=== PATIENT | female | born 1975 | race American Indian/Alaskan Native ===

== ENCOUNTER 2018-01-08 20:21 | Emergency (ER) | payer OTHER ==
[2018-01-08] MEDS ORDERED: TYLENOL PO ONE (21:00)
[2018-01-08] MEDS ORDERED: MOTRIN PO ONE (21:00)
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
[2018-01-08 21:14] VITALS: BP 161/98
== END 2018-01-08 21:28 | disposition home or self-care (01) ==
LOC: ED 20:21
DX: M54.2 Cervicalgia (principal); F17.200 Nicotine dependence, unspecified, uncomplicated; I10 Essential (primary) hypertension
CPT/HCPCS: 99282

== ENCOUNTER 2018-11-04 15:08 | Inpatient (IN) | payer MEDICAID, OTHER ==
[2018-11-04] MEDS ORDERED: TORADOL IV ONE (16:06)
[2018-11-04] MEDS ORDERED: ZOFRAN IV ONE (16:06)
[2018-11-04] MEDS ORDERED: NACL 0.9% 1000 ML 1,000 ML IV ONE (16:06)
[2018-11-04] MEDS ORDERED: PEPCID IV ONE (16:06)
--- NOTE | 2018-11-04 16:14 | Emergency Department Report ---
<JAKE SPAULDING - Last Filed: 11/04/18 16:12> ED General Adult HPI - General Chief complaint: Weakness Stated complaint: VOMITING/WEAKNESS/NO APPETITE Time Seen by Provider: 11/04/18 16:00 Source: patient Mode of arrival: Ambulatory Limitations: No Limitations - History of Present Illness Initial comments: Patient is a 43-year-old female who is presenting with weakness for approximately a week. Patient states she's been having some epigastric discomfort that she states is a gas-like pain as well. Patient has had some nausea with several episodes of vomiting. Patient states she has not had a bowel movement in approximately week and a half has passed very little flatus. Patient states she feels as though her abdomen is distended. Patient states pain in the epigastrium is 8 out of 10 in severity. Patient denies any fevers chills cough cold congestion at this time. - Related Data Previous Rx's Medication Instructions Recorded Last Taken Type Albuterol Sulfate [Ventolin HFA] 2 puff IH Q4H PRN #1 hfa.aer.ad 08/14/14 Unknown Rx Azithromycin [Zithromax Z-YAHAIRA] 250 mg PO DAILY #6 tablet 08/14/14 Unknown Rx Labetalol [Normodyne TAB] 100 mg PO BID #60 tablet 08/14/14 Unknown Rx Fluticasone [Flonase] 1 spray NS QDAY #1 bottle 05/26/16 Unknown Rx hydroCHLOROthiazide [HCTZ] 25 mg PO QDAY #30 tablet 05/26/16 Unknown Rx Acetaminophen [Tylenol Arthritis] 650 mg PO Q6HR PRN #30 tablet.er 01/08/18 Unknown Rx Ibuprofen [Motrin] 600 mg PO Q8H PRN #30 tablet 01/08/18 Unknown Rx ALBUTEROL Inhaler(NF) [VENTOLIN 1 puff IH Q1D PRN #1 inha 10/07/18 Unknown Rx Inhaler(NF)] Amoxicillin [Trimox CAP] 500 mg PO Q8H #30 capsule 10/07/18 Unknown Rx Benzonatate [Tessalon Perle] 100 mg PO TID #15 capsule 10/07/18 Unknown Rx Prednisone [predniSONE 5 mg (6-Day 5 mg PO .TAPER #1 tab.ds.pk 10/07/18 Unknown Rx Pack, 21 Tabs)] Allergies Allergy/AdvReac Type Severity Reaction Status Date / Time No Known Allergies Allergy Verified 09/14/13 21:31 ED Review of Systems Comment: All other systems reviewed and negative ED Past Medical Hx - Past Medical History Hx Hypertension: Yes Hx Congestive Heart Failure: No Hx Diabetes: No Hx Deep Vein Thrombosis: No Hx Renal Disease: No Hx Sickle Cell Disease: No Hx Seizures: No Hx Asthma: No Hx COPD: No Hx HIV: No - Surgical History Hx Cholecystectomy: Yes - Social History Smoking Status: Current Every Day Smoker Substance Use Type: Alcohol - Medications Home Medications: Home Medications Medication Instructions Recorded Confirmed Last Taken Type Albuterol Sulfate [Ventolin HFA] 2 puff IH Q4H PRN #1 hfa.aer.ad 08/14/14 Unknown Rx Azithromycin [Zithromax Z-YAHAIRA] 250 mg PO DAILY #6 tablet 08/14/14 Unknown Rx Labetalol [Normodyne TAB] 100 mg PO BID #60 tablet 08/14/14 Unknown Rx Fluticasone [Flonase] 1 spray NS QDAY #1 bottle 05/26/16 Unknown Rx hydroCHLOROthiazide [HCTZ] 25 mg PO QDAY #30 tablet 05/26/16 Unknown Rx Acetaminophen [Tylenol Arthritis] 650 mg PO Q6HR PRN #30 tablet.er 01/08/18 Unknown Rx Ibuprofen [Motrin] 600 mg PO Q8H PRN #30 tablet 01/08/18 Unknown Rx ALBUTEROL Inhaler(NF) [VENTOLIN 1 puff IH Q1D PRN #1 inha 10/07/18 Unknown Rx Inhaler(NF)] Amoxicillin [Trimox CAP] 500 mg PO Q8H #30 capsule 10/07/18 Unknown Rx Benzonatate [Tessalon Perle] 100 mg PO TID #15 capsule 10/07/18 Unknown Rx Prednisone [predniSONE 5 mg (6-Day 5 mg PO .TAPER #1 tab.ds.pk 10/07/18 Unknown Rx Pack, 21 Tabs)] ED Physical Exam - General Limitations: No Limitations General appearance: alert, in no apparent distress - Head Head exam: Present: atraumatic, normocephalic - Eye Eye exam: Present: normal appearance - ENT ENT exam: Present: mucous membranes moist - Neck Neck exam: Present: normal inspection - Respiratory Respiratory exam: Present: normal lung sounds bilaterally. Absent: respiratory distress, wheezes, rales, rhonchi - Cardiovascular Cardiovascular Exam: Present: regular rate, normal rhythm. Absent: systolic murmur, diastolic murmur, rubs, gallop - GI/Abdominal GI/Abdominal exam: Present: soft, tenderness (epigastric), normal bowel sounds, hypoactive bowel sounds. Absent: distended, guarding, rebound, rigid - Extremities Exam Extremities exam: Present: normal inspection - Back Exam Back exam: Present: normal inspection - Neurological Exam Neurological exam: Present: alert, oriented X3 - Psychiatric Psychiatric exam: Present: normal affect, normal mood - Skin Skin exam: Present: warm, dry, intact, normal color. Absent: rash ED Disposition Clinical Impression: Liver disease Bilateral pneumonia Qualifiers: Pneumonia type: due to unspecified organism Lung location: lower lobe of lung Qualified Code(s): J18.1 - Lobar pneumonia, unspecified organism Disposition: OP ADMIT IP TO THIS HOSP Condition: Stable Instructions: Bacterial Pneumonia (ED) Referrals: PRIMARY CARE, [Primary Care Provider] - 3-5 Days <MARII PETERS - Last Filed: 11/04/18 21:32> ED Review of Systems ROS: Stated complaint: VOMITING/WEAKNESS/NO APPETITE Other details as noted in HPI ED Course Vital Signs 11/04/18 11/04/18 15:20 16:35 Temperature 98.9 F Pulse Rate 105 H Respiratory 16 18 Rate Blood Pressure 143/108 O2 Sat by Pulse 100 Oximetry - Consultations Consultation #1: 11/04/18 21:29 Dr Raji Colby to admit patient. ED Medical Decision Making - Lab Data Result diagrams: 11/04/18 17:09 11/04/18 17:09 Lab Results 11/04/18 11/04/18 11/04/18 Range/Units 17:09 17:09 17:09 WBC 4.4 L (4.5-11.0) K/mm3 RBC 4.51 (3.65-5.03) M/mm3 Hgb 10.4 (10.1-14.3) gm/dl Hct 34.3 (30.3-42.9) % MCV 76 L (79-97) fl MCH 23 L (28-32) pg MCHC 30 (30-34) % RDW 22.7 H (13.2-15.2) % Plt Count 310 (140-440) K/mm3 Lymph % (Auto) 16.2 (13.4-35.0) % Yell % (Auto) 10.7 H (0.0-7.3) % Eos % (Auto) 0.0 (0.0-4.3) % Baso % (Auto) 0.6 (0.0-1.8) % Lymph # 0.7 L (1.2-5.4) K/mm3 Yell # 0.5 (0.0-0.8) K/mm3 Eos # 0.0 (0.0-0.4) K/mm3 Baso # 0.0 (0.0-0.1) K/mm3 Seg Neutrophils % 72.5 H (40.0-70.0) % Seg Neutrophils # 3.2 (1.8-7.7) K/mm3 Sodium 128 L (137-145) mmol/L Potassium 4.1 (3.6-5.0) mmol/L Chloride 95.6 L (98-107) mmol/L Carbon Dioxide 15 L (22-30) mmol/L Anion Gap 22 mmol/L BUN 15 (7-17) mg/dL Creatinine 1.2 (0.7-1.2) mg/dL Estimated GFR 60 ml/min BUN/Creatinine Ratio 13 % Glucose 100 (65-100) mg/dL Calcium 8.3 L (8.4-10.2) mg/dL Total Bilirubin 0.50 (0.1-1.2) mg/dL AST 41 H (5-40) units/L ALT 55 (7-56) units/L Alkaline Phosphatase 136 H (35-129) units/L Total Protein 6.7 (6.3-8.2) g/dL Albumin 2.3 L (3.9-5) g/dL Albumin/Globulin Ratio 0.5 % Lipase 12 L (13-60) units/L HCG, Qual Negative (Negative) Urine Color (Yellow) Urine Turbidity (Clear) Urine pH (5.0-7.0) Ur Specific [place] (1.003-1.030) Urine Protein (Negative) mg/dL Urine Glucose (UA) (Negative) mg/dL Urine Ketones (Negative) mg/dL Urine Blood (Negative) Urine Nitrite (Negative) Urine Bilirubin (Negative) Urine Urobilinogen (<2.0) mg/dL Ur Leukocyte Esterase (Negative) Urine WBC (Auto) (0.0-6.0) /HPF Urine RBC (Auto) (0.0-6.0) /HPF U Epithel Cells (Auto) (0-13.0) /HPF Urine Bacteria (Auto) (Negative) /HPF Urine Mucus /HPF 11/04/18 Range/Units 19:00 WBC (4.5-11.0) K/mm3 RBC (3.65-5.03) M/mm3 Hgb (10.1-14.3) gm/dl Hct (30.3-42.9) % MCV (79-97) fl MCH (28-32) pg MCHC (30-34) % RDW (13.2-15.2) % Plt Count (140-440) K/mm3 Lymph % (Auto) (13.4-35.0) % Yell % (Auto) (0.0-7.3) % Eos % (Auto) (0.0-4.3) % Baso % (Auto) (0.0-1.8) % Lymph # (1.2-5.4) K/mm3 Yell # (0.0-0.8) K/mm3 Eos # (0.0-0.4) K/mm3 Baso # (0.0-0.1) K/mm3 Seg Neutrophils % (40.0-70.0) % Seg Neutrophils # (1.8-7.7) K/mm3 Sodium (137-145) mmol/L Potassium (3.6-5.0) mmol/L Chloride (98-107) mmol/L Carbon Dioxide (22-30) mmol/L Anion Gap mmol/L BUN (7-17) mg/dL Creatinine (0.7-1.2) mg/dL Estimated GFR ml/min BUN/Creatinine Ratio % Glucose (65-100) mg/dL Calcium (8.4-10.2) mg/dL Total Bilirubin (0.1-1.2) mg/dL AST (5-40) units/L ALT (7-56) units/L Alkaline Phosphatase (35-129) units/L Total Protein (6.3-8.2) g/dL Albumin (3.9-5) g/dL Albumin/Globulin Ratio % Lipase (13-60) units/L HCG, Qual (Negative) Urine Color [place] (Yellow) Urine Turbidity Slightly-cloudy (Clear) Urine pH 5.0 (5.0-7.0) Ur Specific [place] > 1.030 H (1.003-1.030) Urine Protein 100 mg/dl (Negative) mg/dL Urine Glucose (UA) Neg (Negative) mg/dL Urine Ketones Neg (Negative) mg/dL Urine Blood Neg (Negative) Urine Nitrite Neg (Negative) Urine Bilirubin Neg (Negative) Urine Urobilinogen < 2.0 (<2.0) mg/dL Ur Leukocyte Esterase Sm (Negative) Urine WBC (Auto) 7.0 H (0.0-6.0) /HPF Urine RBC (Auto) 10.0 (0.0-6.0) /HPF U Epithel Cells (Auto) 14.0 H (0-13.0) /HPF Urine Bacteria (Auto) 1+ (Negative) /HPF Urine Mucus Few /HPF - Radiology Data Radiology results: report reviewed, image reviewed CT abdomen and pelvis showed Nutmeg liver and bilateral infiltrates with small effusion. - Medical Decision Making Bilateral Pneumonia. Critical care attestation.: If time is entered above; I have spent that time in minutes in the direct care of this critically ill patient, excluding procedure time. ED Disposition Is pt being admited?: Yes Does the pt Need Aspirin: No Time of Disposition: 21:32
[2018-11-04 17:28] LABS: Basophils % (Auto) 0.6 % (0.0-1.8); Hemoglobin 10.4 gm/dl (10.1-14.3); Lymphocytes # (Auto) 0.7 K/mm3 (1.2-5.4); Lymphocytes % (Auto) 16.2 % (13.4-35.0); Mean Corpuscular HGB Conc 30 % (30-34); Mean Corpuscular Volume 76 fl (79-97); Monocytes # (Auto) 0.5 K/mm3 (0.0-0.8); Monocytes % (Auto) 10.7 % (0.0-7.3); Platelet Count 310 K/mm3 (140-440); Red Blood Count 4.51 M/mm3 (3.65-5.03)
[2018-11-04 17:29] LABS: Hematocrit 34.3 % (30.3-42.9); Red Cell Distribution Width 22.7 % (13.2-15.2)
[2018-11-04 17:56] LABS: Albumin 2.3 g/dL (3.9-5); Calcium 8.3 mg/dL (8.4-10.2)
[2018-11-04 19:24] LABS: Bacteria,Urine 1+ /HPF (Negative); Bilirubin,Urine NEG (Negative); Blood,Urine NEG (Negative); Color,Urine Amber (Yellow); Mucus,Urine FEW /HPF; Urobilinogen,Urine < 2.0 mg/dL (<2.0)
--- NOTE | 2018-11-04 19:59 | Cat Scan Report ---
FINAL REPORT EXAM: CT ABDOMEN PELVIS W CON HISTORY: eigastric pain with N and abd distention TECHNIQUE: Axial images were performed from the lung bases to the pubic symphysis. Multiplanar refor mats are performed on the acquisition scanner. Comparison: Chest x-ray 10/13/2018, 10/06/2018 FINDINGS: There is marked cardiomegaly with dilatation of the chambers. Patchy right greater than left lower lobe dense infiltrates. Right middle lobe infiltrate and consoli dation. Small left pleural effusion. Hepatic veins are congested compatible with congestive heart failure. The liver is enlarged and has a nutmeg appearance. Congestive hepatology cannot be excluded. There is anasarca of the body wall and generalized edema. Spleen is not enlarged. Normal enhancement of the aorta and mesenteric vessels. Surgically absent gallbladder. Pancreas is grossly unremarkable. Adrenal glands are obscured. Normal enhancement of the kidneys. Retroperitoneum is ill-defined. Free fluid in the bony pelvis. Urinary bladder is minimally distended. Normally anteverted uterus. Left ovarian 3 centimeter cyst. A right adnexal 1.6 centimeter cyst is p resent. Delayed phase images demonstrate peripheral posterior segment right lobe liver and lateral segment le ft lobe liver marked heterogeneity. Portal vein phase was not performed, only the arterial phase was performed. There is fluid in both paracolic gutters. There appears to be developmental variant of both kidneys without discrete perfusion defect of mild l obular area the cortices. The liver is enlarged measuring 21 centimeters. Decompressed ascending colon. Normal appendix right lower quadrant. IMPRESSION: Bilateral lower lobe and right middle lobe pneumonia, most severe in the right lower lobe. Bronchial wall thickening. Dilated cardiomyopathy with distension of the inferior vena cava and hepatic veins. Hepatomegaly with nutmeg appearance of the liver. No portal vein phase was performed and therefore portal vein patency cannot be established. Hepatic veins are patent. Findings are most compatible with congestive hepato [place]. Budd Chiari is felt to be less likely but the intrahepatic hepatic veins cannot be assessed. Small layering left pleural effusion. Small to moderate pericardial effusion incompletely assessed. Small ascites. Anasarca. Findings were discussed with MARIUSZ Carlisle on 11/04/2018 at 1953 hours Eastern Standard time. Pat ient has no known prior history. Would recommend cardiac workup to include cardiac echo, optimization of cardiac output to improve congestive failure and congestive hepatopathy, correlation with LFTs. Consider liver Doppler to assess portal veins and hepatic veins for patency. Bilateral adnexal cysts presumably physiologic. Surgically absent gallbladder.
[2018-11-04] MEDS ORDERED: ZITHROMAX 500 MG in NACL 0.9% 250ML 250 ML IV ONE (21:28)
[2018-11-04] MEDS ORDERED: ROCEPHIN/NS 1 GM/50 ML 1 GM/50 ML BAG IV ONE (21:28)
[2018-11-04] MEDS ORDERED: TESSALON PERLES PO ONE (23:22)
[2018-11-04] MEDS ORDERED: MORPHINE IV ONE (23:25)
[2018-11-04] MEDS ORDERED: MORPHINE ONE (23:42)
--- NOTE | 2018-11-04 23:47 | History and Physical Report ---
History of Present Illness Date of examination: 11/04/18 History of present illness: 43-year-old woman with a history of hypertension comes emergency room with complaint of abdominal pain all over 1 month. She describes the pain as sharp, constant, intensity 8/10, no radiation, she is been taking [id number] pain medication with some relief. Over the last 2 weeks she is having nausea vomiting, unable to tolerate oral intake. Denies any fever or chills. Also states she's been having shortness of breath 1 week, PND, orthopnea and swelling in her legs Review of systems Constitutional: no weight loss, chills, fever Ears, eyes, nose, mouth and throat: no nasal congestion, no nasal discharge, no sinus pressure, no vision change, no red eye. Neck: No neck pain or rigidity. Cardiovascular: no palpitations, chest pain Respiratory: no cough,+ shortness of breath Gastrointestinal: no hematochezia, +abdominal pain Genitourinary : no frequency , no hematuria Musculoskeletal: no joint swelling or muscle ache Integumentary: no rash, no pruritis Neurological: no parathesias, no focal weakness Endocrine: no cold or heat intolerance, no polyuria or polydipsia Hematologic/Lymphatic: no easy bruising, no easy bleeding, no gland swelling Allergic/Immunologic: no urticaria, no angioedema. 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 FAMILY HISTORY: Hypertension Medications and Allergies Allergies Allergy/AdvReac Type Severity Reaction Status Date / Time No Known Allergies Allergy Verified 09/14/13 21:31 Home Medications Medication Instructions Recorded Confirmed Last Taken Type Albuterol Sulfate [Ventolin HFA] 2 puff IH Q4H PRN #1 hfa.aer.ad 08/14/14 Unknown Rx Azithromycin [Zithromax Z-YAHAIRA] 250 mg PO DAILY #6 tablet 08/14/14 Unknown Rx Labetalol [Normodyne TAB] 100 mg PO BID #60 tablet 08/14/14 Unknown Rx Fluticasone [Flonase] 1 spray NS QDAY #1 bottle 05/26/16 Unknown Rx hydroCHLOROthiazide [HCTZ] 25 mg PO QDAY #30 tablet 05/26/16 Unknown Rx Acetaminophen [Tylenol Arthritis] 650 mg PO Q6HR PRN #30 tablet.er 01/08/18 Unknown Rx Ibuprofen [Motrin] 600 mg PO Q8H PRN #30 tablet 01/08/18 Unknown Rx ALBUTEROL Inhaler(NF) [VENTOLIN 1 puff IH Q1D PRN #1 inha 10/07/18 Unknown Rx Inhaler(NF)] Amoxicillin [Trimox CAP] 500 mg PO Q8H #30 capsule 10/07/18 Unknown Rx Benzonatate [Tessalon Perle] 100 mg PO TID #15 capsule 10/07/18 Unknown Rx Prednisone [predniSONE 5 mg (6-Day 5 mg PO .TAPER #1 tab.ds.pk 10/07/18 Unknown Rx Pack, 21 Tabs)] Exam - Physical Exam Narrative exam: General Apperance: The patient lying in bed, breathing comfortable HEENT: Normocephalic, atraumatic. Pupils equally round and reactive to light, EOMI, no sclericterus or JVD or thyromegaly or nodule. , no carotid bruit, m ucous membranes moist, no exudate or erythema Heart: S1-S2, regular is rhythm Lungs: Crackles auscultation bilaterally, breathing comfortable Abdomen: Positive bowel sounds, soft, tender in the epigastric area, nondistended, no organomegaly Extremities: + edema cyanosis clubbing Skin: no rash, nodule, warm and dry Neuro: cranial nerves 2-12 intact, speech is fluent, motor/sensory intact - Constitutional Vitals: Temp Pulse Resp BP Pulse Ox 98.9 F 105 H 19 143/108 100 11/04/18 15:20 11/04/18 15:20 11/04/18 23:01 11/04/18 15:20 11/04/18 23:01 Results - Labs CBC & Chem 7: 11/05/18 05:13 11/05/18 05:13 Labs: Abnormal lab results 11/04/18 11/04/18 11/04/18 Range/Units 17:09 17:09 19:00 WBC 4.4 L (4.5-11.0) K/mm3 MCV 76 L (79-97) fl MCH 23 L (28-32) pg RDW 22.7 H (13.2-15.2) % [place] % (Auto) 10.7 H (0.0-7.3) % Lymph # 0.7 L (1.2-5.4) K/mm3 Seg Neutrophils % 72.5 H (40.0-70.0) % Sodium 128 L (137-145) mmol/L Chloride 95.6 L (98-107) mmol/L Carbon Dioxide 15 L (22-30) mmol/L Calcium 8.3 L (8.4-10.2) mg/dL AST 41 H (5-40) units/L Alkaline Phosphatase 136 H (35-129) units/L Albumin 2.3 L (3.9-5) g/dL Lipase 12 L (13-60) units/L Ur Specific [place] > 1.030 H (1.003-1.030) Urine WBC (Auto) 7.0 H (0.0-6.0) /HPF U Epithel Cells (Auto) 14.0 H (0-13.0) /HPF - Imaging and Cardiology CT scan - abdomen: report reviewed CT scan - pelvis: report reviewed Assessment and Plan Assessment New onset CHF, probably diastolic Community acquired pneumonia Hypertension Plan Admit to medicine Diurese with IV Lasix Hold beta josé miguel, DANA inhibitor, blood pressure will not tolerate Start low-dose aspirin, check cardiac enzymes, echo, consult cardiology Monitor daily weights, I's and O's Start IV Levaquin, obtain blood cultures DVT prophylaxis
[2018-11-05] MEDS ORDERED: ZOFRAN IV PRN (05:06)
[2018-11-05] MEDS ORDERED: SODIUM CHLORIDE FLUSH SYRINGE 10 ML IV PRN (05:06)
[2018-11-05] MEDS: MORPHINE IV PRN ×3 (05:09→20:57)
[2018-11-05] MEDS ORDERED: LASIX IV SCH (05:12)
[2018-11-05 05:29] LABS: Hematocrit 32.7 % (30.3-42.9); Hemoglobin 10.1 gm/dl (10.1-14.3); Mean Corpuscular HGB Conc 31 % (30-34); Mean Corpuscular Volume 75 fl (79-97); Platelet Count 322 K/mm3 (140-440); Red Blood Count 4.37 M/mm3 (3.65-5.03)
[2018-11-05 05:30] LABS: Red Cell Distribution Width 23.1 % (13.2-15.2)
[2018-11-05] MEDS: LEVAQUIN 750MG/150ML 750 MG/150 ML BAG IV SCH (05:54)
[2018-11-05] MEDS: LASIX IV SCH ×2 (05:54→17:57)
[2018-11-05 06:07] LABS: Calcium 8.3 mg/dL (8.4-10.2)
[2018-11-05 06:12] LABS: Basophils % (Manual) 0 % (0.0-1.8); Eosinophils % (Manual) 0 % (0.0-4.3); Total Cells Counted 100
[2018-11-05 06:13] LABS: Anisocytosis 1+
[2018-11-05 06:14] LABS: Platelet Estimate Consistent w Auto; Target Cells Few
[2018-11-05 07:56] LABS: Creatine Kinase MB 4.2 ng/mL (0.0-4.0)
--- NOTE | 2018-11-05 09:28 | XRay Report ---
FINAL REPORT EXAM: XR CHEST 1V AP HISTORY: sob COMPARISON: Chest radiograph performed on 10/13/2018 TECHNIQUE: Single frontal view of the chest FINDINGS: Again seen is marked cardiomegaly. There are patchy opacities at the bilateral lung bases and silhouetting of the left hemidiaphragm. No pleural effusion or pneumothorax. No acute bony or soft tissue abnormality. IMPRESSION: Unchanged marked cardiomegaly. Patchy opacities at the bilateral lung bases that may reflect atelectasis or infiltrate.
[2018-11-05] MEDS: BABY ASPIRIN PO SCH (09:41)
[2018-11-05] MEDS: LOVENOX SUB-Q SCH (09:42)
[2018-11-05] MEDS ORDERED: LOVENOX SUB-Q SCH (10:00)
[2018-11-05] MEDS ORDERED: PNEUMOVAX 23 IM ONE (12:00)
[2018-11-05] MEDS ORDERED: AFLURIA QUAD 2018-2019 SYRINGE IM ONE (12:00)
[2018-11-05 13:09] LABS: Creatine Kinase MB 4.7 ng/mL (0.0-4.0)
--- NOTE | 2018-11-05 17:32 | Consultation ---
History of Present Illness Consult date: 11/05/18 Requesting physician: GIOVANNY BERMUDEZ Consult reason: congestive heart failure, shortness of breath History of present illness: 43-year-old female with a past medical history of hypertension currently not taking any blood pressure medications presented to [facility] emergency department complaining of generalized weakness shortness of breath and a subjective fever. In the emergency department CT of abdomen and pelvis suggested left lower lobe/right lower lobe/right middle lobe pneumonia. It was also suggestion of dilated cardiomyopathy with congestive hepatopathy. The patient was admitted with a diagnosis of congestive heart failure and bilateral pneumonia. The patient had a sodium of 128 and creatinine increasing to 1.3. Past History Past Medical History: hypertension Past Surgical History: No surgical history Social history: denies: alcohol abuse, IV drug use Family history: hypertension Medications and Allergies Allergies Allergy/AdvReac Type Severity Reaction Status Date / Time No Known Allergies Allergy Verified 09/14/13 21:31 Home Medications Medication Instructions Recorded Confirmed Last Taken Type Albuterol Sulfate [Ventolin HFA] 2 puff IH Q4H PRN #1 hfa.aer.ad 08/14/14 11/05/18 Unknown Rx Azithromycin [Zithromax Z-YAHAIRA] 250 mg PO DAILY #6 tablet 08/14/14 11/05/18 Unknown Rx Labetalol [Normodyne TAB] 100 mg PO BID #60 tablet 08/14/14 11/05/18 Unknown Rx Fluticasone [Flonase] 1 spray NS QDAY #1 bottle 05/26/16 11/05/18 Unknown Rx hydroCHLOROthiazide [HCTZ] 25 mg PO QDAY #30 tablet 05/26/16 11/05/18 Unknown Rx Acetaminophen [Tylenol Arthritis] 650 mg PO Q6HR PRN #30 tablet.er 01/08/18 11/05/18 Unknown Rx Ibuprofen [Motrin] 600 mg PO Q8H PRN #30 tablet 01/08/18 11/05/18 Unknown Rx ALBUTEROL Inhaler(NF) [VENTOLIN 1 puff IH Q1D PRN #1 inha 10/07/18 11/05/18 Unknown Rx Inhaler(NF)] Amoxicillin [Trimox CAP] 500 mg PO Q8H #30 capsule 10/07/18 11/05/18 Unknown Rx Benzonatate [Tessalon Perle] 100 mg PO TID #15 capsule 10/07/18 11/05/18 Unknown Rx Prednisone [predniSONE 5 mg (6-Day 5 mg PO .TAPER #1 tab.ds.pk 10/07/18 11/05/18 Unknown Rx Pack, 21 Tabs)] Active Meds: Active Medications Acetaminophen (Tylenol) 650 mg PO Q4H PRN PRN Reason: Pain MILD(1-3)/Fever >100.5/FIORE Aspirin (Baby Aspirin) 81 mg PO QDAY [facility] Enoxaparin Sodium (Lovenox) 40 mg SUB-Q QDAY@1000 [facility] Furosemide (Lasix) 20 mg IV 0600,1800 [facility] Last Admin: 11/05/18 05:54 Dose: 20 mg Documented by: Levofloxacin/Dextrose (Levaquin 750mg/150ml) 750 mg in 150 mls @ 100 mls/hr IV Q24H [facility] Last Admin: 11/05/18 05:54 Dose: 100 mls/hr Documented by: Morphine Sulfate (Morphine) 2 mg IV Q4H PRN PRN Reason: Pain, Moderate (4-6) Last Admin: 11/05/18 13:18 Dose: 2 mg Documented by: Ondansetron HCl (Zofran) 4 mg IV Q8H PRN PRN Reason: Nausea And Vomiting Sodium Chloride (Sodium Chloride Flush Syringe 10 Ml) 10 ml IV BID [facility] Sodium Chloride (Sodium Chloride Flush Syringe 10 Ml) 10 ml IV PRN PRN PRN Reason: LINE FLUSH Review of Systems Constitutional: fever, sweats, no weight loss, no weight gain Ears, nose, mouth and throat: no ear pain, no ear discharge, no tinnitis Breasts: deferred Cardiovascular: edema, lightheadedness, shortness of breath, no chest pain, no orthopnea, no palpitations, no rapid/irregular heart beat, no syncope Respiratory: cough, shortness of breath, congestion Gastrointestinal: nausea, no diarrhea, no constipation Rectal: no pain, no incontinence Musculoskeletal: no neck stiffness, no neck pain Integumentary: no rash, no pruritis Neurological: no head injury, no transient paralysis Psychiatric: no anxiety, no memory loss Endocrine: no polydipsia, no polyuria Allergic/Immunologic: no urticaria Physical Examination Vital Signs Temp Pulse Resp BP Pulse Ox 98.9 F 105 H 16 143/108 100 11/04/18 15:20 11/04/18 15:20 11/04/18 15:20 11/04/18 15:20 11/04/18 15:20 General appearance: no acute distress HEENT: Positive: PERRL Neck: Positive: neck supple, trachea midline Cardiac: Positive: Reg Rate and Rhythm Lungs: Positive: clear to auscultation, Normal Breath Sounds Neuro: Positive: Grossly Intact Abdomen: Positive: Soft, Active Bowel Sounds Skin: Negative: Rash, Suspicious Lesions Extremities: Present: Cool. Absent: edema Results 11/05/18 05:13 11/05/18 05:13 Cardiac Enzymes 11/04/18 11/05/18 11/05/18 Range/Units 17:09 05:13 11:48 AST 41 H (5-40) units/L CK-MB (CK-2) 4.2 H 4.7 H (0.0-4.0) ng/mL CBC 11/05/18 Range/Units 05:13 WBC 6.8 (4.5-11.0) K/mm3 RBC 4.37 (3.65-5.03) M/mm3 Hgb 10.1 (10.1-14.3) gm/dl Hct 32.7 (30.3-42.9) % Plt Count 322 (140-440) K/mm3 Comprehensive Metabolic Panel 11/04/18 11/05/18 Range/Units 17:09 05:13 Sodium 128 L 128 L (137-145) mmol/L Potassium 4.1 4.7 (3.6-5.0) mmol/L Chloride 95.6 L 92.9 L (98-107) mmol/L Carbon Dioxide 15 L 17 L (22-30) mmol/L BUN 15 16 (7-17) mg/dL Creatinine 1.2 1.3 H (0.7-1.2) mg/dL Glucose 100 108 H (65-100) mg/dL Calcium 8.3 L 8.3 L (8.4-10.2) mg/dL AST 41 H (5-40) units/L ALT 55 (7-56) units/L Alkaline Phosphatase 136 H (35-129) units/L Total Protein 6.7 (6.3-8.2) g/dL Albumin 2.3 L (3.9-5) g/dL - Imaging and Cardiology Echo: pending EKG interpretations - Telemetry EKG Rhythm: Sinus Tachycardia Assessment and Plan Bilateral pneumonia Per Primary Team Congestive heart failure ECHO pending gentle diuresis monitor K+ Hypertension Noncompliance with medications consider carvedilol 3.125 BID for elevated BP Hyponatremia Acute kidney injury
[2018-11-05] MEDS: SODIUM CHLORIDE FLUSH SYRINGE 10 ML IV SCH ×2 (17:59→21:02)
--- NOTE | 2018-11-05 18:10 | Progress Note ---
Assessment and Plan New onset CHF, probably systolic Community acquired b/l pneumonia Hypertension Mild hyponatremia HEIDY Plan Monitor at medicine cont Diuresis with IV Lasix, nebs as needed start beta josé miguel, DANA inhibitor if blood pressure tolerates cont low-dose aspirin, followcardiac enzymes, echo, consulted cardiology Monitor daily weights, I's and O's cont IV Levaquin, follow blood cultures DVT prophylaxis Brief history: 43-year-old female with a past medical history of hypertension currently not taking any blood pressure medications presented to [facility] emergency department complaining of generalized weakness shortness of breath and a subjective fever. In the emergency department CT of abdomen and pelvis suggested left lower lobe/right lower lobe/right middle lobe pneumonia. It was also suggestion of dilated cardiomyopathy with congestive hepatopathy. The patient was admitted with a diagnosis of congestive heart failure and bilateral pneumonia. The patient had a sodium of 128 and creatinine increasing to 1.3. Physical exam: General Apperance: The patient lying in bed, breathing comfortable HEENT: Normocephalic, atraumatic. Pupils equally round and reactive to light, EOMI, no sclericterus or JVD or thyromegaly or nodule. , no carotid bruit, mucous membranes moist, no exudate or erythema Heart: S1-S2, regular is rhythm Lungs: Crackles auscultation bilaterally, breathing comfortable Abdomen: Positive bowel sounds, soft, tender in the epigastric area, nondistended, no organomegaly Extremities: + edema cyanosis clubbing Skin: no rash, nodule, warm and dry Neuro: cranial nerves 2-12 intact, speech is fluent, motor/sensory intact Subjective Date of service: 11/05/18 Interval history: Pt seen AND EXAMINED C/O sob AND EPIGASTRIC PAIN Tolerating diet Objective - Constitutional Vitals: Vital Signs - 12hr 11/05/18 11/05/18 11/05/18 08:14 13:18 13:48 Temperature 97.9 F Pulse Rate 108 H Respiratory 18 18 18 Rate Blood Pressure 135/112 O2 Sat by Pulse 100 Oximetry 11/05/18 16:30 Temperature 98.3 F Pulse Rate 99 H Respiratory 16 Rate Blood Pressure 142/115 O2 Sat by Pulse 100 Oximetry - Labs CBC & Chem 7: 11/05/18 05:13 11/06/18 14:56 Labs: Abnormal lab results 11/04/18 11/05/18 11/05/18 Range/Units 19:00 05:13 05:13 MCV 75 L (79-97) fl MCH 23 L (28-32) pg RDW 23.1 H (13.2-15.2) % Seg Neuts % (Manual) 81.0 H (40.0-70.0) % Lymphocytes % (Manual) 10.0 L (13.4-35.0) % Monocytes % (Manual) 8.0 H (0.0-7.3) % Nucleated RBC % 6.0 H (0.0-0.9) % Seg Neutrophils # Man 0.0 L (1.8-7.7) K/mm3 Lymphocytes # (Manual) 0.0 L (1.2-5.4) K/mm3 Sodium 128 L (137-145) mmol/L Chloride 92.9 L (98-107) mmol/L Carbon Dioxide 17 L (22-30) mmol/L Creatinine 1.3 H (0.7-1.2) mg/dL Glucose 108 H (65-100) mg/dL Calcium 8.3 L (8.4-10.2) mg/dL Total Creatine Kinase (30-135) units/L CK-MB (CK-2) (0.0-4.0) ng/mL Ur Specific [place] > 1.030 H (1.003-1.030) Urine WBC (Auto) 7.0 H (0.0-6.0) /HPF U Epithel Cells (Auto) 14.0 H (0-13.0) /HPF 11/05/18 11/05/18 Range/Units 05:13 11:48 MCV (79-97) fl MCH (28-32) pg RDW (13.2-15.2) % Seg Neuts % (Manual) (40.0-70.0) % Lymphocytes % (Manual) (13.4-35.0) % Monocytes % (Manual) (0.0-7.3) % Nucleated RBC % (0.0-0.9) % Seg Neutrophils # Man (1.8-7.7) K/mm3 Lymphocytes # (Manual) (1.2-5.4) K/mm3 Sodium (137-145) mmol/L Chloride (98-107) mmol/L Carbon Dioxide (22-30) mmol/L Creatinine (0.7-1.2) mg/dL Glucose (65-100) mg/dL Calcium (8.4-10.2) mg/dL Total Creatine Kinase 241 H 269 H (30-135) units/L CK-MB (CK-2) 4.2 H 4.7 H (0.0-4.0) ng/mL Ur Specific [place] (1.003-1.030) Urine WBC (Auto) (0.0-6.0) /HPF U Epithel Cells (Auto) (0-13.0) /HPF
[2018-11-05] MEDS: DUONEB *Not for PRN Use IH SCH (20:12)
[2018-11-06] MEDS: MORPHINE IV PRN ×2 (02:09→10:08)
[2018-11-06] MEDS: DUONEB *Not for PRN Use IH SCH ×4 (02:43→20:13)
[2018-11-06] MEDS: LASIX IV SCH ×2 (06:50→18:02)
[2018-11-06] MEDS: LEVAQUIN 750MG/150ML 750 MG/150 ML BAG IV SCH (06:50)
[2018-11-06] MEDS: LOVENOX SUB-Q SCH (10:12)
[2018-11-06] MEDS: BABY ASPIRIN PO SCH (10:12)
[2018-11-06] MEDS: SODIUM CHLORIDE FLUSH SYRINGE 10 ML IV SCH ×2 (10:13→22:05)
[2018-11-06] MEDS ORDERED: DULCOLAX PR PRN (10:30)
[2018-11-06] MEDS ORDERED: NORMODYNE PO SCH (11:00)
[2018-11-06] MEDS: MIRALAX 3350 PO SCH (11:41)
--- NOTE | 2018-11-06 13:28 | Progress Note ---
Assessment and Plan Bilateral pneumonia Per Primary Team Acute systolic heart failure EF 15-20% diuresis monitor K+/Cr start carvediolol/lisinopril titrate as tolerated d/c labetalol Hypertension Noncompliance with medications consider carvedilol 3.125 BID for elevated BP Hyponatremia Acute kidney injury Subjective Date of service: 11/06/18 Principal diagnosis: pneumonia/acute systolic heart failure Interval history: Patient is sitting up in bed complaining of shortness of breath. Objective Vital Signs Temp Pulse Pulse Pulse Pulse Resp Resp 11/06/18 12:11 97.9 F 106 H 18 11/06/18 10:21 11/06/18 10:00 104 H 11/06/18 07:41 97.9 F 107 H 20 11/06/18 07:27 106 H 16 11/06/18 07:20 104 H 16 11/06/18 04:03 97.6 F 113 H 14 11/06/18 02:56 108 H 18 11/06/18 02:46 111 H 18 11/06/18 02:00 109 H 11/05/18 23:04 97.0 F L 109 H 18 11/05/18 22:00 101 H 101 H 18 11/05/18 20:14 85 14 11/05/18 19:51 97.1 F L 103 H 20 11/05/18 16:30 98.3 F 99 H 16 11/05/18 13:48 18 BP Pulse Ox 11/06/18 12:11 135/111 100 11/06/18 10:21 98 11/06/18 10:00 100 11/06/18 07:41 135/101 100 11/06/18 07:27 11/06/18 07:20 11/06/18 04:03 149/115 100 11/06/18 02:56 11/06/18 02:46 11/06/18 02:00 11/05/18 23:04 137/109 99 11/05/18 22:00 100 11/05/18 20:14 11/05/18 19:51 145/114 100 11/05/18 16:30 142/115 100 11/05/18 13:48 - Physical Examination HEENT: Positive: PERRL Neck: Positive: neck supple, trachea midline Cardiac: Positive: Regular Rhythm, Tachycardia Lungs: Positive: Rales Neuro: Positive: Grossly Intact Abdomen: Positive: Soft, Active Bowel Sounds Skin: Negative: Rash, Suspicious Lesions Extremities: Present: Cool. Absent: edema - Imaging and Cardiology Echo: report reviewed (ECHO 11/19: EF 15-20%, mod LVE, severe MR)
[2018-11-06] MEDS: ZESTRIL PO SCH (14:33)
[2018-11-06] MEDS: TYLENOL PO PRN ×2 (14:34→22:50)
[2018-11-06] MEDS ORDERED: PROVENTIL IH PRN (15:21)
[2018-11-06 15:30] LABS: BUN/Creatinine Ratio 15; Blood Urea Nitrogen 16 mg/dL (7-17); Calcium 7.9 mg/dL (8.4-10.2); Hemolysis Index 8
--- NOTE | 2018-11-06 16:15 | Progress Note ---
Assessment and Plan New onset Acute systolic heart failure EF 15-20% Community acquired b/l pneumonia Hypertension Mild hyponatremia HEIDY Plan Monitor at medicine cont Diuresis with IV Lasix, nebs as needed start beta josé miguel, DANA inhibitor if blood pressure tolerates cont low-dose aspirin, followcardiac enzymes, echo, consulted cardiology Monitor daily weights, I's and O's cont IV Levaquin, follow blood cultures DVT prophylaxis Brief history: 43-year-old female with a past medical history of hypertension currently not taking any blood pressure medications presented to [facility] emergency department complaining of generalized weakness shortness of breath and a subjective fever. In the emergency department CT of abdomen and pelvis suggested left lower lobe/right lower lobe/right middle lobe pneumonia. It was also suggestion of dilated cardiomyopathy with congestive hepatopathy. The patient was admitted with a diagnosis of congestive heart failure and bilateral pneumonia. The patient had a sodium of 128 and creatinine increasing to 1.3. Physical exam: General Apperance: The patient lying in bed, breathing comfortable HEENT: Normocephalic, atraumatic. Pupils equally round and reactive to light, EOMI, no sclericterus or JVD or thyromegaly or nodule. , no carotid bruit, mucous membranes moist, no exudate or erythema Heart: S1-S2, regular is rhythm Lungs: Crackles auscultation bilaterally, breathing comfortable Abdomen: Positive bowel sounds, soft, tender in the epigastric area, nondistended, no organomegaly Extremities: + edema cyanosis clubbing Skin: no rash, nodule, warm and dry Neuro: cranial nerves 2-12 intact, speech is fluent, motor/sensory intact Subjective Date of service: 11/06/18 Principal diagnosis: pneumonia/acute systolic heart failure Interval history: Pt seen AND EXAMINED C/O sob AND EPIGASTRIC PAIN Tolerating diet Objective - Constitutional Vitals: Vital Signs - 12hr 11/06/18 11/06/18 11/06/18 07:20 07:27 07:41 Temperature 97.9 F Pulse Rate 107 H Pulse Rate [ 104 H 106 H Anterior] Respiratory 20 Rate Respiratory 16 16 Rate [Anterior] Blood Pressure 135/101 O2 Sat by Pulse 100 Oximetry 11/06/18 11/06/18 11/06/18 10:00 10:21 12:11 Temperature 97.9 F Pulse Rate 104 H 106 H Pulse Rate [ Anterior] Respiratory 18 Rate Respiratory Rate [Anterior] Blood Pressure 135/111 O2 Sat by Pulse 100 98 100 Oximetry 11/06/18 11/06/18 13:25 13:36 Temperature Pulse Rate Pulse Rate [ 102 H 104 H Anterior] Respiratory Rate Respiratory 18 18 Rate [Anterior] Blood Pressure O2 Sat by Pulse Oximetry - Labs CBC & Chem 7: 11/05/18 05:13 11/06/18 14:56 Labs: Abnormal lab results 11/06/18 Range/Units 14:56 Sodium 126 L (137-145) mmol/L Chloride 89.4 L (98-107) mmol/L Carbon Dioxide 20 L (22-30) mmol/L Calcium 7.9 L (8.4-10.2) mg/dL
[2018-11-06] MEDS ORDERED: COREG PO SCH (22:00)
[2018-11-06] MEDS: COREG PO SCH (22:04)
[2018-11-06] MEDS: COLACE PO SCH (22:05)
[2018-11-07] MEDS: DUONEB *Not for PRN Use IH SCH ×4 (02:04→20:53)
[2018-11-07] MEDS: LASIX IV SCH ×2 (06:24→17:35)
[2018-11-07] MEDS: LEVAQUIN 750MG/150ML 750 MG/150 ML BAG IV SCH (06:25)
[2018-11-07] MEDS: BABY ASPIRIN PO SCH (08:59)
[2018-11-07] MEDS: ZESTRIL PO SCH (08:59)
[2018-11-07] MEDS: COREG PO SCH ×2 (08:59→21:59)
[2018-11-07] MEDS: LOVENOX SUB-Q SCH (08:59)
[2018-11-07] MEDS: SODIUM CHLORIDE FLUSH SYRINGE 10 ML IV SCH ×2 (09:00→21:59)
[2018-11-07] MEDS: MIRALAX 3350 PO SCH (09:01)
--- NOTE | 2018-11-07 11:30 | Progress Note ---
Assessment and Plan Bilateral pneumonia Per Primary Team Acute systolic heart failure New diagnosis Improving. Cont diuresis, monitor K+/Cr Cardiomyopathy EF 15-20% Cont coreg and lisinopril as tolerated, consider addition of aldactone Ischemic evaluation to r/o ischemic CMP is recommended. Indications, potential risks and benefits of LHC reviewed with pt and she is agreeable to proceed. Will tentatively plan on LHC tomorrow AM pending PNA continues to improve and respiratory status remains stable. NPO after MN. Hypertension H/o noncompliance with medications Hyponatremia Acute kidney injury Renal indices improving H/o tobacco and ETOH use The patient has been seen in conjunction with Dr. Lambert who agrees with the assessment and plan of care. Subjective Date of service: 11/07/18 Principal diagnosis: pneumonia/acute systolic heart failure Interval history: pt resting in bed, c/o productive cough, SOB improving, BLE swelling resolved. tele reviewed - in SR. Objective Last Vital Signs Temp 98.0 F 11/07/18 08:42 Pulse 90 11/07/18 08:42 Resp 18 11/07/18 08:53 BP 109/85 11/07/18 08:42 Pulse Ox 100 11/07/18 10:00 - Physical Examination General: No Apparent Distress HEENT: Positive: PERRL Neck: Positive: neck supple, trachea midline Cardiac: Positive: Reg Rate and Rhythm, S1/S2 Lungs: Positive: Rhonchi Neuro: Positive: Grossly Intact Abdomen: Positive: Soft, Active Bowel Sounds Skin: Negative: Rash, Suspicious Lesions Extremities: Present: Cool. Absent: edema - Labs and Meds Comprehensive Metabolic Panel 11/06/18 Range/Units 14:56 Sodium 126 L (137-145) mmol/L Potassium 4.5 (3.6-5.0) mmol/L Chloride 89.4 L (98-107) mmol/L Carbon Dioxide 20 L (22-30) mmol/L BUN 16 (7-17) mg/dL Creatinine 1.1 (0.7-1.2) mg/dL Glucose 100 (65-100) mg/dL Calcium 7.9 L (8.4-10.2) mg/dL - Imaging and Cardiology Echo: report reviewed (ECHO 11/19: EF 15-20%, mod LVE, severe MR) - Telemetry EKG Rhythm: Sinus Rhythm
[2018-11-07] MEDS: COLACE PO SCH ×2 (11:34→21:53)
[2018-11-07] MEDS: TYLENOL PO PRN (11:37)
--- NOTE | 2018-11-07 15:54 | Progress Note ---
Assessment and Plan New onset Acute systolic heart failure EF 15-20% Community acquired b/l pneumonia Hypertension, stable Mild hyponatremia HEIDY, likely vasomotor nephropathy Plan Monitor at medicine cont Diuresis with IV Lasix, nebs as needed start beta josé miguel, DANA inhibitor if blood pressure tolerates cont low-dose aspirin, statin, consulted cardiology Monitor daily weights, I's and O's cont IV Levaquin, follow blood cultures plan for cardiac cath tomorrow DVT prophylaxis Brief history: 43-year-old female with a past medical history of hypertension currently not taking any blood pressure medications presented to [facility] emergency department complaining of generalized weakness shortness of breath and a subjective fever. In the emergency department CT of abdomen and pelvis suggested left lower lobe/right lower lobe/right middle lobe pneumonia. It was also suggestion of dilated cardiomyopathy with congestive hepatopathy. The patient was admitted with a diagnosis of congestive heart failure and bilateral pneumonia. The patient had a sodium of 128 and creatinine increasing to 1.3. Physical exam: General Apperance: The patient lying in bed, breathing comfortable HEENT: Normocephalic, atraumatic. no sclericterus or JVD or thyromegaly or nodule. mucous membranes moist, no exudate or erythema Heart: S1-S2, regular is rhythm Lungs: Crackles auscultation bilaterally, breathing comfortable Abdomen: Positive bowel sounds, soft, mild tender in the epigastric area, nondistended, no organomegaly Extremities: + trace edema, cyanosis clubbing Skin: no rash, nodule, warm and dry Neuro: cranial nerves 2-12 intact, speech is fluent, motor/sensory intact Subjective Date of service: 11/07/18 Principal diagnosis: pneumonia/acute systolic heart failure Interval history: Pt seen AND EXAMINED C/O sob, improved EPIGASTRIC PAIN Tolerating diet Objective - Constitutional Vitals: Vital Signs - 12hr 11/07/18 11/07/18 11/07/18 04:24 05:00 08:42 Temperature 97.5 F L 97.5 F L 98.0 F Pulse Rate 92 H 90 Pulse Rate [ Anterior] Respiratory 16 18 20 Rate Respiratory Rate [Anterior] Blood Pressure 97/70 109/85 Blood Pressure 97/70 [Right] O2 Sat by Pulse 93 100 Oximetry 11/07/18 11/07/18 11/07/18 08:53 10:00 12:36 Temperature 97.5 F L Pulse Rate 50 L Pulse Rate [ Anterior] Respiratory 18 18 Rate Respiratory Rate [Anterior] Blood Pressure Blood Pressure 96/76 [Right] O2 Sat by Pulse 100 91 Oximetry 11/07/18 11/07/18 14:35 14:47 Temperature Pulse Rate Pulse Rate [ 96 H 91 H Anterior] Respiratory Rate Respiratory 18 18 Rate [Anterior] Blood Pressure Blood Pressure [Right] O2 Sat by Pulse Oximetry - Labs CBC & Chem 7: 11/08/18 05:12 11/08/18 05:12
[2018-11-07] MEDS ORDERED: ROBITUSSIN AC PO PRN (20:04)
[2018-11-08] MEDS: NACL 0.9% 500 ML 500 ML IV SCH ×2 (00:12→08:14)
[2018-11-08] MEDS: LASIX IV SCH (05:36)
[2018-11-08 05:58] LABS: Basophils % (Auto) 0.3 % (0.0-1.8); Hematocrit 28.8 % (30.3-42.9); Hemoglobin 9.1 gm/dl (10.1-14.3); Lymphocytes # (Auto) 1.1 K/mm3 (1.2-5.4); Lymphocytes % (Auto) 21.8 % (13.4-35.0); Mean Corpuscular HGB Conc 32 % (30-34); Mean Corpuscular Volume 73 fl (79-97); Monocytes # (Auto) 0.6 K/mm3 (0.0-0.8); Monocytes % (Auto) 11.1 % (0.0-7.3); Platelet Count 278 K/mm3 (140-440); Red Blood Count 3.92 M/mm3 (3.65-5.03)
[2018-11-08 06:01] LABS: Red Cell Distribution Width 22.5 % (13.2-15.2)
[2018-11-08 06:05] LABS: INR 1.22 (0.87-1.13)
[2018-11-08 06:22] LABS: BUN/Creatinine Ratio 13; Blood Urea Nitrogen 13 mg/dL (7-17); Calcium 7.6 mg/dL (8.4-10.2); Hemolysis Index 6
--- NOTE | 2018-11-08 08:00 | Ultrasound Report ---
ULTRASOUND ABDOMEN COMPLETE: TECHNIQUE: Transabdominal ultrasound with color Doppler interrogation. HISTORY: abdominal pain. COMPARISON: CT abdomen pelvis with contrast dated 11/04/18. FINDINGS: LIVER: Mild congestive hepatomegaly with dilated hepatic veins and IVC is again noted. No focal liver lesion or surface nodularity is identified. BILIARY SYSTEM: Cholecystectomy. The CBD measures 5.3 mm. PANCREAS: Normal. SPLEEN: Within normal limits. A. 0.1 cm in length. KIDNEYS: The kidneys are normal size measuring approximately 11 cm in length. Both kidneys demonstrate increased cortical echotexture consistent with nonspecific renal parenchymal disease. No focal renal lesion or obstructive uropathy is identified. AORTA/IVC: Normal. ASCITES: None. A moderate layering left pleural effusion is partially imaged. IMPRESSION: Hepatomegaly, likely congestive. Nonspecific renal parenchymal disease. Left pleural effusion.
[2018-11-08] MEDS ORDERED: NACL 0.9% 500 ML 500 ML ONE (08:10)
[2018-11-08] MEDS: BABY ASPIRIN PO SCH ×2 (08:13→11:33)
[2018-11-08] MEDS: DUONEB *Not for PRN Use IH SCH ×3 (08:14→14:19)
[2018-11-08] MEDS ORDERED: BABY ASPIRIN ONE (08:15)
[2018-11-08] MEDS ORDERED: CALAN ONE (08:35)
[2018-11-08] MEDS ORDERED: XYLOCAINE 2% INFILTRATI ONE (08:35)
[2018-11-08] MEDS ORDERED: NITROGLYCERIN SYRINGE 3 ML ONE (08:35)
[2018-11-08] MEDS ORDERED: HEPARIN/NS 5000 UNIT/500ML(CATH LAB) 1,000 ML IR ONE (08:35)
[2018-11-08] MEDS ORDERED: HEPARIN 10,000 UNITS/10 ML ONE (08:35)
[2018-11-08] MEDS: VERSED ONE ×2 (09:51→09:56)
[2018-11-08] MEDS: SUBLIMAZE ONE ×2 (09:51→09:56)
[2018-11-08] MEDS ORDERED: LEVAQUIN PO SCH (10:00)
--- NOTE | 2018-11-08 10:21 | Progress Note ---
Assessment and Plan Bilateral pneumonia Per Primary Team Acute systolic heart failure New diagnosis Improving. Cont diuresis, monitor K+/Cr Cardiomyopathy EF 15-20% Cont coreg and lisinopril as tolerated, start aldactone and change to po lasix 40mg daily cath today normal coronaries and severe lv dsyfunction, may be discharged from [facility] point of view Hypertension H/o noncompliance with medications Hyponatremia Acute kidney injury Renal indices improving H/o tobacco and ETOH use Subjective Date of service: 11/08/18 Principal diagnosis: pneumonia/acute systolic heart failure Interval history: pt sob has improved Objective Vital Signs Temp Pulse Pulse Pulse Pulse Resp Resp 11/08/18 04:16 98.1 F 94 H 18 11/08/18 02:00 101 H 11/08/18 00:20 98.1 F 18 11/07/18 22:00 91 H 91 H 18 11/07/18 21:59 91 H 11/07/18 21:06 108 H 18 11/07/18 20:57 11/07/18 20:53 100 H 15 11/07/18 19:34 98.4 F 91 H 18 11/07/18 16:08 98.2 F 90 18 11/07/18 14:47 91 H 18 11/07/18 14:35 96 H 18 11/07/18 12:36 97.5 F L 50 L 18 BP BP Pulse Ox 11/08/18 04:16 108/81 100 11/08/18 02:00 11/08/18 00:20 100/72 11/07/18 22:00 100 11/07/18 21:59 97/70 11/07/18 21:06 11/07/18 20:57 100 11/07/18 20:53 11/07/18 19:34 97/70 100 11/07/18 16:08 94/67 100 11/07/18 14:47 11/07/18 14:35 11/07/18 12:36 96/76 91 - Physical Examination General: No Apparent Distress HEENT: Positive: PERRL Neck: Positive: neck supple, trachea midline Cardiac: Positive: Reg Rate and Rhythm Lungs: Positive: clear to auscultation Neuro: Positive: Grossly Intact Abdomen: Positive: Soft, Active Bowel Sounds Skin: Negative: Rash, Suspicious Lesions Extremities: Present: Cool. Absent: edema - Labs and Meds Coagulation 11/08/18 Range/Units 05:12 PT 15.8 H (12.2-14.9) Sec. INR 1.22 H (0.87-1.13) CBC 11/08/18 Range/Units 05:12 WBC 5.2 (4.5-11.0) K/mm3 RBC 3.92 (3.65-5.03) M/mm3 Hgb 9.1 L (10.1-14.3) gm/dl Hct 28.8 L (30.3-42.9) % Plt Count 278 (140-440) K/mm3 Lymph # 1.1 L (1.2-5.4) K/mm3 [place] # 0.6 (0.0-0.8) K/mm3 Eos # 0.0 (0.0-0.4) K/mm3 Baso # 0.0 (0.0-0.1) K/mm3 Comprehensive Metabolic Panel 11/08/18 Range/Units 05:12 Sodium 132 L (137-145) mmol/L Potassium 3.7 (3.6-5.0) mmol/L Chloride 93.8 L (98-107) mmol/L Carbon Dioxide 26 (22-30) mmol/L BUN 13 (7-17) mg/dL Creatinine 1.0 (0.7-1.2) mg/dL Glucose 82 (65-100) mg/dL Calcium 7.6 L (8.4-10.2) mg/dL - Imaging and Cardiology Echo: report reviewed (ECHO 11/19: EF 15-20%, mod LVE, severe MR) Cardiac cath: report reviewed (normal coronaries and severe lv dsyfunction normal lvedp) - Telemetry EKG Rhythm: Sinus Rhythm
[2018-11-08] MEDS: COREG PO SCH (11:32)
[2018-11-08] MEDS: COLACE PO SCH (11:33)
[2018-11-08] MEDS: LOVENOX SUB-Q SCH (11:33)
[2018-11-08] MEDS: MIRALAX 3350 PO SCH (11:33)
[2018-11-08] MEDS: SODIUM CHLORIDE FLUSH SYRINGE 10 ML IV SCH (11:33)
[2018-11-08] MEDS: ZESTRIL PO SCH (11:33)
--- NOTE | 2018-11-08 11:42 | Cardiac Catherization Report ---
LEFT HEART CATHETERIZATION CLINICAL INFORMATION: This is a 43-year-old -Iranian female with uncontrolled hypertension, presents with acute systolic heart failure is here for a left heart catheterization to rule out left coronary artery disease as a cause of cardiomyopathy, EF on echo is to 15%. The patient was done under mild sedation, 50 minutes of total sedation time, started 0950, finished at 1105, 50-minutes of supervised sedation 1 mg Versed, 50 mcg of fentanyl. Procedure was done via the right radial approach, sterile technique, local anesthesia. Normal Singh's test. A 6-Nepalese radial sheath inserted. Left system engaged with JL3.5 catheter. Left main is large and patent, bifurcates to large LAD, wrapped around the LV is patent. Diagonal 1 and diagonal 2 are small caliber vessel patent. Ramus small caliber vessel, patent. Circumflex is a large caliber vessel was patent. OM1 and OM2 are medium caliber vessel is patent. RCA engaged with JR4, is a dominant vessel, large caliber vessel that is patent. PDA is a small caliber vessel is patent. LV gram done in SINDHU and GARDNER shows severe LV dysfunction, EF 25%. LV dilated, LVEDP of 20 mmHg, LV is 116/20. Aortic is 111/83. No gradient across the aortic valve on pullback. 5-Nepalese catheters were taken over guidewire. A 6-Nepalese radial sheath was discontinued, radial band applied. No hematoma, no bleeding. SUMMARY: Patent coronaries, right dominant system, large epicardial vessels, severe LV dysfunction. There is a nonischemic cardiomyopathy. RECOMMENDATION: Continue medical management. JOB# [id number] SHAZIA/PELRA
--- NOTE | 2018-11-08 15:01 | Discharge Summary ---
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 In the emergency department CT of abdomen and pelvis suggested left lower lobe/right lower lobe/right middle lobe pneumonia. It was also suggestive of dilated cardiomyopathy with congestive hepatopathy. The patient was admitted with a diagnosis of congestive heart failure and bilateral pneumonia. The patient had a sodium of 128 and creatinine increasing to 1.3. She was monitored at medicine with tele bed. Placed on iv Diuresis with IV Lasix, nebs as needed. Started beta josé miguel, DANA inhibitor as blood pressure tolerates, low-dose aspirin, statin, Monitored daily weights, I's and O's. Consulted cardiology, 2d echo showed Ef of 15-20%, planned for cardiac cath which showed normal coronaries. Her medications were optimized, changed lasix to po and also added aldactone. Treated with IV Levaquin for PNA. Patient was then discharged home in stable condition. Discharge diagnosis: New onset Acute systolic heart failure EF 15-20% - nonischemic cardiomyopathy with normal cardiac cath Community acquired b/l pneumonia, completed abx Hypertension, stable Mild hyponatremia, resolved HEIDY, likely vasomotor nephropathy, resolved Physical exam: General Apperance: The patient lying in bed, breathing comfortable HEENT: Normocephalic, atraumatic. no sclericterus or JVD or thyromegaly or nodule. mucous membranes moist, no exudate or erythema Heart: S1-S2, regular is rhythm Lungs: Crackles auscultation bilaterally, breathing comfortable Abdomen: Positive bowel sounds, soft, mild tender in the epigastric area, nondistended, no organomegaly Extremities: + trace edema, cyanosis clubbing Skin: no rash, nodule, warm and dry Neuro: cranial nerves 2-12 intact, speech is fluent, motor/sensory intact Disposition: DC-01 TO HOME OR SELFCARE Time spent for discharge: 34 minutes Core Measure Documentation - Palliative Care Palliative Care/ Comfort Measures: Not Applicable - Core Measures Any of the following diagnoses?: heart failure - Heart Failure Discharge Requirements DANA/ARB for LVSD if EF <40%: Yes Beta josé miguel at discharge: Yes Exam - Constitutional Vitals: Temp Pulse Resp BP Pulse Ox 98.1 F 74 18 113/87 100 11/08/18 04:16 11/08/18 11:31 11/08/18 10:00 11/08/18 11:31 11/08/18 11:31 Plan Activity: advance as tolerated Weight Bearing Status: Non-Weight Bearing Diet: low fat, low salt Special Instructions: restrict fluid intake to (1.2L daily), record daily weights, record daily BP diary, no heavy lifting Follow up with: JENNY SHEN MD [Staff Physician] - 7 Days ([place] office, 11/14/2018 @ 1:30PM) PRIMARY MD GLEN [Primary Care Provider] - 3-5 Days CHACORTA RIVERS MD [Staff Physician] - 7 Days Prescriptions: Pravastatin Sodium [Pravastatin] 20 mg PO QHS #30 tablet Aspirin [Aspirin BABY CHEW TAB] 81 mg PO QDAY #30 tab.chew Carvedilol [Coreg] 6.25 mg PO BID #60 tablet Furosemide [Lasix TAB] 40 mg PO QDAY #30 tablet Lisinopril [Zestril TAB] 10 mg PO QDAY #30 tablet Spironolactone [Aldactone] 25 mg PO QDAY #30 tablet
[2018-11-08 15:41] VITALS: BP 99/75
[2018-11-09] MEDS ORDERED: LASIX PO SCH (06:00)
[2018-11-09] MEDS ORDERED: ALDACTONE PO SCH (10:00)
== END 2018-11-08 16:40 | disposition home or self-care (01) | DRG 286 ==
LOC: ED 15:08 → 4A 23:47
PROVIDERS: ADMIT Internal Medicine; ATTEND Internal Medicine
PROC: 3E0234Z Introduction of Serum, Toxoid and Vaccine into Muscle, Percutaneous Approach (ICD-10-PCS; 2018-11-05)
PROC: 4A023N7 Measurement of Cardiac Sampling and Pressure, Left Heart, Percutaneous Approach (ICD-10-PCS; principal; 2018-11-08)
PROC: B2111ZZ Fluoroscopy of Multiple Coronary Arteries using Low Osmolar Contrast (ICD-10-PCS; 2018-11-08)
PROC: B2151ZZ Fluoroscopy of Left Heart using Low Osmolar Contrast (ICD-10-PCS; 2018-11-08)
DX: I11.0 Hypertensive heart disease with heart failure (principal); I50.21 Acute systolic (congestive) heart failure; N17.0 Acute kidney failure with tubular necrosis; J18.1 Lobar pneumonia, unspecified organism; E87.1 Hypo-osmolality and hyponatremia; F17.200 Nicotine dependence, unspecified, uncomplicated; K76.9 Liver disease, unspecified; I42.0 Dilated cardiomyopathy; Z91.14 Patient's other noncompliance with medication regimen; Z82.49 Family history of ischemic heart disease and other diseases of the circulatory system; Z79.899 Other long term (current) drug therapy; Z90.49 Acquired absence of other specified parts of digestive tract; Z72.89 Other problems related to lifestyle; Z23 Encounter for immunization
CPT/HCPCS: 36415; 71045; 74177; 76700; 80048; 80053; 81001; 82550; 82553; 82962; 83690; 84484; 84703; 85007; 85025; 85610; 87040; 87086; 90686; 90732; 93306; 93458; 94640; 94760; 99406; G0378; C1894; J0456; J0696; J1644; J1650; J1885; J1940; J1956; J2250; J2270; J2405; J3010; J7030; J7040; J7050; Q9967

== ENCOUNTER 2018-11-11 05:50 | Inpatient (IN) | payer MEDICAID ==
--- NOTE | 2018-11-11 06:46 | Emergency Department Report ---
ED Shortness of Breath HPI - General Chief Complaint: Dyspnea/Respdistress Stated Complaint: HARRIET Time Seen by Provider: 11/11/18 06:19 Source: patient, old records reviewed (cardiac cath 11/08/2018 normal coronary arteries, EF 15% echo) Mode of arrival: Ambulatory Limitations: No Limitations - History of Present Illness Initial Comments: 43-year-old female with a past medical history of nonischemic cardiomyopathy with EF of 15-20%, hypertension, and recent admission for bilateral pneumonia presents to the hospital with complaints of continued and progressively worsening shortness of breath since discharge fromn the [facility] on November 08. At that time admitted for new onset CHF with normal coronaries on cath and bilateral pneumonia. Patient completed course of antibiotics prior to discharge. She complains of persistent cough productive of clear sputum, worsening orthopnea, worsening PND, and intermittent wheezing. Patient ran out of her inhaler. She denies pain or fever. - Related Data Previous Rx's Medication Instructions Recorded Last Taken Type Albuterol Sulfate [Ventolin HFA] 2 puff IH Q4H PRN #1 hfa.aer.ad 08/14/14 Unknown Rx Azithromycin [Zithromax Z-YAHAIRA] 250 mg PO DAILY #6 tablet 08/14/14 Unknown Rx Labetalol [Normodyne TAB] 100 mg PO BID #60 tablet 08/14/14 Unknown Rx Fluticasone [Flonase] 1 spray NS QDAY #1 bottle 05/26/16 Unknown Rx hydroCHLOROthiazide [HCTZ] 25 mg PO QDAY #30 tablet 05/26/16 Unknown Rx Acetaminophen [Tylenol Arthritis] 650 mg PO Q6HR PRN #30 tablet.er 01/08/18 Unknown Rx Ibuprofen [Motrin] 600 mg PO Q8H PRN #30 tablet 01/08/18 Unknown Rx ALBUTEROL Inhaler(NF) [VENTOLIN 1 puff IH Q1D PRN #1 inha 10/07/18 Unknown Rx Inhaler(NF)] Amoxicillin [Trimox CAP] 500 mg PO Q8H #30 capsule 10/07/18 Unknown Rx Benzonatate [Tessalon Perle] 100 mg PO TID #15 capsule 10/07/18 Unknown Rx Prednisone [predniSONE 5 mg (6-Day 5 mg PO .TAPER #1 tab.ds.pk 10/07/18 Unknown Rx Pack, 21 Tabs)] Aspirin [Aspirin BABY CHEW TAB] 81 mg PO QDAY #30 tab.chew 11/08/18 Unknown Rx Carvedilol [Coreg] 6.25 mg PO BID #60 tablet 11/08/18 Unknown Rx Furosemide [Lasix TAB] 40 mg PO QDAY #30 tablet 11/08/18 Unknown Rx Lisinopril [Zestril TAB] 10 mg PO QDAY #30 tablet 11/08/18 Unknown Rx Pravastatin Sodium [Pravastatin] 20 mg PO QHS #30 tablet 11/08/18 Unknown Rx Spironolactone [Aldactone] 25 mg PO QDAY #30 tablet 11/08/18 Unknown Rx Allergies Allergy/AdvReac Type Severity Reaction Status Date / Time No Known Allergies Allergy Verified 09/14/13 21:31 ED Review of Systems ROS: Stated complaint: HARRIET Other details as noted in HPI Comment: All other systems reviewed and negative ED Past Medical Hx - Past Medical History Previous Medical History?: Yes Hx Hypertension: Yes Hx Congestive Heart Failure: No Hx Diabetes: No Hx Deep Vein Thrombosis: No Hx Renal Disease: No Hx Sickle Cell Disease: No Hx Seizures: No Hx Asthma: No Hx COPD: No Hx HIV: No - Surgical History Past Surgical History?: Yes Hx Cholecystectomy: Yes - Social History Smoking Status: Former Smoker Substance Use Type: None - Medications Home Medications: Home Medications Medication Instructions Recorded Confirmed Last Taken Type Albuterol Sulfate [Ventolin HFA] 2 puff IH Q4H PRN #1 hfa.aer.ad 08/14/14 11/05/18 Unknown Rx Azithromycin [Zithromax Z-YAHAIRA] 250 mg PO DAILY #6 tablet 08/14/14 11/05/18 Unknown Rx Labetalol [Normodyne TAB] 100 mg PO BID #60 tablet 08/14/14 11/05/18 Unknown Rx Fluticasone [Flonase] 1 spray NS QDAY #1 bottle 05/26/16 11/05/18 Unknown Rx hydroCHLOROthiazide [HCTZ] 25 mg PO QDAY #30 tablet 05/26/16 11/05/18 Unknown Rx Acetaminophen [Tylenol Arthritis] 650 mg PO Q6HR PRN #30 tablet.er 01/08/18 11/05/18 Unknown Rx Ibuprofen [Motrin] 600 mg PO Q8H PRN #30 tablet 01/08/18 11/05/18 Unknown Rx ALBUTEROL Inhaler(NF) [VENTOLIN 1 puff IH Q1D PRN #1 inha 10/07/18 11/05/18 Unknown Rx Inhaler(NF)] Amoxicillin [Trimox CAP] 500 mg PO Q8H #30 capsule 10/07/18 11/05/18 Unknown Rx Benzonatate [Tessalon Perle] 100 mg PO TID #15 capsule 10/07/18 11/05/18 Unknown Rx Prednisone [predniSONE 5 mg (6-Day 5 mg PO .TAPER #1 tab.ds.pk 10/07/18 11/05/18 Unknown Rx Pack, 21 Tabs)] Aspirin [Aspirin BABY CHEW TAB] 81 mg PO QDAY #30 tab.chew 11/08/18 Unknown Rx Carvedilol [Coreg] 6.25 mg PO BID #60 tablet 11/08/18 Unknown Rx Furosemide [Lasix TAB] 40 mg PO QDAY #30 tablet 11/08/18 Unknown Rx Lisinopril [Zestril TAB] 10 mg PO QDAY #30 tablet 11/08/18 Unknown Rx Pravastatin Sodium [Pravastatin] 20 mg PO QHS #30 tablet 11/08/18 Unknown Rx Spironolactone [Aldactone] 25 mg PO QDAY #30 tablet 11/08/18 Unknown Rx ED Physical Exam - General Limitations: No Limitations - Other Other exam information: General: No limitations, patient is alert in no acute distress Head exam: Atraumatic, normocephalic Eyes exam: Normal appearance ENT: Moist mucous membrane, normal oropharynx Neck exam: Normal inspection, full range of motion, no meningismus nontender Respiratory exam: Right-sided crackles. Clear breath sounds on the left Cardiovascular: Normal rate and rhythm, normal heart sounds Abdomen: Soft, nondistended, and nontender, with normal bowel sounds, no rebound, or guarding Extremity: Full range of motion normal inspection no deformity, no calf tenderness or edema Back: Normal Inspection, full range of motion, no tenderness Neurologic: Alert, oriented x3, cranial nerves intact, no motor or sensory deficit Psychiatric: normal affect, normal mood Skin: Warm, dry, intact ED Course Vital Signs 11/11/18 11/11/18 06:06 08:18 Temperature 97.6 F 97.6 F Pulse Rate 91 H 95 H Respiratory 18 21 Rate Blood Pressure 123/87 Blood Pressure 123/96 [Left] O2 Sat by Pulse 88 100 Oximetry - Reevaluation(s) Reevaluation #1: 11/11/18 08:41 abg refused ED Medical Decision Making - Lab Data Result diagrams: 11/11/18 06:38 11/11/18 06:38 Lab Results 11/11/18 11/11/18 11/11/18 Range/Units 06:38 06:38 06:38 WBC 4.9 (4.5-11.0) K/mm3 RBC 4.14 (3.65-5.03) M/mm3 Hgb 9.4 L (10.1-14.3) gm/dl Hct 30.5 (30.3-42.9) % MCV 74 L (79-97) fl MCH 23 L (28-32) pg MCHC 31 (30-34) % RDW 23.2 H (13.2-15.2) % Plt Count 299 (140-440) K/mm3 Lymph % (Auto) 25.1 (13.4-35.0) % [place] % (Auto) 11.0 H (0.0-7.3) % Eos % (Auto) 0.5 (0.0-4.3) % Baso % (Auto) 0.8 (0.0-1.8) % Lymph # 1.2 (1.2-5.4) K/mm3 [place] # 0.5 (0.0-0.8) K/mm3 Eos # 0.0 (0.0-0.4) K/mm3 Baso # 0.0 (0.0-0.1) K/mm3 Seg Neutrophils % 62.6 (40.0-70.0) % Seg Neutrophils # 3.0 (1.8-7.7) K/mm3 Sodium 133 L (137-145) mmol/L Potassium 5.0 D (3.6-5.0) mmol/L Chloride 94.8 L (98-107) mmol/L Carbon Dioxide 24 (22-30) mmol/L Anion Gap 19 mmol/L BUN 19 H (7-17) mg/dL Creatinine 1.1 (0.7-1.2) mg/dL Estimated GFR > 60 ml/min BUN/Creatinine Ratio 17 % Glucose 86 (65-100) mg/dL Calcium 8.6 (8.4-10.2) mg/dL NT-Pro-B Natriuret Pep 6146 H (0-450) pg/mL HCG, Qual Negative (Negative) - EKG Data -: EKG Interpreted by Me EKG shows normal: sinus rhythm, axis (qrs 31), QRS complexes (qrsd 85), ST-T waves (no stemi) Rate: normal (94) - Radiology Data Radiology results: report reviewed PA and lateral chest: Hypoxia, SOB. There is enlargement of the cardiac contour. There is no significant vascular congestion. A small area of patchy low density is noted laterally in the right midlung and bronchovascular opacity as well in the right lower lobe to a larger extent. The left lung base is more difficult to assess but there is suspicion of increased opacity in this area as well as an obvious small left effusion. On the lateral projection there is either increased opacity in the right middle lobe or lingula segment of the left upper lobe. Compared to prior examination of November 05 and considering technique differences the findings appear relatively similar. Impressions: Right pulmonary and probable left pulmonary infiltrates with left effusion. - Medical Decision Making Patient has persistent hypoxia, dyspnea, and pulmonary infiltrate. Cultures ordered. Levaquin initiated. Case developed anterior chest pain during ED evaluation and was treated with morphine. Recent cath with normal coronary artery and EKG unchanged. Hospitalist informed for admission. Pt refused abg - Differential Diagnosis COPD, CHF, pneumonia, PE Critical Care Time: No Critical care attestation.: If time is entered above; I have spent that time in minutes in the direct care of this critically ill patient, excluding procedure time. ED Disposition Clinical Impression: Bilateral pneumonia, Hypoxia, CHF (congestive heart failure) Disposition: DC-09 OP ADMIT IP TO THIS HOSP Is pt being admited?: Yes Condition: Stable Time of Disposition: 07:55 (tricia/Maria M)
[2018-11-11 06:48] LABS: Basophils % (Auto) 0.8 % (0.0-1.8); Eosinophils % (Auto) 0.5 % (0.0-4.3); Hematocrit 30.5 % (30.3-42.9); Hemoglobin 9.4 gm/dl (10.1-14.3); Lymphocytes # (Auto) 1.2 K/mm3 (1.2-5.4); Lymphocytes % (Auto) 25.1 % (13.4-35.0); Mean Corpuscular HGB Conc 31 % (30-34); Mean Corpuscular Volume 74 fl (79-97); Monocytes # (Auto) 0.5 K/mm3 (0.0-0.8); Platelet Count 299 K/mm3 (140-440); Red Blood Count 4.14 M/mm3 (3.65-5.03)
[2018-11-11 07:00] LABS: Red Cell Distribution Width 23.2 % (13.2-15.2)
[2018-11-11 07:05] LABS: BUN/Creatinine Ratio 17; Blood Urea Nitrogen 19 mg/dL (7-17); Calcium 8.6 mg/dL (8.4-10.2); Hemolysis Index 23
[2018-11-11] MEDS ORDERED: ZOFRAN IV ONE (07:34)
[2018-11-11] MEDS ORDERED: MORPHINE IV ONE (07:34)
--- NOTE | 2018-11-11 07:51 | XRay Report ---
PA and lateral chest: Hypoxia, SOB. There is enlargement of the cardiac contour. There is no significant vascular congestion. A small area of patchy low density is noted laterally in the right midlung and bronchovascular opacity as well in the right lower lobe to a larger extent. The left lung base is more difficult to assess but there is suspicion of increased opacity in this area as well as an obvious small left effusion. On the lateral projection there is either increased opacity in the right middle lobe or lingula segment of the left upper lobe. Compared to prior examination of November 05 and considering technique differences the findings appear relatively similar. Impressions: Right pulmonary and probable left pulmonary infiltrates with left effusion.
[2018-11-11] MEDS ORDERED: LEVAQUIN 750MG/150ML 750 MG/150 ML BAG IV ONE (07:53)
--- NOTE | 2018-11-11 11:02 | History and Physical Report ---
History of Present Illness Date of examination: 11/11/18 Date of admission: 11/11/18 07:57 Chief complaint: SOB History of present illness: 43-year-old female with a past medical history of nonischemic cardiomyopathy with EF of 15-20%, hypertension, and recent admission for bilateral pneumonia presents to the hospital with complaints of continued and progressively worsening shortness of breath since discharge from the hospital on November 08. During that admission she was diagnosed with new onset CHF with normal coronaries on cath and bilateral pneumonia. Patient completed course of antibiotics prior to discharge. She complains of persistent cough productive of clear sputum, worsening orthopnea, worsening PND, and intermittent wheezing. She denies any chest pain or fever. Her CXR showed b/l infiltrates and O2 sat was 88%. She was placed on supplemental O2, iv abx and called for admission for further evaluation and management. Review of System: Constitutional: no fever, no chills, no weight loss Ears, eyes, nose, mouth and throat: no nasal congestion, no nasal discharge, no sinus pressure, no vision change, no red eye. Neck: No neck pain or rigidity. Cardiovascular: No chest pain, + orthopnea, no palpitations, no leg swelling Respiratory: + shortness of breath, + nonproductive cough, no congestion, no wheezing Gastrointestinal: no abdominal pain, no nausea, no vomiting Genitourinary : no dysuria, no hematuria Musculoskeletal: no joint swelling or muscle ache Integumentary: no rash, no pruritis Neurological: no parathesias, no numbness, no tingling Endocrine: no cold or heat intolerance, no polyuria or polydipsia Hematologic/Lymphatic: no easy bruising, no easy bleeding, no gland swelling Allergic/Immunologic: no urticaria, no angioedema. Medications and Allergies Allergies Allergy/AdvReac Type Severity Reaction Status Date / Time No Known Allergies Allergy Verified 09/14/13 21:31 Home Medications Medication Instructions Recorded Confirmed Last Taken Type Albuterol Sulfate [Ventolin HFA] 2 puff IH Q4H PRN #1 hfa.aer.ad 08/14/14 11/11/18 Unknown Rx Aspirin [Aspirin BABY CHEW TAB] 81 mg PO QDAY #30 tab.chew 11/08/18 11/11/18 Unknown Rx Carvedilol [Coreg] 6.25 mg PO BID #60 tablet 11/08/18 11/11/18 Unknown Rx Furosemide [Lasix TAB] 40 mg PO QDAY #30 tablet 11/08/18 11/11/18 Unknown Rx Lisinopril [Zestril TAB] 10 mg PO QDAY #30 tablet 11/08/18 11/11/18 Unknown Rx Pravastatin Sodium [Pravastatin] 20 mg PO QHS #30 tablet 11/08/18 11/11/18 Unknown Rx Spironolactone [Aldactone] 25 mg PO QDAY #30 tablet 11/08/18 11/11/18 Unknown Rx Exam - Physical Exam Narrative exam: Physical exam: General Apperance: The patient lying in bed, breathing comfortable HEENT: Normocephalic, atraumatic. Pupils equally round and reactive to light, EOMI, no sclericterus or JVD or thyromegaly or nodule. , no carotid bruit, mucous membranes moist, no exudate or erythema Heart: S1-S2, regular is rhythm Lungs: Crackles auscultation bilaterally, breathing comfortable Abdomen: Positive bowel sounds, soft, tender in the epigastric area, nondistended, no organomegaly Extremities: trace + edema, no cyanosis, no clubbing Skin: no rash, nodule, warm and dry Neuro: cranial nerves 2-12 intact, speech is fluent, motor/sensory intact - Constitutional Vitals: Temp Pulse Resp BP Pulse Ox 97.6 F 86 15 123/96 100 11/11/18 09:42 11/11/18 09:00 11/11/18 09:38 11/11/18 09:00 11/11/18 09:38 Results - Labs CBC & Chem 7: 11/11/18 06:38 11/14/18 11:12 Labs: Abnormal lab results 11/11/18 11/11/18 Range/Units 06:38 06:38 Hgb 9.4 L (10.1-14.3) gm/dl MCV 74 L (79-97) fl MCH 23 L (28-32) pg RDW 23.2 H (13.2-15.2) % [place] % (Auto) 11.0 H (0.0-7.3) % Sodium 133 L (137-145) mmol/L Chloride 94.8 L (98-107) mmol/L BUN 19 H (7-17) mg/dL NT-Pro-B Natriuret Pep 6146 H (0-450) pg/mL - Imaging and Cardiology CT scan - chest: report reviewed Assessment and Plan Acute hypoxic respiratory failure - likely from CHF exacerbation, patient may need home o2 Acute CHF exacerbation, EF 15-20% RLL PNA, recently treated Hypertension Mild hyponatremia Plan admit to tele cont Diuresis with Lasix, nebs as needed cont beta josé miguel, DANA inhibitor if blood pressure tolerates cont low-dose aspirin, evaluated for home o2 requirement Monitor daily weights, I's and O's cont IV Levaquin, follow blood cultures DVT prophylaxis
[2018-11-11] MEDS: LASIX PO SCH (12:25)
[2018-11-11] MEDS: ALDACTONE PO SCH (12:25)
[2018-11-11] MEDS: BABY ASPIRIN PO SCH (12:25)
[2018-11-11] MEDS ORDERED: BABY ASPIRIN ONE (12:30)
[2018-11-11] MEDS ORDERED: LASIX ONE (12:31)
[2018-11-11] MEDS: DUONEB *Not for PRN Use IH SCH ×2 (19:56→21:21)
[2018-11-11] MEDS: NORCO 5/325 PO PRN (20:30)
[2018-11-11] MEDS: PRAVACHOL PO SCH (22:00)
[2018-11-11] MEDS ORDERED: NON-FORMULARY (Pravastatin Sodium [Pravastatin] 20 MG) PO SCH (22:00)
[2018-11-11] MEDS: LOVENOX SUB-Q SCH (22:46)
[2018-11-12] MEDS: BENADRYL PO PRN ×4 (02:01→21:54)
[2018-11-12] MEDS: DUONEB *Not for PRN Use IH SCH ×4 (02:15→20:01)
[2018-11-12] MEDS: ALDACTONE PO SCH (09:57)
[2018-11-12] MEDS: LASIX PO SCH (09:57)
[2018-11-12] MEDS: BABY ASPIRIN PO SCH (09:57)
[2018-11-12] MEDS: NORCO 5/325 PO PRN ×2 (09:57→20:57)
[2018-11-12 11:43] LABS: Calcium 8.1 mg/dL (8.4-10.2)
--- NOTE | 2018-11-12 15:24 | Progress Note ---
Assessment and Plan Acute hypoxic respiratory failure Acute CHF exacerbation, EF 15-20% RLL PNA, recently treated Hypertension Mild hyponatremia Plan cont to monitor at remote tele cont Diuresis with Lasix, nebs as needed cont beta josé miguel, DANA inhibitor if blood pressure tolerates cont low-dose aspirin, evaluated for home o2 requirement Monitor daily weights, I's and O's cont IV Levaquin, wait for home O2 requirement assessment DVT prophylaxis Subjective Date of service: 11/12/18 Interval history: Patient seen and examined C/o SOB even on rest home O2 requirement eval pending Objective - Exam Narrative Exam: Physical exam: General Apperance: The patient lying in bed, breathing comfortable HEENT: Normocephalic, atraumatic. Pupils equally round and reactive to light, EOMI, no sclericterus or JVD or thyromegaly or nodule. , no carotid bruit, mucous membranes moist, no exudate or erythema Heart: S1-S2, regular is rhythm Lungs: Crackles auscultation bilaterally, breathing comfortable Abdomen: Positive bowel sounds, soft, tender in the epigastric area, nondistended, no organomegaly Extremities: trace + edema, no cyanosis, no clubbing Skin: no rash, nodule, warm and dry Neuro: cranial nerves 2-12 intact, speech is fluent, motor/sensory intact - Constitutional Vitals: Vital Signs - 12hr 11/12/18 11/12/18 05:52 11:35 Temperature 97.4 F L 97.6 F Pulse Rate 96 H 101 H Respiratory 20 18 Rate Blood Pressure 121/91 110/81 O2 Sat by Pulse 100 100 Oximetry - Labs CBC & Chem 7: 11/11/18 06:38 11/14/18 11:12 Labs: Abnormal lab results 11/12/18 Range/Units 11:04 Sodium 135 L (137-145) mmol/L Chloride 96.4 L (98-107) mmol/L Glucose 119 H (65-100) mg/dL Calcium 8.1 L (8.4-10.2) mg/dL
[2018-11-12] MEDS: ZITHROMAX PO SCH (17:30)
[2018-11-12] MEDS: PRAVACHOL PO SCH (21:54)
[2018-11-12] MEDS: LOVENOX SUB-Q SCH (21:54)
[2018-11-12] MEDS: COREG PO SCH (21:57)
[2018-11-12] MEDS ORDERED: AMBIEN PO ONE (23:46)
[2018-11-13] MEDS: DUONEB *Not for PRN Use IH SCH ×5 (01:47→19:44)
[2018-11-13] MEDS: NORCO 5/325 PO PRN ×3 (02:37→22:18)
[2018-11-13] MEDS: ZITHROMAX PO SCH (10:28)
[2018-11-13] MEDS: COREG PO SCH ×2 (10:29→22:19)
[2018-11-13] MEDS: BABY ASPIRIN PO SCH (10:29)
[2018-11-13] MEDS: ALDACTONE PO SCH (10:30)
[2018-11-13] MEDS: LASIX PO SCH (10:30)
[2018-11-13] MEDS: BENADRYL PO PRN ×2 (10:37→22:19)
--- NOTE | 2018-11-13 14:57 | Progress Note ---
Assessment and Plan Acute hypoxic respiratory failure - likely from CHF exacerbation, patient may need home o2 Acute CHF exacerbation, EF 15-20% RLL PNA, recently treated Hypertension Mild hyponatremia Plan cont to monitor at remote tele cont Diuresis with Lasix, nebs as needed cont beta josé miguel, DANA inhibitor if blood pressure tolerates cont low-dose aspirin, evaluated for home o2 requirement Monitor daily weights, I's and O's cont IV Levaquin, will need home O2 as O2 sat drops to 77% at RA - CM notified DVT prophylaxis Subjective Date of service: 11/13/18 Interval history: Patient seen and examined C/o SOB even on rest patient will need home o2 Objective - Exam Narrative Exam: Physical exam: General Apperance: The patient lying in bed, breathing comfortable HEENT: Normocephalic, atraumatic. Pupils equally round and reactive to light, EOMI, no sclericterus or JVD or thyromegaly or nodule. , no carotid bruit, mucous membranes moist, no exudate or erythema Heart: S1-S2, regular is rhythm Lungs: Crackles auscultation bilaterally, breathing comfortable Abdomen: Positive bowel sounds, soft, tender in the epigastric area, nondistended, no organomegaly Extremities: trace + edema, no cyanosis, no clubbing Skin: no rash, nodule, warm and dry Neuro: cranial nerves 2-12 intact, speech is fluent, motor/sensory intact - Constitutional Vitals: Vital Signs - 12hr 11/13/18 11/13/18 11/13/18 03:12 03:27 05:39 Temperature 97.9 F Pulse Rate 100 H Pulse Rate [ 94 H 96 H Bilateral] Respiratory 16 Rate Respiratory 20 20 Rate [Bilateral ] Blood Pressure 110/79 O2 Sat by Pulse 100 Oximetry 11/13/18 11/13/18 11/13/18 08:08 08:09 08:22 Temperature Pulse Rate Pulse Rate [ 98 H 91 H Bilateral] Respiratory Rate Respiratory 18 20 Rate [Bilateral ] Blood Pressure O2 Sat by Pulse 96 Oximetry 11/13/18 11/13/18 11/13/18 10:29 10:30 13:37 Temperature Pulse Rate 99 H 99 H Pulse Rate [ 101 H Bilateral] Respiratory Rate Respiratory 18 Rate [Bilateral ] Blood Pressure 121/95 121/95 O2 Sat by Pulse Oximetry 11/13/18 13:56 Temperature Pulse Rate Pulse Rate [ 76 Bilateral] Respiratory Rate Respiratory 18 Rate [Bilateral ] Blood Pressure O2 Sat by Pulse Oximetry - Labs CBC & Chem 7: 11/11/18 06:38 11/14/18 11:12
[2018-11-13] MEDS: COLACE PO SCH (18:23)
[2018-11-13] MEDS: MIRALAX 3350 PO SCH (18:23)
[2018-11-13] MEDS ORDERED: AMBIEN PO ONE (21:30)
[2018-11-13] MEDS: PRAVACHOL PO SCH (22:19)
[2018-11-13] MEDS: LOVENOX SUB-Q SCH (22:19)
[2018-11-14] MEDS: DUONEB *Not for PRN Use IH SCH ×5 (02:40→21:27)
[2018-11-14] MEDS: NORCO 5/325 PO PRN ×3 (06:39→22:56)
[2018-11-14] MEDS: BENADRYL PO PRN ×2 (06:40→18:48)
[2018-11-14] MEDS: ZITHROMAX PO SCH (09:47)
[2018-11-14] MEDS: ALDACTONE PO SCH (09:47)
[2018-11-14] MEDS: COREG PO SCH ×2 (09:47→21:45)
[2018-11-14] MEDS: LASIX PO SCH (09:47)
[2018-11-14] MEDS: BABY ASPIRIN PO SCH (09:47)
[2018-11-14] MEDS: COLACE PO SCH (09:47)
[2018-11-14] MEDS: MIRALAX 3350 PO SCH (09:48)
[2018-11-14 12:33] LABS: Calcium 8.3 mg/dL (8.4-10.2)
--- NOTE | 2018-11-14 13:56 | XRay Report ---
AP CHEST: HISTORY: Short of breath, VQ scan protocol Moderate cardiomegaly, mild pulmonary venous congestion and small bilateral pleural effusions are identified. There are atelectatic changes in the lower lobes. The upper lung zones are clear. No pneumothorax. IMPRESSION: CHF.
--- NOTE | 2018-11-14 13:57 | Nuclear Medicine Report ---
LUNG SCAN, VENTILATION AND PERFUSION: History: Possible PE, shortness of breath. Technique: 5mci of Tc99m MAA was infused for the perfusion images. 15mci XE 133 gas was inhaled for the ventilatory images. Correlation is made with a chest x-ray dated 11/14/18. Findings: Inhalation of Xenon gas demonstrates a normal distribution of the activity throughout both lungs. The wash out phases minimal retention of the radiotracer bilaterally, left greater than right After injection of Technetium 99m macroaggregated albumin gamma camera imaging of the lungs in multiple projections demonstrate no mismatched segmental perfusion defects. Cardiomegaly and small pleural effusions are noted. IMPRESSION: Low probability for pulmonary embolus. CHF.
--- NOTE | 2018-11-14 14:30 | Progress Note ---
Assessment and Plan Acute hypoxic respiratory failure - likely from CHF exacerbation, patient will need home o2 Acute CHF exacerbation, EF 15-20% - CXR with worsening congestion RLL PNA, recently treated Hypertension Mild hyponatremia Plan cont to monitor at remote tele change Lasix to iv, nebs as needed cont beta josé miguel, start DANA inhibitor cont low-dose aspirin, consult cardiology, may need dobutamin Monitor daily weights, I's and O's cont IV zithromaz, will need home O2 as O2 sat drops to 77% at RA - CM notified DVT prophylaxis Brief History: 43-year-old female with a past medical history of nonischemic cardiomyopathy with EF of 15-20%, hypertension, and recent admission for bilateral pneumonia presents to the hospital with complaints of continued and progressively worsening shortness of breath since discharge from the hospital on November 08. Subjective Date of service: 11/14/18 Interval history: Patient seen and examined C/o worsening SOB today, cxr with pulmonary congestion patient will need home o2 Objective - Exam Narrative Exam: Physical exam: General Apperance: The patient lying in bed, breathing comfortable HEENT: Normocephalic, atraumatic. Pupils equally round and reactive to light, E GABRIELLE, no sclericterus or JVD or thyromegaly or nodule. , no carotid bruit, mucous membranes moist, no exudate or erythema Heart: S1-S2, regular is rhythm Lungs: Crackles auscultation bilaterally, breathing comfortable Abdomen: Positive bowel sounds, soft, tender in the epigastric area, nondistended, no organomegaly Extremities: trace + edema, no cyanosis, no clubbing Skin: no rash, nodule, warm and dry Neuro: cranial nerves 2-12 intact, speech is fluent, motor/sensory intact - Constitutional Vitals: Vital Signs - 12hr 11/14/18 11/14/18 11/14/18 06:11 06:54 06:55 Temperature 97.8 F Pulse Rate 91 H Pulse Rate [ 86 Bilateral] Pulse Rate [ 88 Throughout] Respiratory 18 Rate Respiratory 16 Rate [Bilateral ] Respiratory 16 Rate [ Throughout] Blood Pressure 119/94 O2 Sat by Pulse 100 99 Oximetry 11/14/18 11/14/18 11/14/18 09:47 10:00 10:34 Temperature Pulse Rate 91 H Pulse Rate [ Bilateral] Pulse Rate [ Throughout] Respiratory 16 20 Rate Respiratory Rate [Bilateral ] Respiratory Rate [ Throughout] Blood Pressure O2 Sat by Pulse Oximetry 11/14/18 13:55 Temperature Pulse Rate Pulse Rate [ 88 Bilateral] Pulse Rate [ 90 Throughout] Respiratory Rate Respiratory 16 Rate [Bilateral ] Respiratory 16 Rate [ Throughout] Blood Pressure O2 Sat by Pulse Oximetry - Labs CBC & Chem 7: 11/11/18 06:38 11/14/18 11:12 Labs: Abnormal lab results 11/14/18 Range/Units 11:12 Sodium 128 L D (137-145) mmol/L Chloride 89.8 L (98-107) mmol/L Calcium 8.3 L (8.4-10.2) mg/dL
--- NOTE | 2018-11-14 17:39 | Discharge Summary ---
Providers - Providers Date of Admission: 11/11/18 07:57 Date of discharge: 11/14/18 Attending physician: MARCELO WYLIE 11/11/18 11:10 Physical Therapy Evaluation and Treat [CONS] Routine Comment: O2 requirement Reason For Exam: placement 11/12/18 13:39 Consult to Case Management [CONS] Routine Services Needed at Discharge: Home O2 Notified:: marya Primary care physician: PRE [employer]OLE COUNSELING AIDE Hospitalization Condition: Stable Hospital course: discharge Diagnosis: Acute hypoxic respiratory failure - likely from CHF exacerbation, patient need home o2 Acute CHF exacerbation, EF 15-20% RLL PNA, recently treated Hypertension Mild hyponatremia Disposition: [id number]/TX-06 HOME UNDER HOME [facility] Time spent for discharge: 32 minutes Core Measure Documentation - Palliative Care Palliative Care/ Comfort Measures: Not Applicable Exam - Constitutional Vitals: Temp Pulse Resp BP Pulse Ox 97.8 F 88 16 119/94 99 11/14/18 06:11 11/14/18 13:55 11/14/18 13:55 11/14/18 06:11 11/14/18 06:55 Plan Follow up with: SHAHZAD CARROLL MD [Primary Care Provider] - 3-5 Days
[2018-11-14] MEDS: LASIX IV SCH (18:48)
[2018-11-14] MEDS: LOVENOX SUB-Q SCH (21:46)
[2018-11-14] MEDS: PRAVACHOL PO SCH (21:46)
[2018-11-14] MEDS ORDERED: PROVENTIL IH PRN (22:05)
[2018-11-14] MEDS: AMBIEN PO PRN (23:33)
[2018-11-15] MEDS: LASIX IV SCH ×2 (06:29→17:52)
[2018-11-15 06:53] LABS: Calcium 8.4 mg/dL (8.4-10.2)
[2018-11-15] MEDS: DUONEB *Not for PRN Use IH SCH ×3 (08:28→20:50)
--- NOTE | 2018-11-15 09:55 | Consultation ---
Addendum entered and electronically signed by JENNY KNAPP MD 11/15/18 11:29: Acute on chronic HFrEF Initiate dobuatmine Fluid restrict 1.5 Liters Obtain strict I&Os and daily weights. Hyponatremia Original Note: History of Present Illness Consult date: 11/15/18 Requesting physician: MARCELO WYLIE Consult reason: congestive heart failure History of present illness: The pt is a 43 YO female with a past history of HFrEF, NICMP EF 15-20%, HTN, recent bilateral PNA, ETOH use, tobacco use. She was seen by our practice for the first time during an admission here at [facility] last week (admitted 11/04/18 - 11/08/18). At that time, she was treated for bilateral PNA and new onset HFrEF. She underwent LHC on 11/08/18 which showed normal coronaries, EF 25%. She states that she was discharged home and was only home for a few hours when her SOB began to return. She slept sitting upright that night and presented to the ED the following morning with c/o severe SOB, THOMASON, orthopnea and productive cough. She also c/o some chest pain which is pleuritic in nature. She denies any palpitations, n/v, diaphoresis, dizziness or syncope. Echo done 11/05/2018 showed EF 15-20%, LA severely dilated, LV mild to mod dilated, mild LVH, impaired relaxation, RA and RV mildly dilated, severe MR, mod TR, pulm HTN with RVSP 58mmHg, small pericardial effusion. Past History Past Medical History: heart failure, hypertension Social history: smoking, alcohol abuse Medications and Allergies Allergies Allergy/AdvReac Type Severity Reaction Status Date / Time No Known Allergies Allergy Verified 09/14/13 21:31 Home Medications Medication Instructions Recorded Confirmed Last Taken Type Albuterol Sulfate [Ventolin HFA] 2 puff IH Q4H PRN #1 hfa.aer.[email or web address] 08/14/14 11/11/18 Unknown Rx Aspirin [Aspirin BABY CHEW TAB] 81 mg PO QDAY #30 tab.chew 11/08/18 11/11/18 Unknown Rx Carvedilol [Coreg] 6.25 mg PO BID #60 tablet 11/08/18 11/11/18 Unknown Rx Furosemide [Lasix TAB] 40 mg PO QDAY #30 tablet 11/08/18 11/11/18 Unknown Rx Lisinopril [Zestril TAB] 10 mg PO QDAY #30 tablet 11/08/18 11/11/18 Unknown Rx Pravastatin Sodium [Pravastatin] 20 mg PO QHS #30 tablet 11/08/18 11/11/18 Unknown Rx Spironolactone [Aldactone] 25 mg PO QDAY #30 tablet 11/08/18 11/11/18 Unknown Rx Active Meds: Active Medications Acetaminophen/Hydrocodone Bitart ([place] 5/325) 1 each PO Q4H PRN PRN Reason: Pain, Moderate (4-6) Last Admin: 11/14/18 22:56 Dose: 1 each Documented by: Albuterol (Proventil) 2.5 mg IH Q4HRT PRN PRN Reason: Shortness Of Breath Albuterol/Ipratropium (Duoneb *Not For Prn Use*) 1 ampul IH TIDRT [facility] Last Admin: 11/15/18 08:28 Dose: 1 ampul Documented by: Aspirin (Baby Aspirin) 81 mg PO QDAY [facility] Last Admin: 11/14/18 09:47 Dose: 81 mg Documented by: Azithromycin (Zithromax) 500 mg PO QDAY [facility] Last Admin: 11/14/18 09:47 Dose: 500 mg Documented by: Carvedilol (Coreg) 3.125 mg PO BID [facility] Last Admin: 11/14/18 21:45 Dose: 3.125 mg Documented by: Diphenhydramine HCl (Benadryl) 25 mg PO Q8H PRN PRN Reason: Itching Last Admin: 11/14/18 18:48 Dose: 25 mg Documented by: Docusate Sodium (Colace) 100 mg PO DAILY [facility] Last Admin: 11/14/18 09:47 Dose: 100 mg Documented by: Enoxaparin Sodium (Lovenox) 40 mg SUB-Q QDAY@2200 [facility] Last Admin: 11/14/18 21:46 Dose: 40 mg Documented by: Furosemide (Lasix) 40 mg IV 0600,1800 [facility] Last Admin: 11/15/18 06:29 Dose: 40 mg Documented by: Lisinopril (Zestril) 5 mg PO QDAY [facility] Polyethylene Glycol (Miralax 3350) 17 gm PO QDAY [facility] Last Admin: 11/14/18 09:48 Dose: 17 gm Documented by: Pravastatin Sodium (Pravachol) 20 mg PO QHS [facility] Last Admin: 11/14/18 21:46 Dose: 20 mg Documented by: Spironolactone (Aldactone) 25 mg PO QDAY [facility] Last Admin: 11/14/18 09:47 Dose: 25 mg Documented by: Zolpidem Tartrate (Ambien) 5 mg PO QHS PRN PRN Reason: Sleep Last Admin: 11/14/18 23:33 Dose: 5 mg Documented by: Review of Systems Constitutional: no weight loss, no weight gain Ears, nose, mouth and throat: no ear pain, no nose pain, no sinus pressure, no sinus pain Cardiovascular: chest pain, orthopnea, shortness of breath, dyspnea on exertion, paroxysmal nocturnal dyspnea, high blood pressure, decreased exercise tolerance, no palpitations, no rapid/irregular heart beat, no edema, no syncope, no lightheadedness, no leg edema Respiratory: cough with sputum, shortness of breath, dyspnea on exertion, congestion, pain on inspiration, no wheezing Gastrointestinal: no abdominal pain, no nausea, no vomiting, no diarrhea, no constipation, no change in bowel habits Genitourinary Female: no pelvic pain, no flank pain, no dysuria, no urinary frequency, no urgency Musculoskeletal: no neck stiffness, no neck pain, no shooting arm pain, no arm numbness/tingling, no low back pain, no shooting leg pain Integumentary: no rash, no pruritis, no redness, no sores, no wounds Neurological: no head injury, no weakness, no parathesias, no numbness, no tingling, no seizures, no syncope Psychiatric: no anxiety Endocrine: no cold intolerance, no heat intolerance Hematologic/Lymphatic: no easy bruising, no easy bleeding Allergic/Immunologic: no urticaria, no wheezing Physical Examination Vital Signs Temp Pulse Resp BP Pulse Ox 97.6 F 91 H 18 123/87 88 11/11/18 06:06 11/11/18 06:06 11/11/18 06:06 11/11/18 06:06 11/11/18 06:06 General appearance: no acute distress HEENT: Positive: PERRL, Normocephaly, Mucus Membranes Moist Neck: Positive: neck supple, trachea midline Cardiac: Positive: Reg Rate and Rhythm, S1/S2, Systolic Murmur Lungs: Positive: Decreased Breath Sounds, Rales Neuro: Positive: Grossly Intact Abdomen: Positive: Soft. Negative: Tender Skin: Negative: Rash, Wound Musculoskeletal: No Pain Extremities: Absent: edema Results 11/11/18 06:38 11/15/18 05:51 Comprehensive Metabolic Panel 11/14/18 11/15/18 Range/Units 11:12 05:51 Sodium 128 L D 128 L (137-145) mmol/L Potassium 4.8 4.4 (3.6-5.0) mmol/L Chloride 89.8 L 90.5 L (98-107) mmol/L Carbon Dioxide 25 25 (22-30) mmol/L BUN 17 19 H (7-17) mg/dL Creatinine 1.2 1.2 (0.7-1.2) mg/dL Glucose 96 77 (65-100) mg/dL Calcium 8.3 L 8.4 (8.4-10.2) mg/dL - Imaging and Cardiology Echo: report reviewed ( 11/05/2018 showed EF 15-20%, LA severely dilated, LV mild to mod dilated, mild LVH, impaired relaxation, RA and RV mildly dilated, severe MR, mod TR, pulm HTN with RVSP 58mmHg, small pericardial effusion. ) Cardiac cath: report reviewed (11/08 which showed normal coronaries, EF 25%. ) EKG: report reviewed, image reviewed EKG interpretations - Telemetry EKG Rhythm: Sinus Rhythm - EKG Sinus rhythms and dysrhythmias: sinus rhythm Assessment and Plan Acute on chronic HFrEF CXR with worsening HF. Pt reports UOP as been minimal despite IV lasix BID. Initiate dobuatmine gtt @5mcg/kg/min - pt will require tx to telemetry. Cont IV lasix as renal indices permit, consider another diuretic if UOP is not adequate. Obtain strict I&Os and daily weights. NICMP EF 15-20% Cont coreg, lisinopril and aldactone as tolerated. Initiate dobutamine gtt. LHC 11/08/18 showed normal coronaries and severe lv dsyfunction Acute hypoxic respiratory failure Per primary team, will need home O2 as O2 sat drops to 77% at RA. Bilateral pneumonia Per Primary Team Hypertension H/o noncompliance with medications Hyponatremia Severe MR / moderate TR Pulmonary HTN RVSP 58mmHg H/o tobacco and ETOH use The patient has been seen in conjunction with Dr. Knapp who agrees with the assessment and plan of care.
--- NOTE | 2018-11-15 10:10 | Progress Note ---
Assessment and Plan Assessment and plan: --Acute hypoxic respiratory failure; due to CHF exacerbation, continue oxygen and supportive care Evaluation for home oxygen at discharge --Acute on chronic systolic CHF, EF 15-20% Continue anti-failure medications, input output monitoring Low-sodium and fluid restriction, dobutamine drip Cardiology following, transfer the patient to telemetry/IMCU --Hypertension; moderate control, continue current antihypertensives and when necessary medication --Mild hyponatremia; secondary to fluid overload continue IV diuretics, --Mild rash/pruritus; unknown etiology, antihistamines, supportive care --DVT prophylaxis; Lovenox Closely monitor the patient and adjust management as needed Transfer the patient to IM Plan of care reviewed with the patient and her nurse History Interval history: Patient seen and examined medical records reviewed Admitted with acute on chronic congestive heart failure Cardiology optimize the medications, started on dobutamine today Patient feels slightly better Complaints of generalized body itching for the last 3 or 4 days Alert awake oriented Vital signs reviewed Hospitalist Physical - Constitutional Vitals: Temp Pulse Resp BP Pulse Ox 97.6 F 94 H 20 109/79 97 11/15/18 05:46 11/15/18 08:44 11/15/18 08:44 11/15/18 05:46 11/15/18 08:44 General appearance: Present: no acute distress, well-nourished - EENT Eyes: Present: PERRL, EOM intact - Neck Neck: Present: supple, normal ROM - Respiratory Respiratory effort: normal Respiratory: bilateral: diminished, negative: rales, rhonchi, wheezing - Cardiovascular Rhythm: regular Heart Sounds: Present: S1 & S2 - Extremities Extremities: no ischemia, No edema - Abdominal General gastrointestinal: soft, non-tender, non-distended, normal bowel sounds - Integumentary Integumentary: Present: rash (scratch shah all over the body with itching) - Psychiatric Psychiatric: appropriate mood/affect, cooperative - Neurologic Neurologic: CNII-XII intact, moves all extremities Results - Labs CBC & Chem 7: 11/11/18 06:38 11/15/18 05:51 Labs: Laboratory Last Values WBC 4.9 K/mm3 (4.5-11.0) 11/11/18 06:38 RBC 4.14 M/mm3 (3.65-5.03) 11/11/18 06:38 Hgb 9.4 gm/dl (10.1-14.3) L 11/11/18 06:38 Hct 30.5 % (30.3-42.9) 11/11/18 06:38 MCV 74 fl (79-97) L 11/11/18 06:38 MCH 23 pg (28-32) L 11/11/18 06:38 MCHC 31 % (30-34) 11/11/18 06:38 RDW 23.2 % (13.2-15.2) H 11/11/18 06:38 Plt Count 299 K/mm3 (140-440) 11/11/18 06:38 Lymph % (Auto) 25.1 % (13.4-35.0) 11/11/18 06:38 [place] % (Auto) 11.0 % (0.0-7.3) H 11/11/18 06:38 Eos % (Auto) 0.5 % (0.0-4.3) 11/11/18 06:38 Baso % (Auto) 0.8 % (0.0-1.8) 11/11/18 06:38 Lymph # 1.2 K/mm3 (1.2-5.4) 11/11/18 06:38 [place] # 0.5 K/mm3 (0.0-0.8) 11/11/18 06:38 Eos # 0.0 K/mm3 (0.0-0.4) 11/11/18 06:38 Baso # 0.0 K/mm3 (0.0-0.1) 11/11/18 06:38 Seg Neutrophils % 62.6 % (40.0-70.0) 11/11/18 06:38 Seg Neutrophils # 3.0 K/mm3 (1.8-7.7) 11/11/18 06:38 Sodium 128 mmol/L (137-145) L 11/15/18 05:51 Potassium 4.4 mmol/L (3.6-5.0) 11/15/18 05:51 Chloride 90.5 mmol/L (98-107) L 11/15/18 05:51 Carbon Dioxide 25 mmol/L (22-30) 11/15/18 05:51 Anion Gap 17 mmol/L 11/15/18 05:51 BUN 19 mg/dL (7-17) H 11/15/18 05:51 Creatinine 1.2 mg/dL (0.7-1.2) 11/15/18 05:51 Estimated GFR 60 ml/min 11/15/18 05:51 BUN/Creatinine Ratio 16 % 11/15/18 05:51 Glucose 77 mg/dL (65-100) 11/15/18 05:51 Calcium 8.4 mg/dL (8.4-10.2) 11/15/18 05:51 NT-Pro-B Natriuret Pep 6146 pg/mL (0-450) H 11/11/18 06:38 HCG, Qual Negative (Negative) 11/11/18 06:38
[2018-11-15] MEDS ORDERED: DOBUTREX DRIP 500MG/D5W 250ML 500 MG/250 ML BAG IV ONE (10:17)
[2018-11-15] MEDS: ZESTRIL PO SCH (10:22)
[2018-11-15] MEDS: COLACE PO SCH (10:22)
[2018-11-15] MEDS: COREG PO SCH ×3 (10:22→20:59)
[2018-11-15] MEDS: BABY ASPIRIN PO SCH (10:23)
[2018-11-15] MEDS: BENADRYL PO PRN ×2 (10:23→22:04)
[2018-11-15] MEDS: ZITHROMAX PO SCH (10:23)
[2018-11-15] MEDS: ALDACTONE PO SCH ×2 (10:23→12:27)
[2018-11-15] MEDS: MIRALAX 3350 PO SCH (10:23)
[2018-11-15] MEDS: NORCO 5/325 PO PRN ×2 (10:35→22:03)
--- NOTE | 2018-11-15 15:04 | Query- Heart Failure ---
Dejah Hebert__Royer Date:__11/15/18 Senior It Security Analyst/CDS:___lizabeth Phone#:____[phone] Exercise your independent professional judgment when responding to query. Questions asked do not imply a particular answer is desired or expected. We greatly appreciate your clarification on this issue. Clinical Documentation States: Assessment and plan: 43-year-old female with a past medical history of nonischemic cardiomyopathy with EF of 15-20%, hypertension, and recent admission for bilateral pneumonia presents to the hospital with complaints of continued and progressively worsening shortness of breath since discharge fromn the hospital on November 08. Acute hypoxic respiratory failure - likely from CHF exacerbation, patient will need home o2 Acute CHF exacerbation, EF 15-20% - CXR with worsening congestion RLL PNA, recently treated Mild hyponatremia Clinical Findings Show: 11/11/18 BNP 6146 Echo done 11/05/2018 showed EF 15-20%, LA severely dilated, LV mild to mod dilated, mild LVH, impaired relaxation, RA and RV mildly dilated, severe MR, mod TR, pulm HTN with RVSP 58mmHg, small pericardial effusion. If possible, Please Clarify if you mean: Acuity: [ ] Acute [ x] Acute on Chronic [ ] Chronic Type: [ x] Systolic Heart Failure [ ] Diastolic Heart Failure [ ] Combined Heart Failure [ ] Other: Present on Admission: [x ] Yes (Y) [ ] Clinically undeterminable (W) [ ] No (N) Please also document response in your Progress Notes and/or Discharge Summary and indicate if the condition was present on admission. YAMILA
[2018-11-15] MEDS: ATARAX PO PRN (17:53)
[2018-11-15] MEDS: LOVENOX SUB-Q SCH (22:02)
[2018-11-15] MEDS: PRAVACHOL PO SCH (22:03)
[2018-11-15] MEDS: AMBIEN PO PRN (22:03)
[2018-11-15] MEDS: LAC-HYDRIN TP SCH (23:58)
[2018-11-16] MEDS: LASIX IV SCH ×2 (05:15→18:56)
[2018-11-16] MEDS: ATARAX PO PRN ×2 (05:15→14:13)
[2018-11-16 05:48] LABS: BUN/Creatinine Ratio 17; Blood Urea Nitrogen 19 mg/dL (7-17); Calcium 8.2 mg/dL (8.4-10.2); Hemolysis Index 4
[2018-11-16] MEDS: DUONEB *Not for PRN Use IH SCH ×3 (08:58→21:49)
--- NOTE | 2018-11-16 09:57 | Progress Note ---
Assessment and Plan Acute on chronic HFrEF Clinically improving since initiation of dobuatmine gtt @5mcg/kg/min. Cont dobutamine for another 24Hr and IV lasix BID. Obtain strict I&Os and daily weights. NICMP EF 15-20% Cont coreg, lisinopril and aldactone as tolerated. Cont dobutamine gtt. [facility] 11/08/18 showed normal coronaries and severe lv dsyfunction Acute hypoxic respiratory failure Per primary team, will need home O2 as O2 sat drops to 77% at RA. Bilateral pneumonia Per Primary Team Hypertension H/o noncompliance with medications Hyponatremia Improving Severe MR / moderate TR Pulmonary HTN RVSP 58mmHg H/o tobacco and ETOH use The patient has been seen in conjunction with Dr. Knapp who agrees with the assessment and plan of care. Subjective Date of service: 11/16/18 Principal diagnosis: HF Interval history: pt resting in bed, states she is feeling better today, SOB improving, UOP increased. dobutamine gtt infusing. in SR on telemetry with no acute events noted overnight. Objective Last Vital Signs Temp 97.9 F 11/16/18 08:58 Pulse 95 H 11/16/18 06:33 Resp 20 11/16/18 06:33 BP 136/101 11/16/18 06:33 Pulse Ox 91 11/16/18 06:33 - Physical Examination General: No Apparent Distress HEENT: Positive: PERRL, Normocephaly, Mucus Membranes Moist Neck: Positive: neck supple, trachea midline Cardiac: Positive: Reg Rate and Rhythm, S1/S2, Systolic Murmur Lungs: Positive: Decreased Breath Sounds Neuro: Positive: Grossly Intact Abdomen: Positive: Soft. Negative: Tender Skin: Negative: Rash, Wound Musculoskeletal: No Pain Extremities: Absent: edema - Labs and Meds Comprehensive Metabolic Panel 11/16/18 Range/Units 04:52 Sodium 137 D (137-145) mmol/L Potassium 4.2 (3.6-5.0) mmol/L Chloride 97.2 L (98-107) mmol/L Carbon Dioxide 28 (22-30) mmol/L BUN 19 H (7-17) mg/dL Creatinine 1.1 (0.7-1.2) mg/dL Glucose 93 (65-100) mg/dL Calcium 8.2 L (8.4-10.2) mg/dL - Imaging and Cardiology EKG: report reviewed, image reviewed Echo: report reviewed ( 11/05/2018 showed EF 15-20%, LA severely dilated, LV mild to mod dilated, mild LVH, impaired relaxation, RA and RV mildly dilated, severe MR, mod TR, pulm HTN with RVSP 58mmHg, small pericardial effusion. ) Cardiac cath: report reviewed (11/08 which showed normal coronaries, EF 25%. ) - EKG Sinus rhythms and dysrhythmias: sinus rhythm
[2018-11-16] MEDS: BENADRYL PO PRN ×2 (10:02→20:22)
[2018-11-16] MEDS: ZITHROMAX PO SCH (10:02)
[2018-11-16] MEDS: BABY ASPIRIN PO SCH (10:02)
[2018-11-16] MEDS: COREG PO SCH ×2 (10:03→22:37)
[2018-11-16] MEDS: ZESTRIL PO SCH (10:04)
[2018-11-16] MEDS: COLACE PO SCH (10:05)
[2018-11-16] MEDS: MIRALAX 3350 PO SCH (10:05)
[2018-11-16] MEDS: ALDACTONE PO SCH (10:07)
[2018-11-16] MEDS: LAC-HYDRIN TP SCH ×2 (10:08→22:41)
--- NOTE | 2018-11-16 17:07 | Progress Note ---
Assessment and Plan Assessment and plan: --Acute on chronic systolic CHF, EF 15-20% Continue anti-failure medications, input output monitoring Low-sodium and fluid restriction, s/p dobutamine drip Cardiology recommended second dose of dobutamine drip today --Acute hypoxic respiratory failure; due to CHF exacerbation, continue oxygen and supportive care Evaluation for home oxygen at discharge --Hypertension; moderate control, continue current antihypertensives and when necessary medication --Mild hyponatremia; secondary to fluid overload , improved --Mild rash/pruritus; unknown etiology, antihistamines, significant improvement --DVT prophylaxis; Lovenox Closely monitor the patient and adjust management as needed Plan of care reviewed with the patient and her nurse History Interval history: Patient Seen and examined medical records reviewed The patient feels better no new complaints Vital signs noted Hospitalist Physical - Constitutional Vitals: Temp Pulse Resp BP Pulse Ox 96.6 F L 83 15 116/87 100 11/16/18 16:45 11/16/18 14:41 11/16/18 14:41 11/16/18 14:41 11/16/18 14:41 General appearance: Present: no acute distress, well-nourished - EENT Eyes: Present: PERRL, EOM intact - Neck Neck: Present: supple, normal ROM - Respiratory Respiratory effort: normal Respiratory: bilateral: diminished, negative: rales, rhonchi, wheezing - Cardiovascular Rhythm: regular Heart Sounds: Present: S1 & S2 - Extremities Extremities: no ischemia, No edema - Abdominal General gastrointestinal: soft, non-tender, non-distended - Integumentary Integumentary: Present: clear, warm - Psychiatric Psychiatric: appropriate mood/affect, cooperative - Neurologic Neurologic: moves all extremities Results - Labs CBC & Chem 7: 11/11/18 06:38 11/16/18 04:52 Labs: Laboratory Last Values WBC 4.9 K/mm3 (4.5-11.0) 11/11/18 06:38 RBC 4.14 M/mm3 (3.65-5.03) 11/11/18 06:38 Hgb 9.4 gm/dl (10.1-14.3) L 11/11/18 06:38 Hct 30.5 % (30.3-42.9) 11/11/18 06:38 MCV 74 fl (79-97) L 11/11/18 06:38 MCH 23 pg (28-32) L 11/11/18 06:38 MCHC 31 % (30-34) 11/11/18 06:38 RDW 23.2 % (13.2-15.2) H 11/11/18 06:38 Plt Count 299 K/mm3 (140-440) 11/11/18 06:38 Lymph % (Auto) 25.1 % (13.4-35.0) 11/11/18 06:38 [place] % (Auto) 11.0 % (0.0-7.3) H 11/11/18 06:38 Eos % (Auto) 0.5 % (0.0-4.3) 11/11/18 06:38 Baso % (Auto) 0.8 % (0.0-1.8) 11/11/18 06:38 Lymph # 1.2 K/mm3 (1.2-5.4) 11/11/18 06:38 [place] # 0.5 K/mm3 (0.0-0.8) 11/11/18 06:38 Eos # 0.0 K/mm3 (0.0-0.4) 11/11/18 06:38 Baso # 0.0 K/mm3 (0.0-0.1) 11/11/18 06:38 Seg Neutrophils % 62.6 % (40.0-70.0) 11/11/18 06:38 Seg Neutrophils # 3.0 K/mm3 (1.8-7.7) 11/11/18 06:38 Sodium 137 mmol/L (137-145) D 11/16/18 04:52 Potassium 4.2 mmol/L (3.6-5.0) 11/16/18 04:52 Chloride 97.2 mmol/L (98-107) L 11/16/18 04:52 Carbon Dioxide 28 mmol/L (22-30) 11/16/18 04:52 Anion Gap 16 mmol/L 11/16/18 04:52 BUN 19 mg/dL (7-17) H 11/16/18 04:52 Creatinine 1.1 mg/dL (0.7-1.2) 11/16/18 04:52 Estimated GFR > 60 ml/min 11/16/18 04:52 BUN/Creatinine Ratio 17 % 11/16/18 04:52 Glucose 93 mg/dL (65-100) 11/16/18 04:52 Calcium 8.2 mg/dL (8.4-10.2) L 11/16/18 04:52 NT-Pro-B Natriuret Pep 6146 pg/mL (0-450) H 11/11/18 06:38 HCG, Qual Negative (Negative) 11/11/18 06:38
[2018-11-16] MEDS ORDERED: DOBUTREX DRIP 500MG/D5W 250ML 500 MG/250 ML BAG IV SCH (18:00)
[2018-11-16] MEDS: LOVENOX SUB-Q SCH (22:38)
[2018-11-16] MEDS: PRAVACHOL PO SCH (22:38)
[2018-11-16] MEDS: AMBIEN PO PRN (22:45)
[2018-11-17] MEDS: ATARAX PO PRN ×2 (03:51→17:02)
[2018-11-17] MEDS: LASIX IV SCH ×2 (06:58→17:01)
[2018-11-17] MEDS: DUONEB *Not for PRN Use IH SCH ×3 (08:27→20:17)
[2018-11-17] MEDS: COREG PO SCH ×2 (09:18→23:29)
[2018-11-17] MEDS: ZESTRIL PO SCH (09:18)
[2018-11-17] MEDS: ZITHROMAX PO SCH (09:19)
[2018-11-17] MEDS: BABY ASPIRIN PO SCH (09:20)
[2018-11-17] MEDS: ALDACTONE PO SCH (09:20)
[2018-11-17] MEDS: BENADRYL PO PRN ×2 (09:20→23:29)
[2018-11-17] MEDS: MIRALAX 3350 PO SCH (09:24)
[2018-11-17] MEDS: COLACE PO SCH (09:24)
[2018-11-17] MEDS: LAC-HYDRIN TP SCH ×2 (09:25→23:30)
--- NOTE | 2018-11-17 09:45 | Progress Note ---
Assessment and Plan Acute on chronic HFrEF D/c dobuatmine gtt. Cont IV lasix BID. F/u CXR. Cont strict I&Os and daily weights. NICMP EF 15-20% Cont coreg, lisinopril and aldactone as tolerated. [facility] 11/08/18 showed normal coronaries and severe lv dsyfunction Acute hypoxic respiratory failure Per primary team, will need home O2 as O2 sat drops to 77% at RA. Bilateral pneumonia Per Primary Team Hypertension H/o noncompliance with medications Hyponatremia Improving Severe MR / moderate TR Pulmonary HTN RVSP 58mmHg H/o tobacco and ETOH use D/c dobutamine gtt, f/u CXR. Pt may tx out of IMCU to telemetry from cardiology standpoint. Likely d/c home in AM. The patient has been seen in conjunction with Dr. Knapp who agrees with the assessment and plan of care. Subjective Date of service: 11/17/18 Principal diagnosis: HF Interval history: pt lying flat comfortably in bed, states she is feeling well, asking to discharge home. dobutamine gtt infusing. in SR on telemetry with no acute events noted overnight. Objective Last Vital Signs Temp 97.5 F L 11/17/18 08:00 Pulse 88 11/17/18 09:41 Resp 19 11/17/18 09:41 BP 114/78 11/17/18 09:41 Pulse Ox 100 11/17/18 09:41 - Physical Examination General: No Apparent Distress HEENT: Positive: PERRL, Normocephaly, Mucus Membranes Moist Neck: Positive: neck supple, trachea midline Cardiac: Positive: Reg Rate and Rhythm, S1/S2 Lungs: Positive: Decreased Breath Sounds Neuro: Positive: Grossly Intact Abdomen: Positive: Soft. Negative: Tender Skin: Negative: Rash, Wound Musculoskeletal: No Pain Extremities: Absent: edema - Imaging and Cardiology EKG: report reviewed, image reviewed Echo: report reviewed ( 11/05/2018 showed EF 15-20%, LA severely dilated, LV mild to mod dilated, mild LVH, impaired relaxation, RA and RV mildly dilated, severe MR, mod TR, pulm HTN with RVSP 58mmHg, small pericardial effusion. ) Cardiac cath: report reviewed (11/08 which showed normal coronaries, EF 25%. ) - Telemetry EKG Rhythm: Sinus Rhythm - EKG Sinus rhythms and dysrhythmias: sinus rhythm
--- NOTE | 2018-11-17 11:36 | XRay Report ---
AP CHEST: HISTORY: Short of breath Cardiomegaly has decreased since 11/14/18. Pulmonary venous congestion has resolved. A small left pleural effusion is identified but it has decreased significantly since the previous exam. No right pleural effusion or pneumothorax. IMPRESSION: Mild cardiomegaly and small left pleural effusion. Significant improvement in CHF since 11/14/18.
[2018-11-17] MEDS: NORCO 5/325 PO PRN (11:44)
--- NOTE | 2018-11-17 13:14 | Progress Note ---
Assessment and Plan Assessment and plan: --Acute on chronic systolic CHF, EF 15-20% Continue anti-failure medications, input output monitoring Low-sodium and fluid restriction, s/p dobutamine drip x2 days Cardiology advised transfer to telemetry possible discharge tomorrow --Acute hypoxic respiratory failure; due to CHF exacerbation, continue oxygen and supportive care Evaluation for home oxygen at discharge --Hypertension; moderate control, continue current antihypertensives and when necessary medication --Mild hyponatremia; secondary to fluid overload , improved --Mild rash/pruritus; unknown etiology, antihistamines, significant improvement --DVT prophylaxis; Lovenox Transfer to telemetry, Increase ambulation as tolerated Possible discharge home tomorrow if okay with cardiology Plan of care is reviewed with the patient and her nurse History Interval history: Patient seen and examined medical records reviewed No new events reported by the nursing Patient completed 2 days of dobutamine, feels better wants to go home Alert awake oriented Vital signs noted Hospitalist Physical - Constitutional Vitals: Temp Pulse Resp BP Pulse Ox 97.6 F 84 18 114/78 100 11/17/18 12:08 11/17/18 12:41 11/17/18 12:41 11/17/18 12:41 11/17/18 12:41 General appearance: Present: no acute distress, well-nourished - EENT Eyes: Present: PERRL, EOM intact - Neck Neck: Present: supple, normal ROM - Respiratory Respiratory effort: normal Respiratory: bilateral: diminished, negative: rales, rhonchi, wheezing - Cardiovascular Rhythm: regular Heart Sounds: Present: S1 & S2 - Extremities Extremities: no ischemia, No edema - Abdominal General gastrointestinal: soft, non-tender, non-distended, normal bowel sounds - Integumentary Integumentary: Present: clear, warm - Psychiatric Psychiatric: appropriate mood/affect, cooperative - Neurologic Neurologic: CNII-XII intact, moves all extremities Results - Labs CBC & Chem 7: 11/11/18 06:38 11/18/18 04:31 Labs: Laboratory Last Values WBC 4.9 K/mm3 (4.5-11.0) 11/11/18 06:38 RBC 4.14 M/mm3 (3.65-5.03) 11/11/18 06:38 Hgb 9.4 gm/dl (10.1-14.3) L 11/11/18 06:38 Hct 30.5 % (30.3-42.9) 11/11/18 06:38 MCV 74 fl (79-97) L 11/11/18 06:38 MCH 23 pg (28-32) L 11/11/18 06:38 MCHC 31 % (30-34) 11/11/18 06:38 RDW 23.2 % (13.2-15.2) H 11/11/18 06:38 Plt Count 299 K/mm3 (140-440) 11/11/18 06:38 Lymph % (Auto) 25.1 % (13.4-35.0) 11/11/18 06:38 [place] % (Auto) 11.0 % (0.0-7.3) H 11/11/18 06:38 Eos % (Auto) 0.5 % (0.0-4.3) 11/11/18 06:38 Baso % (Auto) 0.8 % (0.0-1.8) 11/11/18 06:38 Lymph # 1.2 K/mm3 (1.2-5.4) 11/11/18 06:38 [place] # 0.5 K/mm3 (0.0-0.8) 11/11/18 06:38 Eos # 0.0 K/mm3 (0.0-0.4) 11/11/18 06:38 Baso # 0.0 K/mm3 (0.0-0.1) 11/11/18 06:38 Seg Neutrophils % 62.6 % (40.0-70.0) 11/11/18 06:38 Seg Neutrophils # 3.0 K/mm3 (1.8-7.7) 11/11/18 06:38 Sodium 137 mmol/L (137-145) D 11/16/18 04:52 Potassium 4.2 mmol/L (3.6-5.0) 11/16/18 04:52 Chloride 97.2 mmol/L (98-107) L 11/16/18 04:52 Carbon Dioxide 28 mmol/L (22-30) 11/16/18 04:52 Anion Gap 16 mmol/L 11/16/18 04:52 BUN 19 mg/dL (7-17) H 11/16/18 04:52 Creatinine 1.1 mg/dL (0.7-1.2) 11/16/18 04:52 Estimated GFR > 60 ml/min 11/16/18 04:52 BUN/Creatinine Ratio 17 % 11/16/18 04:52 Glucose 93 mg/dL (65-100) 11/16/18 04:52 Calcium 8.2 mg/dL (8.4-10.2) L 11/16/18 04:52 NT-Pro-B Natriuret Pep 6146 pg/mL (0-450) H 11/11/18 06:38 HCG, Qual Negative (Negative) 11/11/18 06:38 Nutrition/Malnutrition Assess - Dietary Evaluation Nutrition/Malnutrition Findings: Nutrition Notes Start: 11/17/18 10:31 Freq: Status: Active Protocol: Document 11/17/18 10:31 (Rec: 11/17/18 10:53 [email or web address]) Co-Sign 11/17/18 10:31 OL Nutrition Notes Initial or Follow up Brief Note Current Diagnosis Hypertension Heart Failure Other Pertinent Diagnosis dyspnea, resp. distress; hx of non-ischemic cardiomyopathy, bilateral PNA Current Diet Cardiac diet Subjective/Other Information MD consult for HF and 2L fluid restriction diet education. #1 Nutrition Diagnosis Food and nutrition-related knowledge deficit Etiology No prior knowledge of sodium- restricted diet As Evidenced by Signs and Symptoms Pt. report of LUZMA agrawal Nutrition Intervention Teaching Recipient Patient Learning Readiness Good Teaching Methods Discussion Handout Response to Teaching Verbalize understanding Education Handouts Provided Heart Failure Nutrition Therapy Handout Barriers to Learning No Barriers RD phone number provided Yes Patient aware of follow up options Yes Revisit per MD consult or patient Sign Off request:
[2018-11-17] MEDS: AMBIEN PO PRN (23:29)
[2018-11-17] MEDS: PRAVACHOL PO SCH (23:30)
[2018-11-17] MEDS: LOVENOX SUB-Q SCH (23:33)
[2018-11-18 05:39] LABS: BUN/Creatinine Ratio 28; Blood Urea Nitrogen 25 mg/dL (7-17); Calcium 8.6 mg/dL (8.4-10.2); Hemolysis Index 11
[2018-11-18] MEDS: LASIX IV SCH (06:09)
[2018-11-18] MEDS: BENADRYL PO PRN (06:18)
[2018-11-18] MEDS: DUONEB *Not for PRN Use IH SCH (07:27)
[2018-11-18] MEDS: ZITHROMAX PO SCH (10:22)
[2018-11-18] MEDS: ALDACTONE PO SCH (10:22)
[2018-11-18] MEDS: ZESTRIL PO SCH (10:22)
[2018-11-18] MEDS: MIRALAX 3350 PO SCH (10:22)
[2018-11-18] MEDS: COREG PO SCH (10:22)
[2018-11-18] MEDS: COLACE PO SCH (10:22)
[2018-11-18] MEDS: BABY ASPIRIN PO SCH (10:22)
--- NOTE | 2018-11-18 11:33 | Discharge Summary ---
Providers - Providers Date of Admission: 11/11/18 07:57 Date of discharge: 11/18/18 Attending physician: JUANCARLOS CHAPA 11/11/18 11:10 Physical Therapy Evaluation and Treat [CONS] Routine Comment: O2 requirement Reason For Exam: placement 11/12/18 13:39 Consult to Case Management [CONS] Routine Services Needed at Discharge: Home O2 Notified:: cm 11/14/18 17:40 Consult to Physician [CONS] Routine Comment: Consulting Provider: BERT PAYTON Physician Instructions: Reason For Exam: chf exacerbation 11/16/18 11:23 Consult to Dietitian/Nutrition [CONS] Routine Physician Instructions: Reason For Exam: Reason for Consult: HF diet, 2L fluid restrict Primary care physician: [employer] Hospitalization Reason for admission: worsening shortness of breath Condition: Stable Pertinent studies: Chest x-ray; right and left pulmonary infiltrates, left effusion VQ scan low probability for PE, CHF Repeat chest x-ray; mild CHF mild cardiomegaly small pleural effusion No infiltrate Hospital course: 43-year-old female patient with multiple medical problems including cardiomyopathy with ejection fraction of 15-20% was admitted through emergency room with worsening shortness of breath, noted to be in acute on chronic systolic congestive heart failure as well as bilateral pneumonia Patient was symptomatically managed started on IV antibiotics, evaluation by cardiology Medications were optimized Patient needed 2 days of dobutamine for which patient was transferred to [facility] Patient received IV antibiotics repeat chest x-ray revealed resolved infiltrate Today she is comfortable no new complaints vital signs stable Physical examination unremarkable Clear by cardiology for discharge and follow up with him in the office Patient is hemodynamically and clinically stable at discharge Discharge diagnosis --Acute on chronic systolic CHF, EF 15-20% Continue anti-failure medications, input output monitoring Low-sodium and fluid restriction, s/p dobutamine drip x2 days Cardiology advised transfer to telemetry possible discharge tomorrow --Acute hypoxic respiratory failure; due to CHF exacerbation, continue oxygen and supportive care Evaluation for home oxygen at discharge --Hypertension; moderate control, continue current antihypertensives and when necessary medication --Mild hyponatremia; secondary to fluid overload , improved --Mild rash/pruritus; unknown etiology, antihistamines, significant improvement Disposition: [id number] HOME UNDER HOME [facility] Time spent for discharge: 32 min Core Measure Documentation - Palliative Care Palliative Care/ Comfort Measures: Not Applicable - Core Measures Any of the following diagnoses?: heart failure - Heart Failure Discharge Requirements DANA/ARB for LVSD if EF <40%: Yes Beta josé miguel at discharge: Yes Exam - Constitutional Vitals: Temp Pulse Resp BP Pulse Ox 97.9 F 94 H 20 104/80 100 11/18/18 07:34 11/18/18 07:37 11/18/18 07:37 11/18/18 07:34 11/18/18 07:34 General appearance: Present: no acute distress, well-nourished - EENT Eyes: Present: PERRL, EOM intact - Neck Neck: Present: supple, normal ROM - Respiratory Respiratory effort: normal Respiratory: bilateral: diminished, negative: rales, rhonchi, wheezing - Cardiovascular Rhythm: regular Heart Sounds: Present: S1 & S2 - Extremities Extremities: no ischemia, No edema - Abdominal General gastrointestinal: Present: soft, non-tender, non-distended, normal bowel sounds - Integumentary Integumentary: Present: clear, warm - Musculoskeletal Musculoskeletal: strength equal bilaterally - Psychiatric Psychiatric: appropriate mood/affect, cooperative - Neurologic Neurologic: CNII-XII intact, moves all extremities Plan Activity: advance as tolerated Diet: other (cardiac diet) Additional Instructions: if you have Chest pain or shortness of breath contact M.D. Or go to emergency room, Follow up with: PRIMARY CARE, [Primary Care Provider] - 3-5 Days JENNY SHEN MD [Staff Physician] - 7 Days Prescriptions: Furosemide [Lasix TAB] 40 mg PO BID #60 tablet
--- NOTE | 2018-11-18 12:01 | Progress Note ---
Assessment and Plan Acute on chronic HFrEF F/u CXR with near resolution of HF. Pt nearing/at euvolemia. Convert IV lasix to PO lasix 40mg BID. NICMP EF 15-20% Cont coreg, lisinopril, aldactone, lasix as tolerated. [facility] 11/08/18 showed normal coronaries and severe lv dsyfunction Acute hypoxic respiratory failure Per primary team, will need home O2 as O2 sat drops to 77% at RA. Bilateral pneumonia Per Primary Team Hypertension H/o noncompliance with medications Hyponatremia Improving Severe MR / moderate TR Pulmonary HTN RVSP 58mmHg H/o tobacco and ETOH use Currently stable cardiac status. Pt may discharge home from cardiology standpoint. At discharge, recommend conversion of IV lasix to PO lasix 40mg BID. Recommend pt follow up in our office with Dr. Knapp within 3-5 days of hospital discharge ([phone]). Pt verbalizes understanding and states she will call and make her own appointment. The patient has been seen in conjunction with Dr. Knapp who agrees with the assessment and plan of care. Subjective Date of service: 11/18/18 Principal diagnosis: HF Interval history: pt sitting up in bed, states she is feeling well and feels ready to discharge home. in SR on telemetry with no acute events noted overnight. Objective Last Vital Signs Temp 97.9 F 11/18/18 07:34 Pulse 94 H 11/18/18 07:37 Resp 20 11/18/18 07:37 BP 104/80 11/18/18 07:34 Pulse Ox 100 11/18/18 07:34 - Physical Examination General: No Apparent Distress HEENT: Positive: PERRL, Normocephaly, Mucus Membranes Moist Neck: Positive: neck supple, trachea midline Cardiac: Positive: Reg Rate and Rhythm, S1/S2 Lungs: Positive: clear to auscultation Neuro: Positive: Grossly Intact Abdomen: Positive: Soft. Negative: Tender Skin: Negative: Rash, Wound Musculoskeletal: No Pain Extremities: Absent: edema - Labs and Meds Comprehensive Metabolic Panel 11/18/18 Range/Units 04:31 Sodium 134 L (137-145) mmol/L Potassium 4.3 (3.6-5.0) mmol/L Chloride 97.5 L (98-107) mmol/L Carbon Dioxide 24 (22-30) mmol/L BUN 25 H (7-17) mg/dL Creatinine 0.9 (0.7-1.2) mg/dL Glucose 86 (65-100) mg/dL Calcium 8.6 (8.4-10.2) mg/dL - Imaging and Cardiology EKG: report reviewed, image reviewed Echo: report reviewed ( 11/05/2018 showed EF 15-20%, LA severely dilated, LV mild to mod dilated, mild LVH, impaired relaxation, RA and RV mildly dilated, severe MR, mod TR, pulm HTN with RVSP 58mmHg, small pericardial effusion. ) Cardiac cath: report reviewed (11/08 which showed normal coronaries, EF 25%. ) - EKG Sinus rhythms and dysrhythmias: sinus rhythm
[2018-11-18 12:30] VITALS: BP 94/73
== END 2018-11-18 13:20 | disposition home or self-care (01) | DRG 291 ==
LOC: ED 05:50 → 3A 07:57 → IMCU 11-15 13:50 → 4A 11-17 21:46
PROVIDERS: ADMIT Internal Medicine; ATTEND Internal Medicine
DX: I11.0 Hypertensive heart disease with heart failure (principal); J96.01 Acute respiratory failure with hypoxia; J18.9 Pneumonia, unspecified organism; I50.23 Acute on chronic systolic (congestive) heart failure; E87.1 Hypo-osmolality and hyponatremia; L29.9 Pruritus, unspecified; I42.8 Other cardiomyopathies; I27.20 Pulmonary hypertension, unspecified; Z79.82 Long term (current) use of aspirin; Z79.899 Other long term (current) drug therapy; Z90.49 Acquired absence of other specified parts of digestive tract
CPT/HCPCS: 36415; 71045; 71046; 78582; 80048; 83880; 84703; 85025; 87040; 93005; 93010; 94640; 94760; 96365; 96366; 96375; G0378; A9270-GY; A9540; A9558; J1250; J1650; J1940; J1956; J2270; J2405

== ENCOUNTER 2019-01-14 23:16 | Emergency (ER) | payer MEDICAID ==
[2019-01-14 23:34] VITALS: BP 139/113
[2019-01-15 00:22] LABS: Mean Corpuscular HGB Conc 31 % (30-34); Mean Corpuscular Volume 85 fl (79-97); Platelet Count 234 K/mm3 (140-440); Red Blood Count 4.54 M/mm3 (3.65-5.03)
[2019-01-15 00:23] LABS: BUN/Creatinine Ratio 15; Blood Urea Nitrogen 16 mg/dL (7-17); Calcium 8.2 mg/dL (8.4-10.2); Hemolysis Index 7
[2019-01-15 00:31] LABS: Hematocrit 38.4 % (30.3-42.9); Hemoglobin 11.7 gm/dl (10.1-14.3); Red Cell Distribution Width 27.3 % (13.2-15.2)
--- NOTE | 2019-01-15 00:55 | XRay Report ---
PROCEDURE: XR CHEST ROUTINE 2V TECHNIQUE: PA and lateral views the chest were submitted. HISTORY: HARRIET COMPARISONS: 11/17/2018 FINDINGS: The cardiac silhouette is markedly enlarged and unchanged from the previous study. The lungs are not overtly congested. There are no infiltrates or effusions. There is slight thickening of the fissures. The skeletal structures otherwise are well-maintained. IMPRESSION: Enlargement of the cardiac silhouette secondary to enlargement of heart and/or pericardial effusion. This is unchanged from the previous study. Slight thickening of the fissures. No evidence of congestion infiltrates or effusions otherwise.. This document is electronically signed by Koby Felton MD., January 15 2019 12:52:53 AM ET
[2019-01-15] MEDS ORDERED: LASIX IV ONE ×2 (01:28→01:36)
[2019-01-15] MEDS ORDERED: ULTRAM PO ONE (01:28)
--- NOTE | 2019-01-15 01:34 | Emergency Department Report ---
ED Chest Pain HPI - General Chief Complaint: Chest Pain Stated Complaint: CHEST PAIN/SOB Time Seen by Provider: 01/15/19 00:23 Source: patient Mode of arrival: Ambulatory Limitations: No Limitations - History of Present Illness Initial Comments: Ms. Hanson is a pleasant 43 yo female with hx of nonischemic cardiomyopathy ejection fraction 15-20%, pneumonia, bronchitis, hypertension who presents with chest pain over the last 3 days. Gas-like pain. Pain is intermittent. She is concerned that her congestive heart failure is flaring up. She has PND and orthopnea. She has had trouble sleeping tonight. She has been without medications for the last 3-4 weeks. She does not have any refill of her medications. She does not have a PCP. She has also noticed left leg swelling. Pain is moderately severe discomfort. Intermittent midsternal pain feels like indigestion. Noticed at rest. She has oxygen dependent. She has a generator at home. -: Gradual, days(s) (3) Onset: during rest Pain Location: substernal Pain Radiation: none Severity scale (0 -10): 8 Quality: other (indigestion) Consistency: intermittent Improves With: nothing Worsens With: nothing re: nausea, vomting - Related Data Previous Rx's Medication Instructions Recorded Last Taken Type Albuterol Sulfate [Ventolin HFA] 2 puff IH Q4H PRN #1 hfa.aer.ad 08/14/14 Unknown Rx Aspirin [Aspirin BABY CHEW TAB] 81 mg PO QDAY #30 tab.chew 11/08/18 Unknown Rx Carvedilol [Coreg] 6.25 mg PO BID #60 tablet 11/08/18 Unknown Rx Lisinopril [Zestril TAB] 10 mg PO QDAY #30 tablet 11/08/18 Unknown Rx Pravastatin Sodium [Pravastatin] 20 mg PO QHS #30 tablet 11/08/18 Unknown Rx Spironolactone [Aldactone] 25 mg PO QDAY #30 tablet 11/08/18 Unknown Rx Furosemide [Lasix TAB] 40 mg PO BID #60 tablet 11/18/18 Unknown Rx Aspirin 81 mg PO DAILY #30 tab.chew 01/15/19 Unknown Rx Carvedilol 6.25 mg PO BID 30 Days #60 tablet 01/15/19 Unknown Rx Furosemide [Lasix TAB] 40 mg PO QDAY 30 Days #30 tablet 01/15/19 Unknown Rx Lisinopril [Prinivil] 10 mg PO DAILY #30 tablet 01/15/19 Unknown Rx Spironolactone 25 mg PO DAILY 30 Days #30 tablet 01/15/19 Unknown Rx Allergies Allergy/AdvReac Type Severity Reaction Status Date / Time morphine Allergy Itching Verified 01/14/19 23:19 Heart Score - HEART Score History: Slightly suspicious EKG: Normal Age: < 45 Risk factors: > 3 risk factors or hx of atherosclerotic disease Troponin: < normal limit HEART Score: 2 ED Review of Systems ROS: Stated complaint: CHEST PAIN/SOB Other details as noted in HPI Comment: All other systems reviewed and negative Constitutional: malaise Respiratory: shortness of breath Cardiovascular: chest pain Gastrointestinal: nausea, vomiting ED Past Medical Hx - Past Medical History Previous Medical History?: Yes Hx Hypertension: Yes Hx Congestive Heart Failure: Yes Hx Diabetes: No Hx Deep Vein Thrombosis: No Hx Renal Disease: No Hx Sickle Cell Disease: No Hx Seizures: No Hx Asthma: No Hx COPD: No Hx HIV: No - Surgical History Hx Cholecystectomy: Yes - Social History Smoking Status: Former Smoker Substance Use Type: None - Medications Home Medications: Home Medications Medication Instructions Recorded Confirmed Last Taken Type Albuterol Sulfate [Ventolin HFA] 2 puff IH Q4H PRN #1 hfa.aer.ad 08/14/14 11/11/18 Unknown Rx Aspirin [Aspirin BABY CHEW TAB] 81 mg PO QDAY #30 tab.chew 11/08/18 11/11/18 Unknown Rx Carvedilol [Coreg] 6.25 mg PO BID #60 tablet 11/08/18 11/11/18 Unknown Rx Lisinopril [Zestril TAB] 10 mg PO QDAY #30 tablet 11/08/18 11/11/18 Unknown Rx Pravastatin Sodium [Pravastatin] 20 mg PO QHS #30 tablet 11/08/18 11/11/18 Unknown Rx Spironolactone [Aldactone] 25 mg PO QDAY #30 tablet 11/08/18 11/11/18 Unknown Rx Furosemide [Lasix TAB] 40 mg PO BID #60 tablet 11/18/18 Unknown Rx Aspirin 81 mg PO DAILY #30 tab.chew 01/15/19 Unknown Rx Carvedilol 6.25 mg PO BID 30 Days #60 tablet 01/15/19 Unknown Rx Furosemide [Lasix TAB] 40 mg PO QDAY 30 Days #30 tablet 01/15/19 Unknown Rx Lisinopril [Prinivil] 10 mg PO DAILY #30 tablet 01/15/19 Unknown Rx Spironolactone 25 mg PO DAILY 30 Days #30 tablet 01/15/19 Unknown Rx ED Physical Exam - General Limitations: No Limitations General appearance: alert, in no apparent distress - Head Head exam: Present: atraumatic, normocephalic - Eye Eye exam: Present: normal appearance - ENT ENT exam: Present: mucous membranes moist - Neck Neck exam: Present: normal inspection - Respiratory Respiratory exam: Present: rales. Absent: respiratory distress, wheezes, rhonchi, stridor - Cardiovascular Cardiovascular Exam: Present: regular rate, normal rhythm, normal heart sounds. Absent: systolic murmur, diastolic murmur, rubs, gallop - GI/Abdominal GI/Abdominal exam: Present: soft, normal bowel sounds. Absent: distended, tenderness, guarding, rebound - Extremities Exam Extremities exam: Present: normal inspection - Back Exam Back exam: Present: normal inspection - Neurological Exam Neurological exam: Present: alert, oriented X3 - Psychiatric Psychiatric exam: Present: normal affect, normal mood - Skin Skin exam: Present: warm, dry, intact, normal color. Absent: rash ED Course Vital Signs 01/14/19 23:32 Temperature 97 F L Pulse Rate 107 H Respiratory 20 Rate Blood Pressure 139/113 ED Medical Decision Making - Lab Data Result diagrams: 01/14/19 23:52 01/14/19 23:52 Laboratory Last Values WBC 3.2 K/mm3 (4.5-11.0) L 01/14/19 23:52 RBC 4.54 M/mm3 (3.65-5.03) 01/14/19 23:52 Hgb 11.7 gm/dl (10.1-14.3) 01/14/19 23:52 Hct 38.4 % (30.3-42.9) 01/14/19 23:52 MCV 85 fl (79-97) 01/14/19 23:52 MCH 26 pg (28-32) L 01/14/19 23:52 MCHC 31 % (30-34) 01/14/19 23:52 RDW 27.3 % (13.2-15.2) H 01/14/19 23:52 Plt Count 234 K/mm3 (140-440) 01/14/19 23:52 Lymph % (Auto) Dominatrix 01/14/19 23:52 [place] % (Auto) Dominatrix 01/14/19 23:52 Eos % (Auto) Dominatrix 01/14/19 23:52 Baso % (Auto) Dominatrix 01/14/19 23:52 Lymph # Dominatrix 01/14/19 23:52 [place] # Dominatrix 01/14/19 23:52 Eos # Dominatrix 01/14/19 23:52 Baso # Dominatrix 01/14/19 23:52 Seg Neutrophils % Dominatrix 01/14/19 23:52 Seg Neutrophils # Dominatrix 01/14/19 23:52 Sodium 131 mmol/L (137-145) L 01/14/19 23:52 Potassium 3.9 mmol/L (3.6-5.0) 01/14/19 23:52 Chloride 97.0 mmol/L (98-107) L 01/14/19 23:52 Carbon Dioxide 20 mmol/L (22-30) L 01/14/19 23:52 Anion Gap 18 mmol/L 01/14/19 23:52 BUN 16 mg/dL (7-17) 01/14/19 23:52 Creatinine 1.1 mg/dL (0.7-1.2) 01/14/19 23:52 Estimated GFR > 60 ml/min 01/14/19 23:52 BUN/Creatinine Ratio 15 % 01/14/19 23:52 Glucose 101 mg/dL (65-100) H 01/14/19 23:52 Calcium 8.2 mg/dL (8.4-10.2) L 01/14/19 23:52 NT-Pro-B Natriuret Pep 68290 pg/mL (0-450) H 01/14/19 23:52 HCG, Qual Negative (Negative) 01/14/19 23:52 - EKG Data 01/15/19 01:38 EKG obtained 2324 Sinus tachycardia rate 110 beats a minute normal axis normal intervals positive LVH no ST elevation nonspecific T wave pattern - Radiology Data Radiology results: report reviewed, image reviewed Cardiomegaly no infiltrate and no effusion no gross pulmonary edema thickened horizontal fissure - Medical Decision Making Ms. Hanson presents with symptoms of acute congestive heart failure due to medication noncompliance. She does not have a primary care physician.. I do not suspect pulmonary embolism or acute coronary syndrome. Do not suspect pericarditis. Patient felt much better after diuresis achieved with IV furosemide. She ambu lates without difficulty or effort. She does not require oxygen supplementation for transportation. Critical care attestation.: If time is entered above; I have spent that time in minutes in the direct care of this critically ill patient, excluding procedure time. ED Disposition Clinical Impression: Acute exacerbation of congestive heart failure Disposition: TO HOME OR SELFCARE Is pt being admited?: No Does the pt Need Aspirin: No Condition: Stable Instructions: Heart Failure (ED) Prescriptions: Aspirin 81 mg PO DAILY #30 tab.chew Carvedilol 6.25 mg PO BID 30 Days #60 tablet Furosemide [Lasix TAB] 40 mg PO QDAY 30 Days #30 tablet Lisinopril [Prinivil] 10 mg PO DAILY #30 tablet Spironolactone 25 mg PO DAILY 30 Days #30 tablet Referrals: [facility] [Outside] - 3-5 Days MELQUIADES HARRIS MD [Staff Physician] - 3-5 Days
[2019-01-15] MEDS ORDERED: ALDACTONE PO ONE (01:36)
[2019-01-15 05:09] LABS: Mean Platelet Volume 7.7 fl (6-12)
[2019-01-15 05:10] LABS: Basophils % (Auto) 1.2 % (0.0-1.8); Monocytes % (Auto) 9.5 % (0.0-7.3)
[2019-01-15 05:11] LABS: Eosinophils # (Auto) 0.1 K/mm3 (0.0-0.4); Lymphocytes # (Auto) 1.2 K/mm3 (1.2-5.4); Monocytes # (Auto) 0.3 K/mm3 (0.0-0.8)
== END 2019-01-15 04:50 | disposition home or self-care (01) ==
LOC: ED 23:16
DX: I11.0 Hypertensive heart disease with heart failure (principal); I50.9 Heart failure, unspecified; Z90.49 Acquired absence of other specified parts of digestive tract; Z79.899 Other long term (current) drug therapy; Z88.6 Allergy status to analgesic agent
CPT/HCPCS: 36415; 71046; 80048; 83880; 84703; 85007; 85025; 93005; 93010; 96374; 99284; J1940

== ENCOUNTER 2019-04-09 09:32 | Emergency (ER) | payer MEDICAID ==
--- NOTE | 2019-04-09 10:44 | XRay Report ---
PROCEDURE: XR CHEST ROUTINE 2V TECHNIQUE: PA and lateral chest radiographs were obtained. HISTORY: Chest Pain COMPARISONS: 03/17/2018. FINDINGS: Heart: Stable cardiomegaly. Mediastinum/Vessels: Normal. Lungs/Pleural space: No focal consolidation. No pleural effusion or pneumothorax. Bony thorax: No acute osseous abnormality. IMPRESSION: Stable cardiomegaly. Lungs are clear. This document is electronically signed by Marcy Alba MD., April 09 2019 10:41:54 AM ET
[2019-04-09 11:52] LABS: Hematocrit 38.6 % (30.3-42.9); Hemoglobin 12.4 gm/dl (10.1-14.3); Mean Corpuscular HGB Conc 32 % (30-34); Mean Corpuscular Volume 82 fl (79-97); Platelet Count 305 K/mm3 (140-440); Red Blood Count 4.72 M/mm3 (3.65-5.03)
[2019-04-09 11:53] LABS: Red Cell Distribution Width 22.3 % (13.2-15.2)
[2019-04-09 12:00] LABS: INR 1.17 (0.87-1.13)
[2019-04-09 12:01] LABS: Partial Thromboplastin Time 29.2 Sec. (24.2-36.6)
[2019-04-09 12:05] LABS: BUN/Creatinine Ratio 17; Blood Urea Nitrogen 24 mg/dL (7-17); Calcium 8.6 mg/dL (8.4-10.2); Creatine Kinase MB 2.2 ng/mL (0.0-4.0); Hemolysis Index 3
[2019-04-09 12:09] LABS: Bilirubin,Direct 0.3 mg/dL (0-0.2)
[2019-04-09 12:32] LABS: Anisocytosis 1+; Eosinophils % (Manual) 0 % (0.0-4.3); Total Cells Counted 100
[2019-04-09 12:33] LABS: Platelet Estimate Consistent w Auto; Poikilocytosis Few; Target Cells Few
--- NOTE | 2019-04-09 12:56 | Emergency Department Report ---
ED General Adult HPI - General Chief complaint: Dyspnea/Respdistress Stated complaint: CHEST PAIN/SOB Time Seen by Provider: 04/09/19 10:42 Source: patient Mode of arrival: Ambulatory Limitations: No Limitations - History of Present Illness Initial comments: 43-year-old female with a history of nonischemic cardiomyopathy. The patient had a cardiac catheterization in November [address] Heller revealing normal coronary arteries. Patient had a negative VQ scan for pulmonary embolism in November 2018 as well. She has been admitted here for decompensated congestive heart failure in past. She states that she is compliant with her Lasix sometimes taking an extra dose. She states she is taking her spironolactone lisinopril and carvedilol. Despite this, she complains of shortness of breath and PND. She is home O2 dependent. She states that she has exertional dyspnea. She periodically experiences chest pain and is not complaining of this at the time of my encounter. She stated that she had some brief chest pain at 5 AM this morning. Despite stating that she has severe leg edema, on exam she has no appreciable edema whatsoever. -: Gradual, week(s) Location: chest Radiation: non-radiation Quality: aching Consistency: now resolved Improves with: none Worsens with: none Associated Symptoms: denies other symptoms, shortness of breath - Related Data Previous Rx's Medication Instructions Recorded Last Taken Type Albuterol Sulfate [Ventolin HFA] 2 puff IH Q4H PRN #1 hfa.aer.ad 08/14/14 Unknown Rx Aspirin [Aspirin BABY CHEW TAB] 81 mg PO QDAY #30 tab.chew 11/08/18 Unknown Rx Carvedilol [Coreg] 6.25 mg PO BID #60 tablet 11/08/18 Unknown Rx Lisinopril [Zestril TAB] 10 mg PO QDAY #30 tablet 11/08/18 Unknown Rx Pravastatin Sodium [Pravastatin] 20 mg PO QHS #30 tablet 11/08/18 Unknown Rx Spironolactone [Aldactone] 25 mg PO QDAY #30 tablet 11/08/18 Unknown Rx Furosemide [Lasix TAB] 40 mg PO BID #60 tablet 11/18/18 Unknown Rx Aspirin 81 mg PO DAILY #30 tab.chew 01/15/19 Unknown Rx Carvedilol 6.25 mg PO BID 30 Days #60 tablet 01/15/19 Unknown Rx Furosemide [Lasix TAB] 40 mg PO QDAY 30 Days #30 tablet 01/15/19 Unknown Rx Lisinopril [Prinivil] 10 mg PO DAILY #30 tablet 01/15/19 Unknown Rx Spironolactone 25 mg PO DAILY 30 Days #30 tablet 01/15/19 Unknown Rx Allergies Allergy/AdvReac Type Severity Reaction Status Date / Time morphine Allergy Itching Verified 01/14/19 23:19 ED Review of Systems ROS: Stated complaint: CHEST PAIN/SOB Other details as noted in HPI Constitutional: denies: chills, fever Eyes: denies: eye pain, eye discharge, vision change ENT: denies: ear pain, throat pain Respiratory: orthopnea, shortness of breath, SOB with exertion. denies: cough Cardiovascular: chest pain (intermittently nothing prolonged). denies: palpitations Endocrine: no symptoms reported Gastrointestinal: denies: abdominal pain, nausea, diarrhea Genitourinary: denies: urgency, dysuria, discharge Musculoskeletal: denies: back pain, joint swelling, arthralgia Skin: denies: rash, lesions Neurological: denies: headache, weakness, paresthesias Psychiatric: denies: anxiety, depression Hematological/Lymphatic: denies: easy bleeding, easy bruising ED Past Medical Hx - Past Medical History Previous Medical History?: Yes Hx Hypertension: Yes Hx Congestive Heart Failure: Yes Hx Diabetes: No Hx Deep Vein Thrombosis: No Hx Renal Disease: No Hx Sickle Cell Disease: No Hx Seizures: No Hx Asthma: No Hx COPD: No Hx HIV: No - Surgical History Past Surgical History?: Yes Hx Cholecystectomy: Yes - Social History Smoking Status: Former Smoker Substance Use Type: Alcohol - Medications Home Medications: Home Medications Medication Instructions Recorded Confirmed Last Taken Type Albuterol Sulfate [Ventolin HFA] 2 puff IH Q4H PRN #1 hfa.aer.ad 08/14/14 11/11/18 Unknown Rx Aspirin [Aspirin BABY CHEW TAB] 81 mg PO QDAY #30 tab.chew 11/08/18 11/11/18 Unknown Rx Carvedilol [Coreg] 6.25 mg PO BID #60 tablet 11/08/18 11/11/18 Unknown Rx Lisinopril [Zestril TAB] 10 mg PO QDAY #30 tablet 11/08/18 11/11/18 Unknown Rx Pravastatin Sodium [Pravastatin] 20 mg PO QHS #30 tablet 11/08/18 11/11/18 Unknown Rx Spironolactone [Aldactone] 25 mg PO QDAY #30 tablet 11/08/18 11/11/18 Unknown Rx Furosemide [Lasix TAB] 40 mg PO BID #60 tablet 11/18/18 Unknown Rx Aspirin 81 mg PO DAILY #30 tab.chew 01/15/19 Unknown Rx Carvedilol 6.25 mg PO BID 30 Days #60 tablet 01/15/19 Unknown Rx Furosemide [Lasix TAB] 40 mg PO QDAY 30 Days #30 tablet 01/15/19 Unknown Rx Lisinopril [Prinivil] 10 mg PO DAILY #30 tablet 01/15/19 Unknown Rx Spironolactone 25 mg PO DAILY 30 Days #30 tablet 01/15/19 Unknown Rx ED Physical Exam - General Limitations: No Limitations General appearance: alert, in no apparent distress - Head Head exam: Present: atraumatic, normocephalic - Eye Eye exam: Present: normal appearance. Absent: scleral icterus - ENT ENT exam: Present: mucous membranes moist - Neck Neck exam: Present: normal inspection. Absent: tenderness, meningismus - Respiratory Respiratory exam: Present: normal lung sounds bilaterally. Absent: respiratory distress - Cardiovascular Cardiovascular Exam: Present: regular rate, normal rhythm. Absent: systolic murmur, diastolic murmur, rubs, gallop - GI/Abdominal GI/Abdominal exam: Present: soft, normal bowel sounds. Absent: distended, tenderness, guarding, rebound, rigid - Extremities Exam Extremities exam: Present: normal inspection, normal capillary refill. Absent: pedal edema, joint swelling, calf tenderness - Back Exam Back exam: Present: normal inspection - Neurological Exam Neurological exam: Present: alert, oriented X3, CN II-XII intact. Absent: motor sensory deficit - Psychiatric Psychiatric exam: Present: normal affect, normal mood - Skin Skin exam: Present: warm, dry, intact, normal color. Absent: rash ED Course Vital Signs 04/09/19 04/09/19 09:37 11:41 Temperature 98 F Pulse Rate 99 H Respiratory 22 18 Rate Blood Pressure 131/102 O2 Sat by Pulse 99 Oximetry - Reevaluation(s) Reevaluation #1: Patient laying supine in no distress. I have gone over her medications. She has losartan at home but she is not taking it. She is directed to begin her losartan again. 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 She is stable for outpatient follow-up. 04/09/19 13:03 ED Medical Decision Making - Lab Data Result diagrams: 04/09/19 11:12 04/09/19 11:12 Laboratory Results - last 24 hr 04/09/19 04/09/19 04/09/19 11:12 11:12 11:12 WBC 3.8 L RBC 4.72 Hgb 12.4 Hct 38.6 MCV 82 MCH 26 L MCHC 32 RDW 22.3 H Plt Count 305 Add Manual Diff Complete Total Counted 100 Seg Neuts % (Manual) 61.0 Band Neutrophils % 0 Lymphocytes % (Manual) 25.0 Reactive Lymphs % (Man) 0 Monocytes % (Manual) 10.0 H Eosinophils % (Manual) 0 Basophils % (Manual) 4.0 H Metamyelocytes % 0 Myelocytes % 0 Promyelocytes % 0 Blast Cells % 0 Nucleated RBC % Not Reportable Seg Neutrophils # Man 2.3 Band Neutrophils # 0.0 Lymphocytes # (Manual) 1.0 L Abs React Lymphs (Man) 0.0 Monocytes # (Manual) 0.4 Eosinophils # (Manual) 0.0 Basophils # (Manual) 0.2 H Metamyelocytes # 0.0 Myelocytes # 0.0 Promyelocytes # 0.0 Blast Cells # 0.0 WBC Morphology Not Reportable Hypersegmented Neuts Not Reportable Hyposegmented Neuts Not Reportable Hypogranular Neuts Not Reportable Smudge Cells Not Reportable Toxic Granulation Not Reportable Toxic Vacuolation Not Reportable Dohle Bodies Not Reportable Pelger-Huet Anomaly Not Reportable Roxana Rods Not Reportable Platelet Estimate Consistent w auto Clumped Platelets Not Reportable Plt Clumps, EDTA Not Reportable Large Platelets Not Reportable Giant Platelets Not Reportable Platelet Satelliting Not Reportable Plt Morphology Comment Not Reportable RBC Morphology Not Reportable Dimorphic RBCs Not Reportable Polychromasia Not Reportable Hypochromasia Not Reportable Poikilocytosis Few Anisocytosis 1+ Microcytosis Not Reportable Macrocytosis Not Reportable Spherocytes Not Reportable Pappenheimer Bodies Not Reportable Sickle Cells Not Reportable Target Cells Few Tear Drop Cells Not Reportable Ovalocytes Not Reportable Helmet Cells Not Reportable Sims-[place] Bodies Not Reportable [place] Rings Not Reportable Pyote Cells Not Reportable Bite Cells Not Reportable Crenated Cell Not Reportable Elliptocytes Not Reportable Acanthocytes (Spur) Not Reportable Rouleaux Not Reportable Hemoglobin C Crystals Not Reportable Schistocytes Not Reportable Malaria parasites Not Reportable Matt Bodies Not Reportable Hem Pathologist Commnt No PT INR APTT Sodium 137 Potassium 4.0 Chloride 101.1 Carbon Dioxide 23 Anion Gap 17 BUN 24 H Creatinine 1.4 H Estimated GFR 50 BUN/Creatinine Ratio 17 Glucose 102 H Calcium 8.6 Magnesium Total Bilirubin Direct Bilirubin Indirect Bilirubin AST ALT Alkaline Phosphatase Total Creatine Kinase CK-MB (CK-2) CK-MB (CK-2) Rel Index Troponin T < 0.010 NT-Pro-B Natriuret Pep 12544 H Total Protein Albumin Albumin/Globulin Ratio 04/09/19 04/09/19 11:12 11:12 WBC RBC Hgb Hct MCV MCH MCHC RDW Plt Count Add Manual Diff Total Counted Seg Neuts % (Manual) Band Neutrophils % Lymphocytes % (Manual) Reactive Lymphs % (Man) Monocytes % (Manual) Eosinophils % (Manual) Basophils % (Manual) Metamyelocytes % Myelocytes % Promyelocytes % Blast Cells % Nucleated RBC % Seg Neutrophils # Man Band Neutrophils # Lymphocytes # (Manual) Abs React Lymphs (Man) Monocytes # (Manual) Eosinophils # (Manual) Basophils # (Manual) Metamyelocytes # Myelocytes # Promyelocytes # Blast Cells # WBC Morphology Hypersegmented Neuts Hyposegmented Neuts Hypogranular Neuts Smudge Cells Toxic Granulation Toxic Vacuolation Dohle Bodies Pelger-Huet Anomaly Roxana Rods Platelet Estimate Clumped Platelets Plt Clumps, EDTA Large Platelets Giant Platelets Platelet Satelliting Plt Morphology Comment RBC Morphology Dimorphic RBCs Polychromasia Hypochromasia Poikilocytosis Anisocytosis Microcytosis Macrocytosis Spherocytes Pappenheimer Bodies Sickle Cells Target Cells Tear Drop Cells Ovalocytes Helmet Cells Sims-[place] Bodies [place] Rings Vin Cells Bite Cells Crenated Cell Elliptocytes Acanthocytes (Spur) Rouleaux Hemoglobin C Crystals Schistocytes Malaria parasites Matt Bodies Hem Pathologist Commnt PT 15.7 H INR 1.17 H APTT 29.2 Sodium Potassium Chloride Carbon Dioxide Anion Gap BUN Creatinine Estimated GFR BUN/Creatinine Ratio Glucose Calcium Magnesium 1.80 Total Bilirubin 1.00 Direct Bilirubin 0.3 H Indirect Bilirubin 0.7 AST 19 ALT 12 Alkaline Phosphatase 98 Total Creatine Kinase 70 CK-MB (CK-2) 2.2 CK-MB (CK-2) Rel Index 3.1 Troponin T NT-Pro-B Natriuret Pep Total Protein 7.4 Albumin 3.0 L Albumin/Globulin Ratio 0.7 - EKG Data -: EKG Interpreted by Me EKG shows normal: sinus rhythm, axis, intervals, QRS complexes (consistent with LVH biatrial enlargement and sinus tachycardia), ST-T waves Rate: tachycardia - EKG Data Interpretation: no acute changes - Radiology Data Radiology results: report reviewed, image reviewed FINDINGS: Heart: Stable cardiomegaly. Mediastinum/Vessels: Normal. Lungs/Pleural space: No focal consolidation. No pleural effusion or pneumothorax. Bony thorax: No acute osseous abnormality. IMPRESSION: Stable cardiomegaly. Lungs are clear. Critical care attestation.: If time is entered above; I have spent that time in minutes in the direct care of this critically ill patient, excluding procedure time. ED Disposition Clinical Impression: Nonischemic cardiomyopathy Dyspnea Qualifiers: Dyspnea type: unspecified Qualified Code(s): R06.00 - Dyspnea, unspecified Disposition: DC-01 TO HOME OR SELFCARE Is pt being admited?: No Does the pt Need Aspirin: No Condition: Stable Instructions: Heart Failure (ED) Additional Instructions: Restart your losartan medicine. Return to the emergency department any acute change or worsening symptoms. Keep your appointments this week. Referrals: SHAY MORGAN MD [Primary Care Provider] - 3-5 Days [facility] [Provider Group] - 2-3 Days Time of Disposition: 13:05
[2019-04-09 13:36] VITALS: BP 121/99
== END 2019-04-09 13:35 | disposition home or self-care (01) ==
LOC: ED 09:32
DX: I25.5 Ischemic cardiomyopathy (principal); I11.0 Hypertensive heart disease with heart failure; I50.9 Heart failure, unspecified; Z87.891 Personal history of nicotine dependence; Z90.49 Acquired absence of other specified parts of digestive tract
CPT/HCPCS: 36415; 71046; 80048; 80076; 82550; 82553; 83735; 83880; 84484; 85007; 85025; 85610; 85730; 93005; 93010

== ENCOUNTER 2019-05-08 13:29 | Emergency (ER) | payer MEDICAID ==
[2019-05-08 14:15] VITALS: BP 118/89
--- NOTE | 2019-05-08 14:18 | Emergency Department Report ---
ED ENT HPI - General Chief complaint: Dental/Oral Stated complaint: TOOTHACHE/SWOLLEN LEG Time Seen by Provider: 05/08/19 14:13 Source: patient Mode of arrival: Ambulatory Limitations: No Limitations - History of Present Illness Initial comments: pt is a 43 yo female who presents to the ED with c/o left upper dental pain that began three days. pt states she has three known bad teeth. she denies any fever or facial swelling. allergy: morphine-rash. states she has not seen a dentist in "awhile." - Related Data Previous Rx's Medication Instructions Recorded Last Taken Type Albuterol Sulfate [Ventolin HFA] 2 puff IH Q4H PRN #1 hfa.aer.ad 08/14/14 Unknown Rx Aspirin [Aspirin BABY CHEW TAB] 81 mg PO QDAY #30 tab.chew 11/08/18 Unknown Rx Carvedilol [Coreg] 6.25 mg PO BID #60 tablet 11/08/18 Unknown Rx Lisinopril [Zestril TAB] 10 mg PO QDAY #30 tablet 11/08/18 Unknown Rx Pravastatin Sodium [Pravastatin] 20 mg PO QHS #30 tablet 11/08/18 Unknown Rx Spironolactone [Aldactone] 25 mg PO QDAY #30 tablet 11/08/18 Unknown Rx Furosemide [Lasix TAB] 40 mg PO BID #60 tablet 11/18/18 Unknown Rx Aspirin 81 mg PO DAILY #30 tab.chew 01/15/19 Unknown Rx Carvedilol 6.25 mg PO BID 30 Days #60 tablet 01/15/19 Unknown Rx Furosemide [Lasix TAB] 40 mg PO QDAY 30 Days #30 tablet 01/15/19 Unknown Rx Lisinopril [Prinivil] 10 mg PO DAILY #30 tablet 01/15/19 Unknown Rx Spironolactone 25 mg PO DAILY 30 Days #30 tablet 01/15/19 Unknown Rx Acetaminophen/Codeine [Tylenol 1 tab PO Q6H PRN #10 tab 05/08/19 Unknown Rx /Codeine # 3 tab] Ibuprofen [Motrin 800 MG tab] 800 mg PO Q8HR PRN #20 tablet 05/08/19 Unknown Rx Penicillin Vk [Veetids TAB] 500 mg PO QID 7 Days #56 tablet 05/08/19 Unknown Rx Allergies Allergy/AdvReac Type Severity Reaction Status Date / Time morphine Allergy Itching Verified 01/14/19 23:19 ED Dental HPI - General Chief complaint: Dental/Oral Stated complaint: TOOTHACHE/SWOLLEN LEG Time Seen by Provider: 05/08/19 14:13 Source: patient Mode of arrival: Ambulatory Limitations: No Limitations - Related Data Previous Rx's Medication Instructions Recorded Last Taken Type Albuterol Sulfate [Ventolin HFA] 2 puff IH Q4H PRN #1 hfa.aer.ad 08/14/14 Unknown Rx Aspirin [Aspirin BABY CHEW TAB] 81 mg PO QDAY #30 tab.chew 11/08/18 Unknown Rx Carvedilol [Coreg] 6.25 mg PO BID #60 tablet 11/08/18 Unknown Rx Lisinopril [Zestril TAB] 10 mg PO QDAY #30 tablet 11/08/18 Unknown Rx Pravastatin Sodium [Pravastatin] 20 mg PO QHS #30 tablet 11/08/18 Unknown Rx Spironolactone [Aldactone] 25 mg PO QDAY #30 tablet 11/08/18 Unknown Rx Furosemide [Lasix TAB] 40 mg PO BID #60 tablet 11/18/18 Unknown Rx Aspirin 81 mg PO DAILY #30 tab.chew 01/15/19 Unknown Rx Carvedilol 6.25 mg PO BID 30 Days #60 tablet 01/15/19 Unknown Rx Furosemide [Lasix TAB] 40 mg PO QDAY 30 Days #30 tablet 01/15/19 Unknown Rx Lisinopril [Prinivil] 10 mg PO DAILY #30 tablet 01/15/19 Unknown Rx Spironolactone 25 mg PO DAILY 30 Days #30 tablet 01/15/19 Unknown Rx Acetaminophen/Codeine [Tylenol 1 tab PO Q6H PRN #10 tab 05/08/19 Unknown Rx /Codeine # 3 tab] Ibuprofen [Motrin 800 MG tab] 800 mg PO Q8HR PRN #20 tablet 05/08/19 Unknown Rx Penicillin Vk [Veetids TAB] 500 mg PO QID 7 Days #56 tablet 05/08/19 Unknown Rx Allergies Allergy/AdvReac Type Severity Reaction Status Date / Time morphine Allergy Itching Verified 01/14/19 23:19 ED Review of Systems ROS: Stated complaint: TOOTHACHE/SWOLLEN LEG Other details as noted in HPI Comment: All other systems reviewed and negative ED Past Medical Hx - Past Medical History Previous Medical History?: Yes Hx Hypertension: Yes Hx Congestive Heart Failure: Yes Hx Diabetes: No Hx Deep Vein Thrombosis: No Hx Renal Disease: No Hx Sickle Cell Disease: No Hx Seizures: No Hx Asthma: No Hx COPD: No Hx HIV: No - Surgical History Past Surgical History?: Yes Hx Cholecystectomy: Yes - Social History Smoking Status: Former Smoker Substance Use Type: Alcohol - Medications Home Medications: Home Medications Medication Instructions Recorded Confirmed Last Taken Type Albuterol Sulfate [Ventolin HFA] 2 puff IH Q4H PRN #1 hfa.aer.ad 08/14/14 11/11/18 Unknown Rx Aspirin [Aspirin BABY CHEW TAB] 81 mg PO QDAY #30 tab.chew 11/08/18 11/11/18 Unknown Rx Carvedilol [Coreg] 6.25 mg PO BID #60 tablet 11/08/18 11/11/18 Unknown Rx Lisinopril [Zestril TAB] 10 mg PO QDAY #30 tablet 11/08/18 11/11/18 Unknown Rx Pravastatin Sodium [Pravastatin] 20 mg PO QHS #30 tablet 11/08/18 11/11/18 Unknown Rx Spironolactone [Aldactone] 25 mg PO QDAY #30 tablet 11/08/18 11/11/18 Unknown Rx Furosemide [Lasix TAB] 40 mg PO BID #60 tablet 11/18/18 Unknown Rx Aspirin 81 mg PO DAILY #30 tab.chew 01/15/19 Unknown Rx Carvedilol 6.25 mg PO BID 30 Days #60 tablet 01/15/19 Unknown Rx Furosemide [Lasix TAB] 40 mg PO QDAY 30 Days #30 tablet 01/15/19 Unknown Rx Lisinopril [Prinivil] 10 mg PO DAILY #30 tablet 01/15/19 Unknown Rx Spironolactone 25 mg PO DAILY 30 Days #30 tablet 01/15/19 Unknown Rx Acetaminophen/Codeine [Tylenol 1 tab PO Q6H PRN #10 tab 05/08/19 Unknown Rx /Codeine # 3 tab] Ibuprofen [Motrin 800 MG tab] 800 mg PO Q8HR PRN #20 tablet 05/08/19 Unknown Rx Penicillin Vk [Veetids TAB] 500 mg PO QID 7 Days #56 tablet 05/08/19 Unknown Rx ED Physical Exam - General Limitations: No Limitations General appearance: alert, in no apparent distress - Head Head exam: Present: atraumatic, normocephalic - Eye Eye exam: Present: normal appearance, PERRL - ENT ENT exam: Present: other (very poor dentition throughout with several dental caries and decay, no obvious induration/fluctuance, no facial edema, uvula is midline, no uvular edema ) - Neurological Exam Neurological exam: Present: alert, oriented X3 - Psychiatric Psychiatric exam: Present: normal affect, normal mood - Skin Skin exam: Present: warm, dry, intact ED Course Vital Signs 05/08/19 14:14 Temperature 97.2 F L Pulse Rate 88 Respiratory 18 Rate Blood Pressure 118/89 O2 Sat by Pulse 98 Oximetry ED Medical Decision Making - Medical Decision Making pt is a 43 yo female who presents to the ED with c/o left upper dental pain that began three days. pt states she has three known bad teeth. she denies any fever or facial swelling. allergy: morphine-rash. states she has not seen a dentist in "awhile." VSS. on exam: very poor dentition throughout with several dental caries and decay, no obvious induration/fluctuance, no facial edema, uvula is midline, no uvular edema. pt given prescriptions for ibuprofen, tylenol #3, penicillin Vk. advised to please take medication as prescribed. do not drive or operate heavy machinery while taking pain medication. it is very important you follow up with a dentist in the next few days. return to the emergency room for any new or worsening symptoms. pt given a list of dental clinics in the area. Critical care attestation.: If time is entered above; I have spent that time in minutes in the direct care of this critically ill patient, excluding procedure time. ED Disposition Clinical Impression: Dental caries Disposition: [id number] TO HOME OR SELFCARE Is pt being admited?: No Does the pt Need Aspirin: No Condition: Stable Instructions: Dental Caries (ED) Additional Instructions: please take medication as prescribed. do not drive or operate heavy machinery while taking pain medication. it is very important you follow up with a dentist in the next few days. Prescriptions: Ibuprofen [Motrin 800 MG tab] 800 mg PO Q8HR PRN #20 tablet PRN Reason: Pain, Moderate (4-6) Acetaminophen/Codeine [Tylenol /Codeine # 3 tab] 1 tab PO Q6H PRN #10 tab PRN Reason: Pain , Severe (7-10) Penicillin Vk [Veetids TAB] 500 mg PO QID 7 Days #56 tablet Referrals: [facility] [Outside] - 2-3 Days Time of Disposition: 14:17 Print Language: PANAMANIAN
== END 2019-05-08 14:49 | disposition home or self-care (01) ==
LOC: ED 13:29
DX: K02.9 Dental caries, unspecified (principal); I11.0 Hypertensive heart disease with heart failure; I50.9 Heart failure, unspecified; Z88.5 Allergy status to narcotic agent; Z79.82 Long term (current) use of aspirin; Z79.899 Other long term (current) drug therapy; Z79.1 Long term (current) use of non-steroidal anti-inflammatories (NSAID); Z90.49 Acquired absence of other specified parts of digestive tract; Z87.891 Personal history of nicotine dependence
CPT/HCPCS: 99282

== ENCOUNTER 2019-05-09 20:59 | Emergency (ER) | payer MEDICAID ==
--- NOTE | 2019-05-09 21:21 | Emergency Department Report ---
Blank Doc - Documentation Documentation: 43 y o female with PMH of CHF presents to ED cc od mid epigastric/ mid chest pain started yesterday after taking penicillin, 800 motrin and tylenol 3 which she was prescribed yesterday for tooth ache states pain is very discomforting
[2019-05-09] MEDS ORDERED: BENTYL PO ONE (21:26)
[2019-05-09] MEDS ORDERED: PEPCID PO ONE (21:27)
[2019-05-09 21:59] LABS: Basophils # (Auto) 0.1 K/mm3 (0.0-0.1); Basophils % (Auto) 1.9 % (0.0-1.8); Eosinophils % (Auto) 0.6 % (0.0-4.3); Hematocrit 41.1 % (30.3-42.9); Lymphocytes # (Auto) 0.5 K/mm3 (1.2-5.4); Lymphocytes % (Auto) 10.6 % (13.4-35.0); Mean Corpuscular HGB Conc 32 % (30-34); Mean Corpuscular Volume 83 fl (79-97); Monocytes # (Auto) 0.6 K/mm3 (0.0-0.8); Monocytes % (Auto) 12.2 % (0.0-7.3); Platelet Count 217 K/mm3 (140-440); Red Blood Count 4.96 M/mm3 (3.65-5.03)
[2019-05-09 22:01] LABS: Red Cell Distribution Width 22.5 % (13.2-15.2)
--- NOTE | 2019-05-09 22:43 | XRay Report ---
. CHEST 2 VIEWS INDICATION / CLINICAL INFORMATION: pain. COMPARISON: 04/09/2019 FINDINGS: SUPPORT DEVICES: None. HEART / MEDIASTINUM: There is enlargement of the cardiac silhouette. LUNGS / PLEURA: No significant pulmonary or pleural abnormality. .No pneumothorax. ADDITIONAL FINDINGS: No significant additional findings. IMPRESSION: 1. There is enlargement of the cardiac silhouette. No focal infiltrate is seen. There has been no sig nificant change. Signer Name: Fito Hernández MD Signed: 05/09/2019 10:39 PM Workstation Name: [id number]
[2019-05-10] MEDS ORDERED: PEPCID ONE (00:02)
[2019-05-10] MEDS ORDERED: ALUM-MAG HYDROX-SIMETH 200-200-20MG/5ML PO ONE (00:24)
[2019-05-10] MEDS ORDERED: LIDOCAINE VISCOUS 2% PO ONE (00:25)
[2019-05-10 00:49] LABS: Bilirubin,Direct 0.4 mg/dL (0-0.2)
--- NOTE | 2019-05-10 00:54 | Emergency Department Report ---
ED Abdominal Pain HPI - General Chief Complaint: Chest Pain Stated Complaint: CHF, STOMACH PAIN Time Seen by Provider: 05/09/19 21:21 Source: patient Mode of arrival: Wheelchair Limitations: No Limitations - History of Present Illness Initial Comments: 43 year old female presents to ED with complaint of epigastric abdominal pain since yesterday. Patient states she was seen yesterday for a toothache, given prescription for penicillin and Tylenol No. 3. Patient states she took medications on an empty stomach, afterwards began having epigastric pain. Denies nausea or vomiting. States pain radiates up into her chest. MD Complaint: abdominal pain -: days(s) (1) Location: epigastric Radiation: chest Migration to: no migration Severity: mild Quality: burning Consistency: intermittent Improves With: nothing Worsens With: medication Associated Symptoms: denies: nausea, vomiting, diarrhea, fever - Related Data Previous Rx's Medication Instructions Recorded Last Taken Type Albuterol Sulfate [Ventolin HFA] 2 puff IH Q4H PRN #1 hfa.aer.ad 08/14/14 Unknown Rx Aspirin [Aspirin BABY CHEW TAB] 81 mg PO QDAY #30 tab.chew 11/08/18 Unknown Rx Carvedilol [Coreg] 6.25 mg PO BID #60 tablet 11/08/18 Unknown Rx Lisinopril [Zestril TAB] 10 mg PO QDAY #30 tablet 11/08/18 Unknown Rx Pravastatin Sodium [Pravastatin] 20 mg PO QHS #30 tablet 11/08/18 Unknown Rx Spironolactone [Aldactone] 25 mg PO QDAY #30 tablet 11/08/18 Unknown Rx Furosemide [Lasix TAB] 40 mg PO BID #60 tablet 11/18/18 Unknown Rx Aspirin 81 mg PO DAILY #30 tab.chew 01/15/19 Unknown Rx Carvedilol 6.25 mg PO BID 30 Days #60 tablet 01/15/19 Unknown Rx Furosemide [Lasix TAB] 40 mg PO QDAY 30 Days #30 tablet 01/15/19 Unknown Rx Lisinopril [Prinivil] 10 mg PO DAILY #30 tablet 01/15/19 Unknown Rx Spironolactone 25 mg PO DAILY 30 Days #30 tablet 01/15/19 Unknown Rx Acetaminophen/Codeine [Tylenol 1 tab PO Q6H PRN #10 tab 05/08/19 Unknown Rx /Codeine # 3 tab] Ibuprofen [Motrin 800 MG tab] 800 mg PO Q8HR PRN #20 tablet 05/08/19 Unknown Rx Penicillin Vk [Veetids TAB] 500 mg PO QID 7 Days #56 tablet 05/08/19 Unknown Rx Dicyclomine [Bentyl] 20 mg PO QID PRN #20 tablet 05/10/19 Unknown Rx Allergies Allergy/AdvReac Type Severity Reaction Status Date / Time morphine Allergy Itching Verified 01/14/19 23:19 ED Review of Systems ROS: Stated complaint: CHF, STOMACH PAIN Other details as noted in HPI Comment: All other systems reviewed and negative Constitutional: denies: chills, fever ENT: dental pain Cardiovascular: chest pain Gastrointestinal: abdominal pain. denies: nausea, vomiting ED Past Medical Hx - Past Medical History Previous Medical History?: Yes Hx Hypertension: Yes Hx Congestive Heart Failure: Yes Hx Diabetes: No Hx Deep Vein Thrombosis: No Hx Renal Disease: No Hx Sickle Cell Disease: No Hx Seizures: No Hx Asthma: No Hx COPD: No Hx HIV: No - Surgical History Past Surgical History?: Yes Hx Cholecystectomy: Yes - Social History Smoking Status: Former Smoker Substance Use Type: None - Medications Home Medications: Home Medications Medication Instructions Recorded Confirmed Last Taken Type Albuterol Sulfate [Ventolin HFA] 2 puff IH Q4H PRN #1 hfa.aer.ad 08/14/14 11/11/18 Unknown Rx Aspirin [Aspirin BABY CHEW TAB] 81 mg PO QDAY #30 tab.chew 11/08/18 11/11/18 Unknown Rx Carvedilol [Coreg] 6.25 mg PO BID #60 tablet 11/08/18 11/11/18 Unknown Rx Lisinopril [Zestril TAB] 10 mg PO QDAY #30 tablet 11/08/18 11/11/18 Unknown Rx Pravastatin Sodium [Pravastatin] 20 mg PO QHS #30 tablet 11/08/18 11/11/18 Un known Rx Spironolactone [Aldactone] 25 mg PO QDAY #30 tablet 11/08/18 11/11/18 Unknown Rx Furosemide [Lasix TAB] 40 mg PO BID #60 tablet 11/18/18 Unknown Rx Aspirin 81 mg PO DAILY #30 tab.chew 01/15/19 Unknown Rx Carvedilol 6.25 mg PO BID 30 Days #60 tablet 01/15/19 Unknown Rx Furosemide [Lasix TAB] 40 mg PO QDAY 30 Days #30 tablet 01/15/19 Unknown Rx Lisinopril [Prinivil] 10 mg PO DAILY #30 tablet 01/15/19 Unknown Rx Spironolactone 25 mg PO DAILY 30 Days #30 tablet 01/15/19 Unknown Rx Acetaminophen/Codeine [Tylenol 1 tab PO Q6H PRN #10 tab 05/08/19 Unknown Rx /Codeine # 3 tab] Ibuprofen [Motrin 800 MG tab] 800 mg PO Q8HR PRN #20 tablet 05/08/19 Unknown Rx Penicillin Vk [Veetids TAB] 500 mg PO QID 7 Days #56 tablet 05/08/19 Unknown Rx Dicyclomine [Bentyl] 20 mg PO QID PRN #20 tablet 05/10/19 Unknown Rx ED Physical Exam - General Limitations: No Limitations General appearance: alert, in no apparent distress - Head Head exam: Present: atraumatic, normocephalic - Eye Eye exam: Present: normal appearance, PERRL, EOMI - ENT ENT exam: Present: mucous membranes moist - Neck Neck exam: Present: normal inspection - Respiratory Respiratory exam: Present: normal lung sounds bilaterally. Absent: respiratory distress - Cardiovascular Cardiovascular Exam: Present: regular rate, normal rhythm - GI/Abdominal GI/Abdominal exam: Present: soft, tenderness (mild epigastric tenderness). Abse nt: distended - Extremities Exam Extremities exam: Present: normal inspection - Neurological Exam Neurological exam: Present: alert, oriented X3 - Psychiatric Psychiatric exam: Present: normal affect, normal mood - Skin Skin exam: Present: warm, dry, intact, normal color ED Course Vital Signs 05/09/19 05/10/19 05/10/19 21:18 00:07 01:00 Temperature 97.9 F Pulse Rate 87 99 H 82 Respiratory 20 17 20 Rate Blood Pressure 152/109 Blood Pressure 157/122 [Right] O2 Sat by Pulse 99 96 97 Oximetry 05/10/19 01:27 Temperature Pulse Rate 82 Respiratory 20 Rate Blood Pressure Blood Pressure 148/111 [Right] O2 Sat by Pulse 97 Oximetry ED Medical Decision Making - Lab Data Result diagrams: 05/09/19 21:43 05/09/19 21:43 - Radiology Data Radiology results: report reviewed, image reviewed - Medical Decision Making - abdominal discomfort after taking tylenol #3 - relief reported following GI cocktail - WBCs, LFTs, lipase normal - likely gastrits - pt informed of Cr of 2.3, states has an apt w/ her physician on Wednesday; advised her to inform them of this lab abnormality so that it may be further worked up; pt currently has normal potassium and no evidence of pulm edema or resp distress - Differential Diagnosis pancreatitis, GERD, gatritis Critical care attestation.: If time is entered above; I have spent that time in minutes in the direct care of this critically ill patient, excluding procedure time. ED Disposition Clinical Impression: Abdominal pain, acute, epigastric Disposition: TO HOME OR SELFCARE Is pt being admited?: No Condition: Stable Instructions: Gastritis (ED), Abdominal Pain (ED) Additional Instructions: Your creatinine is 2.8 today. When you see your physician, please inform them of this finding so that they may explore it further. Do not take anymore of the Tylenol #3. It may be causing you abdominal discomfort. If you do, make sure you take it on a full stomach. Prescriptions: Dicyclomine [Bentyl] 20 mg PO QID PRN #20 tablet PRN Reason: abdominal pain Referrals: PRIMARY CARE, [Primary Care Provider] - 3-5 Days Time of Disposition: 01:13
[2019-05-10 01:27] VITALS: BP 148/111
== END 2019-05-10 01:31 | disposition home or self-care (01) ==
LOC: ED 20:59
DX: R10.13 Epigastric pain (principal); I11.0 Hypertensive heart disease with heart failure; I50.9 Heart failure, unspecified; Z90.49 Acquired absence of other specified parts of digestive tract; Z87.891 Personal history of nicotine dependence; Z79.82 Long term (current) use of aspirin; Z79.899 Other long term (current) drug therapy; Z98.890 Other specified postprocedural states; Z88.6 Allergy status to analgesic agent
CPT/HCPCS: 36415; 71046; 80048; 80076; 83690; 85025; 93005; 93010; 99284

== ENCOUNTER 2019-05-14 20:31 | Emergency (ER) | payer MEDICAID ==
[2019-05-14] MEDS ORDERED: ASPIRIN PO ONE (20:46)
[2019-05-14 21:36] LABS: Basophils % (Auto) 0.6 % (0.0-1.8); Eosinophils % (Auto) 0.7 % (0.0-4.3); Hematocrit 40.8 % (30.3-42.9); Hemoglobin 12.8 gm/dl (10.1-14.3); Lymphocytes # (Auto) 0.7 K/mm3 (1.2-5.4); Lymphocytes % (Auto) 22.3 % (13.4-35.0); Mean Corpuscular HGB Conc 31 % (30-34); Mean Corpuscular Volume 82 fl (79-97); Monocytes # (Auto) 0.3 K/mm3 (0.0-0.8); Monocytes % (Auto) 10.7 % (0.0-7.3); Platelet Count 212 K/mm3 (140-440); Red Blood Count 4.98 M/mm3 (3.65-5.03)
[2019-05-14 21:37] LABS: Red Cell Distribution Width 21.8 % (13.2-15.2)
[2019-05-14 21:56] LABS: Calcium 9.2 mg/dL (8.4-10.2)
[2019-05-14 22:24] LABS: Chol/HDL Ratio 3.91 %
--- NOTE | 2019-05-14 23:06 | XRay Report ---
CHEST 1 VIEW 2138 INDICATION / CLINICAL INFORMATION: Chest Pain. COMPARISON: 05/09/2019 FINDINGS: SUPPORT DEVICES: None HEART / MEDIASTINUM: Cardiomegaly LUNGS / PLEURA: No significant pulmonary or pleural abnormality. No pneumothorax. ADDITIONAL FINDINGS: No significant additional findings. IMPRESSION: No significant acute abnormality Signer Name: Jai Mills MD Signed: 05/14/2019 11:01 PM Workstation Name: [id number]
[2019-05-15] MEDS ORDERED: LIDOCAINE VISCOUS 2% PO ONE (00:45)
[2019-05-15] MEDS ORDERED: PEPCID IV ONE (00:45)
[2019-05-15] MEDS ORDERED: ALUM-MAG HYDROX-SIMETH 200-200-20MG/5ML PO ONE (00:45)
--- NOTE | 2019-05-15 00:49 | Emergency Department Report ---
HPI - General Chief Complaint: Chest Pain Time Seen by Provider: 05/15/19 00:32 - HPI HPI: Room 24 The patient is a 43-year-old female presenting with a chief complaint of chest pain. The patient states she developed left-sided chest pain yesterday which has been intermittent and associated nausea/vomiting or shortness of breath. The patient states she thought it was gas so she took Gas-X Mylanta and Pepto- Bismol but nothing has helped. Patient describes the pain as burning in nature and has noticed increased eructation. Patient states she's never had a stress test but had a normal cardiac catheterization in November 2018 Location: [See above] Duration: [See above] Quality: [See above] Severity: [See above] Modifying factors: [see above] Context: [see above] Mode of transportation: [not driving] ED Past Medical Hx - Past Medical History Hx Hypertension: Yes Hx Congestive Heart Failure: Yes - Surgical History Hx Cholecystectomy: Yes - Family History Family history: no significant - Social History Smoking Status: Former Smoker (none since November 2018) Substance Use Type: None (denies illicit drug use) - Medications Home Medications: Home Medications Medication Instructions Recorded Confirmed Last Taken Type Albuterol Sulfate [Ventolin HFA] 2 puff IH Q4H PRN #1 hfa.aer.ad 08/14/14 11/11/18 Unknown Rx Aspirin [Aspirin BABY CHEW TAB] 81 mg PO QDAY #30 tab.chew 11/08/18 11/11/18 Unknown Rx Carvedilol [Coreg] 6.25 mg PO BID #60 tablet 11/08/18 11/11/18 Unknown Rx Lisinopril [Zestril TAB] 10 mg PO QDAY #30 tablet 11/08/18 11/11/18 Unknown Rx Pravastatin Sodium [Pravastatin] 20 mg PO QHS #30 tablet 11/08/18 11/11/18 Unknown Rx Spironolactone [Aldactone] 25 mg PO QDAY #30 tablet 11/08/18 11/11/18 Unknown Rx Furosemide [Lasix TAB] 40 mg PO BID #60 tablet 11/18/18 Unknown Rx Aspirin 81 mg PO DAILY #30 tab.chew 01/15/19 Unknown Rx Carvedilol 6.25 mg PO BID 30 Days #60 tablet 01/15/19 Unknown Rx Furosemide [Lasix TAB] 40 mg PO QDAY 30 Days #30 tablet 01/15/19 Unknown Rx Lisinopril [Prinivil] 10 mg PO DAILY #30 tablet 01/15/19 Unknown Rx Spironolactone 25 mg PO DAILY 30 Days #30 tablet 01/15/19 Unknown Rx Acetaminophen/Codeine [Tylenol 1 tab PO Q6H PRN #10 tab 05/08/19 Unknown Rx /Codeine # 3 tab] Ibuprofen [Motrin 800 MG tab] 800 mg PO Q8HR PRN #20 tablet 05/08/19 Unknown Rx Penicillin Vk [Veetids TAB] 500 mg PO QID 7 Days #56 tablet 05/08/19 Unknown Rx Dicyclomine [Bentyl] 20 mg PO QID PRN #20 tablet 05/10/19 Unknown Rx Famotidine [Pepcid] 20 mg PO BID #20 tablet 05/15/19 Unknown Rx HYDROcodone/APAP 5-325 [[place] 1 - 2 each PO Q6HR PRN #14 tablet 05/15/19 Unknown Rx 5/325] ED Review of Systems ROS: Stated complaint: CHEST PAIN Other details as noted in HPI Constitutional: denies: diaphoresis Eyes: denies: eye pain ENT: denies: throat pain Respiratory: shortness of breath Cardiovascular: chest pain Endocrine: no symptoms reported Gastrointestinal: nausea, vomiting, other (eructation) Genitourinary: denies: dysuria Musculoskeletal: denies: back pain Neurological: denies: headache Physical Exam - Physical Exam Vital Signs: Vital Signs 05/14/19 20:42 Temperature 97.6 F Pulse Rate 82 Respiratory 20 Rate Blood Pressure 147/106 O2 Sat by Pulse 100 Oximetry Physical Exam: GENERAL: The patient is well-developed well-nourished female sitting on stretcher appearing to be in mild discomfort. [] HEENT: Normocephalic. Atraumatic. Extraocular motions are intact. Patient has moist mucous membranes. NECK: Supple. Trachea midline CHEST/LUNGS: Clear to auscultation. There is no respiratory distress noted. HEART/CARDIOVASCULAR: Regular. There is no tachycardia. There is no gallop rub or murmur. ABDOMEN: Abdomen is soft, nontender. Patient has normal bowel sounds. There is no abdominal distention. SKIN: There is no rash. There is no edema. There is no diaphoresis. NEURO: The patient is awake, alert, and oriented. The patient is cooperative. The patient has normal speech MUSCULOSKELETAL: There is no evidence of acute injury. ED Course Vital Signs 05/14/19 20:42 Temperature 97.6 F Pulse Rate 82 Respiratory 20 Rate Blood Pressure 147/106 O2 Sat by Pulse 100 Oximetry ED Medical Decision Making - Lab Data Result diagrams: 05/14/19 21:02 05/14/19 21:02 Laboratory Tests 05/14/19 05/14/19 05/15/19 21:02 21:02 00:20 WBC 3.2 L RBC 4.98 Hgb 12.8 Hct 40.8 MCV 82 MCH 26 L MCHC 31 RDW 21.8 H Plt Count 212 Lymph % (Auto) 22.3 [place] % (Auto) 10.7 H Eos % (Auto) 0.7 Baso % (Auto) 0.6 Lymph # 0.7 L [place] # 0.3 Eos # 0.0 Baso # 0.0 Seg Neutrophils % 65.7 Seg Neutrophils # 2.1 D-Dimer Sodium 124 L D Potassium 4.7 D Chloride 92.3 L Carbon Dioxide 17 L Anion Gap 19 BUN 36 H Creatinine 2.7 H Estimated GFR 23 BUN/Creatinine Ratio 13 Glucose 100 Calcium 9.2 Troponin T 0.058 H 0.062 H Triglycerides 125 Cholesterol 145 LDL Cholesterol Direct 94 HDL Cholesterol 37 L Cholesterol/HDL Ratio 3.91 05/15/19 05/15/19 01:40 02:24 WBC RBC Hgb Hct MCV MCH MCHC RDW Plt Count Lymph % (Auto) [place] % (Auto) Eos % (Auto) Baso % (Auto) Lymph # [place] # Eos # Baso # Seg Neutrophils % Seg Neutrophils # D-Dimer 743.48 H Sodium Potassium Chloride Carbon Dioxide Anion Gap BUN Creatinine Estimated GFR BUN/Creatinine Ratio Glucose Calcium Troponin T 0.033 H D Triglycerides Cholesterol LDL Cholesterol Direct HDL Cholesterol Cholesterol/HDL Ratio - EKG Data -: EKG Interpreted by Me EKG shows normal: sinus rhythm Rate: normal - EKG Data When compared to previous EKG there are: changes noted Interpretation: nonspecific ST-T wave gonzales (new T-wave inversion in lead V6) - Radiology Data Radiology results: report reviewed (chest x-ray, VQ scan), image reviewed (chest x-ray, VQ scan) interpreted by me: Chest x-ray-no focal infiltrates, no pneumothorax [facility] [address] [place] [address] XRay Report Signed Patient: FLOR PATTERSON MR#: [id number] : 1975 Acct:[id number] Age/Sex: 43 / F ADM Date: 05/14/19 Loc: ED Attending Dr: Order ing Physician: ONEL CASILLAS MD Date of Service: 05/14/19 Procedure(s): XR chest 1V ap Accession Number(s): [id number] cc: ONEL CASILLAS MD Fluoro Time In Minutes: CHEST 1 VIEW 2137 INDICATION / CLINICAL INFORMATION: Chest Pain. COMPARISON: 05/09/2019 FINDINGS: SUPPORT DEVICES: None HEART / MEDIASTINUM: Cardiomegaly LUNGS / PLEURA: No significant pulmonary or pleural abnormality. No pneumothorax. ADDITIONAL FINDINGS: No significant additional findings. IMPRESSION: No significant acute abnormality Signer Name: Jai Mills MD Signed: 05/14/2019 11:01 PM Workstation Name: [id number] Transcribed By: GJ Dictated By: Jai Mills MD Electronically Authenticated By: Jai Mills MD Signed Date/Time: 05/14/192300 DD/ 99 TD/TT: [address] [address] Nuclear Medicine Report Signed Patient: FLOR PATTERSON MR#: [id number] : 1975 Acct:[id number] Age/Sex: 43 / F ADM Date: 05/14/19 Loc: ED Attending Dr: Ordering Physician: SCOTT ADAM MD Date of Service: 05/15/19 Procedure(s): NM lung scan perf/vent Accession Number(s): [id number] cc: SCOTT ADAM MD NM lung scan perf/vent INDICATION / CLINICAL INFORMATION: chest pain, shortness of breath. TECHNIQUE: Dose / Agent / Route: 4.82mCi technetium 99m MAA IV and 24.8mCi Xe 133 inhaled. COMPARISON: 05/14/2019 chest x-ray FINDINGS: There are no segmental or subsegmental perfusion defects. There is poor xenon distribution in the left lower lung and extensive air trapping throughout the entire left lung. This would suggest some degree of atelectasis in the left lower lobe. IMPRESSION: 1. Low probability pulmonary embolism . 2. Decreased jann tilation in the left lower lobe and diffuse left lung air trapping likely due to atelectasis. Signer Name: Chicho King MD Signed: 05/15/2019 4:13 AM Workstation Name: [id number] Transcribed By: JAMES Dictated By: Chicho King MD Electronically Authenticated By: Chicho King MD Signed Date/Time: 05/15/19 0413 DD/ 0407 TD/TT: - Differential Diagnosis GERD, PE, pericarditis Critical care attestation.: If time is entered above; I have spent that time in minutes in the direct care of this critically ill patient, excluding procedure time. ED Disposition Clinical Impression: Atypical chest pain Disposition: DC-01 TO HOME OR SELFCARE Is pt being admited?: No Does the pt Need Aspirin: No Condition: Stable Instructions: Chest Pain (ED) Additional Instructions: Return to the emergency department immediately should you develop worsening symptoms, fever, inability to tolerate food or liquid or any other concerns. Prescriptions: HYDROcodone/APAP 5-325 [[place] 5/325] 1 - 2 each PO Q6HR PRN #14 tablet PRN Reason: Pain Famotidine [Pepcid] 20 mg PO BID #20 tablet Referrals: BERTIN REED MD [Primary Care Provider] - 3-5 Days SAMEER AGUILAR MD [Staff Physician] - 3-5 Days (Dr. Aguilar is a baby doctor. Please follow up with him for further evaluation) Time of Disposition: 04:28
--- NOTE | 2019-05-15 04:18 | Nuclear Medicine Report ---
NM lung scan perf/vent INDICATION / CLINICAL INFORMATION: chest pain, shortness of breath. TECHNIQUE: Dose / Agent / Route: 4.82mCi technetium 99m MAA IV and 24.8mCi Xe 133 inhaled. COMPARISON: 05/14/2019 chest x-ray FINDINGS: There are no segmental or subsegmental perfusion defects. There is poor xenon distribution in the left lower lung and extensive air trapping throughout the ent rivas left lung. This would suggest some degree of atelectasis in the left lower lobe. IMPRESSION: 1. Low probability pulmonary embolism . 2. Decreased ventilation in the left lower lobe and diffuse left lung air trapping likely due to atel ectasis. Signer Name: Chicho King MD Signed: 05/15/2019 4:13 AM Workstation Name: [id number]
[2019-05-15] MEDS ORDERED: ZOFRAN IV ONE (04:33)
[2019-05-15] MEDS ORDERED: DILAUDID IV ONE (04:33)
[2019-05-15 04:50] VITALS: BP 140/109
== END 2019-05-15 05:02 | disposition home or self-care (01) ==
LOC: ED 20:31
DX: R07.89 Other chest pain (principal); R11.2 Nausea with vomiting, unspecified; I11.0 Hypertensive heart disease with heart failure; I50.9 Heart failure, unspecified; Z88.5 Allergy status to narcotic agent; Z87.891 Personal history of nicotine dependence; Z79.82 Long term (current) use of aspirin; Z79.899 Other long term (current) drug therapy
CPT/HCPCS: 36415; 71045; 78582; 80048; 80061; 84484; 85025; 85379; 93005; 93010; 96374; 96375; 99284; A9540; A9558; J1170; J2405

== ENCOUNTER 2019-06-13 10:42 | Outpatient (CLI) | payer MEDICAID ==
[2019-06-13 11:36] LABS: Uric Acid 9.1 mg/dL (3.5-7.6)
[2019-06-13 17:45] LABS: Osmolality,Urine 316 Mosm/kg
== END 2019-06-13 10:43 | disposition home or self-care (01) ==
LOC: LAB 10:42
PROVIDERS: ATTEND Internal Medicine Nephrology
DX: E87.1 Hypo-osmolality and hyponatremia (principal); I11.0 Hypertensive heart disease with heart failure; I50.9 Heart failure, unspecified
CPT/HCPCS: 36415; 80048; 83930; 83935; 84300; 84550

== ENCOUNTER 2019-06-29 09:05 | Outpatient (CLI) | payer MEDICAID ==
[2019-06-29 09:45] LABS: Albumin 4.1 g/dL (3.9-5); Calcium 9.4 mg/dL (8.4-10.2)
== END 2019-06-29 09:06 | disposition home or self-care (01) ==
LOC: LAB 09:05
PROVIDERS: ATTEND Internal Medicine Nephrology
DX: I13.0 Hypertensive heart and chronic kidney disease with heart failure and stage 1 through stage 4 chronic kidney disease, or unspecified chronic kidney disease (principal); N18.3 Chronic kidney disease, stage 3 (moderate); I50.22 Chronic systolic (congestive) heart failure; Z87.891 Personal history of nicotine dependence
CPT/HCPCS: 36415; 80048; 82040; 84100

== ENCOUNTER 2019-09-05 22:18 | Inpatient (IN) | payer MEDICAID ==
[2019-09-05] MEDS ORDERED: ASPIRIN 325 MG TAB PO ONE (22:35)
[2019-09-05] MEDS ORDERED: SODIUM CHLORIDE 0.9% 500 ML 500 ML IV ONE (22:53)
[2019-09-05] MEDS ORDERED: ONDANSETRON 4 MG/2 ML INJ IV ONE (22:54)
[2019-09-05] MEDS ORDERED: DICYCLOMINE 20 MG/2 ML INJ IM ONE (22:54)
[2019-09-05 22:55] LABS: Hematocrit 44.5 % (30.3-42.9); Hemoglobin 14.3 gm/dl (10.1-14.3); Mean Corpuscular HGB Conc 32 % (30-34); Mean Corpuscular Volume 94 fl (79-97); Platelet Count 286 K/mm3 (140-440); Red Blood Count 4.74 M/mm3 (3.65-5.03)
[2019-09-05] MEDS ORDERED: metroNIDAZOLE/NS 500 MG/100 ML 500 MG/100 ML BAG IV SCH (23:00)
[2019-09-05 23:08] LABS: Red Cell Distribution Width 20.6 % (13.2-15.2)
[2019-09-05 23:11] LABS: Calcium 10.1 mg/dL (8.4-10.2)
--- NOTE | 2019-09-05 23:16 | XRay Report ---
CHEST 1 VIEW 09/05/2019 10:45 PM INDICATION / CLINICAL INFORMATION: MAIN: Chest Pain Pt came in due to chest pain, SOB Vomiting and diarrhea for 2 days.. COMPARISON: 05/09/2019 and 05/14/2019 FINDINGS: SUPPORT DEVICES: None. HEART / MEDIASTINUM: Cardiac silhouette has decreased in size since the prior study and is within nor mal limits. LUNGS / PLEURA: No significant pulmonary or pleural abnormality. No pneumothorax. ADDITIONAL FINDINGS: No significant additional findings. IMPRESSION: 1. No acute findings. Signer Name: Josue Biswas MD Signed: 09/05/2019 11:12 PM Workstation Name: [id number]
[2019-09-05] MEDS ORDERED: SODIUM CHLORIDE 0.9% 1000 ML 1,000 ML IV ONE (23:22)
[2019-09-05 23:49] LABS: Albumin 4.8 g/dL (3.9-5); Bilirubin,Direct 0.2 mg/dL (0-0.2)
[2019-09-06] MEDS ORDERED: KETOROLAC 30 MG/1 ML INJ IV ONE (00:43)
--- NOTE | 2019-09-06 00:57 | Cat Scan Report ---
CT ABDOMEN AND PELVIS WITHOUT CONTRAST INDICATION / CLINICAL INFORMATION: NVD with abd pain. TECHNIQUE: Axial CT images were obtained through the abdomen and pelvis without IV contrast. All CT scans at [facility] location are performed using CT dose reduction for ALARA by means of automated exposure control. COMPARISON: CT dated 11/04/18 FINDINGS: LOWER CHEST: Significant interval decrease in size of the heart. Lung bases are now clear. LIVER: No significant abnormality. GALLBLADDER: Surgically absent. BILE DUCTS: No significant abnormality. PANCREAS: No significant abnormality. SPLEEN: No significant abnormality. ADRENALS: No significant abnormality. RIGHT KIDNEY and URETER: No significant abnormality. LEFT KIDNEY and URETER: No significant abnormality. STOMACH and SMALL BOWEL: No significant abnormality. COLON: No significant abnormality. APPENDIX: No significant abnormality. PERITONEUM: No free fluid. No free air. No fluid collection. LYMPH NODES: No significant adenopathy. AORTA and ARTERIES: No significant abnormality. IVC and VEINS: No significant abnormality. URINARY BLADDER: No significant abnormality. REPRODUCTIVE ORGANS: No significant abnormality. ADDITIONAL FINDINGS: None. SKELETAL SYSTEM: No significant abnormality. IMPRESSION: 1. No acute process in the abdomen or pelvis. 2. Interval resolution of cardiomegaly. Signer Name: Josue Biswas MD Signed: 09/06/2019 12:53 AM Workstation Name: [id number]
--- NOTE | 2019-09-06 01:09 | Emergency Department Report ---
ED Abdominal Pain HPI - General Chief Complaint: Chest Pain Stated Complaint: CHEST PAIN/SOB/EMESIS Time Seen by Provider: 09/05/19 22:49 Source: EMS Mode of arrival: Stretcher Limitations: No Limitations - History of Present Illness Initial Comments: Patient is a 43-year-old black female who is presenting with nausea vomiting diarrhea for the past 2 days. Patient states that she also has been diaphoretic and unable to keep anything down. Patient expresses some dizziness with standing. Patient states her pain is in the epigastrium and is crampy in nature. Patient also states she has mid chest discomfort is constant as well. Patient has a history of hypertension and congestive heart failure with EF of 15-20%. Patient states she has never had these symptoms in the past. Severity scale (0 -10): 7 - Related Data Previous Rx's Medication Instructions Recorded Last Taken Type Albuterol Sulfate [Ventolin HFA] 2 puff IH Q4H PRN #1 hfa.aer.ad 08/14/14 Unknown Rx Aspirin [Aspirin BABY CHEW TAB] 81 mg PO QDAY #30 tab.chew 11/08/18 Unknown Rx Carvedilol [Coreg] 6.25 mg PO BID #60 tablet 11/08/18 Unknown Rx Lisinopril [Zestril TAB] 10 mg PO QDAY #30 tablet 11/08/18 Unknown Rx Pravastatin Sodium [Pravastatin] 20 mg PO QHS #30 tablet 11/08/18 Unknown Rx Spironolactone [Aldactone] 25 mg PO QDAY #30 tablet 11/08/18 Unknown Rx Furosemide [Lasix TAB] 40 mg PO BID #60 tablet 11/18/18 Unknown Rx Aspirin 81 mg PO DAILY #30 tab.chew 01/15/19 Unknown Rx Carvedilol 6.25 mg PO BID 30 Days #60 tablet 01/15/19 Unknown Rx Furosemide [Lasix TAB] 40 mg PO QDAY 30 Days #30 tablet 01/15/19 Unknown Rx Lisinopril [Prinivil] 10 mg PO DAILY #30 tablet 01/15/19 Unknown Rx Spironolactone 25 mg PO DAILY 30 Days #30 tablet 01/15/19 Unknown Rx Acetaminophen/Codeine [Tylenol 1 tab PO Q6H PRN #10 tab 05/08/19 Unknown Rx /Codeine # 3 tab] Ibuprofen [Motrin 800 MG tab] 800 mg PO Q8HR PRN #20 tablet 05/08/19 Unknown Rx Penicillin Vk [Veetids TAB] 500 mg PO QID 7 Days #56 tablet 05/08/19 Unknown Rx Dicyclomine [Bentyl] 20 mg PO QID PRN #20 tablet 05/10/19 Unknown Rx Famotidine [Pepcid] 20 mg PO BID #20 tablet 05/15/19 Unknown Rx HYDROcodone/APAP 5-325 [[place] 1 - 2 each PO Q6HR PRN #14 tablet 05/15/19 Unknown Rx 5/325] Allergies Allergy/AdvReac Type Severity Reaction Status Date / Time morphine Allergy Itching Verified 01/14/19 23:19 ED Review of Systems ROS: Stated complaint: CHEST PAIN/SOB/EMESIS Other details as noted in HPI Comment: All other systems reviewed and negative ED Past Medical Hx - Past Medical History Previous Medical History?: Yes Hx Hypertension: Yes Hx Congestive Heart Failure: Yes Hx Diabetes: No Hx Deep Vein Thrombosis: No Hx Renal Disease: No Hx Sickle Cell Disease: No Hx Seizures: No Hx Asthma: No Hx COPD: No Hx HIV: No Additional medical history: stage 1 kidney disease - Surgical History Past Surgical History?: Yes Hx Cholecystectomy: Yes - Social History Smoking Status: Never Smoker Substance Use Type: None - Medications Home Medications: Home Medications Medication Instructions Recorded Confirmed Last Taken Type Albuterol Sulfate [Ventolin HFA] 2 puff IH Q4H PRN #1 hfa.aer.ad 08/14/14 11/11/18 Unknown Rx Aspirin [Aspirin BABY CHEW TAB] 81 mg PO QDAY #30 tab.chew 11/08/18 11/11/18 Unknown Rx Carvedilol [Coreg] 6.25 mg PO BID #60 tablet 11/08/18 11/11/18 Unknown Rx Lisinopril [Zestril TAB] 10 mg PO QDAY #30 tablet 11/08/18 11/11/18 Unknown Rx Pravastatin Sodium [Pravastatin] 20 mg PO QHS #30 tablet 11/08/18 11/11/18 Unknown Rx Spironolactone [Aldactone] 25 mg PO QDAY #30 tablet 11/08/18 11/11/18 Unknown Rx Furosemide [Lasix TAB] 40 mg PO BID #60 tablet 11/18/18 Unknown Rx Aspirin 81 mg PO DAILY #30 tab.chew 01/15/19 Unknown Rx Carvedilol 6.25 mg PO BID 30 Days #60 tablet 01/15/19 Unknown Rx Furosemide [Lasix TAB] 40 mg PO QDAY 30 Days #30 tablet 01/15/19 Unknown Rx Lisinopril [Prinivil] 10 mg PO DAILY #30 tablet 01/15/19 Unknown Rx Spironolactone 25 mg PO DAILY 30 Days #30 tablet 01/15/19 Unknown Rx Acetaminophen/Codeine [Tylenol 1 tab PO Q6H PRN #10 tab 05/08/19 Unknown Rx /Codeine # 3 tab] Ibuprofen [Motrin 800 MG tab] 800 mg PO Q8HR PRN #20 tablet 05/08/19 Unknown Rx Penicillin Vk [Veetids TAB] 500 mg PO QID 7 Days #56 tablet 05/08/19 Unknown Rx Dicyclomine [Bentyl] 20 mg PO QID PRN #20 tablet 05/10/19 Unknown Rx Famotidine [Pepcid] 20 mg PO BID #20 tablet 05/15/19 Unknown Rx HYDROcodone/APAP 5-325 [[place] 1 - 2 each PO Q6HR PRN #14 tablet 05/15/19 Unknown Rx 5/325] ED Physical Exam - General Limitations: No Limitations General appearance: alert, in no apparent distress - Head Head exam: Present: atraumatic, normocephalic - Eye Eye exam: Present: normal appearance - ENT ENT exam: Present: mucous membranes moist - Neck Neck exam: Present: normal inspection - Respiratory Respiratory exam: Present: normal lung sounds bilaterally. Absent: respiratory distress, wheezes, rales, rhonchi - Cardiovascular Cardiovascular Exam: Present: normal rhythm, tachycardia, normal heart sounds. Absent: systolic murmur, diastolic murmur, rubs, gallop - GI/Abdominal GI/Abdominal exam: Present: soft, tenderness (epigastric), normal bowel sounds. Absent: distended, guarding, rebound, rigid - Extremities Exam Extremities exam: Present: normal inspection - Back Exam Back exam: Present: normal inspection - Neurological Exam Neurological exam: Present: alert, oriented X3 - Psychiatric Psychiatric exam: Present: normal affect, normal mood - Skin Skin exam: Present: warm, dry, intact, normal color. Absent: rash ED Course Vital Signs 09/05/19 09/05/19 09/05/19 22:27 22:30 22:31 Temperature 97.6 F Pulse Rate 124 H 116 H 108 H Respiratory 17 26 H 21 Rate Blood Pressure 120/87 126/99 Blood Pressure 120/87 [Left] O2 Sat by Pulse 100 100 100 Oximetry 09/05/19 09/05/19 09/05/19 22:45 23:00 23:15 Temperature Pulse Rate 106 H Respiratory 31 H 26 H Rate Blood Pressure 117/94 126/100 123/100 Blood Pressure [Left] O2 Sat by Pulse 100 100 100 Oximetry ED Medical Decision Making - Lab Data Result diagrams: 09/05/19 22:45 09/05/19 22:45 Lab Results 09/05/19 09/05/19 09/05/19 Range/Units 22:45 22:45 22:45 WBC 12.4 H (4.5-11.0) K/mm3 RBC 4.74 (3.65-5.03) M/mm3 Hgb 14.3 (10.1-14.3) gm/dl Hct 44.5 H (30.3-42.9) % MCV 94 (79-97) fl MCH 30 (28-32) pg MCHC 32 (30-34) % RDW 20.6 H (13.2-15.2) % Plt Count 286 (140-440) K/mm3 Seg Neutrophils % [employer] APTT (24.2-36.6) Sec. Sodium 129 L (137-145) mmol/L Potassium 4.5 (3.6-5.0) mmol/L Chloride 89.3 L (98-107) mmol/L Carbon Dioxide 10 L (22-30) mmol/L Anion Gap 34 mmol/L BUN 38 H (7-17) mg/dL Creatinine 2.2 H (0.7-1.2) mg/dL Estimated GFR 30 ml/min BUN/Creatinine Ratio 17 % Glucose 125 H (65-100) mg/dL Lactic Acid (0.7-2.0) mmol/L Calcium 10.1 (8.4-10.2) mg/dL Total Bilirubin (0.1-1.2) mg/dL Direct Bilirubin (0-0.2) mg/dL Indirect Bilirubin mg/dL AST (5-40) units/L ALT (7-56) units/L Alkaline Phosphatase (35-129) units/L Troponin T 0.047 H (0.00-0.029) ng/mL Total Protein (6.3-8.2) g/dL Albumin (3.9-5) g/dL Albumin/Globulin Ratio % HCG, Qual Negative (Negative) 09/05/19 09/05/19 09/05/19 Range/Units 23:03 23:03 23:15 WBC (4.5-11.0) K/mm3 RBC (3.65-5.03) M/mm3 Hgb (10.1-14.3) gm/dl Hct (30.3-42.9) % MCV (79-97) fl MCH (28-32) pg MCHC (30-34) % RDW (13.2-15.2) % Plt Count (140-440) K/mm3 Seg Neutrophils % APTT 30.8 (24.2-36.6) Sec. Sodium (137-145) mmol/L Potassium (3.6-5.0) mmol/L Chloride (98-107) mmol/L Carbon Dioxide (22-30) mmol/L Anion Gap mmol/L BUN (7-17) mg/dL Creatinine (0.7-1.2) mg/dL Estimated GFR ml/min BUN/Creatinine Ratio % Glucose (65-100) mg/dL Lactic Acid 1.70 (0.7-2.0) mmol/L Calcium (8.4-10.2) mg/dL Total Bilirubin 0.70 (0.1-1.2) mg/dL Direct Bilirubin 0.2 (0-0.2) mg/dL Indirect Bilirubin 0.5 mg/dL AST 41 H (5-40) units/L ALT 45 (7-56) units/L Alkaline Phosphatase 179 H (35-129) units/L Troponin T (0.00-0.029) ng/mL Total Protein 9.5 H (6.3-8.2) g/dL Albumin 4.8 (3.9-5) g/dL Albumin/Globulin Ratio 1.0 % HCG, Qual (Negative) - EKG Data -: EKG Interpreted by [place] - EKG Data 09/06/19 01:11 EKG shows sinus tachycardia rate of 109. Fitzgerald is normal. Intervals show a prolonged QT. Patient has very prominent T waves which could be hyperacute T waves suggestive of possible ischemia. Patient with [address] depression laterally. Interpretation is 2300 - Radiology Data Radiology results: report reviewed (chest x-ray is within normal limits and her increased cardiac silhouette size has improved) CT ABDOMEN AND PELVIS WITHOUT CONTRAST INDICATION / CLINICAL INFORMATION: NVD with abd pain. TECHNIQUE: Axial CT images were obtained through the abdomen and pelvis without IV contrast. All CT scans at this location are performed using CT dose reduction for ALARA by means of automated exposure control. COMPARISON: CT dated 11/04/18 FINDINGS: LOWER CHEST: Significant interval decrease in size of the heart. Lung bases are now clear. LIVER: No significant abnormality. GALLBLADDER: Surgically absent. BILE DUCTS: No significant abnormality. PANCREAS: No significant abnormality. SPLEEN: No significant abnormality. ADREN ALS: No significant abnormality. RIGHT KIDNEY and URETER: No significant abnormality. LEFT KIDNEY and URETER: No significant abnormality. STOMACH and SMALL BOWEL: No significant abnormality. COLON: No significant abnormality. APPENDIX: No significant abnormality. PERITONEUM: No free fluid. No free air. No fluid collection. LYMPH NODES: No significant adenopathy. AORTA and ARTERIES: No significant abnormality. IVC and VEINS: No significant abnormality. URINARY BLADDER: No significant abnormality. REPRODUCTIVE ORGANS: No significant abnormality. ADDITIONAL FINDINGS: None. SKELETAL SYSTEM: No significant abnormality. IMPRESSION: 1. No acute process in the abdomen or pelvis. 2. Interval resolution of cardiomegaly. Signer Name: Josue Biswas MD Signed: 09/06/2019 12:53 AM Workstation Name: [id number] Transcribed By: DT Dictated By: Jeffrey Biswas MD Electronically Authenticated By: Jeffrey Biswas MD Signed Date/Time: 09/06/19 0053 - Medical Decision Making Patient is a 43-year-old female who is presenting with nausea vomiting diarrhea and diffuse abdominal discomfort. Clinically patient is dehydrated is tachycardic. Patient was hydrated slowly. Given patient's history of congestive heart failure and low EF care was taken to monitor the patient for fluid overload. Laboratory studies show the patient has a low sodium and low chloride level and is acidotic. Patient is some acute on chronic renal insufficiency. Patient be admitted to the hospitalist service under Dr. Colby. Critical care attestation.: If time is entered above; I have spent that time in minutes in the direct care of this critically ill patient, excluding procedure time. ED Disposition Clinical Impression: Gastroenteritis, Hyponatremia, Metabolic acidosis, Dehydration CHF (congestive heart failure) Qualifiers: Heart failure type: unspecified Heart failure chronicity: chronic Qualified Code(s): I50.9 - Heart failure, unspecified Disposition: OP ADMIT IP TO THIS HOSP Is pt being admited?: Yes Does the pt Need Aspirin: No Condition: Stable Time of Disposition: 01:14
[2019-09-06] MEDS ORDERED: ACETAMINOPHEN 325 MG TAB PO PRN (01:44)
[2019-09-06] MEDS ORDERED: KETOROLAC 30 MG/1 ML INJ IV PRN (01:45)
[2019-09-06] MEDS ORDERED: ALBUTEROL 8.5 GM INHALATION IH PRN (01:46)
[2019-09-06] MEDS ORDERED: ALBUTEROL 2.5 MG/3 ML NEBU IH PRN (01:57)
[2019-09-06] MEDS ORDERED: CEFEPIME/NS 2 GM/100 ML 2 GM/100 ML BAG IV SCH ×2 (02:00→03:00)
--- NOTE | 2019-09-06 02:29 | History and Physical Report ---
<ZAK CURRY - Last Filed: 09/06/19 02:22> History of Present Illness Date of examination: 09/06/19 Date of admission: 09/06/2019 Chief complaint: n/v/d, and generalized weakness History of present illness: 43-year-old -[place] female with history of hypertension, CKD stage I, EHF, nonischemic cardiomyopathy with EF 15-20% presented to [facility] ED with complaints of nausea, vomiting, diarrhea, generalized weakness and pleuritic chest pain for the past 2 days. She states that she's been unable to keep anything down for the past 2 days, as result complains of generalized weakness. She has experienced intermittent nausea, vomiting, diarrhea accompanied by chills and diaphoresis for the past 2 days. Patient complains of pleuritic chest pain which she thinks is associated with nausea and vomiting. At the time of my examination patient positioned on the right side, continues to move around in stretcher. Patient stated that she is unable to keep anything down and confirms this during the examination. However there were 2 empty cranberry juice cups at the bedside table and patient is requesting a cup of ice water. She denies any episodes of emesis since presenting to the ED, and has been able to tolerate po intake. On further examination patient is noted to be in some discomfort but it is my opinion that patient is exaggerating symptoms. Past History Past Medical History: heart failure (ischemic cardiomyopathy with EF 15-20%), hypertension, renal failure (ckd stage 1) Past Surgical History: cholecystectomy Social history: lives with family Family history: hypertension Medications and Allergies Allergies Allergy/AdvReac Type Severity Reaction Status Date / Time morphine Allergy Itching Verified 01/14/19 23:19 Home Medications Medication Instructions Recorded Confirmed Last Taken Type Albuterol Sulfate [Ventolin HFA] 2 puff IH Q4H PRN #1 [id number].[id number] 08/14/14 09/06/19 Unknown Rx Spironolactone [Aldactone] 25 mg PO QDAY #30 tablet 11/08/18 09/06/19 Unknown Rx Aspirin 81 mg PO DAILY #30 tab.chew 01/15/19 09/06/19 Unknown Rx Bumetanide 1 mg PO BID 09/06/19 09/06/19 Unknown History Carvedilol [Coreg] 12.5 mg PO DAILY 09/06/19 09/06/19 Unknown History Sacubitril/Valsartan [Entresto 1 tab PO BID 09/06/19 09/06/19 Unknown History 49-51 mg] Active Meds: Active Medications Acetaminophen (Tylenol) 650 mg PO Q4H PRN PRN Reason: Pain MILD(1-3)/Fever >100.5/FIORE Albuterol (Proventil) 2.5 mg IH Q4HRT PRN PRN Reason: Shortness Of Breath Aspirin (Baby Aspirin) 81 mg PO DAILY [facility] Bumetanide (Bumex) 1 mg PO BID [facility] Carvedilol (Coreg) 12.5 mg PO DAILY@0800 [facility] Enoxaparin Sodium (Enoxaparin) 30 mg SUB-Q QDAY [facility] Metronidazole (Flagyl 500 Mg/100 Ml) 500 mg in 100 mls @ 100 mls/hr IV Q8HR [facility]; Protocol Last Admin: 09/05/19 23:20 Dose: 100 mls/hr Documented by: Cefepime HCl (Cefepime/Ns 2 Gm/100 Ml) 2 gm in 100 mls @ 200 mls/hr IV Q12H [facility]; Protocol Ketorolac Tromethamine (Toradol) 15 mg IV Q6H PRN PRN Reason: Pain, Mild (1-3) Stop: 09/08/19 01:44 Metoclopramide HCl (Reglan) 5 mg IV Q6H PRN PRN Reason: Nausea And Vomiting Ondansetron HCl (Zofran) 4 mg IV Q6H PRN PRN Reason: Nausea And Vomiting Spironolactone (Aldactone) 25 mg PO QDAY [facility] Review of Systems All systems: negative Constitutional: chills, sweats, fatigue, weakness, poor appetite Cardiovascular: chest pain (atypical related to nausea and vomiting) Gastrointestinal: abdominal pain, nausea, vomiting, diarrhea Exam - Physical Exam Narrative exam: General appearance: Present: mild distress, alert and oriented x3, adult female - EENT Eyes: Present: PERRL, EOM intact ENT: hearing intact - Neck Neck: Present: supple, normal ROM - Respiratory Respiratory effort: Non-labored Respiratory: bilateral: CTA - Cardiovascular Heart rate:115 (bpm) Rhythm:ST Heart Sounds: Present: S1, S2. - Extremities Extremities: no ischemia, pulses intact - Peripheral Assessment Peripheral Pulses: within normal limits - Abdominal General gastrointestinal: soft, epigastric tenderness, normal bowel sounds, - Integumentary Integumentary: Present: warm, dry - Musculoskeletal Musculoskeletal: generalized weakness, able to move all extremities -Neurological Neurological: CN II-XII grossly intact - Psychiatric Psychiatric: anxious, cooperative - Constitutional Vitals: Temp Pulse Resp BP Pulse Ox 97.6 F 106 H 24 148/97 100 09/05/19 22:30 09/06/19 01:31 09/06/19 01:31 09/06/19 02:00 09/06/19 02:00 Results - Labs CBC & Chem 7: 09/05/19 22:45 09/05/19 22:45 Labs: Laboratory Last Values WBC 12.4 K/mm3 (4.5-11.0) H 09/05/19 22:45 RBC 4.74 M/mm3 (3.65-5.03) 09/05/19 22:45 Hgb 14.3 gm/dl (10.1-14.3) 09/05/19 22:45 Hct 44.5 % (30.3-42.9) H 09/05/19 22:45 MCV 94 fl (79-97) 09/05/19 22:45 MCH 30 pg (28-32) 09/05/19 22:45 MCHC 32 % (30-34) 09/05/19 22:45 RDW 20.6 % (13.2-15.2) H 09/05/19 22:45 Plt Count 286 K/mm3 (140-440) 09/05/19 22:45 Seg Neutrophils % [place] 09/05/19 22:45 APTT 30.8 Sec. (24.2-36.6) 09/05/19 23:03 Sodium 129 mmol/L (137-145) L 09/05/19 22:45 Potassium 4.5 mmol/L (3.6-5.0) 09/05/19 22:45 Chloride 89.3 mmol/L (98-107) L 09/05/19 22:45 Carbon Dioxide 10 mmol/L (22-30) L 09/05/19 22:45 Anion Gap 34 mmol/L 09/05/19 22:45 BUN 38 mg/dL (7-17) H 09/05/19 22:45 Creatinine 2.2 mg/dL (0.7-1.2) H 09/05/19 22:45 Estimated GFR 30 ml/min 09/05/19 22:45 BUN/Creatinine Ratio 17 % 09/05/19 22:45 Glucose 125 mg/dL (65-100) H 09/05/19 22:45 Lactic Acid 1.80 mmol/L (0.7-2.0) 09/06/19 01:26 Calcium 10.1 mg/dL (8.4-10.2) 09/05/19 22:45 Total Bilirubin 0.70 mg/dL (0.1-1.2) 09/05/19 23:03 Direct Bilirubin 0.2 mg/dL (0-0.2) 09/05/19 23:03 Indirect Bilirubin 0.5 mg/dL 09/05/19 23:03 AST 41 units/L (5-40) H 09/05/19 23:03 ALT 45 units/L (7-56) 09/05/19 23:03 Alkaline Phosphatase 179 units/L (35-129) H 09/05/19 23:03 Troponin T 0.047 ng/mL (0.00-0.029) H 09/05/19 22:45 Total Protein 9.5 g/dL (6.3-8.2) H 09/05/19 23:03 Albumin 4.8 g/dL (3.9-5) 09/05/19 23:03 Albumin/Globulin Ratio 1.0 % 09/05/19 23:03 HCG, Qual Negative (Negative) 09/05/19 22:45 - Imaging and Cardiology Imaging and Cardiology: CXR: FINDINGS: SUPPORT DEVICES: None. HEART / MEDIASTINUM: Cardiac silhouette has decreased in size since the prior study and is within normal limits. LUNGS / PLEURA: No significant pulmonary or pleural abnormality. No pneumothorax. ADDITIONAL FINDINGS: No significant additional findings. IMPRESSION: 1. No acute findings. CT Abdomen/Pelvis: FINDINGS: LOWER CHEST: Significant interval decrease in size of the heart. Lung bases are now clear. LIVER: No significant abnormality. GALLBLADDER: Surgically absent. BILE DUCTS: No significant abnormality. PANCREAS: No significant abnormality. SPLEEN: No significant abnormality. ADRENALS: No significant abnormality. RIGHT KIDNEY and URETER: No significant abnormality. LEFT KIDNEY and URETER: No significant abnormality. STOMACH and SMALL BOWEL: No significant abnormality. COLON: No significant abnormality. APPENDIX: No significant abnormality. PERITONEUM: No free fluid. No free air. No fluid collection. LYMPH NODES: No significant adenopathy. AORTA and ARTERIES: No significant abnormality. IVC and VEINS: No significant abnormality. URINARY BLADDER: No significant abnormality. REPRODUCTIVE ORGANS: No significant abnormality. ADDITIONAL FINDINGS: None. SKELETAL SYSTEM: No significant abnormality. IMPRESSION: 1. No acute process in the abdomen or pelvis. 2. Interval resolution of cardiomegaly. Assessment and Plan Assessment and plan: 43-year-old -[place] female with history of hypertension, CKD stage I, EHF, nonischemic cardiomyopathy with EF 15-20% presented to [facility] ED with complaints of nausea, vomiting, diarrhea, generalized weakness and pleuritic chest pain for the past 2 days. Gastroenteritis -CT Abd Pelvis negative -Pt c/o n/v/d x2 days -Receiving Flagyl and cefepime -Continue supportive care HEIDY -Superimposed CDK 1 -Likely secondary to dehydration -Cr on admission 2.2 -Baseline 1.2-1.5 -Received IVF in ED -Avoid nephrotoxin agents -Renal dose all meds -Continue to monitor renal function, if no improvement may consider Nephrology consult Leukocytosis -WBC 12.4 -Afebrile -UA pending -Blood and urine cultures pending -On IV abx -Continue to monitor CBC Hx CHF Nonischemic cardiomyopathy with ejection fraction of 15-20% seen on [facility] (11/2018) -Troponin slightly elevated at 0.047, will continue to trend -Pt c/o pleuritic -CXR negative for acute finding HTN -Monitor BP -Resume home antihypertensive meds Tachycardia -likely secondary to dehydration -HR 115 -Receiving IVF DVT PPX -On Lovenox Advance Directives: No VTE prophylaxis?: Chemical Plan of care discussed with patient/family: Yes <TACO HARRIS - Last Filed: 09/06/19 05:34> History of Present Illness Date of admission: 09/06/19 01:15 Medications and Allergies Active Meds: Active Medications Acetaminophen (Tylenol) 650 mg PO Q4H PRN PRN Reason: Pain MILD(1-3)/Fever >100.5/FIORE Albuterol (Proventil) 2.5 mg IH Q4HRT PRN PRN Reason: Shortness Of Breath Aspirin (Baby Aspirin) 81 mg PO DAILY [facility] Carvedilol (Coreg) 12.5 mg PO DAILY@0800 [facility] Enoxaparin Sodium (Enoxaparin) 30 mg SUB-Q QDAY [facility] Metoclopramide HCl (Reglan) 5 mg IV Q6H PRN PRN Reason: Nausea And Vomiting Last Admin: 09/06/19 03:15 Dose: 5 mg Documented by: Ondansetron HCl (Zofran) 4 mg IV Q6H PRN PRN Reason: Nausea And Vomiting Exam - Constitutional Vitals: Temp Pulse Resp BP Pulse Ox 97.6 F 109 H 19 134/92 100 09/05/19 22:30 09/06/19 04:30 09/06/19 04:30 09/06/19 04:30 09/06/19 04:30 Results - Labs CBC & Chem 7: 09/05/19 22:45 09/05/19 22:45 Labs: Laboratory Last Values WBC 12.4 K/mm3 (4.5-11.0) H 09/05/19 22:45 RBC 4.74 M/mm3 (3.65-5.03) 09/05/19 22:45 Hgb 14.3 gm/dl (10.1-14.3) 09/05/19 22:45 Hct 44.5 % (30.3-42.9) H 09/05/19 22:45 MCV 94 fl (79-97) 09/05/19 22:45 MCH 30 pg (28-32) 09/05/19 22:45 MCHC 32 % (30-34) 09/05/19 22:45 RDW 20.6 % (13.2-15.2) H 09/05/19 22:45 Plt Count 286 K/mm3 (140-440) 09/05/19 22:45 Add Manual Diff Complete 09/05/19 22:45 Total Counted 100 09/05/19 22:45 Seg Neutrophils % [place] 09/05/19 22:45 Seg Neuts % (Manual) 91.0 % (40.0-70.0) H 09/05/19 22:45 Band Neutrophils % 0 % 09/05/19 22:45 Lymphocytes % (Manual) 6.0 % (13.4-35.0) L 09/05/19 22:45 Reactive Lymphs % (Man) 0 % 09/05/19 22:45 Monocytes % (Manual) 3.0 % (0.0-7.3) 09/05/19 22:45 Eosinophils % (Manual) 0 % (0.0-4.3) 09/05/19 22:45 Basophils % (Manual) 0 % (0.0-1.8) 09/05/19 22:45 Metamyelocytes % 0 % 09/05/19 22:45 Myelocytes % 0 % 09/05/19 22:45 Promyelocytes % 0 % 09/05/19 22:45 Blast Cells % 0 % 09/05/19 22:45 Nucleated RBC % Not Reportable 09/05/19 22:45 Seg Neutrophils # Man 11.3 K/mm3 (1.8-7.7) H 09/05/19 22:45 Band Neutrophils # 0.0 K/mm3 09/05/19 22:45 Lymphocytes # (Manual) 0.7 K/mm3 (1.2-5.4) L 09/05/19 22:45 Abs React Lymphs (Man) 0.0 K/mm3 09/05/19 22:45 Monocytes # (Manual) 0.4 K/mm3 (0.0-0.8) 09/05/19 22:45 Eosinophils # (Manual) 0.0 K/mm3 (0.0-0.4) 09/05/19 22:45 Basophils # (Manual) 0.0 K/mm3 (0.0-0.1) 09/05/19 22:45 Metamyelocytes # 0.0 K/mm3 09/05/19 22:45 Myelocytes # 0.0 K/mm3 09/05/19 22:45 Promyelocytes # 0.0 K/mm3 09/05/19 22:45 Blast Cells # 0.0 K/mm3 09/05/19 22:45 WBC Morphology Not Reportable 09/05/19 22:45 Hypersegmented Neuts Not Reportable 09/05/19 22:45 Hyposegmented Neuts Not Reportable 09/05/19 22:45 Hypogranular Neuts Not Reportable 09/05/19 22:45 Smudge Cells Not Reportable 09/05/19 22:45 Toxic Granulation Not Reportable 09/05/19 22:45 Toxic Vacuolation Not Reportable 09/05/19 22:45 Dohle Bodies Not Reportable 09/05/19 22:45 Pelger-Huet Anomaly Not Reportable 09/05/19 22:45 Roxana Rods Not Reportable 09/05/19 22:45 Platelet Estimate Consistent w auto 09/05/19 22:45 Clumped Platelets Not Reportable 09/05/19 22:45 Plt Clumps, EDTA Not Reportable 09/05/19 22:45 Large Platelets Not Reportable 09/05/19 22:45 Giant Platelets Not Reportable 09/05/19 22:45 Platelet Satelliting Not Reportable 09/05/19 22:45 Plt Morphology Comment Not Reportable 09/05/19 22:45 RBC Morphology Not Reportable 09/05/19 22:45 Dimorphic RBCs Not Reportable 09/05/19 22:45 Polychromasia Not Reportable 09/05/19 22:45 Hypochromasia Not Reportable 09/05/19 22:45 Poikilocytosis Not Reportable 09/05/19 22:45 Anisocytosis 1+ 09/05/19 22:45 Microcytosis Not Reportable 09/05/19 22:45 Macrocytosis Not Reportable 09/05/19 22:45 Spherocytes Not Reportable 09/05/19 22:45 Pappenheimer Bodies Not Reportable 09/05/19 22:45 Sickle Cells Not Reportable 09/05/19 22:45 Target Cells Not Reportable 09/05/19 22:45 Tear Drop Cells Not Reportable 09/05/19 22:45 Ovalocytes Not Reportable 09/05/19 22:45 Helmet Cells Not Reportable 09/05/19 22:45 [place] Bodies Not Reportable 09/05/19 22:45 Gleason Rings Not Reportable 09/05/19 22:45 Vin Cells Not Reportable 09/05/19 22:45 Bite Cells Not Reportable 09/05/19 22:45 Crenated Cell Not Reportable 09/05/19 22:45 Elliptocytes Not Reportable 09/05/19 22:45 Acanthocytes (Spur) Not Reportable 09/05/19 22:45 Rouleaux Not Reportable 09/05/19 22:45 Hemoglobin C Crystals Not Reportable 09/05/19 22:45 Schistocytes Not Reportable 09/05/19 22:45 Malaria parasites Not Reportable 09/05/19 22:45 Matt Bodies Not Reportable 09/05/19 22:45 Hem Pathologist Commnt No 09/05/19 22:45 APTT 30.8 Sec. (24.2-36.6) 09/05/19 23:03 Sodium 129 mmol/L (137-145) L 09/05/19 22:45 Potassium 4.5 mmol/L (3.6-5.0) 09/05/19 22:45 Chloride 89.3 mmol/L (98-107) L 09/05/19 22:45 Carbon Dioxide 10 mmol/L (22-30) L 09/05/19 22:45 Anion Gap 34 mmol/L 09/05/19 22:45 BUN 38 mg/dL (7-17) H 09/05/19 22:45 Creatinine 2.2 mg/dL (0.7-1.2) H 09/05/19 22:45 Estimated GFR 30 ml/min 09/05/19 22:45 BUN/Creatinine Ratio 17 % 09/05/19 22:45 Glucose 125 mg/dL (65-100) H 09/05/19 22:45 Lactic Acid 1.80 mmol/L (0.7-2.0) 09/06/19 01:26 Calcium 10.1 mg/dL (8.4-10.2) 09/05/19 22:45 Total Bilirubin 0.70 mg/dL (0.1-1.2) 09/05/19 23:03 Direct Bilirubin 0.2 mg/dL (0-0.2) 09/05/19 23:03 Indirect Bilirubin 0.5 mg/dL 09/05/19 23:03 AST 41 units/L (5-40) H 09/05/19 23:03 ALT 45 units/L (7-56) 09/05/19 23:03 Alkaline Phosphatase 179 units/L (35-129) H 09/05/19 23:03 Troponin T 0.026 ng/mL (0.00-0.029) 09/06/19 01:26 Total Protein 9.5 g/dL (6.3-8.2) H 09/05/19 23:03 Albumin 4.8 g/dL (3.9-5) 09/05/19 23:03 Albumin/Globulin Ratio 1.0 % 09/05/19 23:03 Triglycerides 119 mg/dL (2-149) 09/05/19 22:45 Cholesterol 281 mg/dL (50-199) H 09/05/19 22:45 LDL Cholesterol Direct 159 mg/dL (50-130) H 09/05/19 22:45 HDL Cholesterol 122 mg/dL (40-59) H 09/05/19 22:45 Cholesterol/HDL Ratio 2.30 % 09/05/19 22:45 HCG, Qual Negative (Negative) 09/05/19 22:45 Urine Color Yellow (Yellow) 09/06/19 02:30 Urine Turbidity Slightly-cloudy (Clear) 09/06/19 02:30 Urine pH 5.0 (5.0-7.0) 09/06/19 02:30 Ur Specific [place] 1.013 (1.003-1.030) 09/06/19 02:30 Urine Protein 100 mg/dl mg/dL (Negative) 09/06/19 02:30 Urine Glucose (UA) Neg mg/dL (Negative) 09/06/19 02:30 Urine Ketones 20 mg/dL (Negative) 09/06/19 02:30 Urine Blood Sm (Negative) 09/06/19 02:30 Urine Nitrite Neg (Negative) 09/06/19 02:30 Urine Bilirubin Neg (Negative) 09/06/19 02:30 Urine Urobilinogen < 2.0 mg/dL (<2.0) 09/06/19 02:30 Ur Leukocyte Esterase Neg (Negative) 09/06/19 02:30 Urine WBC (Auto) 1.0 /HPF (0.0-6.0) 09/06/19 02:30 Urine RBC (Auto) 2.0 /HPF (0.0-6.0) 09/06/19 02:30 U Epithel Cells (Auto) 10.0 /HPF (0-13.0) 09/06/19 02:30 Assessment and Plan Assessment and plan: 43 . History of hypertension, CHF comes emergency room with complaints of nausea, vomiting, diarrhea 2 day. Symptoms are not resolved, gastroenteritis more likely viral, pulse cefepime and Flagyl, she has acute renal insufficiency, status post saturation in the emergency room, hold further fluids for now, hold Bumex and aldactone for today, monitor renal function. D/c toradol wich leads to worsening renal function
[2019-09-06 02:37] LABS: Basophils % (Manual) 0 % (0.0-1.8); Eosinophils % (Manual) 0 % (0.0-4.3); Total Cells Counted 100
[2019-09-06 02:38] LABS: Anisocytosis 1+; Platelet Estimate Consistent w Auto
[2019-09-06 02:46] LABS: Chol/HDL Ratio 2.3 %
[2019-09-06 03:03] LABS: Bilirubin,Urine NEG (Negative); Blood,Urine SM (Negative); Color,Urine Yellow (Yellow); Urobilinogen,Urine < 2.0 mg/dL (<2.0)
[2019-09-06] MEDS: METOCLOPRAMIDE 10 MG/2 ML INJ IV PRN ×2 (03:15→16:05)
[2019-09-06] MEDS: ONDANSETRON 4 MG/2 ML INJ IV PRN (06:10)
[2019-09-06] MEDS: carvediloL 12.5 MG TAB PO SCH (09:53)
[2019-09-06] MEDS ORDERED: BUMETANIDE 1 MG TAB PO SCH (10:00)
[2019-09-06] MEDS ORDERED: SPIRONOLACTONE 25 MG TAB PO SCH (10:00)
[2019-09-06] MEDS ORDERED: ASPIRIN 81 MG TAB CHEW PO SCH (10:00)
[2019-09-06] MEDS ORDERED: LOPERAMIDE 2 MG CAP PO PRN (11:14)
[2019-09-06] MEDS: ENOXAPARIN 30 MG/0.3 ML INJ SUB-Q SCH (11:35)
[2019-09-06] MEDS: HYDROmorphone 1 MG/1 ML INJ IV PRN ×2 (11:35→20:08)
[2019-09-06] MEDS: SACUBITRIL/VALSARTAN 49-51 MG TAB PO SCH ×2 (11:35→22:23)
--- NOTE | 2019-09-06 15:46 | Progress Note ---
Assessment and Plan Assessment and plan: Patient is a 43-year-old -[place] woman with history of hypertension, CKD stage I, CHF and nonischemic cardiomyopathy with EF 15-20% who presented to [facility] ED with complaints of abdominal pains, nausea, vomiting, diarrhea, generalized weakness and pleuritic chest pain for the past 2 days. * pCXR IMPRESSION: 1. No acute findings. * CT Abdomen/Pelvis IMPRESSION: 1. No acute process in the abdomen or pelvis. 2. Interval resolution of cardiomegaly. Acute Gastroenteritis -CT Abd Pelvis negative -Pt c/o n/v/d x2 days -Receiving Flagyl and cefepime -Continue supportive care HEIDY -Superimposed CDK 1 -Likely secondary to dehydration -Cr on admission 2.2 -Baseline 1.2-1.5 -Received IVF in ED -Avoid nephrotoxin agents -Renal dose all meds -Continue to monitor renal function, if no improvement may consider Nephrology consult Leukocytosis, most likely sepsis due to Infectious Gastroentritis, poa -WBC 12.4 -Afebrile -UA pending -Blood and urine cultures pending -On IV abx -Continue to monitor CBC Hx CHF Nonischemic cardiomyopathy with ejection fraction of 15-20% seen on [facility] (11/2018) -Troponin slightly elevated at 0.047, will continue to trend -Pt c/o pleuritic -CXR negative for acute finding HTN -Monitor BP -Resume home antihypertensive meds Chronic pains syndrome -Counseling done DVT ppx -On Lovenox Disposition; continue inpatient care, once Cr improves will discharge History Interval history: Patient was seen and examined. Follow-up on current diagnosis of AGE with n/v/d. No overnight events reported to me. Patient denies any chest pain, shortness breath, rr severe headaches. Imaging, nursing note, chart, labs and old chart reviewed. Discussed with patient. Initially patient was very rude to me after I introduced myself, I asked her when her symptoms first start, she said very nasty, "ya'll not gonna take me through this again!!" I told her I will leave if she doesn't want to talk with me. She stopped me and requesting pain medication, unable to take morphine due to itching. She wants Dilaudid. Hospitalist Physical - Physical exam Narrative exam: Gen: thin frial, NAD, Awake, Alert, Orientated HEENT: NCAT, EOMI, PERRL, OP Clear Neck: supple, no adenopathy, no thyromegaly, no JVD CVS/Heart: RRR, normal S1S2, pulses present bilaterally Chest/Lungs: CTA B, Symmetrical chest expansion, good air entry bilaterally GI/Abdomen: soft, NTND, good bowel sounds, no guarding or rebound /Bladder: no suprapubic tenderness, no CVA or paraspinal tenderness Extermity/Skin: no c/c/e, no obvious rash MSK: FROM x 4 Neuro: CN 2-12 grossly intact, no new focal deficits Psych: anxious - Constitutional Vitals: Temp Pulse Resp BP Pulse Ox 98.2 F 100 H 18 163/109 100 09/06/19 10:04 09/06/19 06:30 09/06/19 10:04 09/06/19 10:04 09/06/19 06:30 Results - Labs CBC & Chem 7: 09/05/19 22:45 09/05/19 22:45 Labs: Laboratory Last Values WBC 12.4 K/mm3 (4.5-11.0) H 09/05/19 22:45 RBC 4.74 M/mm3 (3.65-5.03) 09/05/19 22:45 Hgb 14.3 gm/dl (10.1-14.3) 09/05/19 22:45 Hct 44.5 % (30.3-42.9) H 09/05/19 22:45 MCV 94 fl (79-97) 09/05/19 22:45 MCH 30 pg (28-32) 09/05/19 22:45 MCHC 32 % (30-34) 09/05/19 22:45 RDW 20.6 % (13.2-15.2) H 09/05/19 22:45 Plt Count 286 K/mm3 (140-440) 09/05/19 22:45 Add Manual Diff Complete 09/05/19 22:45 Total Counted 100 09/05/19 22:45 Seg Neutrophils % Auto Body Straightener 09/05/19 22:45 Seg Neuts % (Manual) 91.0 % (40.0-70.0) H 09/05/19 22:45 Band Neutrophils % 0 % 09/05/19 22:45 Lymphocytes % (Manual) 6.0 % (13.4-35.0) L 09/05/19 22:45 Reactive Lymphs % (Man) 0 % 09/05/19 22:45 Monocytes % (Manual) 3.0 % (0.0-7.3) 09/05/19 22:45 Eosinophils % (Manual) 0 % (0.0-4.3) 09/05/19 22:45 Basophils % (Manual) 0 % (0.0-1.8) 09/05/19 22:45 Metamyelocytes % 0 % 09/05/19 22:45 Myelocytes % 0 % 09/05/19 22:45 Promyelocytes % 0 % 09/05/19 22:45 Blast Cells % 0 % 09/05/19 22:45 Nucleated RBC % Not Reportable 09/05/19 22:45 Seg Neutrophils # Man 11.3 K/mm3 (1.8-7.7) H 09/05/19 22:45 Band Neutrophils # 0.0 K/mm3 09/05/19 22:45 Lymphocytes # (Manual) 0.7 K/mm3 (1.2-5.4) L 09/05/19 22:45 Abs React Lymphs (Man) 0.0 K/mm3 09/05/19 22:45 Monocytes # (Manual) 0.4 K/mm3 (0.0-0.8) 09/05/19 22:45 Eosinophils # (Manual) 0.0 K/mm3 (0.0-0.4) 09/05/19 22:45 Basophils # (Manual) 0.0 K/mm3 (0.0-0.1) 09/05/19 22:45 Metamyelocytes # 0.0 K/mm3 09/05/19 22:45 Myelocytes # 0.0 K/mm3 09/05/19 22:45 Promyelocytes # 0.0 K/mm3 09/05/19 22:45 Blast Cells # 0.0 K/mm3 09/05/19 22:45 WBC Morphology Not Reportable 09/05/19 22:45 Hypersegmented Neuts Not Reportable 09/05/19 22:45 Hyposegmented Neuts Not Reportable 09/05/19 22:45 Hypogranular Neuts Not Reportable 09/05/19 22:45 Smudge Cells Not Reportable 09/05/19 22:45 Toxic Granulation Not Reportable 09/05/19 22:45 Toxic Vacuolation Not Reportable 09/05/19 22:45 Dohle Bodies Not Reportable 09/05/19 22:45 Pelger-Huet Anomaly Not Reportable 09/05/19 22:45 Roxana Rods Not Reportable 09/05/19 22:45 Platelet Estimate Consistent w auto 09/05/19 22:45 Clumped Platelets Not Reportable 09/05/19 22:45 Plt Clumps, EDTA Not Reportable 09/05/19 22:45 Large Platelets Not Reportable 09/05/19 22:45 Giant Platelets Not Reportable 09/05/19 22:45 Platelet Satelliting Not Reportable 09/05/19 22:45 Plt Morphology Comment Not Reportable 09/05/19 22:45 RBC Morphology Not Reportable 09/05/19 22:45 Dimorphic RBCs Not Reportable 09/05/19 22:45 Polychromasia Not Reportable 09/05/19 22:45 Hypochromasia Not Reportable 09/05/19 22:45 Poikilocytosis Not Reportable 09/05/19 22:45 Anisocytosis 1+ 09/05/19 22:45 Microcytosis Not Reportable 09/05/19 22:45 Macrocytosis Not Reportable 09/05/19 22:45 Spherocytes Not Reportable 09/05/19 22:45 Pappenheimer Bodies Not Reportable 09/05/19 22:45 Sickle Cells Not Reportable 09/05/19 22:45 Target Cells Not Reportable 09/05/19 22:45 Tear Drop Cells Not Reportable 09/05/19 22:45 Ovalocytes Not Reportable 09/05/19 22:45 Helmet Cells Not Reportable 09/05/19 22:45 [place] Bodies Not Reportable 09/05/19 22:45 [place] Rings Not Reportable 09/05/19 22:45 [place] Cells Not Reportable 09/05/19 22:45 Bite Cells Not Reportable 09/05/19 22:45 Crenated Cell Not Reportable 09/05/19 22:45 Elliptocytes Not Reportable 09/05/19 22:45 Acanthocytes (Spur) Not Reportable 09/05/19 22:45 Rouleaux Not Reportable 09/05/19 22:45 Hemoglobin C Crystals Not Reportable 09/05/19 22:45 Schistocytes Not Reportable 09/05/19 22:45 Malaria parasites Not Reportable 09/05/19 22:45 Matt Bodies Not Reportable 09/05/19 22:45 Hem Pathologist Commnt No 09/05/19 22:45 APTT 30.8 Sec. (24.2-36.6) 09/05/19 23:03 Sodium 129 mmol/L (137-145) L 09/05/19 22:45 Potassium 4.5 mmol/L (3.6-5.0) 09/05/19 22:45 Chloride 89.3 mmol/L (98-107) L 09/05/19 22:45 Carbon Dioxide 10 mmol/L (22-30) L 09/05/19 22:45 Anion Gap 34 mmol/L 09/05/19 22:45 BUN 38 mg/dL (7-17) H 09/05/19 22:45 Creatinine 2.2 mg/dL (0.7-1.2) H 09/05/19 22:45 Estimated GFR 30 ml/min 09/05/19 22:45 BUN/Creatinine Ratio 17 % 09/05/19 22:45 Glucose 125 mg/dL (65-100) H 09/05/19 22:45 Lactic Acid 1.80 mmol/L (0.7-2.0) 09/06/19 01:26 Calcium 10.1 mg/dL (8.4-10.2) 09/05/19 22:45 Total Bilirubin 0.70 mg/dL (0.1-1.2) 09/05/19 23:03 Direct Bilirubin 0.2 mg/dL (0-0.2) 09/05/19 23:03 Indirect Bilirubin 0.5 mg/dL 09/05/19 23:03 AST 41 units/L (5-40) H 09/05/19 23:03 ALT 45 units/L (7-56) 09/05/19 23:03 Alkaline Phosphatase 179 units/L (35-129) H 09/05/19 23:03 Troponin T 0.026 ng/mL (0.00-0.029) 09/06/19 01:26 Total Protein 9.5 g/dL (6.3-8.2) H 09/05/19 23:03 Albumin 4.8 g/dL (3.9-5) 09/05/19 23:03 Albumin/Globulin Ratio 1.0 % 09/05/19 23:03 Triglycerides 119 mg/dL (2-149) 09/05/19 22:45 Cholesterol 281 mg/dL (50-199) H 09/05/19 22:45 LDL Cholesterol Direct 159 mg/dL (50-130) H 09/05/19 22:45 HDL Cholesterol 122 mg/dL (40-59) H 09/05/19 22:45 Cholesterol/HDL Ratio 2.30 % 09/05/19 22:45 HCG, Qual Negative (Negative) 09/05/19 22:45 Urine Color Yellow (Yellow) 09/06/19 02:30 Urine Turbidity Slightly-cloudy (Clear) 09/06/19 02:30 Urine pH 5.0 (5.0-7.0) 09/06/19 02:30 Ur Specific [place] 1.013 (1.003-1.030) 09/06/19 02:30 Urine Protein 100 mg/dl mg/dL (Negative) 09/06/19 02:30 Urine Glucose (UA) Neg mg/dL (Negative) 09/06/19 02:30 Urine Ketones 20 mg/dL (Negative) 09/06/19 02:30 Urine Blood Sm (Negative) 09/06/19 02:30 Urine Nitrite Neg (Negative) 09/06/19 02:30 Urine Bilirubin Neg (Negative) 09/06/19 02:30 Urine Urobilinogen < 2.0 mg/dL (<2.0) 09/06/19 02:30 Ur Leukocyte Esterase Neg (Negative) 09/06/19 02:30 Urine WBC (Auto) 1.0 /HPF (0.0-6.0) 09/06/19 02:30 Urine RBC (Auto) 2.0 /HPF (0.0-6.0) 09/06/19 02:30 U Epithel Cells (Auto) 10.0 /HPF (0-13.0) 09/06/19 02:30 Active Medications - Current Medications Current Medications: Generic Name Dose Route Start Last Admin Trade Name Freq PRN Reason Stop Dose Admin Acetaminophen 650 mg 09/06/19 01:44 09/06/19 06:08 Tylenol PO 650 mg Q4H PRN Administration Pain MILD(1-3)/Fever >100.5/FIORE Albuterol 2.5 mg 09/06/19 01:57 Proventil IH Q4HRT PRN Shortness Of Breath Carvedilol 12.5 mg 09/06/19 08:00 09/06/19 09:53 Coreg PO 12.5 mg DAILY@0800 VICTOR M Administration Enoxaparin Sodium 30 mg 09/06/19 10:00 09/06/19 11:35 Enoxaparin SUB-Q 30 mg QDAY VICTOR M Administration Hydromorphone HCl 1 mg 09/06/19 11:13 09/06/19 11:35 Dilaudid IV 1 mg Q4H PRN Administration Pain , Severe (7-10) Loperamide HCl 2 mg 09/06/19 11:14 Imodium PO Q2H PRN Diarrhea Metoclopramide HCl 5 mg 09/06/19 01:44 09/06/19 03:15 Reglan IV 5 mg Q6H PRN Administration Nausea And Vomiting Ondansetron HCl 4 mg 09/06/19 01:44 09/06/19 06:10 Zofran IV 4 mg Q6H PRN Administration Nausea And Vomiting Nutrition/Malnutrition Assess - Dietary Evaluation Nutrition/Malnutrition Findings: Nutrition Notes Start: 09/06/19 10:25 Freq: Status: Active Protocol: Document 09/06/19 10:26 CC (Rec: 09/06/19 10:54 CC [id number]) Co-Sign 09/06/19 10:26 LP Nutrition Notes Need for Assessment generated from: photograph mounter,MST Initial or Follow up Assessment Current Diagnosis CKD(stage I-IV),Hypertension, Heart Failure Current Diet cardiac Labs/Tests BUN 38, Creat 2.2, Total cholesterol 281, LDL 159, HDL 122 Pertinent Medications reviewed Height 5 ft 6 in Weight 61.235 kg Usual Body Weight 75.45 kg [place] Body Weight (kg) 59.09 BMI 21.7 Intake Prior to Admission Poor Weight change and time frame 13%/ unknown time Weight Status Appropriate Subjective/Other Information Consult for MST score and new onset of DM. Pt reported she had no appetite for 3 days [employer] d/t abd pain, N/V/D. Pt reported she has not been able to eat while in the hospital. Pt reported she has unintentionally lost wt but does not know when she last weighed her UBW of 155lbs. Previous adm notes pt weighed 72.575kg on 04/09/19. Pt said she would like to try an Ensure Enlive. Per pt nurse pt has not been diagnosed with DM no education needed. Percent of energy/protein needs met: 0%/0% Burn Absent Trauma Absent GI Symptoms Nausea,Vomiting,Diarrhea Food Allergy No Current % PO Poor (25-49%) Minimum of two criteria No Interpretation of Weight Loss (severe) >7.5% in 3 months #1 Nutrition Diagnosis Inadequate oral intake Etiology poor appetite d/t N/V/D and abd pain As Evidenced by Signs and Symptoms wt loss of 13% Is patient on ventilator? No Is Patient Ambulatory and/or Out of Bed Yes REE-([facility]-ambulatory/OOB) [ [id number] [id number]] Calculation Used for Recommendations [facility] Additional Notes PRO:37-49g/day (0.6-0.8g/kg CKD1 ) Fluid: 1 ml/kcal Nutrition Intervention Change Diet Order: cardiac with ONS Add Supplement/Snack (indicate name/kcal Ensure enlive Vanilla daily /protein ) Provides kCal: 350 Provides Protein (gm) 20 Goal #1 Meet at least 80% of energy and protein needs via PO and ONS Anticipated Discharge Needs: cardiac Follow-Up By: 09/08/19 Additional Comments F/U PO and ONS intakes
[2019-09-07] MEDS: ONDANSETRON 4 MG/2 ML INJ IV PRN (00:08)
[2019-09-07] MEDS: HYDROmorphone 1 MG/1 ML INJ IV PRN ×2 (04:52→09:32)
[2019-09-07 05:44] LABS: Hematocrit 38.6 % (30.3-42.9); Hemoglobin 12.6 gm/dl (10.1-14.3); Mean Corpuscular HGB Conc 33 % (30-34); Mean Corpuscular Volume 94 fl (79-97); Platelet Count 203 K/mm3 (140-440); Red Blood Count 4.12 M/mm3 (3.65-5.03); Red Cell Distribution Width 18.8 % (13.2-15.2)
[2019-09-07 06:11] LABS: Calcium 9.7 mg/dL (8.4-10.2)
[2019-09-07] MEDS ORDERED: POTASSIUM CHLORIDE ER 20 MEQ TAB PO ONE (06:59)
[2019-09-07 08:04] VITALS: BP 145/108
[2019-09-07 08:22] LABS: Basophils % (Manual) 0 % (0.0-1.8); Eosinophils % (Manual) 0 % (0.0-4.3); Total Cells Counted 100
[2019-09-07 08:30] LABS: Anisocytosis 1+; Platelet Estimate Consistent w Auto
[2019-09-07] MEDS: ENOXAPARIN 30 MG/0.3 ML INJ SUB-Q SCH ×2 (08:57→09:05)
[2019-09-07] MEDS: SACUBITRIL/VALSARTAN 49-51 MG TAB PO SCH ×2 (08:58→09:05)
[2019-09-07] MEDS: carvediloL 12.5 MG TAB PO SCH (08:58)
--- NOTE | 2019-09-07 09:48 | Discharge Summary ---
Providers - Providers Date of Admission: 09/06/19 15:15 Date of discharge: 09/07/19 Attending physician: INNA CARDOSO [facility] Condition: Stable Hospital course: Patient is a 43-year-old -[place] woman with history of hypertension, CKD stage I, CHF and nonischemic cardiomyopathy with EF 15-20% who presented to [facility] ED with complaints of abdominal pains, nausea, vomiting, diarrhea, generalized weakness and pleuritic chest pain for the past 2 days. * pCXR IMPRESSION: 1. No acute findings. * CT Abdomen/Pelvis IMPRESSION: 1. No acute process in the abdomen or pelvis. 2. Interval resolution of cardiomegaly. Discharge Diagnoses: Acute infectious Gastroenteritis, most likely viral -CT Abd Pelvis negative -Pt c/o n/v/d x2 days, improved, tolerating diet -Received Flagyl and cefepime -Continue supportive care -no stools for sample/culture, diarrhea resolved HEIDY, -Vasomotor nephropathy, poa -Superimposed CDK 1 -Likely secondary to dehydration -Cr on admission 2.2 -Baseline 1.2-1.5 -Received IVF in ED -Avoid nephrotoxin agents -Renal dose all meds, reduce bumex -Continue to monitor renal function, if no improvement may consider Nephrology consult Leukocytosis, most likely sepsis due to Infectious Gastroentritis, poa, resolved Hx CHF Nonischemic cardiomyopathy with ejection fraction of 15-20% seen on [facility] (11/2018), -Troponin slightly elevated at 0.047, type 2 Mi HTN Chronic pains syndrome Hyponatremia, hypovolemia Metabolic acidosis Disposition; home Disposition: - TO HOME OR SELFCARE Time spent for discharge: 34 minutes Core Measure Documentation - Palliative Care Palliative Care/ Comfort Measures: Not Applicable - Core Measures Any of the following diagnoses?: none - VTE Discharge Requirements Deep Vein Thrombosis/Pulmonary Embolism Present on Admission: No Has pt received <5 days of overlap therapy or INR<2.0: No Anticoagulant overlap therapy prescribed at discharge: No Contraindication No Overlap Therapy order at DC: Not Indicated Exam - Physical Exam Narrative exam: Gen: thin frial, NAD, Awake, Alert, Orientated HEENT: NCAT, EOMI, PERRL, OP Clear Neck: supple, no adenopathy, no thyromegaly, no JVD CVS/Heart: RRR, normal S1S2, pulses present bilaterally Chest/Lungs: CTA B, Symmetrical chest expansion, good air entry bilaterally GI/Abdomen: soft, NTND, good bowel sounds, no guarding or rebound /Bladder: no suprapubic tenderness, no CVA or paraspinal tenderness Extermity/Skin: no c/c/e, no obvious rash MSK: FROM x 4 Neuro: CN 2-12 grossly intact, no new focal deficits Psych: anxious - Constitutional Vitals: Temp Pulse Resp BP Pulse Ox 98.3 F 95 H 18 145/108 100 09/07/19 08:02 09/07/19 08:02 09/07/19 08:02 09/07/19 08:02 09/07/19 08:02 Plan Activity: other (no strenous activity unless cleared by PCP) Diet: low salt, advance as tolerated [facility] [Primary Care Provider] - 3-5 Days BERTIN REED MD [Staff Physician] - 7 Days KARO BAKER MD [Staff Physician] - 7 Days JACKIE MEADOWS MD [Staff Physician] - 7 Days Prescriptions: Loperamide [Imodium] 2 mg PO Q2H PRN #18 capsule PRN Reason: Diarrhea Oxycodone HCl/Acetaminophen [Percocet 10/325 mg] 1 each PO Q6HR PRN 3 Days #12 tablet PRN Reason: Pain , Severe (7-10) Ondansetron [Zofran Odt] 4 mg PO Q4H PRN #20 tab.rapdis PRN Reason: Nausea
== END 2019-09-07 11:22 | disposition home or self-care (01) | DRG 871 ==
LOC: ED 22:18 → 4A 09-06 01:15 → OBSVTOIN 09-06 15:15
PROVIDERS: ADMIT Internal Medicine; ATTEND Internal Medicine
DX: A41.9 Sepsis, unspecified organism (principal); N17.0 Acute kidney failure with tubular necrosis; E86.0 Dehydration; N18.9 Chronic kidney disease, unspecified; I13.0 Hypertensive heart and chronic kidney disease with heart failure and stage 1 through stage 4 chronic kidney disease, or unspecified chronic kidney disease; I50.9 Heart failure, unspecified; A08.4 Viral intestinal infection, unspecified; I42.8 Other cardiomyopathies; G89.4 Chronic pain syndrome; E87.1 Hypo-osmolality and hyponatremia; E86.1 Hypovolemia; Z90.49 Acquired absence of other specified parts of digestive tract; Z82.49 Family history of ischemic heart disease and other diseases of the circulatory system; Z88.5 Allergy status to narcotic agent; Z79.899 Other long term (current) drug therapy; Z79.82 Long term (current) use of aspirin
CPT/HCPCS: 36415; 71045; 74176; 80048; 80061; 80076; 81001; 82140; 84484; 84703; 85007; 85025; 85730; 87040; 93005; 93010; 96374; G0378; J0500; J0692; J1170; J1650; J1885; J2405; J2765; J7030; J7040

== ENCOUNTER 2019-10-11 10:38 | Emergency (ER) | payer MEDICAID ==
[2019-10-11 11:00] VITALS: BP 168/107
[2019-10-11] MEDS ORDERED: FAMOTIDINE 20 MG/2 ML INJ IV ONE (11:07)
[2019-10-11] MEDS ORDERED: ONDANSETRON 4 MG/2 ML INJ IV ONE (11:07)
[2019-10-11] MEDS ORDERED: CAPSAICIN 0.075% CREAM 60 GM TP STA (11:15)
[2019-10-11] MEDS ORDERED: SODIUM CHLORIDE 0.9% 250ML 250 ML IV ONE (12:26)
--- NOTE | 2019-10-11 12:36 | Emergency Department Report ---
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 and escorted by nurse Ani Lucio Cardiology: [facility] Past medical history: Hypertension, renal insufficiency stage I, CHF, ejection fraction 15-20%, nonischemic cardiomyopathy, had a cardiac catheterization at this hospital November 2018, negative for coronary artery disease, admitted to this hospital in early September for abdominal pain, systemic inflammatory response syndrome, had a negative CT scan abdomen pelvis, reportedly had nausea and vomiting, found to have vasomotor nephropathy, superimposed on CK D stage I, also complained of chest pain, had a nuclear medicine 11/2018, study which were low probability for pulmonary embolism, and had a type II troponin leak The patient presents today with a recurrent complaint of epigastric abdominal pain, nausea, vomiting, diarrhea for 3 days. The epigastric pain is constant for the past 3 days and moves up to the substernal region. Emesis is clear, yel low and green. Stool is described as brown. No urinary symptoms. No headache. No neck pain. Denies DVT and pulmonary embolism risk factors. States she is to consume marijuana, but does not consume marijuana at this time. Denies hematemesis and/or bright red blood per rectum. Also complains of constant central chest pain, which is not ready to the back, arms or neck. There is no new exertional shortness of breath. States it feels like her symptoms from last month. -: Gradual, days(s) Location: chest, abdomen Severity scale (0 -10): 6 Quality: aching Consistency: constant Improves with: none Worsens with: eating - Related Data Previous Rx's Medication Instructions Recorded Last Taken Type Albuterol Sulfate [Ventolin HFA] 2 puff IH Q4H PRN #1 hfa.aer.ad 08/14/14 Unknown Rx Spironolactone [Aldactone] 25 mg PO QDAY #30 tablet 11/08/18 Unknown Rx Aspirin 81 mg PO DAILY #30 tab.chew 01/15/19 Unknown Rx Acetaminophen [Acetaminophen TAB] 325 mg PO Q6H PRN #10 tablet 09/07/19 Unknown Rx Bumetanide 1 mg PO QDAY #15 tab 09/07/19 Unknown Rx Ondansetron [Zofran Odt] 4 mg PO Q4H PRN #20 tab.rapdis 09/07/19 Unknown Rx Sacubitril/Valsartan [Entresto 1 tab PO BID #60 tab 09/07/19 Unknown Rx 49-51 mg] carvediloL [Coreg] 12.5 mg PO DAILY@0800 #30 tablet 09/07/19 Unknown Rx Acetaminophen [Non-Aspirin Extra 500 mg PO Q6HR PRN #30 tablet 10/11/19 Unknown Rx Strength] Famotidine [Pepcid] 20 mg PO BID #60 tablet 10/11/19 Unknown Rx Luigi Root [Luigi] 250 mg PO QID PRN #30 capsule 10/11/19 Unknown Rx Magnesium Oxide 400 mg PO QDAY #10 tablet 10/11/19 Unknown Rx Metoclopramide [Reglan] 10 mg PO QID PRN #30 tablet 10/11/19 Unknown Rx Promethazine HCl [Phenergan SUPPOS] 25 mg RC Q6HR PRN #15 supp.rect 10/11/19 Unknown Rx Allergies Allergy/AdvReac Type Severity Reaction Status Date / Time morphine Allergy Itching Verified 01/14/19 23:19 ED Review of Systems ROS: Stated complaint: ABD PAIN/N/V Other details as noted in HPI Constitutional: malaise Eyes: denies: eye discharge ENT: denies: congestion Respiratory: denies: wheezing Cardiovascular: chest pain Gastrointestinal: abdominal pain, nausea, vomiting, diarrhea. denies: hematemesis, melena, hematochezia Genitourinary: denies: dysuria Musculoskeletal: back pain, myalgia Skin: denies: lesions Neurological: weakness Psychiatric: anxiety Hematological/Lymphatic: denies: easy bleeding ED Past Medical Hx - Past Medical History Previous Medical History?: Yes Hx Hypertension: Yes Hx Congestive Heart Failure: Yes Hx Diabetes: No Hx Deep Vein Thrombosis: No Hx Renal Disease: Yes Hx Sickle Cell Disease: No Hx Seizures: No Hx Asthma: No Hx COPD: No Hx HIV: No Additional medical history: stage 1 kidney disease - Surgical History Past Surgical History?: Yes Hx Cholecystectomy: Yes - Social History Smoking Status: Never Smoker Substance Use Type: None - Medications Home Medications: Home Medications Medication Instructions Recorded Confirmed Last Taken Type Albuterol Sulfate [Ventolin HFA] 2 puff IH Q4H PRN #1 hfa.aer.ad 08/14/14 09/06/19 Unknown Rx Spironolactone [Aldactone] 25 mg PO QDAY #30 tablet 11/08/18 09/06/19 Unknown Rx Aspirin 81 mg PO DAILY #30 tab.chew 01/15/19 09/06/19 Unknown Rx Acetaminophen [Acetaminophen TAB] 325 mg PO Q6H PRN #10 tablet 09/07/19 Unknown Rx Bumetanide 1 mg PO QDAY #15 tab 09/07/19 09/06/19 Unknown Rx Ondansetron [Zofran Odt] 4 mg PO Q4H PRN #20 tab.rapdis 09/07/19 Unknown Rx Sacubitril/Valsartan [Entresto 1 tab PO BID #60 tab 09/07/19 09/06/19 Unknown Rx 49-51 mg] carvediloL [Coreg] 12.5 mg PO DAILY@0800 #30 tablet 09/07/19 Unknown Rx Acetaminophen [Non-Aspirin Extra 500 mg PO Q6HR PRN #30 tablet 10/11/19 Unknown Rx Strength] Famotidine [Pepcid] 20 mg PO BID #60 tablet 10/11/19 Unknown Rx Luigi Root [Luigi] 250 mg PO QID PRN #30 capsule 10/11/19 Unknown Rx Magnesium Oxide 400 mg PO QDAY #10 tablet 10/11/19 Unknown Rx Metoclopramide [Reglan] 10 mg PO QID PRN #30 tablet 10/11/19 Unknown Rx Promethazine HCl [Phenergan SUPPOS] 25 mg RC Q6HR PRN #15 supp.rect 10/11/19 U nknown Rx ED Physical Exam - General Limitations: No Limitations, Other (chaperoned by nurse Khadijah) General appearance: alert, anxious - Head Head exam: Present: atraumatic, normocephalic - Eye Eye exam: Present: normal appearance, EOMI - ENT ENT exam: Present: mucous membranes dry, normal external ear exam - Neck Neck exam: Present: normal inspection, full ROM. Absent: tenderness, meningismus - Respiratory Respiratory exam: Present: normal lung sounds bilaterally. Absent: respiratory distress - Cardiovascular Cardiovascular Exam: Present: regular rate, normal rhythm, normal heart sounds. Absent: bradycardia, tachycardia, irregular rhythm, systolic murmur, diastolic murmur, rubs, gallop - GI/Abdominal GI/Abdominal exam: Present: soft. Absent: distended, tenderness, guarding, rebound, rigid, pulsatile mass - Extremities Exam Extremities exam: Present: normal inspection, full ROM, other (2+ pulses noted in the bilateral upper and lower extremities. There is no palpable cord. negative Homans sign. Muscular compartments are soft. The pelvis is stable.). Absent: pedal edema, joint swelling, calf tenderness - Back Exam Back exam: Present: normal inspection, full ROM. Absent: tenderness, CVA tenderness (R), CVA tenderness (L), paraspinal tenderness, vertebral tenderness - Neurological Exam Neurological exam: Present: alert, other (there is no facial droop. The tongue is midline. Extraocular movements are intact bilaterally. There is 5/5 strength bilateral upper, lower extremities.) - Psychiatric Psychiatric exam: Present: anxious - Skin Skin exam: Present: warm, dry, intact, normal color. Absent: rash ED Course Vital Signs 10/11/19 10/11/19 10:59 13:01 Temperature 97.7 F Pulse Rate 72 80 Respiratory 17 18 Rate Blood Pressure 168/107 [Left] O2 Sat by Pulse 99 100 Oximetry - Reevaluation(s) Reevaluation #1: 10/11/19 12:44 Differential diagnosis, including but not limited to: GERD, gastritis, hiatal hernia, pancreatitis, hepatitis, constipation, urinary tract infection, esophagitis, cyclic vomiting syndrome, constipation, cannabinoid hyperemesis syndrome, narcotic bowel syndrome, dehydration Assessment and plan: 44-year-old female with a recurrent complaint of abdominal pain, epigastric pain, nausea and vomiting and nonspecific chest pain. She reports no pulmonary embolism or DVT risk factors. She is low risk by well's criteria. She is not currently tachycardic, tachypneic or hypoxic. A pulmonary embolism is quite unlikely. She had a definitive cardiac risk stratification within the past year. Symptoms mostly GI in nature. At one point in time was noted to be sticking her finger in her mouth, causing delivered retching. The patient has stopped this. She will be treated with nonnarcotic therapy, including gentle fluids, Zofran, Pepcid, and topical caspacin IV access was established, but as per nursing report, phlebotomy having a difficult time obtaining blood for laboratory analysis. Hopefully after IV fluids, laboratory studies will be able to be drawn. 10/11/19 12:46 Reevaluation #2: 10/11/19 14:33 Laboratory studies reviewed and appreciated. Patient tolerating liquid feeds. No active vomiting at this time. [place] improved after nonnarcotic therapy. On multiple repeat evaluations, resting comfortably in stretcher, and in no acute distress. Urine toxicology screen is reviewed and appreciated. The patient is clinically sober at this time. She is not clinically impaired at this time. Renal insufficiency is reviewed and appreciated, this is a chronic condition. The patient will need to follow up with an outpatient primary care or cardiology for her chronic renal insufficiency, and she can follow up with outpatient primary care or GI for her acute on chronic abdominal pain, now resolved. ED Medical Decision Making - Lab Data Result diagrams: 10/11/19 13:35 10/11/19 13:35 Vital Signs 10/11/19 10:59 Pulse Rate 72 Respiratory 17 Rate Blood Pressure 168/107 [Left] O2 Sat by Pulse 99 Oximetry Lab Results 10/11/19 Range/Units 12:27 Urine HCG, Qual Negative (Negative) - EKG Data -: EKG Interpreted by Ca EKG shows normal: sinus rhythm Rate: normal - EKG Data 10/11/19 12:47 The EKG today shows a sinus rhythm, 72 bpm, QTC prolonged, high left ventricular voltage, atrial enlargement, the EKG is abnormal, it is unchanged from prior from September 2019, the EKG is not consistent with ST elevation myocardial inf arction. - Radiology Data Radiology results: pending, report reviewed, image reviewed Print Report Referring Physician: GIOVANNY JENKINS Patient Name: FLOR PATTERSON Date of : 1975 Sex: Female Report Date: 2019-10-11 Report Status: Finalized Findings [facility] [address] [place] [address] XRay Report Signed Patient: FLOR PATTERSON MR#: [id number] : 1975 Acct:[id number] Age/Sex: 44 / F ADM Date: 10/11/19 Loc: ED Attending Dr: Ordering Physician: GIOVANNY JENKINS MD Date of Service: 10/11/19 Procedure(s): XR abd series w cxr 1V Accession Number(s): [id number] cc: GIOVANNY JENKINS MD Fluoro Time In Minutes: ABDOMEN 3 VIEW(S) INDICATION / CLINICAL INFORMATION: cp abd pain upt. COMPARISON: CT abdomen/pelvis from 09/06/2019 FINDINGS: TUBES / LINES: None. BOWEL GAS PATTERN: No significant abnormality. Gallbladder is surgically absent. FREE AIR / EXTRALUMINAL GAS: None seen. ADDITIONAL FINDINGS: Clear lungs with normal heart size. IMPRESSION: 1. No significant abnormality. Signer Name: Alejandro Christian MD Signed: 10/11/2019 1:11 PM Workstation Name: [id number] Transcribed By: ZHENG Dictated By: Alejandro Christian MD Electronically Authenticated By: Alejandro Christian MD Signed Date/Time: 10/11/19 1311 Critical care attestation.: If time is entered above; I have spent that time in minutes in the direct care of this critically ill patient, excluding procedure time. ED Disposition Clinical Impression: History of nausea and vomiting, Hypomagnesemia Chronic renal insufficiency Qualifiers: Chronic kidney disease stage: unspecified stage Qualified Code(s): N18.9 - Chronic kidney disease, unspecified Disposition: DC-01 TO HOME OR SELFCARE Is pt being admited?: No Does the pt Need Aspirin: No Condition: Stable Additional Instructions: do not take Motrin, ibuprofen, Naprosyn, Aleve. Avoid consumption of heavy and/or spicy foods. Urine toxicology screen demonstrated the presence of marijuana and cocaine. Patient should not consume marijuana or cocaine, if she is recreationally using these drugs. In addition, the patient should avoid secondhand exposure of the substances. Consumption of marijuana and cocaine may cause disability, loss of quality of life, worsening of chronic medical conditions. Advance diet as tolerated. 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 Patient may also follow-up with the primary care doctor or technical delivery manager within the next 4 weeks for evaluation of recurrent abdominal pain. If requiring pain medication, patient may take the Pepcid/famotidine as directed, and the acetaminophen/Tylenol as directed. Patient may also use luigi as needed for nausea and vomiting, and oral Reglan as needed for nausea and vomiting. If these medications do not help out with nausea/vomiting, patient may use Phenergan suppository. However, patient should not take Phenergan suppository for at least 1 hour if she has taken oral Reglan medication. Please return to the emergency room right away with projectile vomiting, change in mental status, confusion, inability to tolerate liquid feeds, new, worsening or different symptoms not present on the initial emergency room evaluation. Prescriptions: Luigi Root [Luigi] 250 mg PO QID PRN #30 capsule PRN Reason: Nausea Magnesium Oxide 400 mg PO QDAY #10 tablet Acetaminophen [Non-Aspirin Extra Strength] 500 mg PO Q6HR PRN #30 tablet PRN Reason: Pain , Severe (7-10) Famotidine [Pepcid] 20 mg PO BID #60 tablet Promethazine HCl [Phenergan SUPPOS] 25 mg RC Q6HR PRN #15 supp.rect PRN Reason: Nausea Metoclopramide [Reglan] 10 mg PO QID PRN #30 tablet PRN Reason: Nausea Referrals: [facility] [Provider Group] - 3-5 Days [facility] [Provider Group] - 3-5 Days [facility] [Provider Group] - 3-5 Days
[2019-10-11 12:43] LABS: HCG Qualitative,Urine Negative (Negative)
[2019-10-11 12:49] LABS: Bacteria,Urine 1+ /HPF (Negative); Bilirubin,Urine NEG (Negative); Blood,Urine LG (Negative); Color,Urine Yellow (Yellow); Mucus,Urine FEW /HPF; Urobilinogen,Urine < 2.0 mg/dL (<2.0)
[2019-10-11 12:52] LABS: Amphetamine Screen,Urine PRESUMPTIVE NEGATIVE; Benzodiazepines Screen,Urine PRESUMPTIVE NEGATIVE; Methadone Screen,Urine PRESUMPTIVE NEGATIVE; Opiate Screen,Urine PRESUMPTIVE NEGATIVE
--- NOTE | 2019-10-11 13:15 | XRay Report ---
ABDOMEN 3 VIEW(S) INDICATION / CLINICAL INFORMATION: cp abd pain upt. COMPARISON: CT abdomen/pelvis from 09/06/2019 FINDINGS: TUBES / LINES: None. BOWEL GAS PATTERN: No significant abnormality. Gallbladder is surgically absent. FREE AIR / EXTRALUMINAL GAS: None seen. ADDITIONAL FINDINGS: Clear lungs with normal heart size. IMPRESSION: 1. No significant abnormality. Signer Name: Alejandro Christian MD Signed: 10/11/2019 1:11 PM Workstation Name: [id number]
[2019-10-11 13:16] LABS: Cannabinoid Screen,Urine PRESUMPTIVE POSITIVE; Cocaine Screen,Urine PRESUMPTIVE POSITIVE
[2019-10-11 14:02] LABS: INR 0.92 (0.87-1.13)
[2019-10-11 14:06] LABS: Hematocrit 37.3 % (30.3-42.9); Hemoglobin 12.5 gm/dl (10.1-14.3); Mean Corpuscular HGB Conc 33 % (30-34); Mean Corpuscular Volume 95 fl (79-97); Platelet Count 320 K/mm3 (140-440); Red Blood Count 3.91 M/mm3 (3.65-5.03); Red Cell Distribution Width 13.4 % (13.2-15.2)
[2019-10-11] MEDS ORDERED: SUCRALFATE 1 GM/10 ML ORAL LIQD PO ONE (14:06)
[2019-10-11 14:07] LABS: Albumin 4.4 g/dL (3.9-5); Calcium 9.6 mg/dL (8.4-10.2)
[2019-10-11] MEDS ORDERED: METOCLOPRAMIDE 10 MG/2 ML INJ IV ONE (14:15)
[2019-10-11] MEDS ORDERED: MAGNESIUM SULFATE 2 GM/50 ML BAG IV ONE (14:28)
== END 2019-10-11 16:26 | disposition home or self-care (01) ==
LOC: ED 10:38
DX: R11.2 Nausea with vomiting, unspecified (principal); E83.42 Hypomagnesemia; I13.0 Hypertensive heart and chronic kidney disease with heart failure and stage 1 through stage 4 chronic kidney disease, or unspecified chronic kidney disease; N18.1 Chronic kidney disease, stage 1; Z90.49 Acquired absence of other specified parts of digestive tract; Z79.899 Other long term (current) drug therapy; Z88.5 Allergy status to narcotic agent
CPT/HCPCS: 36415; 74022; 80053; 80307; 81001; 81025; 82550; 83690; 83735; 84439; 84443; 85027; 85610; 93005; 93010; 96361; 96365; 96375; 99285; J2405; J2765; J3475; J7050

== ENCOUNTER 2019-11-18 10:10 | Emergency (ER) | payer MEDICAID ==
[2019-11-18] MEDS ORDERED: HYDROmorphone 1 MG/1 ML INJ IV ONE (10:28)
[2019-11-18] MEDS ORDERED: SODIUM CHLORIDE 0.9% 1000 ML 1,000 ML IV ONE (10:28)
[2019-11-18] MEDS ORDERED: ONDANSETRON 4 MG/2 ML INJ IV ONE (10:28)
--- NOTE | 2019-11-18 10:36 | Emergency Department Report ---
ED Chest Pain HPI - General Stated Complaint: CHEST PAIN Time Seen by Provider: 11/18/19 10:28 Source: patient, EMS, old records reviewed Mode of arrival: Ambulatory Limitations: No Limitations - History of Present Illness Initial Comments: CC: "I am in a whole lot of pain." HPI: Mrs. Hanson is a 44 yo female with hx of HTN, CKD, CHF, nonischemic cardiomyopathy EF 15-20% who presents via EMS with chest pain, lower back pain, nausea vomiting and diarrhea. Symptoms began 3 days ago with nausea/vomiting. She developed lower back pain achy 1-2 days ago. Chest pain lower ches t/epigastric region began today. Pain is achy without any radiation. Pain is 20/10. She does not have a primary care physician. She is followed by [facility]. Her heart failure specialist referred her to a tank truck loader for evaluation of chronic kidney disease. November 2018: Left heart catheterization: Summary patent coronaries, right dominant system severe LV dysfunction MD Complaint: chest pain, other (lower back pain nausea vomiting diarrhea) -: Gradual, days(s) (2) Onset: during rest Pain Location: epigastric Pain Radiation: none Severity: severe Severity scale (0 -10): 10 (20 out of 10 pain) Quality: aching, sharp Consistency: constant Improves With: nothing Worsens With: nothing re: nausea, vomting Other Symptoms: other (back pain diarrhea) Treatments Prior to Arrival: none - Related Data Previous Rx's Medication Instructions Recorded Last Taken Type Albuterol Sulfate [Ventolin HFA] 2 puff IH Q4H PRN #1 hfa.aer.ad 08/14/14 Unknown Rx Spironolactone [Aldactone] 25 mg PO QDAY #30 tablet 11/08/18 Unknown Rx Aspirin 81 mg PO DAILY #30 tab.chew 01/15/19 Unknown Rx Acetaminophen [Acetaminophen TAB] 325 mg PO Q6H PRN #10 tablet 09/07/19 Unknown Rx Bumetanide 1 mg PO QDAY #15 tab 09/07/19 Unknown Rx Ondansetron [Zofran Odt] 4 mg PO Q4H PRN #20 tab.rapdis 09/07/19 Unknown Rx Sacubitril/Valsartan [Entresto 1 tab PO BID #60 tab 09/07/19 Unknown Rx 49-51 mg] carvediloL [Coreg] 12.5 mg PO DAILY@0800 #30 tablet 09/07/19 Unknown Rx Acetaminophen [Non-Aspirin Extra 500 mg PO Q6HR PRN #30 tablet 10/11/19 Unknown Rx Strength] Famotidine [Pepcid] 20 mg PO BID #60 tablet 10/11/19 Unknown Rx Leeanne Root [Leeanne] 250 mg PO QID PRN #30 capsule 10/11/19 Unknown Rx Magnesium Oxide 400 mg PO QDAY #10 tablet 10/11/19 Unknown Rx Metoclopramide [Reglan] 10 mg PO QID PRN #30 tablet 10/11/19 Unknown Rx Promethazine HCl [Phenergan SUPPOS] 25 mg RC Q6HR PRN #15 supp.rect 10/11/19 Unknown Rx Allergies Allergy/AdvReac Type Severity Reaction Status Date / Time morphine Allergy Itching Verified 01/14/19 23:19 Heart Score - HEART Score History: Slightly suspicious EKG: Non-specific Age: < 45 Risk factors: 1-2 risk factors Troponin: < normal limit HEART Score: 2 ED Review of Systems ROS: Stated complaint: CHEST PAIN Other details as noted in HPI Comment: All other systems reviewed and negative Constitutional: malaise. denies: chills, fever Respiratory: denies: cough, shortness of breath Cardiovascular: chest pain Gastrointestinal: nausea, vomiting, diarrhea. denies: abdominal pain Musculoskeletal: back pain ED Past Medical Hx - Past Medical History Previous Medical History?: Yes Hx Hypertension: Yes Hx Congestive Heart Failure: Yes Hx Diabetes: No Hx Deep Vein Thrombosis: No Hx Renal Disease: Yes Hx Sickle Cell Disease: No Hx Seizures: No Hx Asthma: No Hx COPD: No Hx HIV: No Additional medical history: stage 1 kidney disease - Surgical History Hx Cholecystectomy: Yes - Family History Family history: hypertension - Social History Smoking Status: Former Smoker Substance Use Type: None Other Social History: Lives with children, currently unemployed - Medications Home Medications: Home Medications Medication Instructions Recorded Confirmed Last Taken Type Albuterol Sulfate [Ventolin HFA] 2 puff IH Q4H PRN #1 hfa.aer.ad 08/14/14 09/06/19 Unknown Rx Spironolactone [Aldactone] 25 mg PO QDAY #30 tablet 11/08/18 09/06/19 Unknown Rx Aspirin 81 mg PO DAILY #30 tab.chew 01/15/19 09/06/19 Unknown Rx Acetaminophen [Acetaminophen TAB] 325 mg PO Q6H PRN #10 tablet 09/07/19 Unknown Rx Bumetanide 1 mg PO QDAY #15 tab 09/07/19 09/06/19 Unknown Rx Ondansetron [Zofran Odt] 4 mg PO Q4H PRN #20 tab.rapdis 09/07/19 Unknown Rx Sacubitril/Valsartan [Entresto 1 tab PO BID #60 tab 09/07/19 09/06/19 Unknown Rx 49-51 mg] carvediloL [Coreg] 12.5 mg PO DAILY@0800 #30 tablet 09/07/19 Unknown Rx Acetaminophen [Non-Aspirin Extra 500 mg PO Q6HR PRN #30 tablet 10/11/19 Unknown Rx Strength] Famotidine [Pepcid] 20 mg PO BID #60 tablet 10/11/19 Unknown Rx Leeanne Root [Leeanne] 250 mg PO QID PRN #30 capsule 10/11/19 Unknown Rx Magnesium Oxide 400 mg PO QDAY #10 tablet 10/11/19 Unknown Rx Metoclopramide [Reglan] 10 mg PO QID PRN #30 tablet 10/11/19 Unknown Rx Promethazine HCl [Phenergan SUPPOS] 25 mg RC Q6HR PRN #15 supp.rect 10/11/19 Unknown Rx ED Physical Exam - General General appearance: alert, in no apparent distress, other (appears in pain) - Head Head exam: Present: atraumatic, normocephalic - Eye Eye exam: Present: normal appearance - ENT ENT exam: Present: mucous membranes moist - Neck Neck exam: Present: normal inspection, full ROM - Respiratory Respiratory exam: Present: normal lung sounds bilaterally. Absent: respiratory distress, wheezes, rales, rhonchi - Cardiovascular Cardiovascular Exam: Present: regular rate, normal rhythm, normal heart sounds, other (equal radial pulses). Absent: systolic murmur, diastolic murmur, rubs, gallop - GI/Abdominal GI/Abdominal exam: Present: soft, normal bowel sounds. Absent: distended, te nderness, guarding, rebound - Extremities Exam Extremities exam: Present: normal inspection - Neurological Exam Neurological exam: Present: alert, oriented X3 - Psychiatric Psychiatric exam: Present: normal affect, normal mood - Skin Skin exam: Present: warm, dry, intact, normal color. Absent: rash ED Course Vital Signs 11/18/19 11/18/19 11/18/19 10:40 11:28 11:40 Temperature 97.6 F Pulse Rate 122 H 114 H 92 H Respiratory 29 H 19 Rate Blood Pressure 198/132 Blood Pressure 202/133 138/94 [Left] O2 Sat by Pulse 100 97 Oximetry 11/18/19 11:56 Temperature Pulse Rate 86 Respiratory Rate Blood Pressure Blood Pressure 120/88 [Left] O2 Sat by Pulse Oximetry ED Medical Decision Making - Lab Data Result diagrams: 11/18/19 10:59 11/18/19 10:59 Laboratory Results - last 24 hr 11/18/19 11/18/19 11/18/19 10:28 10:59 10:59 WBC 10.2 RBC 4.31 Hgb 13.1 Hct 39.4 MCV 92 MCH 30 MCHC 33 RDW 14.4 Plt Count 366 Add Manual Diff Complete Total Counted 100 Seg Neutrophils % Administrative Tech Seg Neuts % (Manual) 95.0 H Band Neutrophils % 0 Lymphocytes % (Manual) 4.0 L Reactive Lymphs % (Man) 0 Monocytes % (Manual) 1.0 Eosinophils % (Manual) 0 Basophils % (Manual) 0 Metamyelocytes % 0 Myelocytes % 0 Promyelocytes % 0 Blast Cells % 0 Nucleated RBC % Not Reportable Seg Neutrophils # Man 9.7 H Band Neutrophils # 0.0 Lymphocytes # (Manual) 0.4 L Abs React Lymphs (Man) 0.0 Monocytes # (Manual) 0.1 Eosinophils # (Manual) 0.0 Basophils # (Manual) 0.0 Metamyelocytes # 0.0 Myelocytes # 0.0 Promyelocytes # 0.0 Blast Cells # 0.0 WBC Morphology Not Reportable Hypersegmented Neuts Not Reportable Hyposegmented Neuts Not Reportable Hypogranular Neuts Not Reportable Smudge Cells Not Reportable Toxic Granulation Not Reportable Toxic Vacuolation Not Reportable Dohle Bodies Not Reportable Pelger-Huet Anomaly Not Reportable Roxana Rods Not Reportable Platelet Estimate Consistent w auto Clumped Platelets Not Reportable Plt Clumps, EDTA Not Reportable Large Platelets Not Reportable Giant Platelets Not Reportable Platelet Satelliting Not Reportable Plt Morphology Comment Not Reportable RBC Morphology Not Reportable Dimorphic RBCs Not Reportable Polychromasia Not Reportable Hypochromasia Not Reportable Poikilocytosis Not Reportable Anisocytosis Not Reportable Microcytosis Not Reportable Macrocytosis Not Reportable Spherocytes Not Reportable Pappenheimer Bodies Not Reportable Sickle Cells Not Reportable Target Cells Few Tear Drop Cells Not Reportable Ovalocytes Not Reportable Helmet Cells Not Reportable Sims-[place] Bodies Not Reportable Lyle Rings Not Reportable Vin Cells Not Reportable Bite Cells Not Reportable Crenated Cell Not Reportable Elliptocytes Not Reportable Acanthocytes (Spur) Not Reportable Rouleaux Not Reportable Hemoglobin C Crystals Not Reportable Schistocytes Not Reportable Malaria parasites Not Reportable Matt Bodies Not Reportable Hem Pathologist Commnt No PT 12.9 INR 0.96 Sodium Potassium Chloride Carbon Dioxide Anion Gap BUN Creatinine Estimated GFR BUN/Creatinine Ratio Glucose Calcium Total Bilirubin Direct Bilirubin Indirect Bilirubin AST ALT Alkaline Phosphatase Troponin T NT-Pro-B Natriuret Pep Total Protein Albumin Albumin/Globulin Ratio Lipase HCG, Qual Urine Color Gianna Urine Turbidity Slightly-cloudy Urine pH 5.0 Ur Specific Arnold 1.029 Urine Protein >500 Urine Glucose (UA) Neg Urine Ketones Tr Urine Blood Sm Urine Nitrite Neg Urine Bilirubin Neg Urine Urobilinogen < 2.0 Ur Leukocyte Esterase Neg Urine WBC (Auto) 4.0 Urine RBC (Auto) 6.0 U Epithel Cells (Auto) 12.0 Urine Mucus 1+ 11/18/19 11/18/19 11/18/19 10:59 10:59 10:59 WBC RBC Hgb Hct MCV MCH MCHC RDW Plt Count Add Manual Diff Total Counted Seg Neutrophils % Seg Neuts % (Manual) Band Neutrophils % Lymphocytes % (Manual) Reactive Lymphs % (Man) Monocytes % (Manual) Eosinophils % (Manual) Basophils % (Manual) Metamyelocytes % Myelocytes % Promyelocytes % Blast Cells % Nucleated RBC % Seg Neutrophils # Man Band Neutrophils # Lymphocytes # (Manual) Abs React Lymphs (Man) Monocytes # (Manual) Eosinophils # (Manual) Basophils # (Manual) Metamyelocytes # Myelocytes # Promyelocytes # Blast Cells # WBC Morphology Hypersegmented Neuts Hyposegmented Neuts Hypogranular Neuts Smudge Cells Toxic Granulation Toxic Vacuolation Dohle Bodies Pelger-Huet Anomaly Roxana Rods Platelet Estimate Clumped Platelets Plt Clumps, EDTA Large Platelets Giant Platelets Platelet Satelliting Plt Morphology Comment RBC Morphology Dimorphic RBCs Polychromasia Hypochromasia Poikilocytosis Anisocytosis Microcytosis Macrocytosis Spherocytes Pappenheimer Bodies Sickle Cells Target Cells Tear Drop Cells Ovalocytes Helmet Cells Sims-[place] Bodies Lyle Rings Vin Cells Bite Cells Crenated Cell Elliptocytes Acanthocytes (Spur) Rouleaux Hemoglobin C Crystals Schistocytes Malaria parasites Matt Bodies Hem Pathologist Commnt PT INR Sodium 136 L Potassium 3.6 Chloride 97.8 L Carbon Dioxide 15 L Anion Gap 27 BUN 20 H Creatinine 1.9 H Estimated GFR 35 BUN/Creatinine Ratio 11 Glucose 155 H Calcium 10.8 H Total Bilirubin 0.40 Direct Bilirubin < 0.2 Indirect Bilirubin 0.2 AST 19 ALT 31 Alkaline Phosphatase 135 H Troponin T < 0.010 NT-Pro-B Natriuret Pep 7723 H Total Protein 9.7 H Albumin 4.8 Albumin/Globulin Ratio 1.0 Lipase 15 HCG, Qual Negative Urine Color Urine Turbidity Urine pH Ur Specific Arnold Urine Protein Urine Glucose (UA) Urine Ketones Urine Blood Urine Nitrite Urine Bilirubin Urine Urobilinogen Ur Leukocyte Esterase Urine WBC (Auto) Urine RBC (Auto) U Epithel Cells (Auto) Urine Mucus 11/18/19 12:18 WBC RBC Hgb Hct MCV MCH MCHC RDW Plt Count Add Manual Diff Total Counted Seg Neutrophils % Seg Neuts % (Manual) Band Neutrophils % Lymphocytes % (Manual) Reactive Lymphs % (Man) Monocytes % (Manual) Eosinophils % (Manual) Basophils % (Manual) Metamyelocytes % Myelocytes % Promyelocytes % Blast Cells % Nucleated RBC % Seg Neutrophils # Man Band Neutrophils # Lymphocytes # (Manual) Abs React Lymphs (Man) Monocytes # (Manual) Eosinophils # (Manual) Basophils # (Manual) Metamyelocytes # Myelocytes # Promyelocytes # Blast Cells # WBC Morphology Hypersegmented Neuts Hyposegmented Neuts Hypogranular Neuts Smudge Cells Toxic Granulation Toxic Vacuolation Dohle Bodies Pelger-Huet Anomaly Roxana Rods Platelet Estimate Clumped Platelets Plt Clumps, EDTA Large Platelets Giant Platelets Platelet Satelliting Plt Morphology Comment RBC Morphology Dimorphic RBCs Polychromasia Hypochromasia Poikilocytosis Anisocytosis Microcytosis Macrocytosis Spherocytes Pappenheimer Bodies Sickle Cells Target Cells Tear Drop Cells Ovalocytes Helmet Cells Sims-[place] Bodies Lyle Rings Vin Cells Bite Cells Crenated Cell Elliptocytes Acanthocytes (Spur) Rouleaux Hemoglobin C Crystals Schistocytes Malaria parasites Matt Bodies Hem Pathologist Commnt PT INR Sodium Potassium Chloride Carbon Dioxide Anion Gap BUN Creatinine Estimated GFR BUN/Creatinine Ratio Glucose Calcium Total Bilirubin Direct Bilirubin Indirect Bilirubin AST ALT Alkaline Phosphatase Troponin T < 0.010 NT-Pro-B Natriuret Pep Total Protein Albumin Albumin/Globulin Ratio Lipase HCG, Qual Urine Color Urine Turbidity Urine pH Ur Specific Arnold Urine Protein Urine Glucose (UA) Urine Ketones Urine Blood Urine Nitrite Urine Bilirubin Urine Urobilinogen Ur Leukocyte Esterase Urine WBC (Auto) Urine RBC (Auto) U Epithel Cells (Auto) Urine Mucus - EKG Data 11/18/19 10:40 EKG obtained 1036 Normal sinus rhythm rate 95 beats a minute normal axis and prolonged QT interval [address] depression with peaked T waves normal QRS interval normal [place] interval positive LVH 11/18/19 12:13 EKG is changed from 10/11/2019 amplitude of T waves and ST morphology is markedly different. However today's EKG is very similar to the EKG which was ob tained on 09/05/2019 11/18/19 12:51 Repeat EKG obtained 1231 Rate 65 beats a minute normal sinus rhythm normal axis prolonged QTC no ST elevation positive LVH ST depression have resolved - Radiology Data Radiology results: report reviewed Chest x-ray: No acute findingsand pulmonary pleural abnormality CT abdomen and pelvis: No acute process in the abdomen and pelvis no significant change - Medical Decision Making Ms. Hanson is a 44 yo female with history of nonischemic cardiomyopathy EF of 10- 15 she persists with chest pain or back pain nausea vomiting diarrhea. Blood pressure was extremely elevated on presentation. One year ago left heart catheterization revealed patent coronary artery system. Here today workup has been unremarkable with the exception of elevated BNP. Troponin x 2 within normal limits. Potassium is normal. No signs and symptoms of acute heart failure. Initial ST depression findings exaggerated with heart rate on presentation. Once blood pressure controlled repeat EKG is comparable to previous EKGs obtained. I do not suspect ACS. She has been ruled out for SC. I have seen that she has had recurrent visits for chest pain and flank pain abdominal pain and vomiting. Unclear the etiology of chest pain back pain nausea vomiting diarrhea. Unclear if all symptoms are related to one diagnosis. She has been ruled out for emergent condition with an extensive workup here in emergency department. After one dose of analgesia she is now eating and tolerating food and drink with ease. Blood pressure controlled with IV labetalol. SHe is discharged home in stable condition. Vital Signs - 24 hr 11/18/19 11/18/19 11/18/19 10:40 11:28 11:40 Temperature 97.6 F Pulse Rate 122 H 114 H 92 H Respiratory 29 H 19 Rate Blood Pressure 198/132 Blood Pressure 202/133 138/94 [Left] O2 Sat by Pulse 100 97 Oximetry 11/18/19 11:56 Temperature Pulse Rate 86 Respiratory Rate Blood Pressure Blood Pressure 120/88 [Left] O2 Sat by Pulse Oximetry Critical Care Time: Yes Critical care time in (mins) excluding proc time.: 40 Critical care attestation.: If time is entered above; I have spent that time in minutes in the direct care of this critically ill patient, excluding procedure time. 40 minutes of critical care time excluding procedures were used in the care of the patient. Also concern for acute coronary syndrome and hyperkalemia. I evaluated the transmitted EKG from EKG. Did not suspect ST elevation SC. Did suspect hyperkalemia metabolic process. Patient required multiple reassessments and multiple interventions. I reviewed electronic record. I kept The patient informed. I directed resuscitation with our nursing team. ED Disposition Clinical Impression: Hypertensive urgency, Atypical chest pain, Acute low back pain, Vomiting and diarrhea Disposition: - TO HOME OR SELFCARE Is pt being admited?: No Does the pt Need Aspirin: No Condition: Stable Instructions: Chest Pain (ED) Referrals: BERTIN REED MD [Staff Physician] - 3-5 Days
[2019-11-18 11:26] LABS: Hematocrit 39.4 % (30.3-42.9); Hemoglobin 13.1 gm/dl (10.1-14.3); Mean Corpuscular HGB Conc 33 % (30-34); Mean Corpuscular Volume 92 fl (79-97); Platelet Count 366 K/mm3 (140-440); Red Blood Count 4.31 M/mm3 (3.65-5.03); Red Cell Distribution Width 14.4 % (13.2-15.2)
[2019-11-18 11:38] LABS: Alanine Aminotransferase 31 units/L (7-56); Albumin 4.8 g/dL (3.9-5); BUN/Creatinine Ratio 11; Blood Urea Nitrogen 20 mg/dL (7-17); Calcium 10.8 mg/dL (8.4-10.2); Hemolysis Index 3
[2019-11-18 11:44] LABS: INR 0.96 (0.87-1.13)
[2019-11-18 11:47] LABS: Bilirubin,Direct < 0.2 mg/dL (0-0.2)
--- NOTE | 2019-11-18 11:57 | XRay Report ---
CHEST 1 VIEW 11/18/2019 11:30 AM INDICATION / CLINICAL INFORMATION: chest pain. COMPARISON: 09/05/19 FINDINGS: SUPPORT DEVICES: None. HEART / MEDIASTINUM: No significant abnormality. LUNGS / PLEURA: No significant pulmonary or pleural abnormality. No pneumothorax. ADDITIONAL FINDINGS: No significant additional findings. IMPRESSION: 1. No acute findings. No change. Signer Name: Josue Biswas MD Signed: 11/18/2019 11:53 AM Workstation Name: [id number]
--- NOTE | 2019-11-18 12:27 | Cat Scan Report ---
CT ABDOMEN AND PELVIS WITHOUT CONTRAST INDICATION / CLINICAL INFORMATION: Abdominal Pain nausea vomiting. TECHNIQUE: Axial CT images were obtained through the abdomen and pelvis without IV contrast. All CT scans at [facility] location are performed using CT dose reduction for ALARA by means of automated exposure control. COMPARISON: CT dated 09/06/19 FINDINGS: LOWER CHEST: No significant abnormality. LIVER: No significant abnormality. GALLBLADDER: Surgically absent. BILE DUCTS: No significant abnormality. PANCREAS: No significant abnormality. SPLEEN: No significant abnormality. ADRENALS: No significant abnormality. RIGHT KIDNEY and URETER: No significant abnormality. LEFT KIDNEY and URETER: No significant abnormality. STOMACH and SMALL BOWEL: No significant abnormality. COLON: No significant abnormality. APPENDIX: No significant abnormality. PERITONEUM: No free fluid. No free air. No fluid collection. LYMPH NODES: No significant adenopathy. AORTA and ARTERIES: No significant abnormality. IVC and VEINS: No significant abnormality. URINARY BLADDER: No significant abnormality. REPRODUCTIVE ORGANS: No significant abnormality. ADDITIONAL FINDINGS: None. SKELETAL SYSTEM: No significant abnormality. IMPRESSION: 1. No acute process in the abdomen or pelvis. No significant change. Signer Name: Josue Biswas MD Signed: 11/18/2019 12:22 PM Workstation Name: [id number]
[2019-11-18 13:21] LABS: Bilirubin,Urine NEG (Negative); Blood,Urine SM (Negative); Color,Urine Amber (Yellow); Mucus,Urine 1+ /HPF; Urobilinogen,Urine < 2.0 mg/dL (<2.0)
[2019-11-18 13:22] LABS: Protein,Urine >500 mg/dL (Negative)
[2019-11-18 13:29] LABS: Basophils % (Manual) 0 % (0.0-1.8); Eosinophils % (Manual) 0 % (0.0-4.3); Total Cells Counted 100
[2019-11-18 13:30] LABS: Platelet Estimate Consistent w Auto; Target Cells Few
[2019-11-18 14:20] VITALS: BP 122/82
== END 2019-11-18 14:20 | disposition home or self-care (01) ==
LOC: ED 10:10
DX: I16.0 Hypertensive urgency (principal); I10 Essential (primary) hypertension; R07.89 Other chest pain; M54.5 Low back pain; R11.10 Vomiting, unspecified; R19.7 Diarrhea, unspecified; Z87.891 Personal history of nicotine dependence; Z79.899 Other long term (current) drug therapy; Z88.8 Allergy status to other drugs, medicaments and biological substances
CPT/HCPCS: 36415; 71045; 74176; 80048; 80076; 81001; 83690; 83880; 84484; 84703; 85007; 85025; 85610; 87040; 93005; 93010; 96361; 96374; 96375; 99285; J1170; J2405; J7030

== ENCOUNTER 2020-02-01 02:27 | Emergency (ER) | payer MEDICAID ==
[2020-02-01] MEDS ORDERED: fentaNYL 100 MCG/2 ML INJ IV ONE (04:02)
[2020-02-01] MEDS ORDERED: diphenhydrAMINE 50 MG/ML VIAL IV ONE (04:02)
[2020-02-01] MEDS ORDERED: ONDANSETRON 4 MG/2 ML INJ IV ONE (04:02)
[2020-02-01] MEDS ORDERED: fentaNYL 100 MCG/2 ML INJ ONE (04:05)
[2020-02-01 06:03] VITALS: BP 204/111
[2020-02-01] MEDS ORDERED: HALOPERIDOL LACTATE 5 MG/1 ML INJ IV ONE (06:09)
--- NOTE | 2020-02-01 06:11 | Emergency Department Report ---
ED General Adult HPI - General Chief complaint: Abdominal Pain Stated complaint: EMESIS/ABD PAIN Time Seen by Provider: 02/01/20 06:00 Source: patient Mode of arrival: Ambulatory Limitations: No Limitations - History of Present Illness Initial comments: Patient complains of nausea and vomiting without diarrhea that started yesterday. Patient states she was just released from the hospital last week for the same symptoms. Patient states that she has had this nausea and vomiting for the last 6 months has not been able to find out was causing it. Patient also complains of diffuse abdominal pain. Patient denies a history of diabetes mellitus or marijuana use. Patient denies chest pain, shortness breath, or headache. -: Sudden Location: abdomen Radiation: non-radiation Severity scale (0 -10): 6 Consistency: constant Improves with: none Worsens with: none Associated Symptoms: denies other symptoms Treatments Prior to Arrival: none - Related Data Home Medications Medication Instructions Recorded Confirmed Last Taken Famotidine [Pepcid] 20 mg PO BID 01/21/20 01/21/20 Unknown Loperamide [Imodium] 2 mg PO Q2HR 01/21/20 01/21/20 Unknown Pantoprazole [Protonix TAB] 40 mg PO QDAY 01/21/20 01/21/20 Unknown Sacubitril/Valsartan [Entresto 1 each PO BID 01/21/20 01/21/20 Unknown 49-51 mg] Spironolactone [Aldactone] 25 mg PO QDAY 01/21/20 01/21/20 Unknown carvediloL [Coreg] 6.25 mg PO BID 01/21/20 01/21/20 Unknown Previous Rx's Medication Instructions Recorded Last Taken Type Spironolactone [Aldactone] 25 mg PO QDAY #30 tablet 11/08/18 Unknown Rx Aspirin 81 mg PO DAILY #30 tab.chew 01/15/19 Unknown Rx carvediloL [Coreg] 12.5 mg PO DAILY@0800 #30 tablet 09/07/19 Unknown Rx Magnesium Oxide 400 mg PO QDAY #10 tablet 10/11/19 Unknown Rx Ondansetron [Zofran ODT TAB] 4 mg PO Q8HR #30 tab.rapdis 11/21/19 Unknown Rx Pantoprazole [Protonix TAB] 40 mg PO QDAY #30 tablet 11/21/19 Unknown Rx traMADoL [Ultram 50 MG tab] 50 mg PO Q6HR PRN #14 tablet 11/21/19 Unknown Rx Sodium Bicarbonate 650 mg PO BID #10 tablet 01/22/20 Unknown Rx Acetaminophen/Codeine [Tylenol 1 tab PO Q6H PRN #12 tab 01/27/20 Unknown Rx /Codeine # 3 tab] cephALEXin [Keflex] 500 mg PO Q12HR 5 Days #10 cap 01/27/20 Unknown Rx Allergies Allergy/AdvReac Type Severity Reaction Status Date / Time morphine Allergy Itching Verified 01/14/19 23:19 ED Review of Systems ROS: Stated complaint: EMESIS/ABD PAIN Other details as noted in HPI Constitutional: denies: chills, fever Eyes: denies: eye pain, eye discharge, vision change ENT: denies: ear pain, throat pain Respiratory: denies: cough, shortness of breath, wheezing Cardiovascular: denies: chest pain, palpitations Endocrine: no symptoms reported Gastrointestinal: abdominal pain, nausea, vomiting. denies: diarrhea Genitourinary: denies: urgency, dysuria, discharge Musculoskeletal: denies: back pain, joint swelling, arthralgia Skin: denies: rash, lesions Neurological: denies: headache, weakness, paresthesias Psychiatric: denies: anxiety, depression Hematological/Lymphatic: denies: easy bleeding, easy bruising ED Past Medical Hx - Past Medical History Previous Medical History?: Yes Hx Hypertension: Yes Hx Congestive Heart Failure: Yes Hx Diabetes: No Hx Deep Vein Thrombosis: No Hx Renal Disease: Yes Hx Sickle Cell Disease: No Hx Seizures: No Hx Asthma: No Hx COPD: No Hx HIV: No Additional medical history: stage 1 kidney disease - Surgical History Past Surgical History?: Yes Hx Cholecystectomy: Yes - Social History Smoking Status: Former Smoker Substance Use Type: None - Medications Home Medications: Home Medications Medication Instructions Recorded Confirmed Last Taken Type Spironolactone [Aldactone] 25 mg PO QDAY #30 tablet 11/08/18 01/21/20 Unknown Rx Aspirin 81 mg PO DAILY #30 tab.chew 01/15/19 01/21/20 Unknown Rx carvediloL [Coreg] 12.5 mg PO DAILY@0800 #30 tablet 09/07/19 01/21/20 Unknown Rx Magnesium Oxide 400 mg PO QDAY #10 tablet 10/11/19 01/21/20 Unknown Rx Ondansetron [Zofran ODT TAB] 4 mg PO Q8HR #30 tab.rapdis 11/21/19 01/21/20 Unknown Rx Pantoprazole [Protonix TAB] 40 mg PO QDAY #30 tablet 11/21/19 01/21/20 Unknown Rx traMADoL [Ultram 50 MG tab] 50 mg PO Q6HR PRN #14 tablet 11/21/19 01/21/20 Unknown Rx Famotidine [Pepcid] 20 mg PO BID 01/21/20 01/21/20 Unknown History Loperamide [Imodium] 2 mg PO Q2HR 01/21/20 01/21/20 Unknown History Pantoprazole [Protonix TAB] 40 mg PO QDAY 01/21/20 01/21/20 Unknown History Sacubitril/Valsartan [Entresto 1 each PO BID 01/21/20 01/21/20 Unknown History 49-51 mg] Spironolactone [Aldactone] 25 mg PO QDAY 01/21/20 01/21/20 Unknown History carvediloL [Coreg] 6.25 mg PO BID 01/21/20 01/21/20 Unknown History Sodium Bicarbonate 650 mg PO BID #10 tablet 01/22/20 Unknown Rx Acetaminophen/Codeine [Tylenol 1 tab PO Q6H PRN #12 tab 01/27/20 Unknown Rx /Codeine # 3 tab] cephALEXin [Keflex] 500 mg PO Q12HR 5 Days #10 cap 01/27/20 Unknown Rx ED Physical Exam - General Limitations: No Limitations General appearance: alert, in no apparent distress - Head Head exam: Present: atraumatic, normocephalic - Eye Eye exam: Present: normal appearance, PERRL, EOMI - ENT ENT exam: Present: mucous membranes dry - Neck Neck exam: Present: normal inspection - Respiratory Respiratory exam: Present: normal lung sounds bilaterally. Absent: respiratory distress - Cardiovascular Cardiovascular Exam: Present: regular rate, normal rhythm. Absent: systolic murmur, diastolic murmur, rubs, gallop - GI/Abdominal GI/Abdominal exam: Present: soft, normal bowel sounds. Absent: distended, ten derness - Extremities Exam Extremities exam: Present: normal inspection - Back Exam Back exam: Present: normal inspection - Neurological Exam Neurological exam: Present: alert, oriented X3, CN II-XII intact. Absent: motor sensory deficit - Psychiatric Psychiatric exam: Present: normal affect, normal mood - Skin Skin exam: Present: warm, dry, intact, normal color. Absent: rash ED Course Vital Signs 02/01/20 02/01/20 02/01/20 02:39 04:00 04:08 Temperature 97.6 F 97.9 F Pulse Rate 78 78 Respiratory 20 20 15 Rate Blood Pressure 210/114 211/123 Blood Pressure 211/123 [Left] O2 Sat by Pulse 100 100 Oximetry 02/01/20 02/01/20 02/01/20 05:00 05:08 06:00 Temperature Pulse Rate 79 110 H Respiratory 16 16 20 Rate Blood Pressure 204/111 204/111 Blood Pressure [Left] O2 Sat by Pulse 100 100 Oximetry ED Medical Decision Making - Lab Data Result diagrams: 02/01/20 06:27 02/01/20 06:27 Lab Results 02/01/20 02/01/20 02/01/20 Range/Units 05:30 06:27 06:27 WBC 10.4 (4.5-11.0) K/mm3 RBC 3.62 L (3.65-5.03) M/mm3 Hgb 10.1 (10.1-14.3) gm/dl Hct 31.8 (30.3-42.9) % MCV 88 (79-97) fl MCH 28 (28-32) pg MCHC 32 (30-34) % RDW 16.3 H (13.2-15.2) % Plt Count 450 H (140-440) K/mm3 Seg Neutrophils % Tank Erector Sodium (137-145) mmol/L Potassium (3.6-5.0) mmol/L Chloride (98-107) mmol/L Carbon Dioxide (22-30) mmol/L Anion Gap mmol/L BUN (7-17) mg/dL Creatinine (0.7-1.2) mg/dL Estimated GFR ml/min BUN/Creatinine Ratio % Glucose (65-100) mg/dL Calcium (8.4-10.2) mg/dL Total Bilirubin (0.1-1.2) mg/dL AST (5-40) units/L ALT (7-56) units/L Alkaline Phosphatase (35-129) units/L Total Protein (6.3-8.2) g/dL Albumin (3.9-5) g/dL Albumin/Globulin Ratio % HCG, Qual Negative (Negative) Urine Color Yellow (Yellow) Urine Turbidity Clear (Clear) Urine pH 6.0 (5.0-7.0) Ur Specific West 1.015 (1.003-1.030) Urine Protein 100 mg/dl (Negative) mg/dL Urine Glucose (UA) Neg (Negative) mg/dL Urine Ketones 20 (Negative) mg/dL Urine Blood Neg (Negative) Urine Nitrite Neg (Negative) Urine Bilirubin Neg (Negative) Urine Urobilinogen < 2.0 (<2.0) mg/dL Ur Leukocyte Esterase Neg (Negative) Urine WBC (Auto) 1.0 (0.0-6.0) /HPF Urine RBC (Auto) 1.0 (0.0-6.0) /HPF U Epithel Cells (Auto) 2.0 (0-13.0) /HPF Urine Bacteria (Auto) 1+ (Negative) /HPF Urine Mucus Few /HPF 02/01/20 Range/Units 06:27 WBC (4.5-11.0) K/mm3 RBC (3.65-5.03) M/mm3 Hgb (10.1-14.3) gm/dl Hct (30.3-42.9) % MCV (79-97) fl MCH (28-32) pg MCHC (30-34) % RDW (13.2-15.2) % Plt Count (140-440) K/mm3 Seg Neutrophils % Sodium 134 L (137-145) mmol/L Potassium 5.1 H (3.6-5.0) mmol/L Chloride 100.2 (98-107) mmol/L Carbon Dioxide 18 L (22-30) mmol/L Anion Gap 21 mmol/L BUN 12 (7-17) mg/dL Creatinine 1.1 (0.7-1.2) mg/dL Estimated GFR > 60 ml/min BUN/Creatinine Ratio 11 % Glucose 94 (65-100) mg/dL Calcium 9.7 (8.4-10.2) mg/dL Total Bilirubin 0.30 (0.1-1.2) mg/dL AST 40 (5-40) units/L ALT 23 (7-56) units/L Alkaline Phosphatase 106 (35-129) units/L Total Protein 8.8 H (6.3-8.2) g/dL Albumin 4.8 (3.9-5) g/dL Albumin/Globulin Ratio 1.2 % HCG, Qual (Negative) Urine Color (Yellow) Urine Turbidity (Clear) Urine pH (5.0-7.0) Ur Specific West (1.003-1.030) Urine Protein (Negative) mg/dL Urine Glucose (UA) (Negative) mg/dL Urine Ketones (Negative) mg/dL Urine Blood (Negative) Urine Nitrite (Negative) Urine Bilirubin (Negative) Urine Urobilinogen (<2.0) mg/dL Ur Leukocyte Esterase (Negative) Urine WBC (Auto) (0.0-6.0) /HPF Urine RBC (Auto) (0.0-6.0) /HPF U Epithel Cells (Auto) (0-13.0) /HPF Urine Bacteria (Auto) (Negative) /HPF Urine Mucus /HPF - EKG Data -: EKG Interpreted by Mo EKG shows normal: sinus rhythm Rate: normal - Radiology Data Radiology results: report reviewed - Medical Decision Making Results discussed with patient Critical care attestation.: If time is entered above; I have spent that time in minutes in the direct care of this critically ill patient, excluding procedure time. ED Disposition Clinical Impression: Nausea & vomiting Disposition: DC-01 TO HOME OR SELFCARE Is pt being admited?: No Does the pt Need Aspirin: No Condition: Stable Instructions: Abdominal Pain (ED), Acute Nausea and Vomiting (ED) Additional Instructions: return if worse Referrals: PRIMARY CAREMD [Primary Care Provider] - 3-5 Days VIOLETTA AUGUSTINE MD [Staff Physician] - 3-5 Days IMTIAZ MORENO MD [Staff Physician] - 3-5 Days Time of Disposition: 07:24
[2020-02-01 06:15] LABS: Bacteria,Urine 1+ /HPF (Negative); Bilirubin,Urine NEG (Negative); Blood,Urine NEG (Negative); Color,Urine Yellow (Yellow); Mucus,Urine FEW /HPF; Urobilinogen,Urine < 2.0 mg/dL (<2.0)
[2020-02-01 06:37] LABS: Hematocrit 31.8 % (30.3-42.9); Hemoglobin 10.1 gm/dl (10.1-14.3); Mean Corpuscular HGB Conc 32 % (30-34); Mean Corpuscular Volume 88 fl (79-97); Platelet Count 450 K/mm3 (140-440); Red Blood Count 3.62 M/mm3 (3.65-5.03); Red Cell Distribution Width 16.3 % (13.2-15.2)
[2020-02-01 06:56] LABS: Albumin 4.8 g/dL (3.9-5); BUN/Creatinine Ratio 11; Blood Urea Nitrogen 12 mg/dL (7-17); Calcium 9.7 mg/dL (8.4-10.2); Hemolysis Index 139
[2020-02-01 06:59] LABS: Alanine Aminotransferase 23 units/L (7-56)
--- NOTE | 2020-02-01 07:11 | Cat Scan Report ---
CT OF THE ABDOMEN AND PELVIS WITHOUT CONTRAST INDICATION / CLINICAL INFORMATION: Left lower quadrant pain with nausea and vomiting. TECHNIQUE: All CT scans at this location are performed using CT dose reduction for ALARA by means of automated e xposure control. COMPARISON: 11/18/19. FINDINGS: ABDOMEN: The gallbladder is surgically absent. The liver, spleen, bile ducts, pancreas, adrenal gland s, kidneys and bowel demonstrate no acute abnormality. No adenopathy is seen. The lung bases are amaya r. PELVIS: The distal ureters and urinary bladder are normal. There is a mild amount of free fluid in th e cul-de-sac. The uterus and adnexal regions are normal. A normal appendix is present and there is no evidence of diverticulitis. I do not identify a hernia. No acute osseous abnormality is seen. IMPRESSION: Mild amount of free fluid in the cul-de-sac is probably physiologic in a patient in this age group. Signer Name: Koby Kapadia MD Signed: 02/01/2020 7:07 AM Workstation Name: [id number]
[2020-02-01 11:36] LABS: Band Neutrophils # (Manual) 0.1 K/mm3; Basophils % (Manual) 0 % (0.0-1.8); Eosinophils % (Manual) 0 % (0.0-4.3); Total Cells Counted 100
[2020-02-01 11:37] LABS: Anisocytosis 1+; Macrocytosis Few; Platelet Estimate Consistent w Auto
== END 2020-02-01 07:52 | disposition home or self-care (01) ==
LOC: ED 02:27
DX: R11.2 Nausea with vomiting, unspecified (principal); R19.7 Diarrhea, unspecified; R10.9 Unspecified abdominal pain
CPT/HCPCS: 36415; 74176; 80053; 81001; 84703; 85007; 85025; 93005; 93010; 96374; 96375; 99284; J1200; J1630; J2405; J3010

== ENCOUNTER 2020-03-07 19:26 | Emergency (ER) | payer MEDICAID ==
[2020-03-07] MEDS ORDERED: FAMOTIDINE 20 MG/2 ML INJ IV ONE (20:20)
[2020-03-07] MEDS ORDERED: METOCLOPRAMIDE 10 MG/2 ML INJ IV ONE (20:20)
[2020-03-07] MEDS ORDERED: LACTATED RINGERS 1,000 ML IV ONE (20:20)
[2020-03-07] MEDS ORDERED: diphenhydrAMINE 50 MG/ML VIAL IV ONE (20:20)
[2020-03-07] MEDS ORDERED: fentaNYL 100 MCG/2 ML INJ IV ONE (20:21)
[2020-03-07] MEDS ORDERED: ONDANSETRON 4 MG/2 ML INJ IV ONE (20:22)
[2020-03-07 20:48] LABS: Bilirubin,Urine NEG (Negative); Blood,Urine LG (Negative); Color,Urine Yellow (Yellow); Hyaline Casts,Urine 5 /LPF; Mucus,Urine FEW /HPF; Urobilinogen,Urine < 2.0 mg/dL (<2.0)
[2020-03-07 21:02] LABS: Albumin 5.4 g/dL (3.9-5); Calcium 8.1 mg/dL (8.4-10.2)
[2020-03-07 21:04] LABS: Hematocrit 33.6 % (30.3-42.9); Hemoglobin 10.7 gm/dl (10.1-14.3); Red Blood Count 4.02 M/mm3 (3.65-5.03)
[2020-03-07 21:05] LABS: Mean Corpuscular HGB Conc 33 % (30-34); Mean Corpuscular Volume 84 fl (79-97); Platelet Count 304 K/mm3 (140-440); Red Cell Distribution Width 18.7 % (13.2-15.2)
--- NOTE | 2020-03-07 21:25 | XRay Report ---
CHEST 1 VIEW 8:57 PM INDICATION / CLINICAL INFORMATION: Chest pain. COMPARISON: 01/21/20. FINDINGS: SUPPORT DEVICES: None. HEART / MEDIASTINUM: The heart size and pulmonary vasculature are normal. The aorta is normal in tash jaya. LUNGS / PLEURA: No significant pulmonary or pleural abnormality. No pneumothorax. ADDITIONAL FINDINGS: No significant additional findings. IMPRESSION: No acute abnormality or significant change. Signer Name: Koby Kapadia MD Signed: 03/07/2020 9:20 PM Workstation Name: [id number]
[2020-03-07] MEDS ORDERED: SODIUM CHLORIDE 0.9% 1000 ML 1,000 ML IV ONE (21:36)
--- NOTE | 2020-03-07 22:36 | Emergency Department Report ---
ED N/V/D HPI - General Chief complaint: Abdominal Pain Stated complaint: ABD PAIN/N&V Source: patient Mode of arrival: Ambulatory Limitations: No Limitations - History of Present Illness Initial comments: Patient is a 44-year-old -[place] female with a history of CHF, hyp ertension, GERD and chronic renal failure who presents to the ED with complaint of acute onset persistent epigastric pain with intractable nausea and vomiting for the last 3 days. Patient states that she has not been able to keep anything down in the last 2 days, and has not been able to sleep because of severe pain. Patient states that she has been taking Protonix 40 mg daily until about 1 week ago when she ran out. Patient states that she has had multiple bouts of epigastric pain with intractable nausea and vomiting intermittently for the last 6 months and that she has an appointment with her GI physician the next day on Sunday March 08, 2020. Patient states that she could not stay at home because her symptoms got worse and that she has not been able to take anything by mouth including water because of persistent nausea and vomiting and epigastric pain. Patient denies hematemesis, hematochezia, fever, chills, dizziness, syncope, shortness of breath, chest pain, change in vision, dysuria, urinary frequency and urgency, cough, sore throat, headache, diarrhea or palpitations MD complaint: nausea, vomiting, abdominal pain -: Sudden, days(s) (3) Description of Vomiting: food contents, watery Description of Diarrhea: other (None) Associated Abdominal Pain: Yes (EPIGASTRIC PAIN) Location: epigastric Radiation: none Severity: severe Pain Scale: 8 Quality: cramping, sharp Consistency: constant Improves with: none Worsens with: eating, vomiting Associated Symptoms: denies other symptoms. denies: myalgias, chest pain, cough, diaphoresis, fever/chills, headaches, loss of appetite, malaise, nausea/vomiting, dysuria, shortness of breath, syncope, weakness - Related Data Home Medications Medication Instructions Recorded Confirmed Last Taken Loperamide [Imodium] 2 mg PO Q2HR 01/21/20 01/21/20 Unknown Pantoprazole [Protonix TAB] 40 mg PO QDAY 01/21/20 01/21/20 Unknown Sacubitril/Valsartan [Entresto 1 each PO BID 01/21/20 01/21/20 Unknown 49-51 mg] Spironolactone [Aldactone] 25 mg PO QDAY 01/21/20 01/21/20 Unknown carvediloL [Coreg] 6.25 mg PO BID 01/21/20 01/21/20 Unknown Previous Rx's Medication Instructions Recorded Last Taken Type Spironolactone [Aldactone] 25 mg PO QDAY #30 tablet 11/08/18 Unknown Rx Aspirin 81 mg PO DAILY #30 tab.chew 01/15/19 Unknown Rx carvediloL [Coreg] 12.5 mg PO DAILY@0800 #30 tablet 09/07/19 Unknown Rx Magnesium Oxide 400 mg PO QDAY #10 tablet 10/11/19 Unknown Rx Ondansetron [Zofran ODT TAB] 4 mg PO Q8HR #30 tab.rapdis 11/21/19 Unknown Rx traMADoL [Ultram 50 MG tab] 50 mg PO Q6HR PRN #14 tablet 11/21/19 Unknown Rx Sodium Bicarbonate 650 mg PO BID #10 tablet 01/22/20 Unknown Rx Acetaminophen/Codeine [Tylenol 1 tab PO Q6H PRN #12 tab 01/27/20 Unknown Rx /Codeine # 3 tab] cephALEXin [Keflex] 500 mg PO Q12HR 5 Days #10 cap 01/27/20 Unknown Rx Dicyclomine [Bentyl] 10 mg PO QID PRN #20 capsule 02/01/20 Unknown Rx Promethazine [Phenergan TAB] 25 mg PO Q6HR PRN #20 tab 02/01/20 Unknown Rx Dicyclomine [Bentyl] 20 mg PO Q6H PRN #30 tablet 03/07/20 Unknown Rx Famotidine [Pepcid] 20 mg PO Q12H #60 03/07/20 Unknown Rx Ondansetron [Zofran ODT TAB] 4 mg PO Q4HR PRN #20 tab.rapdis 03/07/20 Unknown Rx Pantoprazole [Protonix TAB] 40 mg PO QDAY #60 tablet 03/07/20 Unknown Rx traMADoL [Ultram] 50 mg PO Q6HR PRN #10 tablet 03/07/20 Unknown Rx Allergies Allergy/AdvReac Type Severity Reaction Status Date / Time morphine Allergy Itching Verified 01/14/19 23:19 ED Review of Systems ROS: Stated complaint: ABD PAIN/N&V Other details as noted in HPI Constitutional: denies: chills, fever Eyes: denies: eye pain, eye discharge, vision change ENT: denies: ear pain, throat pain Respiratory: denies: cough, shortness of breath, wheezing Cardiovascular: denies: chest pain, palpitations Endocrine: no symptoms reported Gastrointestinal: abdominal pain, nausea, vomiting. denies: diarrhea Genitourinary: denies: urgency, dysuria, discharge Musculoskeletal: denies: back pain, joint swelling, arthralgia Skin: denies: rash, lesions Neurological: denies: headache, weakness, paresthesias Psychiatric: denies: anxiety, depression Hematological/Lymphatic: denies: easy bleeding, easy bruising ED Past Medical Hx - Past Medical History Hx Hypertension: Yes Hx Congestive Heart Failure: Yes Hx Diabetes: No Hx Deep Vein Thrombosis: No Hx Renal Disease: Yes Hx Sickle Cell Disease: No Hx Seizures: No Hx Asthma: No Hx COPD: No Hx HIV: No Additional medical history: stage 1 kidney disease - Surgical History Hx Cholecystectomy: Yes - Social History Smoking Status: Former Smoker Substance Use Type: Alcohol - Medications Home Medications: Home Medications Medication Instructions Recorded Confirmed Last Taken Type Spironolactone [Aldactone] 25 mg PO QDAY #30 tablet 11/08/18 01/21/20 Unknown Rx Aspirin 81 mg PO DAILY #30 tab.chew 01/15/19 01/21/20 Unknown Rx carvediloL [Coreg] 12.5 mg PO DAILY@0800 #30 tablet 09/07/19 01/21/20 Unknown Rx Magnesium Oxide 400 mg PO QDAY #10 tablet 10/11/19 01/21/20 Unknown Rx Ondansetron [Zofran ODT TAB] 4 mg PO Q8HR #30 tab.rapdis 11/21/19 01/21/20 Unknown Rx traMADoL [Ultram 50 MG tab] 50 mg PO Q6HR PRN #14 tablet 11/21/19 01/21/20 Unknown Rx Loperamide [Imodium] 2 mg PO Q2HR 01/21/20 01/21/20 Unknown History Pantoprazole [Protonix TAB] 40 mg PO QDAY 01/21/20 01/21/20 Unknown History Sacubitril/Valsartan [Entresto 1 each PO BID 01/21/20 01/21/20 Unknown History 49-51 mg] Spironolactone [Aldactone] 25 mg PO QDAY 01/21/20 01/21/20 Unknown History carvediloL [Coreg] 6.25 mg PO BID 01/21/20 01/21/20 Unknown History Sodium Bicarbonate 650 mg PO BID #10 tablet 01/22/20 Unknown Rx Acetaminophen/Codeine [Tylenol 1 tab PO Q6H PRN #12 tab 01/27/20 Unknown Rx /Codeine # 3 tab] cephALEXin [Keflex] 500 mg PO Q12HR 5 Days #10 cap 01/27/20 Unknown Rx Dicyclomine [Bentyl] 10 mg PO QID PRN #20 capsule 02/01/20 Unknown Rx Promethazine [Phenergan TAB] 25 mg PO Q6HR PRN #20 tab 02/01/20 Unknown Rx Dicyclomine [Bentyl] 20 mg PO Q6H PRN #30 tablet 03/07/20 Unknown Rx Famotidine [Pepcid] 20 mg PO Q12H #60 03/07/20 Unknown Rx Ondansetron [Zofran ODT TAB] 4 mg PO Q4HR PRN #20 tab.rapdis 03/07/20 Unknown Rx Pantoprazole [Protonix TAB] 40 mg PO QDAY #60 tablet 03/07/20 Unknown Rx traMADoL [Ultram] 50 mg PO Q6HR PRN #10 tablet 03/07/20 Unknown Rx ED Physical Exam - General Limitations: No Limitations General appearance: alert, in no apparent distress - Head Head exam: Present: atraumatic, normocephalic - Eye Eye exam: Present: normal appearance, PERRL, EOMI Pupils: Present: normal accommodation - ENT ENT exam: Present: normal exam, normal orophraynx, mucous membranes moist, TM's normal bilaterally, normal external ear exam - Neck Neck exam: Present: normal inspection, full ROM. Absent: tenderness - Respiratory Respiratory exam: Present: normal lung sounds bilaterally. Absent: respiratory distress, wheezes, rales, chest wall tenderness, accessory muscle use, decreased breath sounds, prolonged expiratory - Cardiovascular Cardiovascular Exam: Present: normal rhythm, tachycardia, normal heart sounds. Absent: systolic murmur, diastolic murmur, rubs, gallop - GI/Abdominal GI/Abdominal exam: Present: soft, tenderness (Palpable epigastric tenderness with no guarding or rebound), normal bowel sounds. Absent: guarding, rebound - Extremities Exam Extremities exam: Present: normal inspection, full ROM, normal capillary refill - Back Exam Back exam: Present: normal inspection, full ROM. Absent: tenderness, CVA tenderness (R), CVA tenderness (L), muscle spasm, paraspinal tenderness, vertebral tenderness - Neurological Exam Neurological exam: Present: alert, oriented X3, CN II-XII intact, normal gait, reflexes normal - Psychiatric Psychiatric exam: Present: normal affect, normal mood - Skin Skin exam: Present: warm, dry, intact, normal color. Absent: rash ED Course Vital Signs 03/07/20 03/07/20 19:38 23:08 Temperature 97.4 F L 98.0 F Pulse Rate 107 H 100 H Respiratory 20 18 Rate Blood Pressure 150/127 Blood Pressure 185/138 [Left] O2 Sat by Pulse 100 100 Oximetry ED Medical Decision Making - Lab Data Result diagrams: 03/07/20 20:33 03/07/20 20:33 - Medical Decision Making This is a 44-year-old -[place] female with a history of CHF, hypertension, GERD and chronic renal failure who presents to the ED with complaint of acute onset persistent epigastric pain with intractable nausea and vomiting for the last 3 days. Patient states that she has not been able to keep anything down in the last 2 days, and has not been able to sleep because of severe pain. Patient states that she has been taking Protonix 40 mg daily until about 1 week ago when she ran out. Patient states that she has had multiple bouts of epigastric pain with intractable nausea and vomiting intermittently for the last 6 months and that she has an appointment with her GI physician the next day on Sunday March 08, 2020. Patient states that she could not stay at home because her symptoms got worse and that she has not been able to take anything by mouth including water because of persistent nausea and vomiting and epigastric pain. In the ED, patient is alert and oriented x3 and is not in distress but anxious and tachycardic during exams. Patient asking for pain medication immediately before even the physical exam. Patient was treated for pain, also given antacids and antiemetics and started on lactated Ringer's 1 L IV bolus solution. Labs were drawn and the results reviewed. Lab test results showed acute hyponatremia of 131 mmol/L, acute hypochloremia of 90.8 mmol/L, hyperglycemia of 195 mg/dL, AST of 42, mild hyperkalemia of 5.6 mmol/L due to hemolysis of the blood. BNP was 743.6 and urinalysis was nonactionable. On reevaluation, patient's nausea and vomiting and pain is well controlled with medications. Patient was discharged home on prescription for Protonix, antiemetics and pain medications and was advised to follow-up with her primary care physician in 3 to 5 days for reevaluation. 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 Patient was otherwise advised to return to the ED immediately if symptoms get worse. - Differential Diagnosis GERD; Gastritis; Gastroenteritis; Pancreatitis; Cholelithiasis; UTI Critical care attestation.: If time is entered above; I have spent that time in minutes in the direct care of this critically ill patient, excluding procedure time. ED Disposition Clinical Impression: GERD without esophagitis, Nausea and vomiting in adult patient, Acute epigastric pain Disposition: TO HOME OR SELFCARE Is pt being admited?: No Does the pt Need Aspirin: No Condition: Stable Instructions: Gastroesophageal Reflux Disease (ED), Acute Nausea and Vomiting (ED), Abdominal Pain (ED) Additional Instructions: Maintain a clear liquid diet for 12 to 24 hours, drink plenty fluids, take medication as needed and follow-up with your GI physician in 24 hours as previously scheduled. Otherwise follow-up with your primary care physician in 3 to 5 days for reevaluation. Return to the ED immediately if symptoms get worse. Prescriptions: Dicyclomine [Bentyl] 20 mg PO Q6H PRN #30 tablet PRN Reason: Pain , Severe (7-10) Famotidine [Pepcid] 20 mg PO Q12H #60 Pantoprazole [Protonix TAB] 40 mg PO QDAY #60 tablet traMADoL [Ultram] 50 mg PO Q6HR PRN #10 tablet PRN Reason: Pain Ondansetron [Zofran ODT TAB] 4 mg PO Q4HR PRN #20 tab.rapdis PRN Reason: Nausea Referrals: BERTIN REED MD [Staff Physician] - 3-5 Days Time of Disposition: 22:47 Print Language: ITALIAN
[2020-03-07 23:09] VITALS: BP 185/138
[2020-03-07] MEDS ORDERED: LIDOCAINE VISCOUS 2% 15 ML ORAL LIQD PO ONE (23:19)
[2020-03-07] MEDS ORDERED: SUCRALFATE 1 GM TAB PO ONE (23:19)
[2020-03-07] MEDS ORDERED: DICYCLOMINE 20 MG TAB PO ONE (23:19)
[2020-03-07] MEDS ORDERED: ALUM-MAG HYDROXIDE-SIMETHICONE 200-200-20MG/5ML ORAL LIQD 30 ML PO ONE (23:19)
== END 2020-03-07 23:52 | disposition home or self-care (01) ==
LOC: ED 19:26
DX: K21.9 Gastro-esophageal reflux disease without esophagitis (principal); I11.0 Hypertensive heart disease with heart failure; I50.9 Heart failure, unspecified; Z90.49 Acquired absence of other specified parts of digestive tract; Z87.891 Personal history of nicotine dependence; Z79.899 Other long term (current) drug therapy; Z88.6 Allergy status to analgesic agent
CPT/HCPCS: 36415; 71045; 80053; 81001; 83690; 83880; 84484; 84703; 85025; 93005; 96361; 96374; 96375; 99284; J2405; J3010; J7030; J7120

== ENCOUNTER 2020-05-08 08:21 | Emergency (ER) | payer MEDICAID ==
--- NOTE | 2020-05-08 11:03 | Event Note ---
ED Screening Note Date of service: 05/08/20 Time: 11:01 ED Screening Note: 44-year-old female reevaluated was brought to ED by ambulance for upper abdominal pain. Patient states she has been vomiting for the past 2 days and is unable to keep any fluids down. She denies fever/chills/diarrhea This initial assessment/diagnostic orders/clinical plan/treatment(s) is/are subject to change based on patients health status, clinical progression and re- assessment by fellow clinical providers in the ED. Further treatment and workup at subsequent clinical providers discretion. Patient/guardian urged not to elope from the ED as their condition may be serious if not clinically assessed and managed. Initial orders include: LABS Ordered.
[2020-05-08] MEDS ORDERED: SODIUM CHLORIDE 0.9% 1000 ML 1,000 ML IV ONE (11:39)
[2020-05-08] MEDS ORDERED: DICYCLOMINE 20 MG TAB PO ONE (11:39)
[2020-05-08] MEDS ORDERED: METOCLOPRAMIDE 10 MG/2 ML INJ IV ONE (11:39)
[2020-05-08] MEDS ORDERED: FAMOTIDINE 20 MG/2 ML INJ IV ONE (11:39)
[2020-05-08] MEDS ORDERED: diphenhydrAMINE 50 MG/ML VIAL IV ONE (11:39)
[2020-05-08] MEDS ORDERED: LIDOCAINE VISCOUS 2% 15 ML ORAL LIQD MM ONE (11:40)
[2020-05-08] MEDS ORDERED: hydrALAZINE 20 MG/1 ML INJ IV ONE (11:57)
[2020-05-08] MEDS ORDERED: SODIUM CHLORIDE 0.9% 500 ML 500 ML IV SCH (12:00)
[2020-05-08 12:07] LABS: Hematocrit 36.7 % (30.3-42.9); Hemoglobin 11.6 gm/dl (10.1-14.3); Mean Corpuscular HGB Conc 32 % (30-34); Mean Corpuscular Volume 85 fl (79-97); Red Blood Count 4.33 M/mm3 (3.65-5.03)
--- NOTE | 2020-05-08 12:17 | Emergency Department Report ---
ED Abdominal Pain HPI - General Chief Complaint: Abdominal Pain Stated Complaint: ABD PAIN Time Seen by Provider: 05/08/20 11:20 Source: patient Mode of arrival: Wheelchair Limitations: No Limitations - History of Present Illness Initial Comments: This is a 53-year-old female nontoxic, well nourished in appearance, no acute signs of distress presents to the ED with c/o of nausea and vomiting and abdominal pain 2 days. Patient describes vomiting as food content and yellow gastric acid. Patient describes abdominal pain as cramping and aching with level of 3/10 diffuse. Patient denies chest pain, short of breath, fever, hemoptysis, blood in stool, chills, headache, stiff neck, numbness or tingling. Patient denies any diarrhea or constipation. Denies any blood in stool. Patient denies any recent travels. Patient stated allergies to morphine. Stated has not taken blood pressure medications for 2 days due to n/v. MD Complaint: abdominal pain -: days(s) Location: diffuse Radiation: none Migration to: no migration Severity: mild Severity scale (0 -10): 8 Quality: cramping, aching Consistency: constant Improves With: nothing Worsens With: nothing Associated Symptoms: nausea, vomiting. denies: diarrhea, fever, chills, constipation, dysuria, hematemesis, hematochezia, melena, hematuria, anorexia, syncope - Related Data Home Medications Medication Instructions Recorded Confirmed Last Taken Loperamide [Imodium] 2 mg PO Q2HR 01/21/20 01/21/20 Unknown Pantoprazole [Protonix TAB] 40 mg PO QDAY 01/21/20 01/21/20 Unknown Sacubitril/Valsartan [Entresto 1 each PO BID 01/21/20 01/21/20 Unknown 49-51 mg] Spironolactone [Aldactone] 25 mg PO QDAY 01/21/20 01/21/20 Unknown carvediloL [Coreg] 6.25 mg PO BID 01/21/20 01/21/20 Unknown Previous Rx's Medication Instructions Recorded Last Taken Type Spironolactone [Aldactone] 25 mg PO QDAY #30 tablet 11/08/18 Unknown Rx Aspirin 81 mg PO DAILY #30 tab.chew 01/15/19 Unknown Rx carvediloL [Coreg] 12.5 mg PO DAILY@0800 #30 tablet 09/07/19 Unknown Rx Magnesium Oxide 400 mg PO QDAY #10 tablet 10/11/19 Unknown Rx Ondansetron [Zofran ODT TAB] 4 mg PO Q8HR #30 tab.rapdis 11/21/19 Unknown Rx traMADoL [Ultram 50 MG tab] 50 mg PO Q6HR PRN #14 tablet 11/21/19 Unknown Rx Sodium Bicarbonate 650 mg PO BID #10 tablet 01/22/20 Unknown Rx Acetaminophen/Codeine [Tylenol 1 tab PO Q6H PRN #12 tab 01/27/20 Unknown Rx /Codeine # 3 tab] cephALEXin [Keflex] 500 mg PO Q12HR 5 Days #10 cap 01/27/20 Unknown Rx Dicyclomine [Bentyl] 10 mg PO QID PRN #20 capsule 02/01/20 Unknown Rx Promethazine [Phenergan TAB] 25 mg PO Q6HR PRN #20 tab 02/01/20 Unknown Rx Dicyclomine [Bentyl] 20 mg PO Q6H PRN #30 tablet 03/07/20 Unknown Rx Famotidine [Pepcid] 20 mg PO Q12H #60 03/07/20 Unknown Rx Ondansetron [Zofran ODT TAB] 4 mg PO Q4HR PRN #20 tab.rapdis 03/07/20 Unknown Rx Pantoprazole [Protonix TAB] 40 mg PO QDAY #60 tablet 03/07/20 Unknown Rx traMADoL [Ultram] 50 mg PO Q6HR PRN #10 tablet 03/07/20 Unknown Rx Acetaminophen [Acetaminophen 8 650 mg PO Q8H PRN #20 tablet.er 05/08/20 Unknown Rx Hour] Ondansetron [Zofran Odt] 4 mg PO Q8HR PRN #12 tab.rapdis 05/08/20 Unknown Rx Allergies Allergy/AdvReac Type Severity Reaction Status Date / Time morphine Allergy Itching Verified 05/08/20 08:33 ED Review of Systems ROS: Stated complaint: ABD PAIN Other details as noted in HPI Constitutional: denies: chills, fever Eyes: denies: eye pain, eye discharge, vision change ENT: denies: ear pain, throat pain Respiratory: denies: cough, shortness of breath, wheezing Cardiovascular: denies: chest pain, palpitations Endocrine: no symptoms reported Gastrointestinal: abdominal pain, nausea, vomiting. denies: diarrhea Genitourinary: denies: urgency, dysuria, discharge Musculoskeletal: denies: back pain, joint swelling, arthralgia Skin: denies: rash, lesions Neurological: denies: headache, weakness, paresthesias Psychiatric: denies: anxiety, depression Hematological/Lymphatic: denies: easy bleeding, easy bruising ED Past Medical Hx - Past Medical History Hx Hypertension: Yes Hx Congestive Heart Failure: Yes Hx Diabetes: No Hx Deep Vein Thrombosis: No Hx Renal Disease: Yes Hx Sickle Cell Disease: No Hx Seizures: No Hx Asthma: No Hx COPD: No Hx HIV: No Additional medical history: stage 1 kidney disease - Surgical History Hx Cholecystectomy: Yes - Social History Smoking Status: Never Smoker Substance Use Type: None - Medications Home Medications: Home Medications Medication Instructions Recorded Confirmed Last Taken Type Spironolactone [Aldactone] 25 mg PO QDAY #30 tablet 11/08/18 01/21/20 Unknown Rx Aspirin 81 mg PO DAILY #30 tab.chew 01/15/19 01/21/20 Unknown Rx carvediloL [Coreg] 12.5 mg PO DAILY@0800 #30 tablet 09/07/19 01/21/20 Unknown Rx Magnesium Oxide 400 mg PO QDAY #10 tablet 10/11/19 01/21/20 Unknown Rx Ondansetron [Zofran ODT TAB] 4 mg PO Q8HR #30 tab.rapdis 11/21/19 01/21/20 Unkn own Rx traMADoL [Ultram 50 MG tab] 50 mg PO Q6HR PRN #14 tablet 11/21/19 01/21/20 Unknown Rx Loperamide [Imodium] 2 mg PO Q2HR 01/21/20 01/21/20 Unknown History Pantoprazole [Protonix TAB] 40 mg PO QDAY 01/21/20 01/21/20 Unknown History Sacubitril/Valsartan [Entresto 1 each PO BID 01/21/20 01/21/20 Unknown History 49-51 mg] Spironolactone [Aldactone] 25 mg PO QDAY 01/21/20 01/21/20 Unknown History carvediloL [Coreg] 6.25 mg PO BID 01/21/20 01/21/20 Unknown History Sodium Bicarbonate 650 mg PO BID #10 tablet 01/22/20 Unknown Rx Acetaminophen/Codeine [Tylenol 1 tab PO Q6H PRN #12 tab 01/27/20 Unknown Rx /Codeine # 3 tab] cephALEXin [Keflex] 500 mg PO Q12HR 5 Days #10 cap 01/27/20 Unknown Rx Dicyclomine [Bentyl] 10 mg PO QID PRN #20 capsule 02/01/20 Unknown Rx Promethazine [Phenergan TAB] 25 mg PO Q6HR PRN #20 tab 02/01/20 Unknown Rx Dicyclomine [Bentyl] 20 mg PO Q6H PRN #30 tablet 03/07/20 Unknown Rx Famotidine [Pepcid] 20 mg PO Q12H #60 03/07/20 Unknown Rx Ondansetron [Zofran ODT TAB] 4 mg PO Q4HR PRN #20 tab.rapdis 03/07/20 Unknown Rx Pantoprazole [Protonix TAB] 40 mg PO QDAY #60 tablet 03/07/20 Unknown Rx traMADoL [Ultram] 50 mg PO Q6HR PRN #10 tablet 03/07/20 Unknown Rx Acetaminophen [Acetaminophen 8 650 mg PO Q8H PRN #20 tablet.er 05/08/20 Unknown Rx Hour] Ondansetron [Zofran Odt] 4 mg PO Q8HR PRN #12 tab.rapdis 05/08/20 Unknown Rx ED Physical Exam - General Limitations: No Limitations General appearance: alert, in no apparent distress - Head Head exam: Present: atraumatic, normocephalic - Eye Eye exam: Present: normal appearance - Neck Neck exam: Present: normal inspection, full ROM. Absent: tenderness, meningismus, lymphadenopathy - Respiratory Respiratory exam: Present: normal lung sounds bilaterally. Absent: respiratory distress, wheezes, rales, rhonchi, stridor, chest wall tenderness, accessory muscle use, decreased breath sounds, prolonged expiratory - Cardiovascular Cardiovascular Exam: Present: regular rate, normal rhythm, tachycardia, normal heart sounds. Absent: irregular rhythm, systolic murmur, diastolic murmur, rubs, gallop - GI/Abdominal GI/Abdominal exam: Present: soft, tenderness (diffuse), normal bowel sounds. Absent: distended, guarding, rebound, rigid, diminished bowel sounds - Extremities Exam Extremities exam: Present: normal inspection, full ROM, normal capillary refill. Absent: tenderness, joint swelling - Back Exam Back exam: Present: normal inspection, full ROM. Absent: tenderness, CVA tenderness (R), CVA tenderness (L), muscle spasm, paraspinal tenderness, vertebral tenderness, rash noted - Neurological Exam Neurological exam: Present: alert, oriented X3, normal gait - Psychiatric Psychiatric exam: Present: normal affect, normal mood - Skin Skin exam: Present: warm, dry, intact, normal color. Absent: rash ED Course Vital Signs 05/08/20 05/08/20 05/08/20 08:38 11:16 12:09 Temperature 98.6 F 98.6 F Pulse Rate 123 H 113 H 86 Respiratory 22 20 Rate Blood Pressure 193/119 164/102 Blood Pressure 215/150 [20] O2 Sat by Pulse 100 100 Oximetry 05/08/20 14:43 Temperature Pulse Rate 84 Respiratory 18 Rate Blood Pressure Blood Pressure 154/91 [20] O2 Sat by Pulse 99 Oximetry - Reevaluation(s) Reevaluation #1: 05/08/20 12:16 Patient is speaking in full sentences with no signs of distress noted. ED Medical Decision Making - Lab Data Result diagrams: 05/08/20 11:06 05/08/20 11:06 Lab Results 05/08/20 05/08/20 05/08/20 Range/Units 11:06 11:06 12:02 WBC 12.3 H (4.5-11.0) K/mm3 RBC 4.33 (3.65-5.03) M/mm3 Hgb 11.6 (10.1-14.3) gm/dl Hct 36.7 (30.3-42.9) % MCV 85 (79-97) fl MCH 27 L (28-32) pg MCHC 32 (30-34) % RDW 22.6 H (13.2-15.2) % Plt Count 404 (140-440) K/mm3 Add Manual Diff Complete Total Counted 100 Seg Neutrophils % [employer] Supervisor Seg Neuts % (Manual) 90.0 H (40.0-70.0) % Band Neutrophils % 0 % Lymphocytes % (Manual) 4.0 L (13.4-35.0) % Reactive Lymphs % (Man) 0 % Monocytes % (Manual) 6.0 (0.0-7.3) % Eosinophils % (Manual) 0 (0.0-4.3) % Basophils % (Manual) 0 (0.0-1.8) % Metamyelocytes % 0 % Myelocytes % 0 % Promyelocytes % 0 % Blast Cells % 0 % Nucleated RBC % Not Reportable Seg Neutrophils # Man 11.1 H (1.8-7.7) K/mm3 Band Neutrophils # 0.0 K/mm3 Lymphocytes # (Manual) 0.5 L (1.2-5.4) K/mm3 Abs React Lymphs (Man) 0.0 K/mm3 Monocytes # (Manual) 0.7 (0.0-0.8) K/mm3 Eosinophils # (Manual) 0.0 (0.0-0.4) K/mm3 Basophils # (Manual) 0.0 (0.0-0.1) K/mm3 Metamyelocytes # 0.0 K/mm3 Myelocytes # 0.0 K/mm3 Promyelocytes # 0.0 K/mm3 Blast Cells # 0.0 K/mm3 WBC Morphology Not Reportable Hypersegmented Neuts Not Reportable Hyposegmented Neuts Not Reportable Hypogranular Neuts Not Reportable Smudge Cells Not Reportable Toxic Granulation Not Reportable Toxic Vacuolation Not Reportable Dohle Bodies Not Reportable Pelger-Huet Anomaly Not Reportable Roxana Rods Not Reportable Platelet Estimate Consistent w auto Clumped Platelets Not Reportable Plt Clumps, EDTA Not Reportable Large Platelets Not Reportable Giant Platelets Not Reportable Platelet Satelliting Not Reportable Plt Morphology Comment Not Reportable RBC Morphology Not Reportable Dimorphic RBCs Not Reportable Polychromasia Few Hypochromasia Not Reportable Poikilocytosis Not Reportable Anisocytosis 1+ Microcytosis 1+ Macrocytosis Few Spherocytes Not Reportable Pappenheimer Bodies Not Reportable Sickle Cells Not Reportable Target Cells Not Reportable Tear Drop Cells Not Reportable Ovalocytes Not Reportable Helmet Cells Not Reportable Sims-[place] Bodies Not Reportable [place] Rings Not Reportable [place] Cells Not Reportable Bite Cells Not Reportable Crenated Cell Not Reportable Elliptocytes Not Reportable Acanthocytes (Spur) Not Reportable Rouleaux Not Reportable Hemoglobin C Crystals Not Reportable Schistocytes Not Reportable Malaria parasites Not Reportable Matt Bodies Not Reportable Hem Pathologist Commnt No Sodium 139 (137-145) mmol/L Potassium 3.7 (3.6-5.0) mmol/L Chloride 100.4 (98-107) mmol/L Carbon Dioxide 17 L (22-30) mmol/L Anion Gap 25 mmol/L BUN 10 (7-17) mg/dL Creatinine 1.0 (0.7-1.2) mg/dL Estimated GFR > 60 ml/min BUN/Creatinine Ratio 10 % Glucose 123 H (65-100) mg/dL Calcium 10.8 H (8.4-10.2) mg/dL Total Bilirubin 0.40 (0.1-1.2) mg/dL AST 39 (5-40) units/L ALT 23 (7-56) units/L Alkaline Phosphatase 111 (35-129) units/L Total Protein 9.3 H (6.3-8.2) g/dL Albumin 5.3 H (3.9-5) g/dL Albumin/Globulin Ratio 1.3 % Lipase 30 (13-60) units/L HCG, Qual Negative (Negative) Urine Color (Yellow) Urine Turbidity (Clear) Urine pH (5.0-7.0) Ur Specific [place] (1.003-1.030) Urine Protein (Negative) mg/dL Urine Glucose (UA) (Negative) mg/dL Urine Ketones (Negative) mg/dL Urine Blood (Negative) Urine Nitrite (Negative) Urine Bilirubin (Negative) Urine Urobilinogen (<2.0) mg/dL Ur Leukocyte Esterase (Negative) Urine WBC (Auto) (0.0-6.0) /HPF Urine RBC (Auto) (0.0-6.0) /HPF U Epithel Cells (Auto) (0-13.0) /HPF Hyaline Casts /LPF Urine Mucus /HPF 05/08/20 Range/Units 13:35 WBC (4.5-11.0) K/mm3 RBC (3.65-5.03) M/mm3 Hgb (10.1-14.3) gm/dl Hct (30.3-42.9) % MCV (79-97) fl MCH (28-32) pg MCHC (30-34) % RDW (13.2-15.2) % Plt Count (140-440) K/mm3 Add Manual Diff Total Counted Seg Neutrophils % Seg Neuts % (Manual) (40.0-70.0) % Band Neutrophils % % Lymphocytes % (Manual) (13.4-35.0) % Reactive Lymphs % (Man) % Monocytes % (Manual) (0.0-7.3) % Eosinophils % (Manual) (0.0-4.3) % Basophils % (Manual) (0.0-1.8) % Metamyelocytes % % Myelocytes % % Promyelocytes % % Blast Cells % % Nucleated RBC % Seg Neutrophils # Man (1.8-7.7) K/mm3 Band Neutrophils # K/mm3 Lymphocytes # (Manual) (1.2-5.4) K/mm3 Abs React Lymphs (Man) K/mm3 Monocytes # (Manual) (0.0-0.8) K/mm3 Eosinophils # (Manual) (0.0-0.4) K/mm3 Basophils # (Manual) (0.0-0.1) K/mm3 Metamyelocytes # K/mm3 Myelocytes # K/mm3 Promyelocytes # K/mm3 Blast Cells # K/mm3 WBC Morphology Hypersegmented Neuts Hyposegmented Neuts Hypogranular Neuts Smudge Cells Toxic Granulation Toxic Vacuolation Dohle Bodies Pelger-Huet Anomaly Roxana Rods Platelet Estimate Clumped Platelets Plt Clumps, EDTA Large Platelets Giant Platelets Platelet Satelliting Plt Morphology Comment RBC Morphology Dimorphic RBCs Polychromasia Hypochromasia Poikilocytosis Anisocytosis Microcytosis Macrocytosis Spherocytes Pappenheimer Bodies Sickle Cells Target Cells Tear Drop Cells Ovalocytes Helmet Cells Sims-Cor[place] Bodies [place] Rings Vin Cells Bite Cells Crenated Cell Elliptocytes Acanthocytes (Spur) Rouleaux Hemoglobin C Crystals Schistocytes Malaria parasites Matt Bodies Hem Pathologist Commnt Sodium (137-145) mmol/L Potassium (3.6-5.0) mmol/L Chloride (98-107) mmol/L Carbon Dioxide (22-30) mmol/L Anion Gap mmol/L BUN (7-17) mg/dL Creatinine (0.7-1.2) mg/dL Estimated GFR ml/min BUN/Creatinine Ratio % Glucose (65-100) mg/dL Calcium (8.4-10.2) mg/dL Total Bilirubin (0.1-1.2) mg/dL AST (5-40) units/L ALT (7-56) units/L Alkaline Phosphatase (35-129) units/L Total Protein (6.3-8.2) g/dL Albumin (3.9-5) g/dL Albumin/Globulin Ratio % Lipase (13-60) units/L HCG, Qual (Negative) Urine Color Yellow (Yellow) Urine Turbidity Hazy (Clear) Urine pH 6.0 (5.0-7.0) Ur Specific [place] 1.024 (1.003-1.030) Urine Protein >500 (Negative) mg/dL Urine Glucose (UA) 50 (Negative) mg/dL Urine Ketones 20 (Negative) mg/dL Urine Blood Sm (Negative) Urine Nitrite Neg (Negative) Urine Bilirubin Neg (Negative) Urine Urobilinogen < 2.0 (<2.0) mg/dL Ur Leukocyte Esterase Neg (Negative) Urine WBC (Auto) 5.0 (0.0-6.0) /HPF Urine RBC (Auto) 3.0 (0.0-6.0) /HPF U Epithel Cells (Auto) 12.0 (0-13.0) /HPF Hyaline Casts 3 /LPF Urine Mucus Few /HPF - Radiology Data Referring Physician: PREMA SHARP Patient Name: FLOR PATTERSON Date of : 1975 Sex: Female Report Date: 2020-05-08 Report Status: [place] [address] Cat Scan Report Signed Patient: FLOR PATTERSON MR#: [id number] : 1975 Acct:[id number] Age/Sex: 44 / F ADM Date: 05/08/20 Loc: ED Attending Bill zamora Physician: PREMA SHARP NP Date of Service: 05/08/20 Procedure(s): CT abdomen pelvis w con Accession Number(s): [id number] cc: PREMA SHARP NP CT ABDOMEN AND PELVIS WITH IV CONTRAST INDICATION: abd pain. COMPARISON: CT 02/01/2020. TECHNIQUE: All CT scans at this facility use dose modulation, automated exposure control, iterative reconstruction or weight based dosing, when appropriate, to reduce radiation dose to as low as reasonably achievable. FINDINGS: Lung Bases: No significant abnormality. Skeletal System: No acute abnormality. ABDOMEN: Liver: No significant abnormality. Gallbladder: Removed. Bile Ducts: No significant abnormality. Pancreas: No significant abnormality. Spleen: No significant abnormality. Adrenals: No significant abnormality. Right Kidney: No significant abnormality. Left Kidney: No significant abnormality. Upper GI tract: No significant abnormality. Lymph Nodes: No significant adenopathy. Aorta: No significant abnormality. Additional Findings: No significant abnormality. PELVIS: Colon: No acute abnormality. Diverticulosis is noted. Urinary Bladder and Distal Ureters: No significant abnormality. Appendix: No significant abnormality. Lymph Nodes: No significant adenopathy. Additional Findings: There is a small amount of gas and fluid in the vaginal vault. Trace free fluid in the cul-de-sac is likely physiologic. IMPRESSION: 1. No acute process in the abdomen or pelvis. 2. Small amount of gas and fluid in the vaginal vault. This may be physiologic. Trace free fluid in the cul-de-sac is likely physiologic, similar to the prior CT. Signer Name: Corey Johnson MD Signed: 05/08/2020 3:07 PM Workstation Name: [id number] Transcribed By: TESSA Dictated By: Corey Johnson MD Electronically Authenticated By: Corey Johnson MD Signed Date/Time: 05/08/20 1507 DD/ 1503 TD/TT: - Medical Decision Making This is a 44-year-old female that presents with abdominal pain and uncontrolled HTN. Patient is stable and was examined by me. Negative signs of symptoms of appendicitis. Labs obtained. UA obtained. CT of abdomen obtained and dictated by the radiologist. Patient is notified of the report with no questions noted by the patient. Vital signs are stable prior to discharge. Patient received medical treatment in the ED which patient stated symptoms has resolved and subsided. Blood pressure decreased prior to discharge. Was instructed note to operate any machinery due to possible drowsiness and stated someone will drive the patient home. A by mouth challenge has been obtained and patient tolerated well with no nausea vomiting. Patient was notified of strict precautions of appendicitis symptoms and to return to the ED if symptoms occurs as soon as possible. Patient was also instructed to Follow-up with a primary care doctor in 3-5 days or if symptoms worsen and continue return to emergency room as soon as possible. At time of discharge, the patient does not seem toxic or ill in appearance. No acute signs of distress noted. Patient agrees to discharge treatment plan of care. No further questions noted by the patient. Critical care attestation.: If time is entered above; I have spent that time in minutes in the direct care of this critically ill patient, excluding procedure time. ED Disposition Clinical Impression: Abdominal pain Qualifiers: Abdominal location: upper abdomen, unspecified Qualified Code(s): R10.10 - Upper abdominal pain, unspecified Nausea & vomiting Qualifiers: Vomiting type: unspecified Vomiting Intractability: non-intractable Qualified Code(s): R11.2 - Nausea with vomiting, unspecified Disposition: DC- TO HOME OR SELFCARE Is pt being admited?: No Does the pt Need Aspirin: No Condition: Stable Instructions: Acute Nausea and Vomiting (ED), Abdominal Pain (ED) Additional Instructions: Follow-up with a primary care and manager federal doctor in 3-5 days or if symptoms worsen and continue return to emergency room as soon as possible. Prescriptions: Acetaminophen [Acetaminophen 8 Hour] 650 mg PO Q8H PRN #20 tablet.er PRN Reason: Pain , Severe (7-10) Ondansetron [Zofran Odt] 4 mg PO Q8HR PRN #12 tab.rapdis PRN Reason: Nausea Referrals: PRIMARY CAREMD [Primary Care Provider] - 3-5 Days BERTIN REED MD [Staff Physician] - 3-5 Days [facility] [Provider Group] - 3-5 Days Forms: Work/School Release Form(ED)
[2020-05-08 12:46] LABS: Platelet Count 404 K/mm3 (140-440); Red Cell Distribution Width 22.6 % (13.2-15.2)
[2020-05-08 13:21] LABS: Alanine Aminotransferase 23 units/L (7-56); Albumin 5.3 g/dL (3.9-5); BUN/Creatinine Ratio 10; Blood Urea Nitrogen 10 mg/dL (7-17); Calcium 10.8 mg/dL (8.4-10.2); Hemolysis Index 17
[2020-05-08] MEDS ORDERED: HYDROmorphone 1 MG/1 ML INJ IV ONE (14:05)
[2020-05-08 14:19] LABS: Bilirubin,Urine NEG (Negative); Blood,Urine SM (Negative); Color,Urine Yellow (Yellow); Hyaline Casts,Urine 3 /LPF; Mucus,Urine FEW /HPF; Urobilinogen,Urine < 2.0 mg/dL (<2.0)
[2020-05-08 14:20] LABS: Protein,Urine >500 mg/dL (Negative)
--- NOTE | 2020-05-08 15:12 | Cat Scan Report ---
CT ABDOMEN AND PELVIS WITH IV CONTRAST INDICATION: abd pain. COMPARISON: CT 02/01/2020. TECHNIQUE: All CT scans at this facility use dose modulation, automated exposure control, iterative reconstructi on or weight based dosing, when appropriate, to reduce radiation dose to as low as reasonably achieva ble. FINDINGS: Lung Bases: No significant abnormality. Skeletal System: No acute abnormality. ABDOMEN: Liver: No significant abnormality. Gallbladder: Removed. Bile Ducts: No significant abnormality. Pancreas: No significant abnormality. Spleen: No significant abnormality. Adrenals: No significant abnormality. Right Kidney: No significant abnormality. Left Kidney: No significant abnormality. Upper GI tract: No significant abnormality. Lymph Nodes: No significant adenopathy. Aorta: No significant abnormality. Additional Findings: No significant abnormality. PELVIS: Colon: No acute abnormality. Diverticulosis is noted. Urinary Bladder and Distal Ureters: No significant abnormality. Appendix: No significant abnormality. Lymph Nodes: No significant adenopathy. Additional Findings: There is a small amount of gas and fluid in the vaginal vault. Trace free fluid in the cul-de-sac is likely physiologic. IMPRESSION: 1. No acute process in the abdomen or pelvis. 2. Small amount of gas and fluid in the vaginal vault. This may be physiologic. Trace free fluid in the cul-de-sac is likely physiologic, similar to the prior CT. Signer Name: Corey Johnson MD Signed: 05/08/2020 3:07 PM Workstation Name: [id number]
[2020-05-08 15:37] LABS: Anisocytosis 1+; Basophils % (Manual) 0 % (0.0-1.8); Eosinophils % (Manual) 0 % (0.0-4.3); Macrocytosis Few; Total Cells Counted 100
[2020-05-08 15:38] LABS: Platelet Estimate Consistent w Auto
[2020-05-08 16:27] VITALS: BP 151/90
== END 2020-05-08 16:26 | disposition home or self-care (01) ==
LOC: ED 08:21
DX: R11.2 Nausea with vomiting, unspecified (principal); R10.84 Generalized abdominal pain; I11.0 Hypertensive heart disease with heart failure; I50.9 Heart failure, unspecified; Z90.49 Acquired absence of other specified parts of digestive tract; Z79.82 Long term (current) use of aspirin; Z79.899 Other long term (current) drug therapy; Z88.6 Allergy status to analgesic agent
CPT/HCPCS: 36415; 74177; 80053; 81001; 83690; 84703; 85007; 85025; 96361; 96374; 96375; 99284; J0360; J1170; J1200; J2765; J7040; Q9967

== ENCOUNTER 2021-01-26 19:07 | Emergency (ER) | payer MEDICAID ==
--- NOTE | 2021-01-26 19:58 | Event Note ---
ED Screening Note ED Screening Note: 45-year-old F [place]ian female past medical history of CHF, renal shortness of breath, chest pain, renal insufficiency presents emergency department complaining o increased urinary urgency decreased urinary production and presyncope. She also been experiencing some increased shortness of breath of unknown etiology This initial assessment/diagnostic orders/clinical plan/treatment(s) is/are subject to change based on patients health status, clinical progression and re- assessment by fellow clinical providers in the ED. Further treatment and workup at subsequent clinical providers discretion. Patient/guardian urged not to elope from the ED as their condition may be serious if not clinically assessed and managed. Initial orders include: Plan is to obtain labs, urinalysis
[2021-01-26 20:32] LABS: Hematocrit 35.3 % (30.3-42.9); Hemoglobin 11.8 gm/dl (10.1-14.3); Mean Corpuscular HGB Conc 33 % (30-34); Mean Corpuscular Volume 87 fl (79-97); Platelet Count 320 K/mm3 (140-440); Red Blood Count 4.06 M/mm3 (3.65-5.03); Red Cell Distribution Width 15.5 % (13.2-15.2)
[2021-01-26 20:44] LABS: Albumin 4.4 g/dL (3.9-5); Calcium 10.1 mg/dL (8.4-10.2)
[2021-01-26 21:05] LABS: INR 1.01 (0.87-1.13)
--- NOTE | 2021-01-26 21:21 | XRay Report ---
CHEST 2 VIEWS INDICATION / CLINICAL INFORMATION: sob cp. COMPARISON: 07/23/2020. FINDINGS: SUPPORT DEVICES: None. HEART / MEDIASTINUM: No significant abnormality. LUNGS / PLEURA: No significant pulmonary or pleural abnormality. No pneumothorax. ADDITIONAL FINDINGS: No significant additional findings. IMPRESSION: No acute cardiopulmonary abnormality. Signer Name: Alcon Anaya MD Signed: 01/26/2021 9:16 PM Workstation Name: [id number]
[2021-01-26] MEDS ORDERED: ONDANSETRON 4 MG/2 ML INJ IV ONE (21:27)
[2021-01-26] MEDS ORDERED: HYDROmorphone 1 MG/1 ML INJ IV ONE (21:27)
[2021-01-26] MEDS ORDERED: SODIUM CHLORIDE 0.9% 1000 ML 1,000 ML IV ONE ×2 (21:27→21:35)
[2021-01-26] MEDS ORDERED: MORPHINE 4 MG/1 ML INJ IV ONE (21:27)
--- NOTE | 2021-01-26 21:37 | Emergency Department Report ---
ED Back Pain/Injury HPI - General Chief Complaint: Nausea/Vomiting/Diarrhea Stated Complaint: sick Time Seen by Provider: 01/26/21 21:26 Source: patient Limitations: No Limitations - History of Present Illness Initial Comments: Chief complaint: "I think I have a really bad kidney infection." HPI: This is a 45-year-old female with history of CHF, tobacco dependence, hypertension, GERD who presents with right flank pain which began gradually 2 days ago. She has not been able to get out of bed since . She has been unable to eat or drink due to severe nausea. She has tried to tolerate Pedialyte. Patient has had urinary discomfort. She also has lower abdominal cr amping. She has vaginal discharge but appears like yeast infection. She has been unable to eat. She has been unable to tolerate her blood pressure medication. Patient has had shortness of breath. 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 Her PCP is Dr. Treadwell at [facility]. She is followed by cardiology [place] on [facility]. Her ejection fraction was formally 15%. Ejection fraction is now 60%. She does not take diuretics. I reviewed electronic medical record. In July patient had similar presentation with tachycardia abdominal pain vomiting hyponatremia. At that time UDS was positive for cocaine and marijuana. MD Complaint: back pain -: Gradual, days(s) (2) Similar Symptoms Previously: Yes Place: home Severity: severe Severity scale (0 -10): 10 Quality: sharp Consistency: constant Improves With: none Worsens With: none Associated Symptoms: fever/chills, loss of appetite, nausea/vomiting, other (Subjective fever, urinary discomfort,) - Related Data Home Medications Medication Instructions Recorded Confirmed Last Taken Ferrous Sulfate [Ferrous Sulfate 324 mg PO DAILY 07/23/20 07/23/20 Unknown 324 MG] Omeprazole 40 mg PO DAILY 07/23/20 07/23/20 Unknown Potassium 99 mg PO DAILY 07/23/20 07/23/20 Unknown Sacubitril/Valsartan [Entresto 1 each PO DAILY 07/23/20 07/23/20 Unknown 49-51 mg] cloNIDine [Catapres] 0.1 mg PO QHS 07/23/20 07/23/20 Unknown hydrALAZINE [Apresoline] 25 mg PO Q8HR 07/23/20 07/23/20 Unknown Previous Rx's Medication Instructions Recorded Last Taken Type Aspirin 81 mg PO DAILY #30 tab.chew 01/15/19 Unknown Rx Ondansetron [Zofran Odt] 4 mg PO Q8HR PRN #12 tab.rapdis 05/08/20 Unknown Rx Fluconazole [Diflucan TAB] 200 mg PO QDAY #1 tablet 01/26/21 Unknown Rx Ondansetron [Zofran Odt] 4 mg PO Q8HR PRN #10 tab.rapdis 01/26/21 Unknown Rx cephALEXin [Keflex] 500 mg PO TID 7 Days #21 capsule 01/26/21 Unknown Rx Allergies Allergy/AdvReac Type Severity Reaction Status Date / Time morphine Allergy Itching Verified 07/23/20 09:35 ED Review of Systems ROS: Stated complaint: sick Other details as noted in HPI Comment: All other systems reviewed and negative Constitutional: fever, malaise Respiratory: shortness of breath. denies: cough Cardiovascular: denies: chest pain Gastrointestinal: abdominal pain, nausea, vomiting Musculoskeletal: back pain ED Past Medical Hx - Past Medical History Previous Medical History?: Yes Hx Hypertension: Yes Hx Congestive Heart Failure: Yes Hx Diabetes: No Hx Deep Vein Thrombosis: No Hx Renal Disease: Yes Hx Sickle Cell Disease: No Hx Seizures: No Hx Asthma: No Hx COPD: No Hx HIV: No Additional medical history: stage 1 kidney disease - Surgical History Past Surgical History?: Yes Hx Cholecystectomy: Yes - Social History Smoking Status: Current Every Day Smoker Substance Use Type: Cocaine, Marijuana - Medications Home Medications: Home Medications Medication Instructions Recorded Confirmed Last Taken Type Aspirin 81 mg PO DAILY #30 tab.chew 01/15/19 07/23/20 Unknown Rx Ondansetron [Zofran Odt] 4 mg PO Q8HR PRN #12 tab.rapdis 05/08/20 07/23/20 Unknown Rx Ferrous Sulfate [Ferrous Sulfate 324 mg PO DAILY 07/23/20 07/23/20 Unknown History 324 MG] Omeprazole 40 mg PO DAILY 07/23/20 07/23/20 Unknown History Potassium 99 mg PO DAILY 07/23/20 07/23/20 Unknown History Sacubitril/Valsartan [Entresto 1 each PO DAILY 07/23/20 07/23/20 Unknown History 49-51 mg] cloNIDine [Catapres] 0.1 mg PO QHS 07/23/20 07/23/20 Unknown History hydrALAZINE [Apresoline] 25 mg PO Q8HR 07/23/20 07/23/20 Unknown History Fluconazole [Diflucan TAB] 200 mg PO QDAY #1 tablet 01/26/21 Unknown Rx Ondansetron [Zofran Odt] 4 mg PO Q8HR PRN #10 tab.rapdis 01/26/21 Unknown Rx cephALEXin [Keflex] 500 mg PO TID 7 Days #21 capsule 01/26/21 Unknown Rx ED Physical Exam - General Limitations: No Limitations General appearance: alert, in no apparent distress, anxious, other (Hyperverbal appears anxious) - Head Head exam: Present: atraumatic, normocephalic - Eye Eye exam: Present: normal appearance - ENT ENT exam: Present: mucous membranes dry, other (No oropharyngeal lesions) - Neck Neck exam: Present: normal inspection, full ROM - Respiratory Respiratory exam: Present: normal lung sounds bilaterally. Absent: respiratory distress, wheezes, rales, rhonchi - Cardiovascular Cardiovascular Exam: Present: normal rhythm, tachycardia, normal heart sounds. Absent: systolic murmur, diastolic murmur, rubs, gallop - GI/Abdominal GI/Abdominal exam: Present: soft, normal bowel sounds. Absent: distended, tenderness, guarding, rebound - Extremities Exam Extremities exam: Present: normal inspection - Neurological Exam Neurological exam: Present: alert, oriented X3 - Psychiatric Psychiatric exam: Present: normal affect, anxious - Skin Skin exam: Present: warm, dry, intact, normal color. Absent: rash ED Course Vital Signs 01/26/21 01/26/21 01/26/21 19:55 21:38 22:08 Temperature 98.0 F Pulse Rate 150 H Respiratory 20 16 19 Rate Blood Pressure 129/73 O2 Sat by Pulse 97 Oximetry ED Medical Decision Making - Lab Data Result diagrams: 01/26/21 20:10 01/26/21 20:10 Laboratory Results - last 24 hr 01/26/21 01/26/21 01/26/21 20:10 20:10 20:10 WBC 10.5 RBC 4.06 Hgb 11.8 Hct 35.3 MCV 87 MCH 29 MCHC 33 RDW 15.5 H Plt Count 320 PT INR Sodium 128 L Potassium 3.6 Chloride 92.0 L Carbon Dioxide 18 L Anion Gap 22 BUN 27 H Creatinine 2.7 H Estimated GFR 23 BUN/Creatinine Ratio 10 Glucose 105 H Calcium 10.1 Magnesium Total Bilirubin 0.20 AST 27 ALT 19 Alkaline Phosphatase 78 NT-Pro-B Natriuret Pep 2507 H Total Protein 8.4 H Albumin 4.4 Albumin/Globulin Ratio 1.1 Lipase HCG, Qual Negative 01/26/21 01/26/21 01/26/21 20:10 20:10 20:44 WBC RBC Hgb Hct MCV MCH MCHC RDW Plt Count PT 13.2 INR 1.01 Sodium Potassium Chloride Carbon Dioxide Anion Gap BUN Creatinine Estimated GFR BUN/Creatinine Ratio Glucose Calcium Magnesium 1.90 Total Bilirubin AST ALT Alkaline Phosphatase NT-Pro-B Natriuret Pep Total Protein Albumin Albumin/Globulin Ratio Lipase 41 HCG, Qual - EKG Data -: EKG Interpreted by Me EKG shows normal: sinus rhythm, axis Rate: tachycardia - EKG Data Interpretation: LVH 01/26/21 21:36 EKG obtained 2002 EKG interpreted by vt Sinus tachycardia rate 125 normal axis prolonged QTC enlarged P waves positive LVH no ST elevation - Radiology Data Radiology results: report reviewed Chest radiograph 2 views: No acute cardiopulmonary abnormality, according to radiology impression CT abdomen pelvis wo con INDICATION: severe right flank pain. TECHNIQUE: All CT scans at this location are performed using CT dose reduction for ALARA by means of automated exposure control. COMPARISON: 07/25/2020 FINDINGS: Lung bases are clear. Cholecystectomy. Liver, spleen, pancreas, kidneys and adrenals are negative. Abdominal aorta is normal in size. No significant adenopathy. Pelvis Normal appendix. Uterus is slightly enlarged. Ovaries are very difficult to evaluate. No free fluid or obvious inflammatory change. No appreciable bowel abnormalities. No skeletal lesions. IMPRESSION: 1. No significant abnormalities identified. Specifically, no hydronephrosis or urinary tract calculi. For more detailed evaluation of the uterus and ovaries, ultrasound would be necessary. - Medical Decision Making 1. back pain: no evidence of obstruction, patient would not provide urine sample upon prompting from myself and nursing staff. No fever or perinephric stranding to indicate pyelonephritis. 2. Abdominal pain with nausea vomiting patient the past has had UDS positive for marijuana. I suspect cannabinoid hyperemesis syndrome. 3. Tachycardia with shortness of breath: Patient has similar presentation, UDS positive for cocaine and marijuana at that time. I do not suspect CHF exacerbation. I do not suspect pulmonary embolism. I do suspect cocaine intoxication. UDS is not obtainable because patient refuses to provide a urine sample. 4. Dehydration notable with hyponatremia hypochloremia. Suspect vomiting due to cannabinoid hyperemesis syndrome. Tachycardia resolved with IV fluid resuscitation. 5. Vaginitis: Prescribed fluconazole for possible candidiasis I will prescribe cephalexin for urinary discomfort possibly UTI. Prescribed Zofran for nausea vomiting. Critical care attestation.: If time is entered above; I have spent that time in minutes in the direct care of this critically ill patient, excluding procedure time. ED Disposition Clinical Impression: Dehydration, Vaginitis, UTI (urinary tract infection) Disposition: - TO HOME OR SELFCARE Is pt being admited?: No Does the pt Need Aspirin: No Condition: Stable Instructions: Urinary Tract Infection, Adult, Vaginitis, [id number] Prescriptions: Fluconazole [Diflucan TAB] 200 mg PO QDAY #1 tablet cephALEXin [Keflex] 500 mg PO TID 7 Days #21 capsule Ondansetron [Zofran Odt] 4 mg PO Q8HR PRN #10 tab.rapdis PRN Reason: Nausea [facility]errals: [facility] [Other] - 3-5 Days
[2021-01-26] MEDS ORDERED: diphenhydrAMINE 50 MG/ML VIAL IV ONE (23:00)
--- NOTE | 2021-01-26 23:15 | Cat Scan Report ---
CT abdomen pelvis wo con INDICATION: severe right flank pain. TECHNIQUE: All CT scans at this location are performed using CT dose reduction for ALARA by means of automated e xposure control. COMPARISON: 07/25/2020 FINDINGS: Lung bases are clear. Cholecystectomy. Liver, spleen, pancreas, kidneys and adrenals are negative. Ab dominal aorta is normal in size. No significant adenopathy. Pelvis Normal appendix. Uterus is slightly enlarged. Ovaries are very difficult to evaluate. No free fluid o r obvious inflammatory change. No appreciable bowel abnormalities. No skeletal lesions. IMPRESSION: 1. No significant abnormalities identified. Specifically, no hydronephrosis or urinary tract calculi. For more detailed evaluation of the uterus and ovaries, ultrasound would be necessary. Signer Name: Aravind Rosales MD Signed: 01/26/2021 11:10 PM Workstation Name: [id number]
[2021-01-27] MEDS ORDERED: diphenhydrAMINE 50 MG/ML VIAL IV ONE (00:54)
[2021-01-27 01:13] LABS: Bilirubin,Urine NEG (Negative); Blood,Urine LG (Negative); Color,Urine Yellow (Yellow); Hyaline Casts,Urine 38 /LPF; Mucus,Urine 3+ /HPF; RBC,Urine > 182.0 /HPF (0.0-6.0); Urobilinogen,Urine < 2.0 mg/dL (<2.0)
[2021-01-27 01:31] LABS: Amphetamine Screen,Urine PRESUMPTIVE NEGATIVE; Benzodiazepines Screen,Urine PRESUMPTIVE NEGATIVE; Cannabinoid Screen,Urine PRESUMPTIVE POSITIVE; Cocaine Screen,Urine PRESUMPTIVE NEGATIVE; Methadone Screen,Urine PRESUMPTIVE NEGATIVE; Opiate Screen,Urine PRESUMPTIVE NEGATIVE
[2021-01-27 02:15] VITALS: BP 139/95
--- NOTE | 2021-01-29 08:41 | Electrocardiograph Report ---
[facility] Test Date: 2021-01-26 Test Time: 20:03:35 Pat Name: FLOR PATTERSON Department: Room: Gender: F Research Intern: JOANIE : 1975 Requested By: DOLORES HENDRICKS Order Number: [id number] Reading MD: Carlos Glaser Measurements Intervals [place] Rate: 124 P: 84 NM: 129 QRS: 78 QRSD: 88 T: 27 QT: 343 QTc: 493 Interpretive Statements Sinus tachycardia LAE, consider biatrial enlargement Probable left ventricular hypertrophy No previous ECG available for comparison Electronically Signed On 01-29-2021 5:41:20 PDT by Carlos Glaser
== END 2021-01-27 02:17 | disposition home or self-care (01) ==
LOC: ED 19:07
DX: E86.0 Dehydration (principal); N39.0 Urinary tract infection, site not specified; N76.0 Acute vaginitis; I10 Essential (primary) hypertension; F17.200 Nicotine dependence, unspecified, uncomplicated; F12.10 Cannabis abuse, uncomplicated; Z79.899 Other long term (current) drug therapy
CPT/HCPCS: 36415; 71046; 74176; 80053; 80307; 81001; 83690; 83735; 83880; 84703; 85027; 85610; 87086; 93005; 96361; 96374; 96375; 96376; 99285; J1170; J1200; J2405; J7030

== ENCOUNTER 2022-06-07 13:49 | Inpatient (IN) | payer MEDICAID ==
--- NOTE | 2022-06-07 13:54 | Emergency Department Report ---
Blank Doc - Documentation Documentation: 46-year-old female that presents with back pain and chest pain. History of CHF. 1- This is a initial triage assessment/medical screening only. Full assessment and work-up will be completed once the patient is in proper hospital gown, ED bed and in a private room setting. This initial assessment/diagnostic orders/clinical plan/ treatment(s) is/are subject to change based on pt's health status, clinical progression and re-assessment by fellow clinical providers in the ED. Further treatment and workup at subsequent clinical providers discretion. Patient/guardians urged not to elope from ED as their condition may be serious if not clinically assessed and managed. 2-cardiac work-up The patient was evaluated in the emergency department for symptoms described in the history of present illness. He/she was evaluated in the context of the global COVID-19 pandemic, which necessitated consideration that the patient might be at risk for infection with the virus that causes COVID-19. Institutional protocols and algorithms that pertain to the evaluation of patients at risk for COVID-19 are in a state of rapid change based on information released by regulatory bodies including the CDC and federal and state organizations. These policies and algorithms were followed during the patient's care in the emergency department. Please note that these policies, procedures and recommendations changed on a rapid basis.
[2022-06-07 14:37] LABS: Mean Corpuscular HGB Conc 30 % (30-34); Mean Corpuscular Volume 93 fl (79-97); Platelet Count 415 K/mm3 (140-440); Red Blood Count 4.51 M/mm3 (3.65-5.03)
[2022-06-07 14:38] LABS: Hematocrit 42.1 % (30.3-42.9); Hemoglobin 12.5 gm/dl (10.1-14.3); Red Cell Distribution Width 20.5 % (13.2-15.2)
[2022-06-07 14:40] LABS: INR 1.07 (0.87-1.13)
[2022-06-07 14:41] LABS: Partial Thromboplastin Time 39.8 Sec. (24.2-36.6)
--- NOTE | 2022-06-07 14:57 | XRay Report ---
CHEST 2 VIEWS INDICATION: Chest Pain. COMPARISON: 01/26/2021 FINDINGS: SUPPORT DEVICES: None. HEART: Within normal limits. LUNGS/PLEURA: No acute air space or interstitial disease. No pneumothorax. ADDITIONAL FINDINGS: None. IMPRESSION: 1. No acute findings. Signer Name: Alejandro Christian MD Signed: 06/07/2022 2:53 PM Workstation Name: [id number]
[2022-06-07 15:48] LABS: Albumin 5.2 g/dL (3.9-5); Calcium 10.1 mg/dL (8.4-10.2)
[2022-06-07] MEDS ORDERED: ACETAMINOPHEN 325 MG TAB PO ONE (17:23)
[2022-06-07] MEDS ORDERED: SODIUM CHLORIDE 0.9% 1000 ML 1,000 ML IV ONE (18:22)
[2022-06-07] MEDS ORDERED: ONDANSETRON 4 MG/2 ML INJ IV ONE (18:23)
[2022-06-07] MEDS ORDERED: MORPHINE 4 MG/1 ML INJ IV ONE ×2 (18:23→21:00)
[2022-06-07] MEDS ORDERED: FAMOTIDINE 20 MG/2 ML INJ IV ONE (18:28)
--- NOTE | 2022-06-07 18:57 | Emergency Department Report ---
HPI - General Chief Complaint: Chest Pain PUI?: No Time Seen by Provider: 06/07/22 13:51 - HPI HPI: 46yo female with multiple medical comorbidities presents for evaluation as a treatment of right flank pain and tachycardia. Patient states that she was seen by her primary care doctor 2 days ago and given Pyridium as well as Macrobid she. She states she has been having persistent nausea and vomiting since then has not been able to keep down any of her medications. She states she is an in a, sex relationship with her alone. She denies any vaginal bleeding or discharge. Last menstrual cycle was 2 weeks ago. Pain to her right flank is throbbing pressure-like constant and nonradiating. She also complains of burning and pain with urination. She reports subjective fevers and chills at home. She states has not been able to keep down any of her regular medications as a result. Pain currently 10 out of 10. ED Past Medical Hx - Past Medical History Hx Hypertension: Yes Hx Congestive Heart Failure: Yes Hx Diabetes: No Hx Deep Vein Thrombosis: No Hx Renal Disease: Yes Hx Sickle Cell Disease: No Hx Seizures: No Hx Asthma: No Hx COPD: No Hx HIV: No Additional medical history: stage 1 kidney disease - Surgical History Hx Cholecystectomy: Yes - Social History Smoking Status: Current Every Day Smoker Substance Use Type: Cocaine, Marijuana - Medications Home Medications: Home Medications Medication Instructions Recorded Confirmed Last Taken Type Aspirin 81 mg PO DAILY #30 tab.chew 01/15/19 07/23/20 Unknown Rx Ondansetron [Zofran Odt] 4 mg PO Q8HR PRN #12 tab.rapdis 05/08/20 07/23/20 Unknown Rx Ferrous Sulfate [Ferrous Sulfate 324 mg PO DAILY 07/23/20 07/23/20 Unknown History 324 MG] Omeprazole 40 mg PO DAILY 07/23/20 07/23/20 Unknown History Potassium 99 mg PO DAILY 07/23/20 07/23/20 Unknown History Sacubitril/Valsartan [Entresto 1 each PO DAILY 07/23/20 07/23/20 Unknown History 49-51 mg] cloNIDine [Catapres] 0.1 mg PO QHS 07/23/20 07/23/20 Unknown History hydrALAZINE [Apresoline] 25 mg PO Q8HR 07/23/20 07/23/20 Unknown History Fluconazole [Diflucan TAB] 200 mg PO QDAY #1 tablet 01/26/21 Unknown Rx Ondansetron [Zofran Odt] 4 mg PO Q8HR PRN #10 tab.rapdis 01/26/21 Unknown Rx cephALEXin [Keflex] 500 mg PO TID 7 Days #21 capsule 01/26/21 Unknown Rx ED Review of Systems ROS: Stated complaint: BACK/CHEST PAINS /VOMITING Other details as noted in HPI Comment: All other systems reviewed and negative Constitutional: no symptoms reported Eyes: as per HPI Respiratory: no symptoms reported Gastrointestinal: abdominal pain, nausea, vomiting, diarrhea, other (Right flank pain) Genitourinary: urgency, dysuria, frequency Musculoskeletal: back pain Psychiatric: as per HPI, anxiety Physical Exam - Physical Exam Vital Signs: Vital Signs 06/07/22 13:58 Temperature 97.3 F L Pulse Rate 144 H Respiratory 20 Rate Blood Pressure 167/127 [Left] O2 Sat by Pulse 100 Oximetry General: Gen: pt is well appearing, no acute distress HEENT: Normocephalic atraumatic pupils equally round and reactive to light extraocular muscles intact sclera anicteric Neck: Full range of motion, no midline spinal tenderness palpation, no JVD, no carotid bruits, no nuchal rigidity CVS: S1-S2 regular rhythm, patient is tachycardic, gallops rubs or murmurs, chest wall nontender Pulmonary: Clear to auscultation bilaterally, no wheezes rales or rhonchi Abdomen: Soft nondistended nontender no guarding or rebound tenderness, no palpable deformities or step-offs, normal active bowel sounds, no hepatosplenomegaly, no pulsatile masses, right CVA tenderness on exam : Deferred Extremities: No cyanosis no clubbing no edema, intact distal peripheral pulses, Integumentary: Skin normal, no petechia no purpura no abscess no lacerations no evidence of trauma no evidence of infection Neuro: Patient is awake alert and oriented to person place time situation, mentating well, cranial nerves II through XII intact, no focal neurodeficits, sensation grossly tact Psych: Calm cooperative, mood affect normal ED Course Vital Signs 06/07/22 13:58 Temperature 97.3 F L Pulse Rate 144 H Respiratory 20 Rate Blood Pressure 167/127 [Left] O2 Sat by Pulse 100 Oximetry - Reevaluation(s) Reevaluation #1: 06/07/22 20:05 pt reassessed; she appears more comfortable; BP 191/100 in room, HR 89bpm. Pt updated concerning need for diagnostic imaging. She reports she drinks alcohol "on occasion," and does not consume it daily or multiple times per week. Pt st ates she had a cholecystectomy ~20 years ago. Will give additional antihypertensives. ED Medical Decision Making - Lab Data Result diagrams: 06/07/22 14:11 06/07/22 14:11 - EKG Data -: EKG Interpreted by Me EKG shows normal: sinus rhythm Rate: tachycardia - EKG Data When compared to previous EKG there are: no significant change Interpretation: no acute changes - Radiology Data Radiology results: pending - Medical Decision Making This is a 46-year-old female with extensive past medical history who presents for evaluation of bilateral upper abdominal pain as well as 1 week of right flank pain, dysuria and urinary frequency and urgency. Patient noted to be hypertensive and tachycardic here. She was given labetalol with improvement in her vitals. She was given morphine Zofran and intravenous fluids for symptomatic treatment. Labs reviewed. Patient has elevated anion gap metabolic acidosis, with her anion gap being 26, serum lactic acid is 3.7, AST is 692, ALT is 693, lipase is 1480, CBC is grossly unremarkable. Patient is currently under waiting diagnostic imaging which includes right upper quadrant ultrasound as well as CT scan of abdomen pelvis. Due to change in provider shift time @ 21:00, pt signed out to Dr. Raji Mckeon for final disposition/management. Critical care attestation.: If time is entered above; I have spent that time in minutes in the direct care of this critically ill patient, excluding procedure time. ED Disposition Clinical Impression: Flank pain Disposition: 30 STILL A PATIENT Is pt being admited?: Yes Condition: Stable Referrals: PRIMARY CARE, [Primary Care Provider] - 3-5 Days
[2022-06-07 19:53] LABS: Amphetamine Screen,Urine Negative; Benzodiazepines Screen,Urine Negative; Methadone Screen,Urine Negative; Opiate Screen,Urine Negative
[2022-06-07 20:13] LABS: Bacteria,Urine 1+ /HPF (Negative)
[2022-06-07 20:16] LABS: Color,Urine Orange (Yellow)
[2022-06-07 20:17] LABS: Bilirubin,Urine Small (Negative)
[2022-06-07 20:18] LABS: Blood,Urine Large (Negative); Urobilinogen,Urine 0.2 mg/dL (<2.0)
[2022-06-07 20:19] LABS: Cannabinoid Screen,Urine Positive; Cocaine Screen,Urine Positive; HCG Qualitative,Urine Negative (Negative)
[2022-06-07 20:20] LABS: Ictotest,Urine Positive (Negative)
--- NOTE | 2022-06-07 20:58 | Ultrasound Report ---
ULTRASOUND ABDOMEN, LIMITED (RIGHT UPPER QUADRANT) INDICATION / CLINICAL INFORMATION: epigastric/RUQ, increased LFTS, hx of cholecystect. COMPARISON: CT abdomen 01/26/2021 FINDINGS: PANCREAS: Visualized portion shows no significant abnormality. LIVER: No significant abnormality. Normal hepatopedal blood flow in the main portal vein. GALLBLADDER: Removed. BILE DUCTS: No significant abnormality. Common bile duct measures 3-4 mm. FREE FLUID: None. ADDITIONAL FINDINGS: None. IMPRESSION: 1. No significant sonographic abnormality of the right upper quadrant. Signer Name: Corey Johnson MD Signed: 06/07/2022 8:54 PM Workstation Name: [id number]
[2022-06-07] MEDS: ACETAMINOPHEN 325 MG TAB PO PRN (21:00)
--- NOTE | 2022-06-07 21:22 | Cat Scan Report ---
CT ABDOMEN AND PELVIS WITHOUT IV CONTRAST INDICATION: Right flank pain, subjective fevers, hx of ckd. COMPARISON: 01/26/2021 TECHNIQUE: All CT scans at this facility use dose modulation, automated exposure control, iterative reconstructi on or weight based dosing, when appropriate, to reduce radiation dose to as low as reasonably achieva ble. FINDINGS: Lung Bases: No significant abnormality. Skeletal System: No acute abnormality. ABDOMEN: Liver: No significant abnormality. Gallbladder: Removed. Bile Ducts: No significant abnormality. Adrenals: No significant abnormality. Right Kidney: No significant abnormality. Left Kidney: No significant abnormality. Pancreas: The pancreas appears edematous particularly in the head and there is peripancreatic fluid. Spleen: No significant abnormality. Upper GI tract: No significant abnormality. Lymph Nodes: No significant adenopathy. Aorta: No significant abnormality. Additional Findings: No significant abnormality. PELVIS: Colon: No acute abnormality. Urinary Bladder and Distal Ureters: No significant abnormality. Appendix: No significant abnormality. Lymph Nodes: No significant adenopathy. Additional Findings: None. IMPRESSION: 1. Pancreas appears edematous and there is fluid/inflammation around the pancreatic head. Findings c oncerning for acute pancreatitis. 2. Incidental findings, as above. Signer Name: Corey Johnson MD Signed: 06/07/2022 9:18 PM Workstation Name: [id number]
[2022-06-07] MEDS ORDERED: PIPERACILLIN/TAZOBACTAM 3.375 3.375 GM/50 ML BAG IV ONE (21:47)
[2022-06-07] MEDS ORDERED: MAGNESIUM HYDROXIDE (MOM) ORAL LIQD UDC PO PRN (22:26)
[2022-06-07] MEDS ORDERED: MORPHINE 2 MG/1 ML INJ IV PRN (22:26)
[2022-06-07] MEDS ORDERED: MORPHINE 4 MG/1 ML INJ IV PRN (22:26)
--- NOTE | 2022-06-07 23:17 | History and Physical Report ---
History of Present Illness Date of examination: 06/07/22 Date of admission: 06/07/2022 Chief complaint: Nausea and Vomiting History of present illness: 46-year-old -Swedish female with known history tension, CHF and history of chronic kidney disease presenting to the emergency room today complaining of pain, nausea and vomiting and upper abdominal pain for the past 2 days. Patient was seen by primary care physician few days ago and was given Pyridium and Macrobid antibiotic since 4 possible UTI. She has been having intractable nausea and vomiting. Denies any hematuria or dysuria, denies any chest pain or shortness of breath, denies any fever or chills no headache or dizziness and no diaphoresis. Denies any vaginal discharge. Last menstruation was about 2 weeks ago. She admits to using cocaine, marijuana, drinks alcohol occasionally and smokes tobacco on a daily basis. Patient denies any sick contacts and no recent travel. Denies any contact with anyone with COVID-19. Work-up in the emergency room today, CT of the abdomen and pelvis reveals acute pancreatitis. Chest x-ray unremarkable. Abdominal ultrasound was unremarkable. Urinalysis significant for UTI. Labs reveals elevated liver enzymes. Patient being admitted with acute pancreatitis and UTI. Past History Past Medical History: hypertension, renal failure Past Surgical History: cholecystectomy Social history: smoking (Current daily smoker), alcohol abuse, other (Marijuana and Cocaine) Family history: no significant family history Medications and Allergies Allergies Allergy/AdvReac Type Severity Reaction Status Date / Time morphine Allergy Itching Verified 07/23/20 09:35 Home Medications Medication Instructions Recorded Confirmed Last Taken Type Aspirin 81 mg PO DAILY #30 tab.chew 01/15/19 07/23/20 Unknown Rx Ondansetron [Zofran Odt] 4 mg PO Q8HR PRN #12 tab.rapdis 05/08/20 07/23/20 Unknown Rx Ferrous Sulfate [Ferrous Sulfate 324 mg PO DAILY 07/23/20 07/23/20 Unknown History 324 MG] Omeprazole 40 mg PO DAILY 07/23/20 07/23/20 Unknown History Potassium 99 mg PO DAILY 07/23/20 07/23/20 Unknown History Sacubitril/Valsartan [Entresto 1 each PO DAILY 07/23/20 07/23/20 Unknown History 49-51 mg] cloNIDine [Catapres] 0.1 mg PO QHS 07/23/20 07/23/20 Unknown History hydrALAZINE [Apresoline] 25 mg PO Q8HR 07/23/20 07/23/20 Unknown History Fluconazole [Diflucan TAB] 200 mg PO QDAY #1 tablet 01/26/21 Unknown Rx Ondansetron [Zofran Odt] 4 mg PO Q8HR PRN #10 tab.rapdis 01/26/21 Unknown Rx cephALEXin [Keflex] 500 mg PO TID 7 Days #21 capsule 01/26/21 Unknown Rx Active Meds: Active Medications Acetaminophen (Acetaminophen 325 Mg Tab) 650 mg PO Q4H PRN PRN Reason: Pain MILD(1-3)/Fever >100.5/FIORE Sodium Chloride (Nacl 0.9% 1000 Ml) 1,000 mls @ 150 mls/hr IV DIRECT VICTOR M Magnesium Hydroxide (Magnesium Hydroxide (Mom) Oral Liqd Udc) 30 ml PO Q4H PRN PRN Reason: Constipation Morphine Sulfate (Morphine 2 Mg/1 Ml Inj) 2 mg IV Q4H PRN PRN Reason: Pain, Moderate (4-6) Morphine Sulfate (Morphine 4 Mg/1 Ml Inj) 4 mg IV Q4H PRN PRN Reason: Pain , Severe (7-10) Ondansetron HCl (Ondansetron 4 Mg/2 Ml Inj) 4 mg IV Q8H PRN PRN Reason: Nausea And Vomiting Sodium Chloride (Sodium Chloride 0.9% 10 Ml Flush Syringe) 10 ml IV BID VICTOR M Sodium Chloride (Sodium Chloride 0.9% 10 Ml Flush Syringe) 10 ml IV PRN PRN PRN Reason: LINE FLUSH Review of Systems Constitutional: no fever, no chills Ears, nose, mouth and throat: no nasal congestion, no sore throat Cardiovascular: no chest pain, no palpitations Respiratory: no cough, no shortness of breath Gastrointestinal: abdominal pain, nausea, vomiting, diarrhea Genitourinary Female: no pelvic pain, no flank pain, no dysuria Musculoskeletal: no neck pain, no low back pain Integumentary: no rash, no pruritis Neurological: no headaches, no confusion Psychiatric: no anxiety, no depression Endocrine: no polyphagia, no polydipsia, no polyuria, no nocturia Exam - Constitutional Vitals: Temp Pulse Resp BP Pulse Ox 97.3 F L 94 H 17 189/122 100 06/07/22 13:58 06/07/22 20:15 06/07/22 20:15 06/07/22 20:15 06/07/22 20:15 General appearance: Present: no acute distress, well-nourished - EENT Eyes: Present: PERRL, EOM intact. Absent: scleral icterus ENT: hearing intact, clear oral mucosa, dentition normal - Neck Neck: Present: supple, normal ROM - Respiratory Respiratory effort: normal Respiratory: bilateral: CTA - Cardiovascular Rhythm: regular Heart Sounds: Present: S1 & S2. Absent: gallop, systolic murmur, diastolic murmur, rub, click - Extremities Extremities: no ischemia, pulses intact, pulses symmetrical, No edema, normal temperature, normal color, Full ROM Peripheral Pulses: within normal limits - Abdominal General gastrointestinal: Present: soft, tender (Mild epigastric tenderness), non-distended, normal bowel sounds. Absent: mass - Integumentary Integumentary: Present: clear, warm, dry, normal turgor. Absent: rash - Musculoskeletal Musculoskeletal: strength equal bilaterally - Psychiatric Psychiatric: appropriate mood/affect, intact judgment & insight, memory intact, cooperative - Neurologic Neurologic: CNII-XII intact, no focal deficits, moves all extremities HEART Score - HEART Score Troponin: Troponin T 0.015 ng/mL (0.00-0.029) 06/07/22 14:11 Results - Labs CBC & Chem 7: 06/07/22 14:11 06/07/22 14:11 Labs: Abnormal lab results 06/07/22 06/07/22 06/07/22 Range/Units 14:11 14:11 14:11 RDW 20.5 H (13.2-15.2) % PT 15.4 H (12.2-14.9) Sec. APTT 39.8 H (24.2-36.6) Sec. Sodium 134 L (137-145) mmol/L Carbon Dioxide 11 L (22-30) mmol/L Creatinine 1.6 H (0.6-1.2) mg/dL Glucose 104 H (65-100) mg/dL Lactic Acid (0.7-2.0) mmol/L AST 692 H (5-40) units/L ALT 693 H (7-56) units/L Total Protein 8.8 H (6.3-8.2) g/dL Albumin 5.2 H (3.9-5) g/dL Lipase (13-60) units/L Ur Specific [place] (1.003-1.030) Urine Blood (Negative) Urine WBC (Auto) (0.0-6.0) /HPF 06/07/22 06/07/22 06/07/22 Range/Units 14:11 18:57 19:33 RDW (13.2-15.2) % PT (12.2-14.9) Sec. APTT (24.2-36.6) Sec. Sodium (137-145) mmol/L Carbon Dioxide (22-30) mmol/L Creatinine (0.6-1.2) mg/dL Glucose (65-100) mg/dL Lactic Acid 3.70 H* (0.7-2.0) mmol/L AST (5-40) units/L ALT (7-56) units/L Total Protein (6.3-8.2) g/dL Albumin (3.9-5) g/dL Lipase 1480 H (13-60) units/L Ur Specific [place] 1.035 H (1.003-1.030) Urine Blood Large A (Negative) Urine WBC (Auto) 7.0 H (0.0-6.0) /HPF Assessment and Plan Assessment: 1.Acute pancreatitis 2.UTI 3.Nausea and Vomiting 4.Polysubstance abuse 5. Elevated liver enzymes Plan: 1.Placed NPO. Commenced on generous IV fluid hydration 2.Commenced on empiric antibiotics for UTI 3.Resume routine home medications 4. We will consult gastroenterology for further ration recommendation DVT Prophylaxis:SQ Heparin Code Status: Full Code
[2022-06-08] MEDS ORDERED: MORPHINE 4 MG/1 ML INJ ONE (00:38)
[2022-06-08 00:48] LABS: Hepatitis B Surface Antigen Non-Reactive (Negative); Hepatitis C Virus Antibody Non-Reactive (NonReactive)
[2022-06-08] MEDS: SODIUM CHLORIDE 0.9% 1000 ML 1,000 ML IV SCH ×2 (01:00→06:15)
[2022-06-08] MEDS ORDERED: hydrALAZINE 20 MG/1 ML INJ IV PRN (03:50)
[2022-06-08] MEDS: HYDROmorphone 1 MG/1 ML INJ IV PRN ×4 (04:12→20:00)
[2022-06-08] MEDS: ONDANSETRON 4 MG/2 ML INJ IV PRN ×2 (04:14→15:56)
[2022-06-08 06:22] LABS: Calcium 8.5 mg/dL (8.4-10.2)
[2022-06-08 06:27] LABS: Basophils % (Auto) 0.2 % (0.0-1.8); Eosinophils % (Auto) 0.1 % (0.0-4.3); Hematocrit 27.4 % (30.3-42.9); Hemoglobin 8.7 gm/dl (10.1-14.3); Lymphocytes # (Auto) 0.5 K/mm3 (1.2-5.4); Lymphocytes % (Auto) 5.6 % (13.4-35.0); Mean Corpuscular HGB Conc 32 % (30-34); Mean Corpuscular Volume 88 fl (79-97); Monocytes # (Auto) 0.9 K/mm3 (0.0-0.8); Monocytes % (Auto) 10.7 % (0.0-7.3); Platelet Count 351 K/mm3 (140-440); Red Blood Count 3.12 M/mm3 (3.65-5.03); Red Cell Distribution Width 19.6 % (13.2-15.2)
--- NOTE | 2022-06-08 10:20 | Electrocardiograph Report ---
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
[2022-06-08] MEDS: D5W/0.9% NACL 1,000 ML IV SCH (11:03)
[2022-06-08] MEDS: ASPIRIN 81 MG TAB CHEW PO SCH (11:03)
--- NOTE | 2022-06-08 15:43 | Progress Note ---
Assessment and Plan 46-year-old -[place]ales[place] female with known history hypertension, CHF and history of chronic kidney disease presenting to the emergency room complaining of pain, nausea and vomiting and upper abdominal pain for the past 2 days. She admits to using cocaine, marijuana, drinks alcohol occasionally and smokes tobacco on a daily basis. Patient denies any sick contacts and no recent travel. Denies any contact with anyone with COVID-19. Work-up in the emergency room today, CT of the abdomen and pelvis reveals acute pancreatitis. Chest x-ray unremarkable. Abdominal ultrasound was unremarkable. Urinalysis significant for UTI. UDS positive for cocaine and marijuana Labs reveals elevated liver enzymes. Patient being admitted with acute pancreatitis and UTI. Assessment and plan: --Acute pancreatitis --UTI --Nausea and Vomiting due to acute pancreatitis --Polysubstance abuse/UDS positive for cocaine --Elevated liver enzymes, due to acute pancreatitis --Chronic CHF with preserved EF --Uncontrolled BP -- Alcohol abuse with dependence Plan: -- Start clear liquid diet and advance slowly as tolerated, commenced on generous IV fluid hydration -- Continue on empiric antibiotics for UTI --Resume routine home medications for hypertension --consult gastroenterology for further recommendation -- Monitor for alcohol withdrawal, Place on folic acid and thiamine, Ativan IV as needed DVT Prophylaxis:SQ Heparin Code Status: Full Code Subjective Date of service: 06/08/22 Interval history: Patient seen and examined. Medical records and medication list reviewed. No acute event overnight noted by the RN. Patient states abdominal pain slightly improved. No vomiting this morning Vital signs been stable Discussed plan of care at bedside with patient. Objective - Exam Narrative Exam: GENERAL: well-developed and well-nourished lying on bed appeared to be in no discomfort. HEENT: Normocephalic. Atraumatic. No conjunctival congestion or icterus. Patient has moist mucous membranes. NECK: Supple. Trachea midline. CHEST/LUNGS: Clear to auscultated bilaterally, breathing nonlabored. No wheezes crackles or rhonchi. HEART/CARDIOVASCULAR: Regular in rate and rhythm. S1 and S2 positive. ABDOMEN: Abdomen is soft, mild epigastric tenderness. Patient has normal bowel sounds. SKIN: There is no rash. Warm and dry. NEURO: No focal motor deficit. Follows command. MUSCULOSKELETAL: No joint effusion or tenderness. EXTRIMITY: No edema, no cyanosis or clubbing. PSYCH: Cooperative. - Constitutional Vitals: Vital Signs - 12hr 06/08/22 06/08/22 06/08/22 04:00 04:05 04:11 Temperature 97.6 F Pulse Rate 82 101 H Respiratory 16 40 H Rate Blood Pressure 230/132 221/119 Blood Pressure 187/123 [Left] O2 Sat by Pulse 100 93 93 Oximetry 06/08/22 06/08/22 06/08/22 04:12 04:21 04:31 Temperature Pulse Rate 82 84 88 Respiratory 38 H 44 H Rate Blood Pressure 187/123 218/102 210/115 Blood Pressure [Left] O2 Sat by Pulse 90 92 Oximetry 06/08/22 06/08/22 06/08/22 04:57 09:58 10:04 Temperature Pulse Rate Respiratory 20 20 Rate Blood Pressure Blood Pressure [Left] O2 Sat by Pulse 100 100 Oximetry 06/08/22 11:38 Temperature 97.6 F Pulse Rate 95 H Respiratory 20 Rate Blood Pressure 161/108 Blood Pressure [Left] O2 Sat by Pulse 100 Oximetry - Labs CBC & Chem 7: 06/08/22 05:09 06/08/22 05:09 Labs: Abnormal lab results 06/07/22 06/07/22 06/07/22 Range/Units 14:11 14:11 18:57 RBC (3.65-5.03) M/mm3 Hgb (10.1-14.3) gm/dl Hct (30.3-42.9) % RDW (13.2-15.2) % Lymph % (Auto) (13.4-35.0) % [place] % (Auto) (0.0-7.3) % Lymph # (Auto) (1.2-5.4) K/mm3 [place] # (Auto) (0.0-0.8) K/mm3 Seg Neutrophils % (40.0-70.0) % Sodium 134 L (137-145) mmol/L Carbon Dioxide 11 L (22-30) mmol/L BUN (7-17) mg/dL Creatinine 1.6 H (0.6-1.2) mg/dL Glucose 104 H (65-100) mg/dL Lactic Acid 3.70 H* (0.7-2.0) mmol/L AST 692 H (5-40) units/L ALT 693 H (7-56) units/L Total Protein 8.8 H (6.3-8.2) g/dL Albumin 5.2 H (3.9-5) g/dL Lipase 1480 H (13-60) units/L Ur Specific [place] (1.003-1.030) Urine Blood (Negative) Urine WBC (Auto) (0.0-6.0) /HPF 06/07/22 06/08/22 06/08/22 Range/Units 19:33 05:09 05:09 RBC 3.12 L (3.65-5.03) M/mm3 Hgb 8.7 L D (10.1-14.3) gm/dl Hct 27.4 L D (30.3-42.9) % RDW 19.6 H (13.2-15.2) % Lymph % (Auto) 5.6 L (13.4-35.0) % [place] % (Auto) 10.7 H (0.0-7.3) % Lymph # (Auto) 0.5 L (1.2-5.4) K/mm3 [place] # (Auto) 0.9 H (0.0-0.8) K/mm3 Seg Neutrophils % 83.4 H (40.0-70.0) % Sodium 131 L (137-145) mmol/L Carbon Dioxide 17 L (22-30) mmol/L BUN 19 H (7-17) mg/dL Creatinine (0.6-1.2) mg/dL Glucose (65-100) mg/dL Lactic Acid (0.7-2.0) mmol/L AST (5-40) units/L ALT (7-56) units/L Total Protein (6.3-8.2) g/dL Albumin (3.9-5) g/dL Lipase (13-60) units/L Ur Specific [place] 1.035 H (1.003-1.030) Urine Blood Large A (Negative) Urine WBC (Auto) 7.0 H (0.0-6.0) /HPF HEART Score - HEART Score Troponin: Troponin T 0.013 ng/mL (0.00-0.029) 06/07/22 23:02
[2022-06-08] MEDS ORDERED: cefTRIAXone/NS 1 GM/50 ML 1 GM/50 ML BAG IV SCH (16:30)
[2022-06-08] MEDS ORDERED: MORPHINE 4 MG/1 ML INJ IV ONE (21:00)
[2022-06-08] MEDS: NYSTATIN CREAM 15 GM TUBE TP SCH (23:50)
[2022-06-09] MEDS ORDERED: cloNIDine 0.1 MG TAB PO SCH (01:00)
[2022-06-09] MEDS: HYDROmorphone 1 MG/1 ML INJ IV PRN ×3 (01:18→12:13)
[2022-06-09 01:27] VITALS: BP 152/107
[2022-06-09] MEDS: D5W/0.9% NACL 1,000 ML IV SCH ×2 (01:31→12:14)
[2022-06-09 06:35] LABS: Alanine Aminotransferase 193 units/L (7-56); Albumin 3.2 g/dL (3.9-5); BUN/Creatinine Ratio 12; Blood Urea Nitrogen 11 mg/dL (7-17); Calcium 8.3 mg/dL (8.4-10.2); Hemolysis Index 2
--- NOTE | 2022-06-09 08:04 | Consultation ---
DATE OF CONSULTATION: 06/08/2022 REFERRING PHYSICIAN: Dr. Samantha Franz. INDICATIONS: 1. Abdominal pain. 2. Pancreatitis. HISTORY OF PRESENT ILLNESS: The patient is a 46-year-old black female with a history of CHF and history of chronic kidney disease. The patient presented to the Emergency Room with 2 days of nausea, vomiting, upper abdominal pain. The patient recently started Macrobid for urinary tract infection. The patient reports since that time, she has had nausea, vomiting, upper abdominal pain. The patient does report recent days cocaine, marijuana and alcohol use. The patient subsequently came to the Emergency Room where she had a CT scan and labs consistent with pancreatitis. She subsequently was admitted and GI consulted to aid in management. No other specific problems or complaints. PAST MEDICAL HISTORY: Hypertension with renal failure, status post cholecystectomy. MEDICATIONS: Reviewed and updated in chart. ALLERGIES: MORPHINE. SOCIAL HISTORY: Positive for cocaine, marijuana and alcohol abuse. FAMILY HISTORY: Colon cancer, IBD, or liver disease. REVIEW OF SYSTEMS: GENERAL: Reports some weakness. HEENT: Denies visual complaints or tinnitus. PULMONARY: No shortness of breath or chest pain. GASTROINTESTINAL: Reports abdominal pain and nausea. All points of 13-point review of systems otherwise negative. PHYSICAL EXAMINATION: VITAL SIGNS: Temperature of 97.5, pulse 94, respiration 18, blood pressure 166/100. GENERAL: Fairly thin, very anxious black female, in mild distress. HEENT: Pupils round, reactive. PULMONARY: Clear to auscultation bilaterally. CARDIOVASCULAR: Regular rate and rhythm. Normal S1, S2. ABDOMEN: Positive bowel sounds, soft, mild epigastric discomfort, no guarding, no rebound. SKIN: No obvious rashes. LABORATORY DATA: Pertinent for white count of 8.6, hemoglobin and hematocrit of 8.7 and 27.4, platelet count of 351. INR of 1.07. Chem-7: Sodium of 134, potassium 3.8, chloride 101, CO2 of 11, BUN and creatinine of 16 and 1.6. AST and ALT of 692 and 693 with a total bilirubin of 0.4 and an alkaline phosphatase of 121. CT scan of abdomen and pelvis with contrast on 06/07/2022 showed signs of chronic pancreatitis with abdominal ultrasound on 06/07/2022 negative. ASSESSMENT: A 46-year-old black female with history of hypertension and CHF, now recent days started on antibiotics for urinary tract infection and was actively using cocaine, marijuana as well as alcohol. Now presents with nausea, vomiting, upper abdominal pain with CT scan and labs consistent with pancreatitis. The patient reports her pain is improving. Management as noted below. PLAN: 1. We will review CT and ultrasound. 2. Follow labs including liver function tests and amylase. 3. Probably okay to start clear liquid diet in the morning and watch for response. 4. Antiemetics, pain medications and hydration per primary team. 5. When tolerating a soft diet, okay to discharge from GI standpoint. 6. We will follow. TID: [id number] RECEIPT: [id number] CAB/RES/TIFFANY cc: MTDD
[2022-06-09] MEDS: hydrALAZINE 25 MG TAB PO SCH ×2 (09:28→14:34)
[2022-06-09] MEDS: ASPIRIN 81 MG TAB CHEW PO SCH (09:28)
[2022-06-09] MEDS: NYSTATIN CREAM 15 GM TUBE TP SCH ×2 (09:29→14:34)
[2022-06-09] MEDS: ACETAMINOPHEN 325 MG TAB PO PRN (09:31)
--- NOTE | 2022-06-09 09:35 | Progress Note ---
Assessment and Plan Assessment and plan: 46-year-old -Af[place] female with known history hypertension, CHF and history of chronic kidney disease presenting to the emergency room complaining of pain, nausea and vomiting and upper abdominal pain for the past 2 days. She admits to using cocaine, marijuana, drinks alcohol occasionally and smokes tobacco on a daily basis. Patient denies any sick contacts and no recent travel. Denies any contact with anyone with COVID-19. Work-up in the emergency room today, CT of the abdomen and pelvis reveals acute pancreatitis. Chest x-ray unremarkable. Abdominal ultrasound was unremarkable. Urinalysis significant for UTI. UDS positive for cocaine and marijuana Labs reveals elevated liver enzymes. Patient being admitted with acute pancreatitis and UTI. Assessment and plan: --Acute pancreatitis --UTI --Nausea and Vomiting due to acute pancreatitis --Polysubstance abuse/UDS positive for cocaine --Elevated liver enzymes, due to acute pancreatitis --Chronic CHF with preserved EF --Uncontrolled BP -- Alcohol abuse with dependence Plan: -- Start clear liquid diet and advance slowly as tolerated, commenced on generous IV fluid hydration -- Continue on empiric antibiotics for UTI --Resume routine home medications for hypertension --consult gastroenterology for further recommendation -- Monitor for alcohol withdrawal, Place on folic acid and thiamine, Ativan IV as needed DVT Prophylaxis:SQ Heparin Code Status: Full Code Hospitalist Physical - Constitutional Vitals: Temp Pulse Resp BP Pulse Ox 97.5 F L 87 20 152/107 100 06/08/22 17:44 06/09/22 01:26 06/08/22 22:00 06/09/22 01:26 06/08/22 22:00 General appearance: Present: no acute distress, well-nourished HEART Score - HEART Score Troponin: Troponin T 0.013 ng/mL (0.00-0.029) 06/07/22 23:02 Results - Labs CBC & Chem 7: 06/08/22 05:09 06/09/22 05:40 Labs: Laboratory Last Values WBC 8.6 K/mm3 (4.5-11.0) 06/08/22 05:09 RBC 3.12 M/mm3 (3.65-5.03) L 06/08/22 05:09 Hgb 8.7 gm/dl (10.1-14.3) L D 06/08/22 05:09 Hct 27.4 % (30.3-42.9) L D 06/08/22 05:09 MCV 88 fl (79-97) 06/08/22 05:09 MCH 28 pg (28-32) 06/08/22 05:09 MCHC 32 % (30-34) 06/08/22 05:09 RDW 19.6 % (13.2-15.2) H 06/08/22 05:09 Plt Count 351 K/mm3 (140-440) 06/08/22 05:09 Lymph % (Auto) 5.6 % (13.4-35.0) L 06/08/22 05:09 [place] % (Auto) 10.7 % (0.0-7.3) H 06/08/22 05:09 Eos % (Auto) 0.1 % (0.0-4.3) 06/08/22 05:09 Baso % (Auto) 0.2 % (0.0-1.8) 06/08/22 05:09 Lymph # (Auto) 0.5 K/mm3 (1.2-5.4) L 06/08/22 05:09 [place] # (Auto) 0.9 K/mm3 (0.0-0.8) H 06/08/22 05:09 Eos # (Auto) 0.0 K/mm3 (0.0-0.4) 06/08/22 05:09 Baso # (Auto) 0.0 K/mm3 (0.0-0.1) 06/08/22 05:09 Seg Neutrophils % 83.4 % (40.0-70.0) H 06/08/22 05:09 Seg Neutrophils # 7.2 K/mm3 (1.8-7.7) 06/08/22 05:09 PT 15.4 Sec. (12.2-14.9) H 06/07/22 14:11 INR 1.07 (0.87-1.13) 06/07/22 14:11 APTT 39.8 Sec. (24.2-36.6) H 06/07/22 14:11 Sodium 133 mmol/L (137-145) L 06/09/22 05:40 Potassium 3.5 mmol/L (3.6-5.0) L 06/09/22 05:40 Chloride 104.3 mmol/L (98-107) 06/09/22 05:40 Carbon Dioxide 18 mmol/L (22-30) L 06/09/22 05:40 Anion Gap 14 mmol/L 06/09/22 05:40 BUN 11 mg/dL (7-17) 06/09/22 05:40 Creatinine 0.9 mg/dL (0.6-1.2) 06/09/22 05:40 Estimated GFR > 60 ml/min 06/09/22 05:40 BUN/Creatinine Ratio 12 % 06/09/22 05:40 Glucose 96 mg/dL (65-100) 06/09/22 05:40 Lactic Acid 1.80 mmol/L (0.7-2.0) 06/07/22 23:02 Calcium 8.3 mg/dL (8.4-10.2) L 06/09/22 05:40 Total Bilirubin 0.20 mg/dL (0.1-1.2) 06/09/22 05:40 AST 65 units/L (5-40) H 06/09/22 05:40 ALT 193 units/L (7-56) H 06/09/22 05:40 Alkaline Phosphatase 71 units/L (35-129) 06/09/22 05:40 Troponin T 0.013 ng/mL (0.00-0.029) 06/07/22 23:02 Total Protein 5.8 g/dL (6.3-8.2) L D 06/09/22 05:40 Albumin 3.2 g/dL (3.9-5) L 06/09/22 05:40 Albumin/Globulin Ratio 1.2 % 06/09/22 05:40 Lipase 717 units/L (13-60) H 06/09/22 00:57 Urine Color [place] (Yellow) 06/07/22 19:33 Urine Turbidity Clear (Clear) 06/07/22 19:33 Urine pH 6.0 (5.0-7.0) 06/07/22 19:33 Ur Specific [place] 1.035 (1.003-1.030) H 06/07/22 19:33 Urine Protein 30 mg/dl mg/dL (Negative) 06/07/22 19:33 Urine Glucose (UA) Negative mg/dL (Negative) 06/07/22 19:33 Urine Ketones Negative mg/dL (Negative) 06/07/22 19:33 Urine Blood Large (Negative) A 06/07/22 19:33 Urine Nitrite Negative (Negative) 06/07/22 19:33 Ur Reducing Substances Not Reportable 06/07/22 19:33 Urine Bilirubin Small (Negative) 06/07/22 19:33 Urine Ictotest Positive (Negative) 06/07/22 19:33 Urine Urobilinogen 0.2 mg/dL (<2.0) 06/07/22 19:33 Ur Leukocyte Esterase Negative (Negative) 06/07/22 19:33 Urine WBC (Auto) 7.0 /HPF (0.0-6.0) H 06/07/22 19:33 Urine RBC (Auto) 16.0 /HPF (0.0-6.0) 06/07/22 19:33 U Epithel Cells (Auto) 9.0 /HPF (0-13.0) 06/07/22 19:33 Urine Bacteria (Auto) 1+ /HPF (Negative) 06/07/22 19:33 Urine HCG, Qual Negative (Negative) 06/07/22 19:33 Urine Opiates Screen Negative 06/07/22 19:33 Urine Methadone Screen Negative 06/07/22 19:33 Ur Barbiturates Screen Negative 06/07/22 19:33 Ur Phencyclidine Scrn Negative 06/07/22 19:33 Ur Amphetamines Screen Negative 06/07/22 19:33 U Benzodiazepines Scrn Negative 06/07/22 19:33 Urine Cocaine Screen Positive 06/07/22 19:33 U Marijuana (THC) Screen Positive 06/07/22 19:33 Drugs of Abuse Note Disclamer 06/07/22 19:33 Plasma/Serum Alcohol < 0.01 % (0-0.07) 06/07/22 14:11 Hepatitis A IgM Ab Non-reactive (NonReactive) 06/07/22 23:44 Hep Bs Antigen Non-reactive (Negative) 06/07/22 23:44 Hep B Core IgM Ab Non-reactive (NonReactive) 06/07/22 23:44 Hepatitis C Antibody Non-reactive (NonReactive) 06/07/22 23:44 Bravo/IV: Voiding Method Toilet Active Medications - Current Medications Current Medications: Generic Name Dose Route Start Last Admin Trade Name Freq PRN Reason Stop Dose Admin Acetaminophen 650 mg 06/07/22 22:26 06/09/22 09:31 Acetaminophen 325 Mg Tab PO 650 mg Q4H PRN Administration Pain MILD(1-3)/Fever >100.5/FIORE Aspirin 81 mg 06/08/22 11:00 06/09/22 09:28 Aspirin 81 Mg Tab Chew PO 81 mg DAILY VICTOR M Administration Clonidine HCl 0.1 mg 06/09/22 01:00 06/09/22 01:26 Clonidine 0.1 Mg Tab PO 0.1 mg QHS VICTOR M Administration Hydralazine HCl 25 mg 06/09/22 08:00 06/09/22 09:28 Hydralazine 25 Mg Tab PO 25 mg TID VICTOR M Administration Hydromorphone HCl 1 mg 06/08/22 03:49 06/09/22 06:34 Hydromorphone 1 Mg/1 Ml Inj IV 1 mg Q4H PRN Administration Pain , Severe (7-10) Dextrose/Sodium Chloride 1,000 mls @ 100 mls/hr 06/08/22 11:00 06/09/22 01:31 D5ns IV 100 mls/hr DIRECT VICTOR M Administration Ceftriaxone Sodium 1 gm in 50 mls @ 100 mls/hr 06/08/22 16:30 06/08/22 18:52 Rocephin/Ns 1 Gm/50 Ml IV 06/12/22 18:59 100 mls/hr Q24H VICTOR M Administration Protocol Labetalol HCl 10 mg 06/08/22 13:48 06/08/22 18:51 Labetalol 20 Mg/4 Ml Inj IV 10 mg Q4H PRN Administration Hypertension Magnesium Hydroxide 30 ml 06/07/22 22:26 Magnesium Hydroxide (Mom) Oral Liqd Udc PO Q4H PRN Constipation Nystatin 1 applic 06/08/22 23:00 06/09/22 09:29 Nystatin Cream 15 Gm Tube TP 1 applic TID VICTOR M Administration Ondansetron HCl 4 mg 06/07/22 22:26 06/08/22 15:56 Ondansetron 4 Mg/2 Ml Inj IV 4 mg Q8H PRN Administration Nausea And Vomiting Pantoprazole Sodium 40 mg 06/09/22 10:00 06/09/22 09:28 Pantoprazole 40 Mg Tab PO 40 mg DAILY VICTOR M Administration Sacubitril/Valsartan 1 each 06/09/22 10:00 Sacubitril/Valsartan 49-51 Mg Tab PO DAILY VICTOR M Sodium Chloride 10 ml 06/08/22 10:00 06/09/22 09:32 Sodium Chloride 0.9% 10 Ml Flush Syringe IV 10 ml BID VICOTR M Administration Sodium Chloride 10 ml 06/07/22 22:26 Sodium Chloride 0.9% 10 Ml Flush Syringe IV PRN PRN LINE FLUSH
[2022-06-09] MEDS ORDERED: SACUBITRIL/VALSARTAN 49-51 MG TAB PO SCH (10:00)
[2022-06-09] MEDS ORDERED: PANTOPRAZOLE 40 MG TAB PO SCH (10:00)
[2022-06-09] MEDS: ONDANSETRON 4 MG/2 ML INJ IV PRN (12:14)
--- NOTE | 2022-06-09 13:50 | Discharge Summary ---
Providers - Providers Date of Admission: 06/07/22 22:26 Date of discharge: 06/09/22 Attending physician: JUANCARLOS CHAPA 06/07/22 23:36 Consult to Physician [CONS] Routine Comment: Consulting Provider: IMTIAZ MORENO Physician Instructions: Reason For Exam: Elevated liver enzymes Primary care physician: WILLOWER Hospitalization Condition: Stable Hospital course: 46-year-old -[place] female with known history hypertension, CHF and history of chronic kidney disease presenting to the emergency room complaining of pain, nausea and vomiting and upper abdominal pain for the past 2 days. She admits to using cocaine, marijuana, drinks alcohol occasionally and smokes tobacco on a daily basis. Patient denies any sick contacts and no recent travel. Denies any contact with anyone with COVID-19. Work-up in the emergency room today, CT of the abdomen and pelvis reveals acute pancreatitis. Chest x-ray unremarkable. Abdominal ultrasound was unremarkable. Urinalysis significant for UTI. UDS positive for cocaine and marijuana Labs reveals elevated liver enzymes. Patient being admitted with acute pancreatitis and UTI. Assessment and plan: --Acute pancreatitis --UTI --Nausea and Vomiting due to acute pancreatitis --Polysubstance abuse/UDS positive for cocaine --Elevated liver enzymes, due to acute pancreatitis --Chronic CHF with preserved EF --Uncontrolled BP -- Alcohol abuse with dependence Plan: -- Start clear liquid diet and advance slowly as tolerated, commenced on generous IV fluid hydration -- Continue on empiric antibiotics for UTI --Resume routine home medications for hypertension --consult gastroenterology for further recommendation -- Monitor for alcohol withdrawal, Place on folic acid and thiamine, Ativan IV as needed Disposition: 01 HOME / SELF CARE / HOMELESS Exam - Constitutional Vitals: Temp Pulse Resp BP Pulse Ox 97.5 F L 87 20 152/107 99 06/08/22 17:44 06/09/22 01:26 06/09/22 01:24 06/09/22 01:26 06/09/22 01:24 Plan Diet: other Follow up with: SHAHZAD CARROLL MD [Primary Care Provider] - 3-5 Days SAMEER MÉNDEZ MD [Staff Physician] - 14 Days Prescriptions: Nystatin Cream [Mycostatin Cream] 1 applic TP TID #1 tube oxyCODONE /ACETAMINOPHEN [Percocet 5/325] 1 tab PO TID PRN #12 PRN Reason: Pain , Severe (7-10)
[2022-06-09] MEDS ORDERED: oxyCODONE /ACETAMINOPHEN 5-325MG TAB PO ONE (14:15)
--- NOTE | 2022-06-09 15:18 | Gastroenterology Progress Note ---
Subjective Date of service: 06/09/22 Interval history: - reports abdominal pain improved, wants diet advanced - resolving pancreatitis - follow labs - when tolerating soft diet ok to dc from GI standpoint - will follow Objective - Constitutional Vitals: Temp Pulse Resp BP Pulse Ox 97.5 F L 87 20 152/107 98 06/08/22 17:44 06/09/22 01:26 06/09/22 01:24 06/09/22 01:26 06/09/22 10:00 - Labs CBC & Chem 7: 06/08/22 05:09 06/09/22 05:40 Labs: Laboratory Results - last 24 hr 06/09/22 06/09/22 00:57 05:40 Sodium 133 L Potassium 3.5 L Chloride 104.3 Carbon Dioxide 18 L Anion Gap 14 BUN 11 Creatinine 0.9 Estimated GFR > 60 BUN/Creatinine Ratio 12 Glucose 96 Calcium 8.3 L Total Bilirubin 0.20 AST 65 H ALT 193 H Alkaline Phosphatase 71 Total Protein 5.8 L D Albumin 3.2 L Albumin/Globulin Ratio 1.2 Lipase 717 H
== END 2022-06-09 15:38 | disposition home or self-care (01) | DRG 439 ==
LOC: ED 13:49 → 3A 22:26
PROVIDERS: ADMIT Internal Medicine Geriatric Medicine; ATTEND Internal Medicine
DX: K85.90 Acute pancreatitis without necrosis or infection, unspecified (principal); N39.0 Urinary tract infection, site not specified; I50.32 Chronic diastolic (congestive) heart failure; I16.0 Hypertensive urgency; F19.10 Other psychoactive substance abuse, uncomplicated; I11.0 Hypertensive heart disease with heart failure; F10.20 Alcohol dependence, uncomplicated; F17.200 Nicotine dependence, unspecified, uncomplicated; F14.10 Cocaine abuse, uncomplicated; Z79.82 Long term (current) use of aspirin; Y90.9 Presence of alcohol in blood, level not specified; Z88.5 Allergy status to narcotic agent; Z90.49 Acquired absence of other specified parts of digestive tract
CPT/HCPCS: 36415; 71046; 74176; 76705; 80048; 80053; 80074; 80307; 80320; 81001; 81025; 82140; 83690; 84484; 85025; 85610; 85730; 87086; 93005; G0378; J3490; G0480; J0360; J0696; J1170; J2270; J2405; J2543; J7030; J7042